=== PATIENT | female | born 1935 | race Caucasian/White ===

== ENCOUNTER 2016-05-08 10:13 | Emergency (ER) | payer OTHER ==
[~2016-05-08] VITALS: Ht 162.6 cm; Wt 61.0 kg
[~2016-05-08 10:13] MED LIST: ASPEC81 PO; ATOR-24 PO; CHOL100010 PO; COEN1CAP28 PO; DIGO0.122 PO; METO25TA3 PO; NITR0.4S UT
[2016-05-08 10:25] VITALS: TEMP 36.3; Ht 162.6 cm; Wt 61.0 kg
[2016-05-08] MEDS ORDERED: HYDROmorphone INJ 0.5 MG/0.5 ML SYR IV STA ×2 (10:39→11:45)
[2016-05-08] MEDS ORDERED: LORAZEPAM 2 MG/ML 1 ML VIAL IV STA (10:39)
[2016-05-08] MEDS ORDERED: SODIUM CHLORIDE 0.9% 1000ML 1,000 ML IV STA (10:39)
[2016-05-08] MEDS ORDERED: ONDANSETRON INJ 2 MG/ML 2 ML VIAL IV STA (10:44)
--- NOTE | 2016-05-08 10:44 | EMERGENCY ROOM VISIT NOTE ---
History Report prepared by Petros: Errol Sierra Under the Supervision of: Dr. Lucina Mello M.D. First contact with patient: 10:38 Chief Complaint: FALL Stated Complaint: SHOULDER PAIN History of Present Illness The patient is a 80 year old female who presents to the Emergency Room with complaints of an acute fall that occurred at approximately 0900. The patient patient started a treadmill that was initially at a high speed, which caused her to fall. The patient now complains of left shoulder pain. She is also nauseous. The patient hit her head when she fell. The patient takes Coumadin. The patient has a pacemaker. The patient has a history of MA and aortic valve replacement. The patient was given 75 mcg Fentanyl and 4 mg Zofran in the ambulance en route to the ED. Source of History: patient Onset: 0900 this morning Position: other (global) Quality: other (fall) Timing: other (acute) Associated Symptoms: + nausea Review of Systems See HPI for pertinent positives & negatives. A total of 10 systems reviewed and were otherwise negative. 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 (5) DIAB RAYNE WO COMPL, TYPE II OR UNSPEC TYPE, NOT UNCNTRLD (6) Diverticulosis of colon without diverticulitis (7) Dyslipidemia (8) Gastroesophageal reflux disease (9) History of adenomatous polyp of colon (10) History of cholecystectomy (11) History pacemaker insertion (12) Hypercalcemia (13) Primary hyperparathyroidism Family History Cancer Heart disease Social History Smoking Status: Never Smoker Alcohol Use: none Drug Use: none Marital Status: Housing Status: lives with family Occupation Status: retired Current/Historical Medications Scheduled Atorvastatin (Lipitor), 40 MG PO QPM Cholecalciferol (Vitamin D3), 1,000 UNITS PO DAILY Coenzyme Q10 (Ubidecarenone) (Co Q10), 100 MG PO DAILY Losartan Potassium (Cozaar), 100 MG PO DAILY Nitroglycerin (Nitrostat), 0.4 MG UT PRN Allergies Coded Allergies: Tetracycline (Verified Allergy, Unknown, RASH, 01/25/16) Morphine (Verified Adverse Reaction, Mild, "VIOLENTLY ILL", NAUSEA/ VOMITING, 01/25/16) Codeine (Verified Adverse Reaction, Unknown, N/V, 10/18/16) Physical Exam Vital Signs Date Time Temp Pulse Resp B/P Pulse Ox O2 Delivery O2 Flow Rate FiO2 05/08/16 15:28 62 18 110/81 90 Room Air 05/08/16 14:33 67 19 100 05/08/16 14:28 148/74 05/08/16 14:18 61 11 100 05/08/16 14:18 65 05/08/16 14:13 161/76 05/08/16 14:03 62 7 100 05/08/16 13:58 163/87 05/08/16 13:48 70 22 100 05/08/16 13:44 147/85 05/08/16 13:33 62 17 100 05/08/16 13:28 166/75 05/08/16 13:19 65 20 167/79 99 Nasal Cannula 2.0 05/08/16 13:18 63 17 94 05/08/16 13:14 167/79 05/08/16 13:03 62 19 100 05/08/16 12:58 189/80 05/08/16 12:48 64 20 100 05/08/16 12:43 172/91 05/08/16 12:33 60 21 100 05/08/16 12:28 186/85 05/08/16 12:18 62 19 98 05/08/16 12:13 168/89 05/08/16 12:03 64 18 93 05/08/16 11:58 67 19 157/80 05/08/16 11:44 180/94 05/08/16 11:43 67 19 05/08/16 11:28 68 20 195/87 05/08/16 11:13 65 27 189/89 95 05/08/16 11:02 72 24 159/104 05/08/16 11:01 159/104 05/08/16 11:01 69 05/08/16 10:58 72 28 95 05/08/16 10:28 176/94 05/08/16 10:25 36.3 76 20 176/94 88 Room Air Physical Exam Vital signs reviewed. General: Elderly, well-appearing female, significant discomfort. HEENT: No scleral icterus, PERRLA, neck supple. Atraumatic. Cardiovascular: Regular rate and rhythm, no extra sounds. Pacemaker in place to the left anterior chest wall. Pulmonary: Clear to auscultation bilaterally, normal work of breathing. Abdomen: Soft, nontender, nondistended, positive bowel sounds. Musculoskeletal: Left shoulder deformity. Neurovascularly intact distally Neurologic: Patient awake alert and oriented x 3, full strength in all 4 extremities. Cranial nerves 2 through 12 grossly intact. Skin: Warm, dry, no rash Medical Decision & Procedures ER Provider Diagnostic Interpretation: X-ray results as stated below per my interpretation and radiologist interpretation. Other radiology results as stated below per my review and radiologist interpretation: HEAD CT NONCONTRAST CT DOSE: 614.27 mGy.cm HISTORY: Closed head injury. TECHNIQUE: Multiaxial CT images of the head were performed without the use of intravenous contrast. Automated exposure control was utilized for this study. Comparison: Head CT 12/20/2012. Findings: The paranasal sinuses and mastoid air cells are clear. The calvarium and skull base are intact. There is no mass, hematoma, midline shift, acute infarct. White matter hypodensity is nonspecific but suggestive of microvascular ischemic change. The ventricles and sulci demonstrate mild age-related involutional changes. Impression: No significant change compared to the prior study. No acute intracranial abnormality. Electronically signed by: Jean-Claude Pro M.D. 05/08/2016 12:12 PM Dictated Date/Time: 05/08/2016 11:57 AM CHEST ONE VIEW PORTABLE HISTORY: Left-sided chest pain after fall. COMPARISON: Chest 01/25/2016. FINDINGS: No pleural effusions. No pneumothorax. The heart remains moderately enlarged. There is metallic stent overlying the heart. There is a left-sided single lead pacemaker. There is a right total shoulder arthroplasty. No focal lung consolidations to suggest pneumonia. No evidence for pulmonary edema. Mild interstitial thickening is likely chronic. Left anterior shoulder dislocation. IMPRESSION: 1. Left anterior shoulder dislocation. 2. Otherwise, no acute process within the chest. 3. Cardiomegaly and mild interstitial thickening persists. Electronically signed by: Jean-Claude Pro M.D. 05/08/2016 11:46 AM Dictated Date/Time: 05/08/2016 11:41 AM LEFT SHOULDER MIN 2 VIEWS ROUTINE CLINICAL HISTORY: L shoulder pain after fall trauma. Pain. COMPARISON: None. DISCUSSION: Findings consistent with an anterior dislocation of the left shoulder are in moderate degenerative change acromioclavicular joint. Pre-existing unipolar cardiac pacemaker. There is no evidence for soft tissue swelling. IMPRESSION: Anterior dislocation left shoulder Electronically signed by: Albert Hernandez M.D. 05/08/2016 11:23 AM Dictated Date/Time: 05/08/2016 11:23 AM LEFT SHOULDER MIN 2 VIEWS ROUTINE CLINICAL HISTORY: Status post left shoulder reduction. COMPARISON STUDY: Left shoulder 05/08/2016. FINDINGS: Patient is status post reduction of the left anterior shoulder dislocation. The alignment appears anatomic. No fractures identified. Chronic changes at the AC joint are again noted. No acute fractures identified clavicle. IMPRESSION: No acute fractures within the left shoulder. Status post reduction of the left shoulder dislocation. The alignment appears anatomic. Electronically signed by: Jean-Claude Pro M.D. 05/08/2016 2:10 PM Dictated Date/Time: 05/08/2016 2:07 PM Laboratory Results 05/08/16 11:30 Red Blood Count 4.67, Mean Corpuscular Volume 86.1, Mean Corpuscular Hemoglobin 29.1, Mean Corpuscular Hemoglobin Concent 33.8, Mean Platelet Volume 10.2, Neutrophils (%) (Auto) 75.5, Lymphocytes (%) (Auto) 16.1, Monocytes (%) (Auto) 6.4, Eosinophils (%) (Auto) 1.4, Basophils (%) (Auto) 0.1, Neutrophils # (Auto) 6.40, Lymphocytes # (Auto) 1.36, Monocytes # (Auto) 0.54, Eosinophils # (Auto) 0.12, Basophils # (Auto) 0.01 05/08/16 11:30 Test 05/08/16 11:30 White Blood Count 8.47 K/uL (4.8-10.8) Red Blood Count 4.67 M/uL (4.2-5.4) Hemoglobin 13.6 g/dL (12.0-16.0) Hematocrit 40.2 % (37-47) Mean Corpuscular Volume 86.1 fL (80-100) Mean Corpuscular Hemoglobin 29.1 pg (25-34) Mean Corpuscular Hemoglobin Concent 33.8 g/dl (32-36) Platelet Count 127 K/uL (130-400) Mean Platelet Volume 10.2 fL (7.4-10.4) Neutrophils (%) (Auto) 75.5 % Lymphocytes (%) (Auto) 16.1 % Monocytes (%) (Auto) 6.4 % Eosinophils (%) (Auto) 1.4 % Basophils (%) (Auto) 0.1 % Neutrophils # (Auto) 6.40 K/uL (1.4-6.5) Lymphocytes # (Auto) 1.36 K/uL (1.2-3.4) Monocytes # (Auto) 0.54 K/uL (0.11-0.59) Eosinophils # (Auto) 0.12 K/uL (0-0.5) Basophils # (Auto) 0.01 K/uL (0-0.2) RDW Standard Deviation 43.8 fL (36.4-46.3) RDW Coefficient of Variation 14.1 % (11.5-14.5) Immature Granulocyte % (Auto) 0.5 % Immature Granulocyte # (Auto) 0.04 K/uL (0.00-0.02) Prothrombin Time 27.8 SECONDS (9.0-12.0) Prothromb Time International Ratio 2.5 (0.9-1.1) Activated Partial Thromboplast Time 31.8 SECONDS (21.0-31.0) Partial Thromboplastin Ratio 1.2 Anion Gap 9.0 mmol/L (3-11) Est Creatinine Clear Calc Drug Dose 47.5 ml/min Estimated GFR () 77.7 Estimated GFR (Non- 67.1 BUN/Creatinine Ratio 24.5 (10-20) Calcium Level 9.8 mg/dl (8.5-10.1) Total Bilirubin 0.8 mg/dl (0.2-1) Direct Bilirubin 0.2 mg/dl (0-0.2) Aspartate Amino Transf (AST/SGOT) 21 U/L (15-37) Alanine Aminotransferase (ALT/SGPT) 28 U/L (12-78) Alkaline Phosphatase 85 U/L (45-117) Total Protein 7.2 gm/dl (6.4-8.2) Albumin 4.0 gm/dl (3.4-5.0) Laboratory results per my review. Medications Administered Medications (Trade) Dose Ordered Sig/Juancho Route Start Time Stop Time Status Last Admin Dose Admin Hydromorphone HCl (Dilaudid Inj) 0.5 mg NOW STAT IV 1/30/17 10:39 05/08/16 15:13 DC 05/08/16 10:51 0.5 MG Lorazepam 0.5 mg 0.5 mg NOW STAT IV 05/08/16 10:39 05/08/16 15:13 DC 05/08/16 10:50 0.5 MG Sodium Chloride (Nss 1000ml) 1,000 ml @ 125 mls/hr Q8H STAT IV 05/08/16 10:39 05/08/16 17:34 DC 05/08/16 10:50 125 MLS/HR Ondansetron HCl (Zofran Inj) 4 mg NOW STAT IV 05/08/16 10:44 05/08/16 15:13 DC 05/08/16 11:00 4 MG Hydromorphone HCl (Dilaudid Inj) 0.5 mg NOW STAT IV 05/08/16 11:45 05/08/16 15:15 DC 05/08/16 11:49 0.5 MG Procedure Anterior Shoulder Dislocation Reduction Indication: Anterior shoulder reduction. Verbal consent obtained. Risks and benefits were explained with the usual customary discussion. A time out was taken. Neurovascular examination before the procedure revealed intact. No additional sedation was required. The left shoulder glenohumeral dislocation was reduced by placing the patient prone and applying gentle downward inline traction on the humerus, with the elbow flexed at 90 degrees, while scapula manipulation was applied. This resulted in an easy reduction without complication. Neurovascular examination after the procedure revealed intact. The patient had significant pain relief and tolerated the procedure well. ED Course 1038: Past medical records reviewed. The patient was evaluated in room C2b. A complete history and physical examination was performed. 1039: NSS 1000 ml @ 125 mls/hr, Ativan 0.5 mg IV, Dilaudid 0.5 mg IV. 1044: Zofran 4 mg IV. 1145: Dilaudid 0.5 mg IV. 1355: Shoulder reduction performed. Please see procedural note above. 1455: Reassessed the patient. Discussed the findings with her. She verbalized understanding and agreement of the treatment plan. The patient is ready for discharge. Medical Decision Differential diagnosis: Etiologies such as fracture, dislocation, neurovascular compromise, compartment syndrome, soft tissue injury, as well as others were entertained. This patient was evaluated and appeared to be in no significant distress. IV access was obtained and laboratory work was drawn. The patient was placed on the environmental monitoring specialist and found to be in a normal sinus rhythm. She had significant pain and was given IV Dilaudid. Patient was significantly anxious and was given IV Ativan for her anxiety. X-rays were obtained and reveal no fracture but a positive shoulder dislocation. Patient was placed in the prone position. The shoulder was reduced without any difficulty. Please see my procedure note above. The patient had significant resolution of her pain and she was placed in a sling. Postreduction films were taken and reveal the shoulder in good position. Ice was applied. Patient was discharged after an ambulatory trial was successful. She'll follow-up with orthopedics for reevaluation and return to the ER for worsening of symptoms or any medical concerns. Impression Primary Impression: Dislocation, shoulder, anterior Scribe Attestation The scribe's documentation has been prepared under my direction and personally reviewed by me in its entirety. I confirm that the note above accurately reflects all work, treatment, procedures, and medical decision making performed by me. Departure Information Dispostion Home / Self-Care Referrals Jaron Harper MD (PCP) Forms HOME CARE DOCUMENTATION FORM, IMPORTANT VISIT INFORMATION Patient Instructions My [facility] Additional Instructions Diagnosis: Left shoulder dislocation Please wear your sling until you are reevaluated by orthopedics. Please call Dr. Fernandez's office, see below, for follow-up within the next week. Ice to the shoulder for pain and swelling. Tylenol 650 mg every 6 hours as needed for pain. Return to the emergency department for worsening of symptoms or any medical concerns. Problem Qualifiers Primary Impression: Dislocation, shoulder, anterior Encounter type: initial encounter Laterality: left Qualified Codes: S43.015A - Anterior dislocation of left humerus, initial encounter
--- NOTE | 2016-05-08 11:25 | DIAGNOSTIC IMAGING REPORT ---
LEFT SHOULDER MIN 2 VIEWS ROUTINE CLINICAL HISTORY: L shoulder pain after fall trauma. Pain. COMPARISON: None. DISCUSSION: Findings consistent with an anterior dislocation of the left shoulder are in moderate degenerative change acromioclavicular joint. Pre-existing unipolar cardiac pacemaker. There is no evidence for soft tissue swelling. IMPRESSION: Anterior dislocation left shoulder Electronically signed by: Albert Hernandez M.D. 05/08/2016 11:23 AM Dictated Date/Time: 05/08/2016 11:23 AM
[2016-05-08] MEDS ORDERED: LOSA1TAB38 PO (11:27)
[2016-05-08] MEDS ORDERED: CHOL1000 PO (11:28)
[2016-05-08 11:47] LABS: RED BLOOD COUNT 4.67 M/uL (4.2-5.4); WHITE BLOOD COUNT 8.47 K/uL (4.8-10.8)
--- NOTE | 2016-05-08 11:47 | DIAGNOSTIC IMAGING REPORT ---
CHEST ONE VIEW PORTABLE HISTORY: Left-sided chest pain after fall. COMPARISON: Chest 01/25/2016. FINDINGS: No pleural effusions. No pneumothorax. The heart remains moderately enlarged. There is metallic stent overlying the heart. There is a left-sided single lead pacemaker. There is a right total shoulder arthroplasty. No focal lung consolidations to suggest pneumonia. No evidence for pulmonary edema. Mild interstitial thickening is likely chronic. Left anterior shoulder dislocation. IMPRESSION: 1. Left anterior shoulder dislocation. 2. Otherwise, no acute process within the chest. 3. Cardiomegaly and mild interstitial thickening persists. Electronically signed by: Jean-Claude Pro M.D. 05/08/2016 11:46 AM Dictated Date/Time: 05/08/2016 11:41 AM
[2016-05-08 11:48] LABS: BASO % 0.1 %; BASO ABS # 0.01 K/uL (0-0.2); COMPLETE YES; EOS % 1.4 %; HEMATOCRIT 40.2 % (37-47); IG% 0.5 %; LYMPH % 16.1 %; LYMPH ABS # 1.36 K/uL (1.2-3.4); MEAN CELL VOLUME 86.1 fL (80-100); MEAN CORPUSCULAR HEMOGLOBIN 29.1 pg (25-34); MEAN CORPUSCULAR HGB CONC 33.8 g/dl (32-36); MEAN PLATELET VOLUME 10.2 fL (7.4-10.4); MONO % 6.4 %; NEUT % 75.5 %; PLATELET COUNT 127 K/uL (130-400)
[2016-05-08 12:00] LABS: INR 2.5 (0.9-1.1); PARTIAL THROMBOPLASTIN RATIO 1.2; PROTHROMBIN TIME (PATIENT) 27.8 SECONDS (9.0-12.0)
--- NOTE | 2016-05-08 12:13 | DIAGNOSTIC IMAGING REPORT ---
HEAD CT NONCONTRAST CT DOSE: 614.27 mGy.cm HISTORY: Closed head injury. TECHNIQUE: Multiaxial CT images of the head were performed without the use of intravenous contrast. Automated exposure control was utilized for this study. Comparison: Head CT 12/20/2012. Findings: The paranasal sinuses and mastoid air cells are clear. The calvarium and skull base are intact. There is no mass, hematoma, midline shift, acute infarct. White matter hypodensity is nonspecific but suggestive of microvascular ischemic change. The ventricles and sulci demonstrate mild age-related involutional changes. Impression: No significant change compared to the prior study. No acute intracranial abnormality. Electronically signed by: Jean-Claude Pro M.D. 05/08/2016 12:12 PM Dictated Date/Time: 05/08/2016 11:57 AM
[2016-05-08 12:21] LABS: BUN/CREATININE RATIO 24.5 (10-20); CALCIUM 9.8 mg/dl (8.5-10.1); CREATININE 0.83 mg/dl (0.60-1.20); POTASSIUM 3.7 mmol/L (3.5-5.1)
--- NOTE | 2016-05-08 14:11 | DIAGNOSTIC IMAGING REPORT ---
LEFT SHOULDER MIN 2 VIEWS ROUTINE CLINICAL HISTORY: Status post left shoulder reduction. COMPARISON STUDY: Left shoulder 05/08/2016. FINDINGS: Patient is status post reduction of the left anterior shoulder dislocation. The alignment appears anatomic. No fractures identified. Chronic changes at the AC joint are again noted. No acute fractures identified clavicle. IMPRESSION: No acute fractures within the left shoulder. Status post reduction of the left shoulder dislocation. The alignment appears anatomic. Electronically signed by: Jean-Claude Pro M.D. 05/08/2016 2:10 PM Dictated Date/Time: 05/08/2016 2:07 PM
[2016-05-08 15:28] VITALS: BP 110/81; PULSE 62; O2SAT 90
== END 2016-05-08 15:47 | disposition home or self-care (01) ==
LOC: EDBD 10:13 → C.EDC 10:15
DX: S43.015A Anterior dislocation of left humerus, initial encounter (principal); W19.XXXA Unspecified fall, initial encounter; Y93.A1 Activity, exercise machines primarily for cardiorespiratory conditioning; Z95.0 Presence of cardiac pacemaker; I25.2 Old myocardial infarction; Z95.2 Presence of prosthetic heart valve; I48.91 Unspecified atrial fibrillation; I10 Essential (primary) hypertension; I25.10 Atherosclerotic heart disease of native coronary artery without angina pectoris; E11.9 Type 2 diabetes mellitus without complications; E78.5 Hyperlipidemia, unspecified; K21.9 Gastro-esophageal reflux disease without esophagitis; Z90.49 Acquired absence of other specified parts of digestive tract; Z80.9 Family history of malignant neoplasm, unspecified; Z82.49 Family history of ischemic heart disease and other diseases of the circulatory system; Z88.1 Allergy status to other antibiotic agents; Z88.5 Allergy status to narcotic agent

== ENCOUNTER 2016-11-24 13:27 | Emergency (ER) | payer OTHER ==
[~2016-11-24] VITALS: Ht 162.6 cm; Wt 62.0 kg
[~2016-11-24 13:27] MED LIST changes: -ASPEC81 PO; +CHOL1000 PO; -CHOL100010 PO; -DIGO0.122 PO; +LOSA1TAB38 PO; -METO25TA3 PO
[2016-11-24 13:42] VITALS: TEMP 36.6; Ht 162.6 cm; Wt 62.0 kg
--- NOTE | 2016-11-24 14:22 | EMERGENCY ROOM VISIT NOTE ---
History Report prepared by Petros: Tea Blandon Under the Supervision of: Dr. Favio Gudino M.D. First contact with patient: 13:59 Chief Complaint: OTHER COMPLAINT Stated Complaint: TOOK 'S MEDICATION THIS MORNING History of Present Illness The patient is a 81 year old female who presents to the Emergency Room with complaints of an episode of accidentally taking her husbands medication about 5 hours ago. The patient states that she had a headache earlier today that has since resolved. She also notes that she forgot to take her normal medication yesterday and that she has since not taken her prescribed medication today. The patient notes that she has a stent, a pacemaker, and an artificial aortic valve in place. She also notes that she had a heart attack a few years ago. The patient states that she took her 's Warfarin, Metoprolol, Cogentin, Isosorbide, Thyroxine, Dutasteride, ASA, and Coumadin. The patient is on Coumadin as well but on a lower dosage than her . She takes the same dose of Metoprolol as her . Source of History: patient Onset: 5 hours ago Position: other (generalized) Timing: other (episode) Associated Symptoms: + headache (resolved) Review of Systems See HPI for pertinent positives & negatives. A total of 10 systems reviewed and were otherwise negative. 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 (5) DIAB RAYNE WO COMPL, TYPE II OR UNSPEC TYPE, NOT UNCNTRLD (6) Diverticulosis of colon without diverticulitis (7) Dyslipidemia (8) Gastroesophageal reflux disease (9) History of adenomatous polyp of colon (10) History of cholecystectomy (11) History pacemaker insertion (12) Hypercalcemia (13) Primary hyperparathyroidism Surgical Problems: (1) Aortic valve replaced Family History Cancer Heart disease Social History Smoking Status: Never Smoker Alcohol Use: none Drug Use: none Marital Status: Housing Status: lives with family Occupation Status: retired Current/Historical Medications Scheduled Aspirin (Aspirin Ec), 81 MG PO DAILY Atorvastatin (Lipitor), 40 MG PO QPM Chlorpromazine Hcl (Thorazine), 10 MG PO DAILY Cholecalciferol (Vitamin D3), 1,000 UNITS PO DAILY Coenzyme Q10 (Ubidecarenone) (Co Q10), 100 MG PO DAILY Digoxin (Digoxin), 1 TAB PEG 5XWK Metoprolol Succ (Toprol Xl) (Toprol-Xl), 25 MG PO DAILY Nitroglycerin (Nitrostat), 0.4 MG UT PRN Warfarin Sod (Jantoven), 4 MG PO DAILY Allergies Coded Allergies: Tetracycline (Verified Allergy, Unknown, RASH, 11/24/16) Morphine (Verified Adverse Reaction, Mild, "VIOLENTLY ILL", NAUSEA/ VOMITING, 11/24/16) Codeine (Verified Adverse Reaction, Unknown, N/V, 11/24/16) Physical Exam Vital Signs Date Time Temp Pulse Resp B/P (MAP) Pulse Ox O2 Delivery O2 Flow Rate FiO2 11/24/16 17:14 68 11/24/16 16:19 63 16 106/61 94 Room Air 11/24/16 15:58 61 16 103/59 93 Room Air 11/24/16 15:13 63 16 108/59 93 Room Air 11/24/16 14:52 62 11/24/16 13:42 36.6 76 20 101/58 96 Room Air Physical Exam GENERAL: Patient is in no acute distress. HEENT: No acute trauma, normocephalic atraumatic, mucous membranes moist, no nasal congestion, no scleral icterus. NECK: No stridor, no adenopathy, no meningismus, trachea is midline. LUNGS: Clear to auscultation bilaterally, no wheeze, no rhonchi, breath sounds equal. HEART: 4/6 systolic murmur with a regular rate and rhythm ABDOMEN: Soft, nontender, bowel sounds positive, no hernias, no peritonitis. EXTREMITIES: No cyanosis or edema, full range of motion of all the joints without pain or difficulty, no signs for acute trauma. NEUROLOGIC: Oriented x 3, no acute motor or sensory deficits, no focal weakness. SKIN: No rash, no jaundice, no diaphoresis. Medical Decision & Procedures Laboratory Results 11/24/16 14:40 11/24/16 14:40 Test 11/24/16 14:40 Red Blood Count 4.40 M/uL (4.2-5.4) Mean Corpuscular Volume 87.5 fL (80-100) Mean Corpuscular Hemoglobin 30.0 pg (25-34) Mean Corpuscular Hemoglobin Concent 34.3 g/dl (32-36) RDW Standard Deviation 45.5 fL (36.4-46.3) RDW Coefficient of Variation 14.2 % (11.5-14.5) Mean Platelet Volume 9.8 fL (7.4-10.4) Prothrombin Time 22.8 SECONDS (9.0-12.0) Prothromb Time International Ratio 2.1 (0.9-1.1) Activated Partial Thromboplast Time 34.7 SECONDS (21.0-31.0) Partial Thromboplastin Ratio 1.3 Anion Gap 3.0 mmol/L (3-11) Est Creatinine Clear Calc Drug Dose 46.2 ml/min Estimated GFR () 76.1 Estimated GFR (Non- 65.6 BUN/Creatinine Ratio 27.5 (10-20) Calcium Level 10.1 mg/dl (8.5-10.1) Digoxin Level 0.3 ng/ml (0.8-2.0) Laboratory results reviewed by me. ECG Indication: other (accidental medication intake) Rate (beats per minute): 78 Rhythm: other (ventricular pacemaker) Findings: no acute ischemic change, no ectopy ED Course 1410: The patient was evaluated in room B9. A complete history and physical exam was performed. 1419: I talked to [facility] about the patient's case. They do not believe any of the medications she took should be an issue. 1506: I reevaluated the patient, she is resting comfortably. 1720: Reevaluated the patient. Discussed results and discharge instructions: She verbalized understanding and agreement. The patient is ready for discharge. Medical Decision Differential diagnosis includes but is not limited to accidental medication intake, hypotension, bradycardia, coagulopathy, and digoxin toxicity. There is no leukocytosis or concerning anemia. INR is therapeutic for someone using Coumadin. No renal failure or significant electrolyte abnormality. EKG shows a functioning ventricular pacemaker. Digoxin level was not toxic. Currently, the patient has no complaints. She is not short of breath, she is not dizzy or lightheaded. She feels at her baseline. I did speak to the poison center, none of the meds she took should be an issue. Close INR checking was recommended. The patient is being discharged. She will resume her normal medications tomorrow. She was reassured. Medication Reconcilliation Current Medication List: was personally reviewed by me Blood Pressure Screening Patient's blood pressure: Low blood pressure Blood pressure disposition: Did not require urgent referral Impression Primary Impression: Accidental drug ingestion Scribe Attestation The scribe's documentation has been prepared under my direction and personally reviewed by me in its entirety. I confirm that the note above accurately reflects all work, treatment, procedures, and medical decision making performed by me. Departure Information Dispostion Home / Self-Care Referrals Jaron Harper MD (PCP) Forms HOME CARE DOCUMENTATION FORM, IMPORTANT VISIT INFORMATION, WORK / SCHOOL INSTRUCTIONS Patient Instructions My [facility] Additional Instructions you may resume your normal meds tomorrow INR should be rechecked in a few days as discussed return if worsening
[2016-11-24 15:02] LABS: INR 2.1 (0.9-1.1); PARTIAL THROMBOPLASTIN RATIO 1.3; PROTHROMBIN TIME (PATIENT) 22.8 SECONDS (9.0-12.0)
[2016-11-24] MEDS ORDERED: WARF4TAB8 PO (15:05)
[2016-11-24] MEDS ORDERED: ASPI81TA28 PO (15:05)
[2016-11-24] MEDS ORDERED: LNX125 PEG (15:05)
[2016-11-24] MEDS ORDERED: CHLO1TAB38 PO (15:05)
[2016-11-24] MEDS ORDERED: METO25TA3 PO (15:05)
[2016-11-24 15:07] LABS: HEMATOCRIT 38.5 % (37-47); MEAN CELL VOLUME 87.5 fL (80-100); MEAN CORPUSCULAR HGB CONC 34.3 g/dl (32-36); MEAN PLATELET VOLUME 9.8 fL (7.4-10.4); PLATELET COUNT 157 K/uL (130-400); WHITE BLOOD COUNT 6.14 K/uL (4.8-10.8)
[2016-11-24 15:23] LABS: BUN/CREATININE RATIO 27.5 (10-20); CALCIUM 10.1 mg/dl (8.5-10.1); CREATININE 0.84 mg/dl (0.60-1.20)
[2016-11-24 17:36] VITALS: BP 113/59; PULSE 62; O2SAT 96
== END 2016-11-24 17:36 | disposition home or self-care (01) ==
LOC: C.EDB 13:29
DX: Z03.6 Encounter for observation for suspected toxic effect from ingested substance ruled out (principal); I48.91 Unspecified atrial fibrillation; I10 Essential (primary) hypertension; I25.10 Atherosclerotic heart disease of native coronary artery without angina pectoris; E11.9 Type 2 diabetes mellitus without complications; E78.5 Hyperlipidemia, unspecified; K57.30 Diverticulosis of large intestine without perforation or abscess without bleeding; K21.9 Gastro-esophageal reflux disease without esophagitis; E83.52 Hypercalcemia; E21.0 Primary hyperparathyroidism; I25.2 Old myocardial infarction; Z79.01 Long term (current) use of anticoagulants; Z79.82 Long term (current) use of aspirin; Z95.0 Presence of cardiac pacemaker; Z95.5 Presence of coronary angioplasty implant and graft; Z95.2 Presence of prosthetic heart valve

== ENCOUNTER → 2017-05-11 | Day surgery (SDC) | payer OTHER ==
[2017-05-07 13:40] VITALS: BMI 24.0
--- NOTE | 2017-05-07 14:33 | PAT Medication Instructions ---
Service Date May 07, 2017. Current Home Medication List Acetaminophen (Tylenol), 325 MG PO Q4 PRN for PRN Aspirin (Aspirin Ec), 81 MG PO QAM Atorvastatin (Lipitor), 40 MG PO QPM Cholecalciferol (Vitamin D3), 1,000 UNITS PO QAM Coenzyme Q10 (Ubidecarenone) (Co Q10), 100 MG PO QAM Enoxaparin (Lovenox), Unknown Dose SQ BID Ipratropium-Albuterol (Duoneb), Unknown Dose INH UD PRN for PRN Metoprolol Succ (Toprol Xl) (Toprol-Xl), 25 MG PO QAM Nitroglycerin (Nitrostat), 0.4 MG UT PRN Sertraline (Zoloft), 50 MG PO HS Torsemide (Demadex), Unknown Dose PO UD Warfarin Sod (Jantoven), 4 MG PO 6XWEEK Warfarin Sod (Warfarin Sodium), 6 MG PO 1XWEEK [Digoxin], 125 MCG PO 5XWK Medication Instructions For Your Scheduled Surgery -Take as directed by the [facility] Anticoagulation clinic: Enoxaparin (Lovenox), Unknown Dose SQ BID Warfarin Sod (Jantoven), 4 MG PO 6XWEEK Warfarin Sod (Warfarin Sodium), 6 MG PO 1XWEEK -Continue as directed: Nitroglycerin (Nitrostat), 0.4 MG UT PRN - Hold the following medications starting today (05/07): Coenzyme Q10 (Ubidecarenone) (Co Q10), 100 MG PO QAM - Hold the following medications the morning of surgery: Torsemide (Demadex), Unknown Dose PO UD Cholecalciferol (Vitamin D3), 1,000 UNITS PO QAM - Take the following medications the morning of surgery with a sip of water: [Digoxin], 125 MCG PO 5XWK Ipratropium-Albuterol (Duoneb), Unknown Dose INH UD PRN for PRN (if needed) Metoprolol Succ (Toprol Xl) (Toprol-Xl), 25 MG PO QAM Acetaminophen (Tylenol), 325 MG PO Q4 PRN for PRN (if needed, can be taken up to four hours before surgery) Aspirin (Aspirin Ec), 81 MG PO QAM (unless otherwise instructed by surgeon) - Take the following medications as scheduled the night before surgery: Sertraline (Zoloft), 50 MG PO HS Acetaminophen (Tylenol), 325 MG PO Q4 PRN for PRN (if needed) Atorvastatin (Lipitor), 40 MG PO QPM Ipratropium-Albuterol (Duoneb), Unknown Dose INH UD PRN for PRN (if needed) If you have any questions please call us at [phone] or [phone] or [phone]
[~2017-05-11] VITALS: Ht 162.6 cm; Wt 63.7 kg
[~2017-05-11] MED LIST changes: +ACET-1311 PO; +ASPI81TA28 PO; +ATROPINE SULFATE 0.1 MG/ML 5ML SYR IV PRN; +CMD/3 PO; +DIGOXIN PO; +ENOX30IN4 SQ; +EpHEDrine SULFATE INJ 50 MG/ML AMP IV PRN; +FENTANYL CITRATE INJ 50 MCG/1 ML 2 ML VIAL IV PRN; +FENTANYL CITRATE INJ 50 MCG/1 ML 2 ML VIAL ONE; +HYDROmorphone INJ 1 MG/ML SYR IV PRN; +IBUP600T44 PO; +IBUPROFEN 600 MG TAB PO PRN; +IPRASOL4 INH; +LABETALOL HCL IV 5 MG/ML 20ML IV PRN; +LACTATED RINGER'S 1000ML 1,000 ML IV SCH; +LIDOCAINE HCL 2% 2 ML VIAL (20MG/ML) ONE; -LOSA1TAB38 PO; +MEPERIDINE HCL 25 MG/ML CARP IV PRN; +METO25TA3 PO; +MIDAZOLAM HCL 1 MG/ML 2ML VIAL ONE; +ONDANSETRON INJ 2 MG/ML 2 ML VIAL IV PRN; +ONDANSETRON INJ 2 MG/ML 2 ML VIAL ONE; +OXYCODONE/ACETAMINOPHEN 5-325 TAB PO PRN; +PROPOFOL IV EMULSION 10 MG/ML 20 ML VIAL IV ONE; +SERT50TA PO; +SODIUM CHLORIDE 0.9% 1000ML 1,000 ML IV SCH; +TORS20TA2 PO; +WARF4TAB8 PO
[2017-05-11 05:46] VITALS: BP 132/76; PULSE 81; TEMP 36.6; O2SAT 95; Ht 162.6 cm; Wt 63.7 kg
[2017-05-11 05:50] LABS: BASO % 0.6 %; BASO ABS # 0.03 K/uL (0-0.2); EOS % 3.6 %; EOS ABS # 0.19 K/uL (0-0.5); HEMATOCRIT 38.1 % (37-47); HEMOGLOBIN 12.9 g/dL (12.0-16.0); IG# 0.06 K/uL (0.00-0.02); LYMPH % 24.9 %; LYMPH ABS # 1.31 K/uL (1.2-3.4); MEAN CELL VOLUME 88.8 fL (80-100); MEAN CORPUSCULAR HEMOGLOBIN 30.1 pg (25-34); MEAN PLATELET VOLUME 9.4 fL (7.4-10.4); MONO % 9.5 %; NEUT % 60.3 %; NEUT ABS # 3.17 K/uL (1.4-6.5); PLATELET COUNT 132 K/uL (130-400); RED CELL DISTRIBUTION WIDTH CV 14.2 % (11.5-14.5); RED CELL DISTRIBUTION WIDTH SD 45.3 fL (36.4-46.3); WHITE BLOOD COUNT 5.26 K/uL (4.8-10.8)
[2017-05-11 05:57] LABS: MEAN CORPUSCULAR HGB CONC 33.9 g/dl (32-36)
[2017-05-11 06:02] LABS: INR 1.1 (0.9-1.1); PTT PATIENT 28.7 SECONDS (21.0-31.0)
--- NOTE | 2017-05-11 06:51 | History & Physical Bridge Note ---
H&P Re-Evaluation Bridge Note: I have examined the patient, reviewed the History & Physical and in the interval since the performance of the History & Physical I have noted the following changes of clinical significance: No changes noted
--- NOTE | 2017-05-11 07:54 | [facility] Post Operative Brief Note ---
Immediate Operative Summary Operative Date May 11, 2017. Pre-Operative Diagnosis Postmenopausal Bleeding, Thickened endometrium Post-Operative Diagnosis Postmenopausal Bleeding, Thickened Endometrium, Endometrial polyp Procedure(s) Performed D&C, Hysteroscopy, Myosure polypectomy Surgeon Dr. Espinoza Right Of Way Man Surgeon(s) None Estimated Blood Loss 20 Findings Consistent with Post-Op Diagnosis Fluids (cc crystalloids) 600 Specimens Endometrial polyp and curettings Drains None Anesthesia Type General Complication(s) none Disposition Disposition: Recovery Room / PACU
--- NOTE | 2017-05-11 07:58 | Discharge Instructions ---
Discharge Instructions Date of Service May 11, 2017. Visit Reason for Visit: Postmenopausal Bleeding, Thickened Endometrium Discharge Discharge Diagnosis / Problem: D&C, Hysteroscopy, Myosure polypectomy Discharge Goals Goal(s): Decrease discomfort, Improve function Activity Recommendations Activity Limitations: per Instructions/Follow-up section Anesthesia . Post Anesthesia Instructions: If you have had General Anesthesia or IV Sedation: * Do not drive today. * Resume driving when surgeon permits. * Do not make important decisions or sign legal documents today. * Call surgeon for: 1. Temperature elevations greater than 101 degrees F. 2. Uncontrollable pain. 3. Excessive bleeding. 4. Persistent nausea and vomiting. 5. Medication intolerance (nausea, vomiting or rash). * For nausea and vomiting use only clear liquids such as: tea, soda, bouillon until nausea subsides, then gradually increase diet as tolerated. * If you have any concerns or questions, call your surgeon's office. If physician is unavailable and it is an emergency, call 911 or go to the nearest emergency room. . Instructions / Follow-Up Instructions / Follow-Up ACTIVITY RECOMMENDATIONS: * Avoid tampons, douching, hot tubs, pools, and intercourse until bleeding has stopped. * May shower as usual. * No strenuous activity for 24-48 hours. After 24-48 hours, you can do anything you feel like doing (driving and sports are okay). RETURN TO SCHOOL/WORK: * You may return to school or work after 24 hours unless specified by your physician. DIET: * Resume previous diet. MEDICATIONS: Resume previous medications unless instructed otherwise by your surgeon. Ibuprofen 200mg 2-3 tablets every 4-6 hours as needed --OR-- Aleve 2 tablets every 8-12 hours as needed for post-operative discomfort Medications are over the counter. Tylenol may be used if above medications are contraindicated or not preferred. Medication should be taken with food or milk. do not take on an empty stomach. SPECIAL CARE INSTRUCTIONS: * Check temperature twice daily for one week. Report any elevation over 101 degrees. * Call office if you experience increased pelvic pain or discomfort not relieved by pain medicine, if you have foul smelling vaginal discharge, if you have bleeding that is heavier than a normal menstrual flow. If you are changing a maxi pad every 1- 2 hours, this is too heavy. vaginal spotting is normal for 1-2 weeks. FOLLOW UP VISIT: Call your doctor's office for a post-operative visit. Diet Recommendations Recommended Home Diet: no limitations, resume previous diet Procedures Procedures Performed: D&C, Hysteroscopy, Myosure polypectomy Pending Studies Studies pending at discharge: no Medical Emergencies . Who to Call and When: Medical Emergencies: If at any time you feel your situation is an emergency, please call 911 immediately. . Non-Emergent Contact Non-Emergency issues call your: Primary Care Provider, [employer] Professor . . "Provider Documentation" section prepared by Fabian Espinoza. .
--- NOTE | 2017-05-11 08:23 | Anesthesiology Progress Note ---
Anesthesia Post Op Note Date & Time May 11, 2017 at 08:23 Vital Signs Pain Intensity: 0 Vital Signs Past 12 Hours Date Time Temp Pulse Resp B/P (MAP) Pulse Ox O2 Delivery O2 Flow Rate FiO2 05/11/17 08:11 141/82 05/11/17 08:09 60 16 05/11/17 08:09 60 16 100 05/11/17 08:06 146/79 05/11/17 08:04 60 23 100 05/11/17 08:04 60 23 05/11/17 08:01 144/80 05/11/17 07:59 61 18 05/11/17 07:59 61 18 100 05/11/17 07:56 153/83 05/11/17 07:54 64 20 151/88 99 05/11/17 07:54 66 20 05/11/17 07:54 36.2 63 19 151/88 (102) 97 Oxymask 10 05/11/17 05:46 36.6 81 18 132/76 (94) 95 Room Air Notes Mental Status: alert / awake / arousable, participated in evaluation Pt Amnestic to Procedure: Yes Nausea / Vomiting: adequately controlled Pain: adequately controlled Airway Patency, RR, SpO2: stable & adequate BP & HR: stable & adequate Hydration State: stable & adequate Anesthetic Complications: no major complications apparent
--- NOTE | 2017-05-11 08:29 | OPERATIVE REPORT ---
DATE OF OPERATION: 05/11/2017 PREOPERATIVE DIAGNOSES: 1. Postmenopausal bleeding. 2. Thickened endometrium. POSTOPERATIVE DIAGNOSES: 1. Postmenopausal bleeding. 2. Thickened endometrium. 3. Endometrial polyp. OPERATIVE PROCEDURE: Dilation and curettage, hysteroscopy, MyoSure polypectomy. SURGEON: Fabian Espinoza DO. LETTERPRESS SETTER: None. ANESTHESIA: General. ESTIMATED BLOOD LOSS: 20 mL. IV FLUIDS: 600 mL crystalloids. URINE OUTPUT: 100 mL clear yellow urine. SPECIMENS: Endometrial polyp and curettings to pathology. DRAINS: None. COMPLICATIONS: None. DISPOSITION: Recovery room. OPERATIVE FINDINGS: Upon bimanual examination, uterus was at midline, anteverted and freely mobile. Bilateral adnexa were clear to palpation. Uterus sounded to 9 cm. Upon hysteroscopic exam, there was a 1-2 cm endometrial polyp located on the right posterior side wall which was successfully removed with the MyoSure. A copious amount of dark clotted blood was removed from the cavity and sent to pathology as well. A thorough curettage of the endometrial cavity was performed. All specimens were sent to pathology. No other pathology seen. The patient tolerated the procedure well and was sent to recovery with stable vital signs. OPERATIVE PROCEDURE IN DETAIL: The patient was taken to the operating room where general anesthesia was administered. Once the anesthesia was found to be adequate, the patient was prepped and draped in a manner appropriate for procedure. Bimanual examination was then performed. The bladder was then drained of clear yellow urine. A weighted speculum was then placed into the vagina and the anterior lip of the cervix was grasped with a single tooth tenaculum. The cervix was then dilated using Maria M dilators. The hysteroscope was introduced into the cavity and a thorough examination was performed. The hysteroscope was then removed. Utilizing a medium Singh curette, a thorough curettage of the endometrial cavity was performed obtaining a copious amount of dark clotted blood and tissue. All specimens were sent to pathology. The hysteroscope was then reintroduced into the cavity with better visualization. It was noted that there was a small 1-2 cm polyp on the right sided posterior wall of the endometrium. MyoSure was introduced into the cavity as well and the polyp was successfully removed and sent to pathology. No other polyps were seen. At this point, the procedure was found to be complete. All instruments were removed from the patient. Excellent hemostasis was noted. All sponge and instrument counts were found to be correct x2. The patient tolerated the procedure well and was sent to recovery with stable vital signs. I attest to the content of the Intraoperative Record and any orders documented therein. Any exception s are noted below.
[2017-05-11 08:51] VITALS: TEMP 36.7
[2017-05-11 09:35] VITALS: BP 144/70; PULSE 63; O2SAT 94
== END | disposition home or self-care (01) ==
LOC: C.ACU 04:56
PROVIDERS: ATTEND Obstetrics & Gynecology
DX: N95.0 Postmenopausal bleeding (principal); R93.8 Abnormal findings on diagnostic imaging of other specified body structures; N84.0 Polyp of corpus uteri; I25.10 Atherosclerotic heart disease of native coronary artery without angina pectoris; J45.909 Unspecified asthma, uncomplicated; I10 Essential (primary) hypertension; I48.91 Unspecified atrial fibrillation; E11.9 Type 2 diabetes mellitus without complications; E78.5 Hyperlipidemia, unspecified; F32.9 Major depressive disorder, single episode, unspecified; F41.9 Anxiety disorder, unspecified; I25.2 Old myocardial infarction; Z98.890 Other specified postprocedural states; Z79.01 Long term (current) use of anticoagulants; Z79.82 Long term (current) use of aspirin; Z88.5 Allergy status to narcotic agent; Z82.49 Family history of ischemic heart disease and other diseases of the circulatory system; Z80.3 Family history of malignant neoplasm of breast; Z80.0 Family history of malignant neoplasm of digestive organs; Z83.3 Family history of diabetes mellitus

== ENCOUNTER 2017-05-19 04:25 | Emergency (ER) | payer OTHER ==
[~2017-05-19] VITALS: Ht 162.6 cm; Wt 66.9 kg
[~2017-05-19 04:25] MED LIST changes: -ATROPINE SULFATE 0.1 MG/ML 5ML SYR IV PRN; -EpHEDrine SULFATE INJ 50 MG/ML AMP IV PRN; -FENTANYL CITRATE INJ 50 MCG/1 ML 2 ML VIAL IV PRN; -FENTANYL CITRATE INJ 50 MCG/1 ML 2 ML VIAL ONE; -HYDROmorphone INJ 1 MG/ML SYR IV PRN; -IBUPROFEN 600 MG TAB PO PRN; -LABETALOL HCL IV 5 MG/ML 20ML IV PRN; -LACTATED RINGER'S 1000ML 1,000 ML IV SCH; -LIDOCAINE HCL 2% 2 ML VIAL (20MG/ML) ONE; -MEPERIDINE HCL 25 MG/ML CARP IV PRN; -MIDAZOLAM HCL 1 MG/ML 2ML VIAL ONE; -ONDANSETRON INJ 2 MG/ML 2 ML VIAL IV PRN; -ONDANSETRON INJ 2 MG/ML 2 ML VIAL ONE; -OXYCODONE/ACETAMINOPHEN 5-325 TAB PO PRN; -PROPOFOL IV EMULSION 10 MG/ML 20 ML VIAL IV ONE; -SODIUM CHLORIDE 0.9% 1000ML 1,000 ML IV SCH
[2017-05-19 04:35] VITALS: TEMP 36.6; Ht 162.6 cm; Wt 66.9 kg
[2017-05-19 04:40] VITALS: O2SAT 95
--- NOTE | 2017-05-19 06:08 | EMERGENCY ROOM VISIT NOTE ---
History Report prepared by Petros: Conner Mora Under the Supervision of: Dr. Chilo Mendez M.D. First contact with patient: 04:45 Chief Complaint: ANKLE PAIN Stated Complaint: ANKLE PAIN History of Present Illness The patient is a 81 year old female who presents to the Emergency Room with complaints of of right calf pain that began 2 days ago. Patient states that the pain radiates to her ankle. She describes the pain as "stinging". Patient has associated symptoms of right calf swelling. Patient adds that she had a D&C procedure done a week ago due to vaginal discharge. Patient was told to hold on Coumadin and bridge to Lovenox following the procedure. Patient states that she takes Coumadin for a history of aortic valve replacement, cardiac surgery, and a previous heart attack. Patient denies pain with movement or range of motion. Patient states that she has had leg swelling since the surgery. Patient denies any recent falls, trauma to the area, rashes, shortness of breath, chest pain, weakness, or syncopal episodes. Source of History: patient Onset: 2 days ago Position: other (Right calf) Quality: other (Stinging) Associated Symptoms: No chest pain, No SOB, No weakness, No rash Note: Patient has right calf swelling. Patient denies recent falls, trauma to the area , or syncopal episodes. Review of Systems See HPI for pertinent positives & negatives. A total of 10 systems reviewed and were otherwise negative. 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, TYPE II OR UNSPEC TYPE, NOT UNCNTRLD (6) Diverticulosis of colon without diverticulitis (7) Dyslipidemia (8) Gastroesophageal reflux disease (9) History of adenomatous polyp of colon (10) History of cholecystectomy (11) History pacemaker insertion (12) Hypercalcemia (13) Primary hyperparathyroidism Surgical Problems: (1) Aortic valve replaced Family History Cancer Heart disease Social History Smoking Status: Never Smoker Alcohol Use: none Drug Use: none Marital Status: Housing Status: lives with family Occupation Status: retired Current/Historical Medications Scheduled Aspirin (Aspirin Ec), 81 MG PO QAM Atorvastatin (Lipitor), 40 MG PO QPM Cholecalciferol (Vitamin D3), 1,000 UNITS PO QAM Coenzyme Q10 (Ubidecarenone) (Co Q10), 100 MG PO QAM Digoxin (Digoxin), 0.125 MG PO 5XWK Enoxaparin (Lovenox), Unknown Dose SQ BID Metoprolol Succ (Toprol Xl) (Toprol-Xl), 25 MG PO QAM Nitroglycerin (Nitrostat), 0.4 MG UT PRN Sertraline (Zoloft), 50 MG PO HS Torsemide (Demadex), Unknown Dose PO UD Warfarin Sod (Jantoven), 4 MG PO 6XWEEK Warfarin Sod (Warfarin Sodium), 6 MG PO 1XWEEK Scheduled PRN Acetaminophen (Tylenol), 325 MG PO Q4 PRN for PRN Ibuprofen (Motrin), 600 MG PO Q6H PRN for Pain Ipratropium-Albuterol (Duoneb), Unknown Dose INH UD PRN for PRN Allergies Coded Allergies: Tetracycline (Verified Allergy, Unknown, RASH, 05/19/17) Morphine (Verified Adverse Reaction, Mild, "VIOLENTLY ILL", NAUSEA/ VOMITING, 05/19/17) Codeine (Verified Adverse Reaction, Unknown, N/V, 05/19/17) Physical Exam Vital Signs Date Time Temp Pulse Resp B/P (MAP) Pulse Ox O2 Delivery O2 Flow Rate FiO2 05/19/17 06:44 66 17 118/64 97 05/19/17 05:59 61 19 104/72 96 Room Air 05/19/17 04:40 95 Room Air 05/19/17 04:37 86 05/19/17 04:35 36.6 83 20 98/74 95 Room Air Physical Exam GENERAL: Patient is well appearing, smiling, and in no acute distress. HEENT: No acute trauma, normocephalic atraumatic, mucous membranes moist, no nasal congestion, no scleral icterus. NECK: No stridor, no adenopathy, no meningismus, trachea is midline. LUNGS: No dyspnea. Clear to auscultation and equal bilaterally. No wheeze, no rhonchi. HEART: Regular rate and rhythm. Systolic murmur, rubs, gallops appreciated. ABDOMEN: Soft, nontender, bowel sounds positive, no masses appreciated, no peritonitis. BACK: No midline tenderness, no CVA tenderness EXTREMITIES: Normal motion all extremities, no cyanosis, mild right calf swelling compared to left, mild tenderness on right calf, pulse intact. NEUROLOGIC: Alert and oriented, no acute motor or sensory deficits, no focal weakness, cranial nerves grossly intact. SKIN: No rash, no jaundice, no diaphoresis. Medical Decision & Procedures ER Provider Diagnostic Interpretation: Radiology results and stated below per my review and radiologist interpretation: R VENOUS DOPP LOWER EXT UNILAT CLINICAL HISTORY: 81 years-old Female presenting with calf pain, swelling. TECHNIQUE: Real-time grayscale and color and spectral Doppler ultrasound imaging of the veins of the right lower extremity was performed. Compression and augmentation were also utilized. COMPARISON: None. FINDINGS: Right: Common femoral vein: Patent. Greater saphenous vein: Patent. Deep femoral vein: Patent. Femoral vein: Patent. Popliteal vein: Patent. Calf veins: Patent. Other: At the site of clinical interest in the anterior foot, patent superficial vein noted. IMPRESSION: No evidence of deep venous thrombosis. Electronically signed by: Hector Clark M.D. 05/19/2017 6:11 AM Laboratory Results Test 05/19/17 05:23 Prothrombin Time 14.3 SECONDS (9.0-12.0) Prothromb Time International Ratio 1.4 (0.9-1.1) Laboratory results as reviewed by me. ED Course 0500: The patient was evaluated in room B9. A complete history and physical exam was performed. 0658: Reevaluated the patient. Discussed results and discharge instructions. She verbalized understanding and agreement. The patient is ready for discharge. Medical Decision Differential: DVT, CHF, Arterial Occlusion, Infectious, Joint Effusion, Trauma, Lymphedema, Idiopathic, Trauma, amongst other pathologies entertained. 81 yr old female with right calf pain s/p D&C. She has TTP over right calf, and some right lower leg swelling which she states is chronic. Suspect issue is reactive to being in OR position the other day or maybe just a bit more fluids. INR is still a bit subtherapeutic, but she has no DVT nor symptoms of PE. Will boost to 6mg Coumadin daily with follow up INR as outpatient (she will call on Sunday morning). Further lovenox offered which she declines. No evidence this is arterial occlusion, acute CHF, infectious. Medication Reconcilliation Current Medication List: was personally reviewed by me Blood Pressure Screening Patient's blood pressure: Normal blood pressure Blood pressure disposition: Did not require urgent referral Impression Primary Impression: Pain of right calf Additional Impression: Subtherapeutic anticoagulation Scribe Attestation The scribe's documentation has been prepared under my direction and personally reviewed by me in its entirety. I confirm that the note above accurately reflects all work, treatment, procedures, and medical decision making performed by me. Departure Information Referrals Jaron Harper MD (PCP) Patient Instructions My [facility] Problem Qualifiers
--- NOTE | 2017-05-19 06:12 | DIAGNOSTIC IMAGING REPORT ---
R VENOUS DOPP LOWER EXT UNILAT CLINICAL HISTORY: 81 years-old Female presenting with calf pain, swelling. TECHNIQUE: Real-time grayscale and color and spectral Doppler ultrasound imaging of the veins of the right lower extremity was performed. Compression and augmentation were also utilized. COMPARISON: None. FINDINGS: Right: Common femoral vein: Patent. Greater saphenous vein: Patent. Deep femoral vein: Patent. Femoral vein: Patent. Popliteal vein: Patent. Calf veins: Patent. Other: At the site of clinical interest in the anterior foot, patent superficial vein noted. IMPRESSION: No evidence of deep venous thrombosis. Electronically signed by: Hector Clark M.D. 05/19/2017 6:11 AM Dictated Date/Time: 05/19/2017 6:10 AM
[2017-05-19 06:16] LABS: INR 1.4 (0.9-1.1)
--- NOTE | 2017-05-19 06:19 | EMERGENCY ROOM VISIT NOTE ---
History First contact with patient: 05:04 Chief Complaint: ANKLE PAIN Stated Complaint: ANKLE PAIN History of Present Illness The patient is a 81 year old female who presents to the Emergency Room with complaints of right lower extremity pain and swelling x 2 days. Reports she had a D&C procedure last Sunday due to vaginal bleeding, for which she had to pause her coumadin and bridging with lovenox, but switched back to her coumadin 3 days ago. Is on coumadin for valve replacement. Last INR was taken last week, was 1.1. Notes swelling in her right leg - reports chronic leg swelling in right leg as well. Denies SOB or chest pain. Review of Systems See HPI for pertinent positives and negatives. 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, TYPE II OR UNSPEC TYPE, NOT UNCNTRLD (6) Diverticulosis of colon without diverticulitis (7) Dyslipidemia (8) Gastroesophageal reflux disease (9) History of adenomatous polyp of colon (10) History of cholecystectomy (11) History pacemaker insertion (12) Hypercalcemia (13) Primary hyperparathyroidism Surgical Problems: (1) Aortic valve replaced Family History Cancer Heart disease Social History Smoking Status: Never Smoker Alcohol Use: none Drug Use: none Marital Status: Housing Status: lives with family Occupation Status: retired Current/Historical Medications Scheduled Aspirin (Aspirin Ec), 81 MG PO QAM Atorvastatin (Lipitor), 40 MG PO QPM Cholecalciferol (Vitamin D3), 1,000 UNITS PO QAM Coenzyme Q10 (Ubidecarenone) (Co Q10), 100 MG PO QAM Enoxaparin (Lovenox), Unknown Dose SQ BID Metoprolol Succ (Toprol Xl) (Toprol-Xl), 25 MG PO QAM Nitroglycerin (Nitrostat), 0.4 MG UT PRN Sertraline (Zoloft), 50 MG PO HS Torsemide (Demadex), Unknown Dose PO UD Warfarin Sod (Jantoven), 4 MG PO 6XWEEK Warfarin Sod (Warfarin Sodium), 6 MG PO 1XWEEK [Digoxin], 125 MCG PO 5XWK Scheduled PRN Acetaminophen (Tylenol), 325 MG PO Q4 PRN for PRN Ibuprofen (Motrin), 600 MG PO Q6H PRN for Pain Ipratropium-Albuterol (Duoneb), Unknown Dose INH UD PRN for PRN Physical Exam Vital Signs Date Time Temp Pulse Resp B/P (MAP) Pulse Ox O2 Delivery O2 Flow Rate FiO2 05/19/17 05:59 61 19 104/72 96 Room Air 05/19/17 04:40 95 Room Air 05/19/17 04:37 86 05/19/17 04:35 36.6 83 20 98/74 95 Room Air Physical Exam GENERAL: Awake, alert, well-appearing, in no distress HENT: Normocephalic, atraumatic. Oropharynx unremarkable. EYES: Normal conjunctiva. Sclera non-icteric. NECK: Supple. No nuchal rigidity. FROM. No JVD. RESPIRATORY: Clear to auscultation. CARDIAC: Regular rate, normal rhythm. Extremities warm and well perfused. Pulses equal. ABDOMEN: Soft, non-distended. No tenderness to palpation. No rebound or guarding. No masses. RECTAL: Deferred. MUSCULOSKELETAL: Chest examination reveals no tenderness. The back is symmetrical on inspection without obvious abnormality. There is no CVA tenderness to palpation. No joint edema. LOWER EXTREMITIES: RT calf larger in diameter than left. No discoloration. ++ Tender to palpation on right posterior calf. Left calf is non-tender. Pulses in tact bilaterally. NEURO: Normal sensorium. No sensory or motor deficits noted. SKIN: No rash or jaundice noted. Medical Decision & Procedures Laboratory Results Test 05/19/17 05:23 Prothrombin Time 14.3 SECONDS (9.0-12.0) Prothromb Time International Ratio 1.4 (0.9-1.1) Procedure R VENOUS DOPP LOWER EXT UNILAT CLINICAL HISTORY: 81 years-old Female presenting with calf pain, swelling. TECHNIQUE: Real-time grayscale and color and spectral Doppler ultrasound imaging of the veins of the right lower extremity was performed. Compression and augmentation were also utilized. COMPARISON: None. FINDINGS: Right: Common femoral vein: Patent. Greater saphenous vein: Patent. Deep femoral vein: Patent. Femoral vein: Patent. Popliteal vein: Patent. Calf veins: Patent. Other: At the site of clinical interest in the anterior foot, patent superficial vein noted. IMPRESSION: No evidence of deep venous thrombosis. Electronically signed by: Hector Clark M.D. 05/19/2017 6:11 AM Dictated Date/Time: 05/19/2017 6:10 AM ED Course 0500 reviewed records, assessed pt 0515 ordered venous doppler RT LE, PT/INR. Venous doppler negative. Medical Decision The patient is a 81 year old female who presents to the Emergency Room with complaints of right lower extremity pain and swelling x 2 days. Reports she had a D&C procedure last Sunday due to vaginal bleeding, for which she had to pause her coumadin and bridging with lovenox, but switched back to her coumadin 3 days ago. Is on coumadin for valve replacement. Last INR was taken last week, was 1.1. Notes swelling in her right leg - reports chronic leg swelling in right leg as well. Denies SOB or chest pain. DDX: DVT, PE, calf pain Venous doppler of RT LE neg for DVT. INR is 1.4, as would be expected given her recent lovenox bridge for D&C procedure. D/w pt normal findings. Discussed for her to take 2 extra mg tonight (05/19) and tomorrow night (05/20), and then resume her normal coumadin dosing schedule, then a re-check INR on Sunday (05/21). Recommend follow up with her PCP in 1-3 days. Recommend stretching of calf, apply ice/heat for pain. Ambulation. Impression Primary Impression: Ankle pain, right Departure Information Dispostion Home / Self-Care Condition GOOD Patient Instructions My [facility] Additional Instructions You were seen in the ED due to pain in your calf and suspicion of a blood clot there. We imaged with ultrasound and that showed no clots, it was normal. Your INR today is 1.4. As discussed, take 2 extra mg of Coumadin tonight (05/19) and tomorrow night (05/20), and then resume your normal coumadin dosing schedule , then request a re-check INR on Sunday (05/21). Sunday 10: Take 6mg SundayMay 20: Take 6mg Sunday 12: resume normal coumadin dosing schedule. Recheck INR. We recommend stretching of calf, apply ice/heat for pain, ibuprofen and or tylenol as prescribed, and walk. We recommend following up with your PCP in 1-3 days regarding your visit here today. Resident Tracking Resident Involvement: Resident Care Provided Care Provided: Adult ED
[2017-05-19 06:44] VITALS: BP 118/64; PULSE 66; O2SAT 97
[2017-05-19] MEDS ORDERED: LNX125 PO (06:44)
== END 2017-05-19 06:44 | disposition home or self-care (01) ==
LOC: EDBD 04:25 → C.EDB 04:27
DX: M79.661 Pain in right lower leg (principal); R79.1 Abnormal coagulation profile; R60.0 Localized edema; I48.91 Unspecified atrial fibrillation; I10 Essential (primary) hypertension; I25.10 Atherosclerotic heart disease of native coronary artery without angina pectoris; E11.9 Type 2 diabetes mellitus without complications; E78.5 Hyperlipidemia, unspecified; K21.9 Gastro-esophageal reflux disease without esophagitis; K57.30 Diverticulosis of large intestine without perforation or abscess without bleeding; E83.52 Hypercalcemia; E21.0 Primary hyperparathyroidism; I25.2 Old myocardial infarction; Z79.01 Long term (current) use of anticoagulants; Z79.82 Long term (current) use of aspirin; Z95.2 Presence of prosthetic heart valve

== ENCOUNTER 2019-05-06 13:29 | Observation (INO) ==
[2019-05-06 14:10] LABS: Basophils # (auto) 0.02 K/uL (0-0.2); Basophils % (auto) 0.4 %; Eosinophils # (auto) 0.12 K/uL (0-0.5); Eosinophils % (auto) 2.1 %; Hematocrit (blood only) 42.3 % (37-47); Hemoglobin 14.2 g/dL (12.0-16.0); Immature Granulocytes # (auto) 0.04 K/uL (0.00-0.02); Immature Granulocytes % (auto) 0.7 %; Lymphocytes # (auto) 1.21 K/uL (1.2-3.4); Lymphocytes % (auto) 21.3 %; Mean Corpuscular Hemoglobin 29.8 pg (25-34); Mean Corpuscular Hgb Conc 33.6 g/dL (32-36); Mean Corpuscular Volume 88.9 fL (80-100); Mean Platelet Volume 10.2 fL (7.4-10.4); Monocytes # (auto) 0.54 K/uL (0.11-0.59); Monocytes % (auto) 9.5 %; Neutrophils # (auto) 3.75 K/uL (1.4-6.5); Platelet Count 148 K/uL (130-400); RDW Coefficient of Variation 14.1 % (11.5-14.5); RDW Standard Deviation 46.1 fL (36.4-46.3); Red Blood Count 4.76 M/uL (4.2-5.4); White Blood Count 5.68 K/uL (4.8-10.8)
[2019-05-06 14:21] LABS: Alanine Aminotransferase 33 U/L (12-78); Albumin Level 4.1 gm/dl (3.4-5.0); Aspartate Aminotransferase 28 U/L (15-37); BUN Creatinine Ratio 29.1 (10-20); Blood Urea Nitrogen 23 mg/dl (7-18); Calcium 10.1 mg/dl (8.5-10.1); Carbon Dioxide 28 mmol/L (21-32); Chloride 106 mmol/L (98-107); Creatinine Clr Calc Pharmacy 50.3 ml/min; Est GFR (African American) 79.6; Est GFR (Non-African American) 68.7; Glucose 115 mg/dl (70-99); Lipase 288 U/L (73-393); Potassium 3.6 mmol/L (3.5-5.1); Sodium 140 mmol/L (136-145)
--- NOTE | 2019-05-06 14:23 | XRay Report ---
XR chest 1V portable CLINICAL HISTORY: Chest Pain dyspnea COMPARISON STUDY: 12/10/2017 FINDINGS: Moderate cardiomegaly. Valvular stent in position. Permanent unipolar cardiac pacemaker. Lungs are clear. Right shoulder arthroplasty. IMPRESSION: Cardiomegaly. Chronic and postoperative change. No acute process. ACT 112: Negative or not required by law. The above report was generated using voice recognition software. It may contain grammatical, syntax or spelling errors. Electronically signed by: Albert Hernandez M.D. 05/06/2019 2:21 PM
[2019-05-06 14:27] LABS: Albumin Globulin Ratio 1.2 (0.9-2); Alkaline Phosphatase 88 U/L (45-117); Bilirubin,Total 1.8 mg/dl (0.2-1); Globulin 3.5 gm/dl (2.5-4.0); Total Protein 7.6 gm/dl (6.4-8.2); Troponin I < 0.015 ng/ml (0-0.045)
[2019-05-06 14:29] LABS: INR 1.7 (0.9-1.1); Prothrombin Time 17.2 Seconds (9.0-12.0)
--- NOTE | 2019-05-06 15:56 | History & Physical Report ---
Date of Service May 06, 2019 Assessment & Plan (1) Chest pain: (2) CAD (coronary artery disease): Pt is 83 y/o F with PMH DM II, CAD, [place] s/p stent to RCA in 2002, chronic A-fib on Coumadin, tachybrady syndrome s/p pacemaker, aortic stenosis s/p TAVR in 2016, chronic systolic CHF, HTN, HLD, chronic BLE edema, depression, presented to ER with c/o anterior CP, and jaw aching today while at PCP office with her . Denies SOB, palpitations, dizziness, N/V or diaphoresis. She was given 1 SL nitro in clinic and reports resolution of symptoms in 30 minutes. In ER afebrile, P: 64, BP: 126/74, R: 18, 98% on RA No leukocytosis, no significant electrolyte abnormality, initial troponin negative, EKG paced rhythm R/O ACS. Risk factors: CAD, HTN, hyperlipidemia, DM. DDX: anxiety -No recurrent CP while in ER -ASA 324 po -Monitor Vitals -Repeat EKG in am -Will trend troponin -Echo -Lipid panel in am, continue statin -Continue metoprolol -Nitro prn CP and repeat EKG for CP -Consider cardiology consult if recurrent CP or troponins increasing (3) HTN (hypertension): Stable -Continue metoprolol (4) Chronic atrial fibrillation: On Coumadin Rate controlled -INR: 1.7 -Digoxin level pending -Continue metoprolol, digoxin -Continue Coumadin -Monitor INR (5) Chronic systolic heart failure: 05/2018 echo: EF: 40-45%, prosthetic valve normal function, moderate mitral regurgitation, moderate tricuspid regurgitation Pt with chronic BLE edema. Not consistent use of diuretics secondary to not wanting increased urination. No reported weight gain or increased LE edema -Dose torsemide today and tomorrow and reassess volume status (6) Tachy-wanda syndrome: S/P Pacemaker -Pacer interrogation (7) Aortic stenosis: S/P TAVR in 2016 (8) Diabetes mellitus, type II: Diet controlled A1c: 6.9 on 11/14/2018 -Diabetic diet -Monitor BSGs and Novolog sliding scale per protocol (9) HLD (hyperlipidemia): -Continue statin (10) Depression: -Continue sertraline DVT Prophylaxis -On Coumadin, SCDs when INR <2 DNR/DNI as per discussion with pt and pt's son Amador Follows with Dr Harper for routine care Pt was seen and care coordinated with Dr Holcomb. See addendum History of Present Illness Chief Complaint: CP Primary Care Provider: LESLEE Pt is 83 y/o F with PMH DM II, CAD, [place] s/p stent to RCA in 2002, chronic A-fib on Coumadin, tachybrady syndrome s/p pacemaker, aortic stenosis s/p TAVR in 2016, chronic systolic CHF, HTN, HLD, chronic BLE edema, depression, hyperparathyroidism, urinary incontinence presented to ER with c/o CP today. Pt was at PCP office today with her and when checking out developed anterior chest pressure and achiness in her jaw. She was given 1 SL nitro in clinic and reports resolution of symptoms in 30 minutes. Denies any SOB with this episode and denies any history of exertional SOB. Denies palpitations, dizziness, N/V or diaphoresis. Reports when had her WV in 2002 she had upper back pain and the pain today felt different. Pt reports under a lot of stress with trying to care for her with Parkinsons. Pt and are moving from the [facility] to the [facility] today for higher level of care and she is stressed with the move. Also reports car didn't start this morning and they were running late for PCP appointment for her . Reports past 1-2 days with couple episodes of loose stools. Has torsemide to use as needed for BLE edema. Pt states has chronic edema and no increase. Reports weighs herself once a week and her weights have been within 2 pounds. States uses torsemide a couple of times a week, admits does not like the frequent urination when she uses. Denies fever/chills, diaphoresis, N/V, melena, hematochezia, HUMPHREY, dizziness, syncope, vision changes, neck pain, orthopnea, palpitations, cough, sore throat, choking, otalgia, rhinorrhea, abdominal pain, paresthesias, weakness, extremity weakness, rashes, urinary symptoms. Allergies Allergy/AdvReac Type Severity Reaction Status Date / Time tetracycline Allergy Unknown RASH Verified 05/06/19 14:49 morphine AdvReac Mild "VIOLENTLY Verified 05/06/19 14:49 ILL", NAUSEA/VOMITING codeine AdvReac Unknown N/V Verified 05/06/19 14:49 Home Medications Home Medications Medication Instructions Recorded Confirmed Type atorvastatin 40 mg PO HS 06/07/18 05/06/19 History cholecalciferol (vitamin D3) 2,000 unit PO HS 06/07/18 05/06/19 History [Vitamin D3] coenzyme Q10 [CoQ-10] 100 mg PO QAM 06/07/18 05/06/19 History digoxin 0.125 mg PO MOTUWETHFR@0800 06/07/18 05/06/19 History metoprolol succinate 25 mg PO QAM 06/07/18 05/06/19 History sertraline 50 mg PO HS 06/07/18 05/06/19 History torsemide 10 mg PO DAILY PRN 06/07/18 05/06/19 History warfarin 4 mg PO SUTUWEFRSA 06/07/18 05/06/19 History nitroglycerin 0.4 mg SUBLINGUAL UD 05/06/19 05/06/19 History warfarin 6 mg PO MOTH 05/06/19 05/06/19 History Past Med/Surg History Medical History (Updated 05/06/19 @ 16:40 by Odalys Wooten PA-C) Aortic stenosis S/P TAVR in 2015 CAD (coronary artery disease) S/P [place] and stent to RCA in 2002 Chest pain Chronic atrial fibrillation Chronic systolic heart failure Depression Diabetes mellitus, type II Fracture of tibial plateau (Resolved Unknown) HLD (hyperlipidemia) HTN (hypertension) Hypercalcemia (Chronic Unknown) Hyperparathyroidism Primary hyperparathyroidism (Chronic Unknown) Rotator cuff arthropathy (Resolved) Tachy-wanda syndrome Surgical History (Updated 05/06/19 @ 16:40 by Odalys Wooten PA-C) Aortic valve replaced (Chronic) S/P cardiac pacemaker procedure S/p TAVR (transcatheter aortic valve replacement), bioprosthetic 2015 Family History (Updated 05/06/19 @ 17:28 by Odalys Wooten PA-C) Other Cancer Diabetes Heart disease Hypertension Social History (Updated 05/06/19 @ 16:40 by Odalys Wooten PA-C) Preferred Language: Kazakh Communication Ability: Effective Beliefs That Will Affect Care: None Current Living Situation: Spouse and Personal Care Facility Current Living Situation Comment: lives at the [facility] with and just transferred to assisted living Other Information That Helps Us Care for You: No Feels Safe at Home: Yes Safety Concerns: Feels Safe At This Time Smoking Status: Never smoker Hx Alcohol Use: Yes Alcohol Intake Frequency: Rarely Hx Substance Use: No Review of Systems Review of Systems: All systems reviewed & are unremarkable except as noted in HPI & below Physical Exam Physical Exam: General: no distress, WDWN Head: normocephalic, atraumatic Eyes: PERRL, EOM's intact, conjunctiva non-injected, anicteric ENT: normal inspection external ears, nose, mucous membranes moist Neck: supple, trachea midline Lungs: clear, no respiratory distress, no wheezing/rhonchi/rales CV: RRR, +systolic murmur, no JVD, 1-2+ pretibial edema Abd: normal BS, soft, non-tender Ext: no cyanosis, no calf tenderness Neuro: A&O x 3, no focal deficits noted, normal affect Skin: warm, dry Results & Data Vital Signs (Past 12 Hours) Vital Signs Temp Pulse Pulse Resp BP BP Pulse Ox 05/06/19 15:19 63 12 144/88 H 95 05/06/19 13:41 36.4 C L 64 18 126/74 98 Laboratory Results Short CBC 05/06/19 Range/Units 13:16 WBC 5.68 (4.8-10.8) K/uL Hgb 14.2 (12.0-16.0) g/dL Hct 42.3 (37-47) % Plt Count 148 (130-400) K/uL BMP 05/06/19 13:16 Sodium 140 Potassium 3.6 Chloride 106 Carbon Dioxide 28 BUN 23 H Creatinine 0.80 Glucose 115 H Calcium 10.1 Cardiac Enzymes 05/06/19 Range/Units 13:16 Troponin I < 0.015 (0-0.045) ng/ml Liver Function 05/06/19 Range/Units 13:16 Total Bilirubin 1.8 H (0.2-1) mg/dl AST 28 (15-37) U/L ALT 33 (12-78) U/L Alkaline Phosphatase 88 (45-117) U/L Albumin 4.1 (3.4-5.0) gm/dl Diagnostic Findings CXR: IMPRESSION: Cardiomegaly. Chronic and postoperative change. No acute process. ECG Findings: + paced rhythm Supervising Physician Co-Signing Physician Notes 83-year-old woman with history of DM type II, CAD, [place] status post stent to RCA in 2002, chronic A. fib on Coumadin, tachybradycardia syndrome status post pacemaker, aortic stenosis status post TAVR in 2016, chronic systolic heart failure, hypertension, hyperlipidemia, chronic bilateral leg edema, depression, hyperparathyroidism who presented to the ER complaining of chest pain today. History and physical exam performed by me. Detailed history documented by Odalys Wooten PA-C History significant for chest pain while accompanying for his checkup at his PCPs, reports of being stressed with taking care of the and moving to assisted living because she cannot take care of him anymore by herself, chronic leg edema, dyspnea on exertion, few loose stools yesterday. Physical exam significant for elderly woman in no distress, systolic ejection murmur, bilateral pedal edema EKG showed ventricular paced rhythm, rate of 64, QTC of 511 TWI in aVL (unchanged from prior] INR is 1.7 Creatinine 0.8 Troponin is less than 0.015 Chest Xray - Cardiomegaly. Chronic and postoperative change. No acute process. Echo from May 2018 showed EF of 45 to 49%, severely enlarged LA and RA, moderate MR and TR. Chest pain and background of CAD May be related to reported stress. Got aspirin 324 in ER We will trend troponin Get echo Telemetry monitoring overnight Chest pain resolved after getting nitro in ER Continue home Coumadin monitor INR Continue home BP medication
[2019-05-06] MEDS ORDERED: ASPIRIN CHEW 324 MG PO STA (16:05)
[2019-05-06] MEDS: ASPIRIN CHEW 324 MG ONE ×2 (16:09→16:16)
[2019-05-06] MEDS ORDERED: ACETAMINOPHEN 325 MG TAB PO PRN (16:51)
[2019-05-06] MEDS ORDERED: GLUCOSE 40% GEL 15 GM TUBE PO PRN (16:51)
[2019-05-06] MEDS ORDERED: GLUCAGON FOR INJ 1 MG VIAL SQ PRN (16:51)
[2019-05-06] MEDS ORDERED: CARBOHYDRATES FOR HYPOGLYCEMIA PO PRN (16:51)
[2019-05-06] MEDS ORDERED: DEXTROSE 50% 50 ML SYRINGE IV PRN (16:51)
[2019-05-06] MEDS ORDERED: NITROGLYCERIN SL 0.4 MG/TAB TAB SL PRN (16:51)
[2019-05-06] MEDS ORDERED: GLUCOSE 10 TABS/TUBE PO PRN (16:51)
[2019-05-06] MEDS: WARFARIN SOD 4 MG TAB PO SCH (17:30)
[2019-05-06] MEDS: TORSEMIDE 10 MG TAB PO SCH (17:30)
--- NOTE | 2019-05-06 20:37 | Emergency Department Note ---
Entered by Daphne Thayer acting as a scribe for Trung Vickers DO History of Present Illness General Chief complaint: Chest Pain Stated complaint: cp Time Seen by Provider: 05/06/19 13:53 Source: patient History of Present Illness Onset (ago): hour(s) (1300 today) Location: chest (mid) Radiation: other (jaw) Quality: + other (chest pain) Associated symptoms: + other (Negative arm pain, hx of blood clots. ) Treatments prior to arrival: aspirin and other (nitro) The patient is a 83 year old female who presents to the ED with complaints of chest pain beginning around 1300 today. She is on warfarin. She states she was leaving a doctor's appointment for her when she developed mid chest pain with radiation to her jaw. She describes her chest pain as a tightness. She denies any arm pain, SOB, hx of blood clots. The patient has a hx of an OR in 2008 but states this episode does not feel similar. She received aspirin and nitro which she states slightly alleviated her pain. Home Medications Home Medications Medication Instructions Recorded Confirmed Type atorvastatin 40 mg PO HS 06/07/18 05/06/19 History cholecalciferol (vitamin D3) 2,000 unit PO HS 06/07/18 05/06/19 History [Vitamin D3] coenzyme Q10 [CoQ-10] 100 mg PO QAM 06/07/18 05/06/19 History digoxin 0.125 mg PO MOTUWETHFR@0800 06/07/18 05/06/19 History metoprolol succinate 25 mg PO QAM 06/07/18 05/06/19 History sertraline 50 mg PO HS 06/07/18 05/06/19 History torsemide 10 mg PO DAILY PRN 06/07/18 05/06/19 History warfarin 4 mg PO SUTUWEFRSA 06/07/18 05/06/19 History nitroglycerin 0.4 mg SUBLINGUAL UD 05/06/19 05/06/19 History warfarin 6 mg PO MOTH 05/06/19 05/06/19 History Allergies Allergy/AdvReac Type Severity Reaction Status Date / Time tetracycline Allergy Unknown RASH Verified 05/06/19 14:49 morphine AdvReac Mild "VIOLENTLY Verified 05/06/19 14:49 ILL", NAUSEA/VOMITING codeine AdvReac Unknown N/V Verified 05/06/19 14:49 Past Med/Surg History Medical History (Updated 05/06/19 @ 16:40 by Odalys Wooten PA-C) Aortic stenosis S/P TAVR in 2016 CAD (coronary artery disease) S/P OR and stent to RCA in 2002 Chest pain Chronic atrial fibrillation Chronic systolic heart failure Depression Diabetes mellitus, type II Fracture of tibial plateau (Resolved Unknown) HLD (hyperlipidemia) HTN (hypertension) Hypercalcemia (Chronic Unknown) Hyperparathyroidism Primary hyperparathyroidism (Chronic Unknown) Rotator cuff arthropathy (Resolved) Tachy-wanda syndrome Surgical History (Updated 05/06/19 @ 16:40 by Odalys Wooten PA-C) Aortic valve replaced (Chronic) S/P cardiac pacemaker procedure S/p TAVR (transcatheter aortic valve replacement), bioprosthetic 2015 Family History (Updated 05/06/19 @ 17:28 by Odalys Wooten PA-C) Other Cancer Diabetes Heart disease Hypertension Social History (Updated 05/06/19 @ 16:40 by Odalys Wooten PA-C) Preferred Language: Qatari Communication Ability: Effective Beliefs That Will Affect Care: None Current Living Situation: Spouse and Personal Care Facility Current Living Situation Comment: lives at [facility] with and just transferred to assisted living Other Information That Helps Us Care for You: No Feels Safe at Home: Yes Safety Concerns: Feels Safe At This Time Smoking Status: Never smoker Hx Alcohol Use: Yes Alcohol Intake Frequency: Rarely Hx Substance Use: No Review of Systems See HPI for pertinent positives & negatives. and A total of 10 systems reviewed and were otherwise negative Physical Exam Vital Signs Vital Signs - 24 hr 05/06/19 13:34 05/06/19 13:41 05/06/19 13:50 Temperature 36.4 C L Temperature Source Oral Pulse Rate 74 64 Pulse Rate [Apical] Pulse Rate [Finger] Pulse Rate from SpO2 Sensor 73 Pulse Rhythm Regular Pulse Rhythm [Apical] Pulse Strength Normal Pulse Strength [Apical] Respiratory Rate 17 16 Respiratory Effort / Characteristics Non-Labored Spontaneous Respiratory Depth Normal Respiratory Pattern Regular Blood Pressure 126/74 126/74 Blood Pressure [Right Arm] Blood Pressure Mean 86 91 Blood Pressure Mean [Right Arm] Blood Pressure Position Lying Blood Pressure Position [Right Arm] Pulse Oximetry 93 98 Oxygen Delivery Method Room Air Room Air Room Air Sepsis Recent Fever Within 48 Hours No Sepsis Action Taken by Nursing No Action Required 05/06/19 14:00 05/06/19 14:10 05/06/19 14:20 Temperature Temperature Source Pulse Rate 63 62 60 Pulse Rate [Apical] Pulse Rate [Finger] Pulse Rate from SpO2 Sensor Pulse Rhythm Pulse Rhythm [Apical] Pulse Strength Pulse Strength [Apical] Respiratory Rate 17 19 18 Respiratory Effort / Characteristics Respiratory Depth Respiratory Pattern Blood Pressure Blood Pressure [Right Arm] Blood Pressure Mean Blood Pressure Mean [Right Arm] Blood Pressure Position Blood Pressure Position [Right Arm] Pulse Oximetry Oxygen Delivery Method Room Air Room Air Room Air Sepsis Recent Fever Within 48 Hours Sepsis Action Taken by Nursing 05/06/19 14:30 05/06/19 14:40 05/06/19 14:50 Temperature Temperature Source Pulse Rate 63 62 61 Pulse Rate [Apical] Pulse Rate [Finger] Pulse Rate from SpO2 Sensor Pulse Rhythm Pulse Rhythm [Apical] Pulse Strength Pulse Strength [Apical] Respiratory Rate 19 13 15 Respiratory Effort / Characteristics Respiratory Depth Respiratory Pattern Blood Pressure Blood Pressure [Right Arm] Blood Pressure Mean Blood Pressure Mean [Right Arm] Blood Pressure Position Blood Pressure Position [Right Arm] Pulse Oximetry Oxygen Delivery Method Room Air Room Air Room Air Sepsis Recent Fever Within 48 Hours Sepsis Action Taken by Nursing 05/06/19 15:00 05/06/19 15:10 05/06/19 15:13 Temperature 36.4 C L Temperature Source Oral Pulse Rate 62 68 Pulse Rate [Apical] 64 Pulse Rate [Finger] Pulse Rate from SpO2 Sensor Pulse Rhythm Pulse Rhythm [Apical] Regular Pulse Strength Pulse Strength [Apical] Normal Respiratory Rate 16 17 18 Respiratory Effort / Characteristics Non-Labored Respiratory Depth Normal Respiratory Pattern Regular Blood Pressure Blood Pressure [Right Arm] 141/74 H Blood Pressure Mean Blood Pressure Mean [Right Arm] 96 Blood Pressure Position Blood Pressure Position [Right Arm] Sitting Pulse Oximetry 18 L Oxygen Delivery Method Room Air Room Air Room Air Sepsis Recent Fever Within 48 Hours Sepsis Action Taken by Nursing 05/06/19 15:19 05/06/19 15:20 05/06/19 15:30 Temperature Temperature Source Pulse Rate 63 66 60 Pulse Rate [Apical] Pulse Rate [Finger] 63 Pulse Rate from SpO2 Sensor 64 65 61 Pulse Rhythm Pulse Rhythm [Apical] Pulse Strength Pulse Strength [Apical] Respiratory Rate 12 13 15 Respiratory Effort / Characteristics Respiratory Depth Respiratory Pattern Blood Pressure 144/88 H 130/75 Blood Pressure [Right Arm] 144/88 H Blood Pressure Mean 107 99 Blood Pressure Mean [Right Arm] 106 Blood Pressure Position Blood Pressure Position [Right Arm] Pulse Oximetry 95 95 94 Oxygen Delivery Method Room Air Room Air Room Air Sepsis Recent Fever Within 48 Hours Sepsis Action Taken by Nursing 05/06/19 15:31 Temperature Temperature Source Pulse Rate 59 L Pulse Rate [Apical] Pulse Rate [Finger] Pulse Rate from SpO2 Sensor 58 L Pulse Rhythm Pulse Rhythm [Apical] Pulse Strength Pulse Strength [Apical] Respiratory Rate 19 Respiratory Effort / Characteristics Respiratory Depth Respiratory Pattern Blood Pressure Blood Pressure [Right Arm] Blood Pressure Mean Blood Pressure Mean [Right Arm] Blood Pressure Position Blood Pressure Position [Right Arm] Pulse Oximetry 94 Oxygen Delivery Method Room Air Sepsis Recent Fever Within 48 Hours Sepsis Action Taken by Nursing GENERAL: alert, well nourished, non-toxic. Sitting up in bed, disheveled. No acute distress. Wearing hospital gown EYE EXAM: normal conjunctiva OROPHARYNX: no exudate, no erythema, lips, buccal mucosa, and tongue normal and mucous membranes are moist NECK: supple, no nuchal rigidity, no adenopathy, non-tender LUNGS: Clear to auscultation. Normal chest wall mechanics HEART: Positive RIZWAN, S1 normal and S2 normal ABDOMEN: abdomen soft, non-tender, normo-active bowel sounds, no masses, no rebound or guarding. BACK: Back is symmetrical on inspection and there is no deformity, no midline tenderness, no CVA tenderness. SKIN: no rashes and no bruising UPPER EXTREMITIES: upper extremities are grossly normal. Pulses equal bilaterally LOWER EXTREMITIES: No pitting edema. NEURO EXAM: Normal sensorium, cranial nerves II-XII grossly intact, normal speech, no gross weakness of arms, no gross weakness of legs. Course Course ED COURSE: Vital signs were reviewed and showed hypertensive situationally. The patients medical record was reviewed The above diagnostic studies were performed and reviewed. ED treatments and interventions as stated above. 1403: The patient was evaluated in room B11. A complete history and physical examination was performed. 1450: Upon reevaluation, the patient is feeling slightly improved. .I discussed my findings with the patient and she understands and agrees with the treatment plan. 1452: Discussed the patient's case with Mee Joseph PA-C. The patient will be evaluated by Dr. Holcomb, [facility] for further management. Based on the patients age, coexisting illnesses, exam and lab findings the decision to treat as an [inpatient][outpatient] was made. The patient remained stable while under my care. [The patient appeared well at the time of discharge.] [The patient will be evaluated for further management.] Administered Medications Torsemide (Demadex) 10 mg PO QAM [facility] Stop: 05/07/19 09:01 Last Admin: 05/06/19 17:30 Dose: 10 mg Documented by: [id number] Warfarin Sodium (Coumadin) 4 mg PO SuTuWeFrSa@1600 [facility] Stop: 06/05/19 16:50 Last Admin: 05/06/19 17:30 Dose: 4 mg Documented by: [id number] Discontinued Medications Aspirin (Aspirin) Confirm Administered Dose 324 mg .ROUTE .STK-MED ONE Stop: 05/06/19 16:09 Last Admin: 05/06/19 16:16 Dose: Not Given Documented by: [id number] Medical Decision Making Differential Diagnosis Differential diagnoses includes but is not limited to acute coronary syndrome, myocardial infarction, pericarditis, pulmonary embolus, aortic dissection, pneumonia, pneumothorax, musculoskeletal, shingles, esophageal. Medical Records Attestation: I reviewed the patient's medical records. Home Medications Current Medication List: was personally reviewed by me Laboratory Data Attestation: I reviewed the patient's lab results. Result diagrams: 05/06/19 13:16 05/06/19 13:16 Lab Results 05/06/19 05/06/19 05/06/19 Range/Units 13:16 13:16 13:16 WBC 5.68 (4.8-10.8) K/uL RBC 4.76 (4.2-5.4) M/uL Hgb 14.2 (12.0-16.0) g/dL Hct 42.3 (37-47) % MCV 88.9 (80-100) fL MCH 29.8 (25-34) pg MCHC 33.6 (32-36) g/dL RDW Std Deviation 46.1 (36.4-46.3) fL RDW Coeff of Rosas 14.1 (11.5-14.5) % Plt Count 148 (130-400) K/uL MPV 10.2 (7.4-10.4) fL Immature Gran % (Auto) 0.7 % Neut % (Auto) 66.0 % Lymph % (Auto) 21.3 % [place] % (Auto) 9.5 % Eos % (Auto) 2.1 % Baso % (Auto) 0.4 % Immature Gran # (Auto) 0.04 H (0.00-0.02) K/uL Neut # (Auto) 3.75 (1.4-6.5) K/uL Lymph # (Auto) 1.21 (1.2-3.4) K/uL [place] # (Auto) 0.54 (0.11-0.59) K/uL Eos # (Auto) 0.12 (0-0.5) K/uL Baso # (Auto) 0.02 (0-0.2) K/uL PT 17.2 H (9.0-12.0) Seconds INR 1.7 H (0.9-1.1) Sodium 140 (136-145) mmol/L Potassium 3.6 (3.5-5.1) mmol/L Chloride 106 (98-107) mmol/L Carbon Dioxide 28 (21-32) mmol/L Anion Gap 6.0 (3-11) BUN 23 H (7-18) mg/dl Creatinine 0.80 (0.6-1.2) mg/dl Est Cr Clr Drug Dosing 50.3 ml/min Est GFR ( Amer) 79.6 Est GFR (Non-Af Amer) 68.7 BUN/Creatinine Ratio 29.1 H (10-20) Glucose 115 H (70-99) mg/dl Calcium 10.1 (8.5-10.1) mg/dl Magnesium (1.8-2.4) mg/dl Total Bilirubin 1.8 H (0.2-1) mg/dl AST 28 (15-37) U/L ALT 33 (12-78) U/L Alkaline Phosphatase 88 (45-117) U/L Troponin I < 0.015 (0-0.045) ng/ml Total Protein 7.6 (6.4-8.2) gm/dl Albumin 4.1 (3.4-5.0) gm/dl Globulin 3.5 (2.5-4.0) gm/dl Albumin/Globulin Ratio 1.2 (0.9-2) Lipase 288 (73-393) U/L Digoxin (0.8-2.0) ng/ml 05/06/19 05/06/19 Range/Units 13:16 13:16 WBC (4.8-10.8) K/uL RBC (4.2-5.4) M/uL Hgb (12.0-16.0) g/dL Hct (37-47) % MCV (80-100) fL MCH (25-34) pg MCHC (32-36) g/dL RDW Std Deviation (36.4-46.3) fL RDW Coeff of Rosas (11.5-14.5) % Plt Count (130-400) K/uL MPV (7.4-10.4) fL Immature Gran % (Auto) % Neut % (Auto) % Lymph % (Auto) % [place] % (Auto) % Eos % (Auto) % Baso % (Auto) % Immature Gran # (Auto) (0.00-0.02) K/uL Neut # (Auto) (1.4-6.5) K/uL Lymph # (Auto) (1.2-3.4) K/uL [place] # (Auto) (0.11-0.59) K/uL Eos # (Auto) (0-0.5) K/uL Baso # (Auto) (0-0.2) K/uL PT (9.0-12.0) Seconds INR (0.9-1.1) Sodium (136-145) mmol/L Potassium (3.5-5.1) mmol/L Chloride (98-107) mmol/L Carbon Dioxide (21-32) mmol/L Anion Gap (3-11) BUN (7-18) mg/dl Creatinine (0.6-1.2) mg/dl Est Cr Clr Drug Dosing ml/min Est GFR ( Amer) Est GFR (Non-Af Amer) BUN/Creatinine Ratio (10-20) Glucose (70-99) mg/dl Calcium (8.5-10.1) mg/dl Magnesium 2.1 (1.8-2.4) mg/dl Total Bilirubin (0.2-1) mg/dl AST (15-37) U/L ALT (12-78) U/L Alkaline Phosphatase (45-117) U/L Troponin I (0-0.045) ng/ml Total Protein (6.4-8.2) gm/dl Albumin (3.4-5.0) gm/dl Globulin (2.5-4.0) gm/dl Albumin/Globulin Ratio (0.9-2) Lipase (73-393) U/L Digoxin 0.6 L (0.8-2.0) ng/ml Imaging Data Radiologist's Impression: Radiology results as stated below per my review and the radiologist's interpretation: XR chest 1V portable CLINICAL HISTORY: Chest Pain dyspnea COMPARISON STUDY: 12/10/2017 FINDINGS: Moderate cardiomegaly. Valvular stent in position. Permanent unipolar cardiac pacemaker. Lungs are clear. Right shoulder arthroplasty. IMPRESSION: Cardiomegaly. Chronic and postoperative change. No acute process. ACT 112: Negative or not required by law. The above report was generated using voice recognition software. It may contain grammatical, syntax or spelling errors. Electronically signed by: Albert Hernandez M.D. 05/06/2019 2:21 PM ECG Data Attestation: I personally reviewed and interpreted this ECG as follows: Indication: + chest pain Rate (beats per minute): 64 Rhythm: + other (ventricularly paced) ECG Intervals/blocks: + Prolonged QT ECG [place]: + Left axis deviation ECG ST segments: + ST elevation (high lateral) ECG Findings: no PVCs Comparison ECG Date: from (04/11/17) Change: the following changes noted (High lateral is unchanged. 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 It was relieved with nitro and aspirin. She does take Coumadin. IV was established blood work was obtained and shows no significant leukocytosis or anemia. INR was subtherapeutic at 1.7. BMP with L FTs was unremarkable. Bilirubin slightly elevated at 1.8. Troponin was negative. Lipase unremarkable. Dig was low at 0.6. Chest x-ray unremarkable. EKG was paced. Patient was updated bedside. Patient was pain-free and admitted to the hospitalist for precordial chest pain with moderate heart score. Impression & Plan Chest pain, precordial, Abnormal EKG Discharge Plan Visit Data *Final* Discharge Date/Time: 05/06/19 16:04 Chief Complaint: Chest Pain Stated Complaint: cp ED Provider: Trung Vickers Discharge Problem: Chest pain, precordial, Abnormal EKG Patient Disposition: Admitted As Inpatient Discharge Instructions Interventions: ED Discharge Assessment Last Done: 05/06/19 16:04 The scribe's documentation has been prepared under my direction and personally reviewed by me in its entirety. I confirm that the note above accurately reflects all work, treatment, procedures, and medical decision making performed by me.
[2019-05-06] MEDS: CHOLECALCIFEROL 1,000 UNITS 25 MCG TAB PO SCH (21:21)
[2019-05-06] MEDS: ATORVASTATIN 40 MG TAB PO SCH (21:21)
[2019-05-06] MEDS: SERTRALINE HCL 50 MG TABLET PO SCH (21:21)
[2019-05-06] MEDS: INSULIN ASPART 100 UNITS/ML 3 ML PEN SC SCH (21:44)
[2019-05-07 06:19] LABS: Hematocrit (blood only) 40.6 % (37-47); Hemoglobin 13.5 g/dL (12.0-16.0); Mean Corpuscular Hemoglobin 29.5 pg (25-34); Mean Corpuscular Hgb Conc 33.3 g/dL (32-36); Mean Corpuscular Volume 88.6 fL (80-100); Mean Platelet Volume 9.9 fL (7.4-10.4); Platelet Count 143 K/uL (130-400); RDW Coefficient of Variation 14.1 % (11.5-14.5); RDW Standard Deviation 45.6 fL (36.4-46.3); Red Blood Count 4.58 M/uL (4.2-5.4); White Blood Count 5.11 K/uL (4.8-10.8)
[2019-05-07 06:29] LABS: INR 1.9 (0.9-1.1); Prothrombin Time 18.3 Seconds (9.0-12.0)
[2019-05-07 06:43] LABS: BUN Creatinine Ratio 29.4 (10-20); Calcium 9.9 mg/dl (8.5-10.1); Creatinine Clr Calc Pharmacy 42.7 ml/min; Est GFR (Non-African American) 64.7; Magnesium 1.9 mg/dl (1.8-2.4); Potassium 3.2 mmol/L (3.5-5.1)
[2019-05-07] MEDS: DIGOXIN 0.125 MG TAB PO SCH (08:29)
[2019-05-07] MEDS: METOPROLOL SUCC 25MG EXT REL TAB PO SCH (08:29)
[2019-05-07] MEDS: TORSEMIDE 10 MG TAB PO SCH (08:29)
[2019-05-07] MEDS: INSULIN ASPART 100 UNITS/ML 3 ML PEN SC SCH ×4 (08:31→20:30)
[2019-05-07 09:31] LABS: Estimated Average Glucose 154 mg/dl
[2019-05-07] MEDS: POTASSIUM CHLORIDE 20 MEQ TABCR PO SCH ×2 (12:08→17:17)
[2019-05-07] MEDS: WARFARIN SOD 4 MG TAB PO SCH (17:18)
--- NOTE | 2019-05-07 17:38 | Electrocardiogram Report ---
Test Reason : Blood Pressure : / mmHG Vent. Rate : 064 BPM Atrial Rate : 068 BPM P-R Int : 000 ms QRS Dur : 212 ms QT Int : 496 ms P-R-T Axes : 000 -63 105 degrees QTc Int : 511 ms Ventricular-paced rhythm Abnormal ECG When compared with ECG of 10-DEC-2017 22:29, Vent. rate has increased BY 2 BPM Confirmed by Shin Villatoro ([id number]) on 05/07/2019 5:38:19 PM Referred By: Jaron Harper Confirmed By:Johnny Villatoro
--- NOTE | 2019-05-07 17:48 | Hospitalist Progress Note ---
Date of Service May 07, 2019 Assessment & Plan (1) Chest pain: Despite her h/o CAD, her chest pain was not similar to her index angina, EKG and serial cardiac enzymes trended overnight did not reflect acute ischemia, and neither did her symptoms with resolution of her chest pain without return. Telemetry review was unremarkable for acute events. Echo revealed no changes in known wall motion abnormalities. She is currently chest-pain free and feeling well enough to go home. However, her facility cannot receive her back today. Therefore, I will ask Cardiology to see her in the morning regarding the need for any further risk stratification testing. Cont current management for known stable CAD. (2) CAD (coronary artery disease): appears stable, cont medical management (3) HTN (hypertension): controlled, cont Torpol XL (4) Chronic atrial fibrillation: chronic, cont warfarin, dig and Toprol (5) Chronic systolic heart failure: Echo revealed no new changes. Cont medical management with Toprol XL. Will review records to see if there is any contraindication to adding ACEI/Entresto (6) Tachy-wanda syndrome: S/P Pacemaker (7) Aortic stenosis: S/P TAVR in 2016 (8) Diabetes mellitus, type II: diet controlled, currently at goal on current insulin regimen. (9) HLD (hyperlipidemia): -Continue statin (10) Depression: -Continue sertraline per home regimen. (11) DVT prophylaxis: Coumadin DNR Dispo-to home in am. Jeninfer Clark DO [facility] Hospitalist Subjective 83 yo F with a significant cardiac history presented with acute onset chest pain after sitting down at her husbands medical appointment. She does not regularly have chest pain. She was given one nitro by the PCP and reported an improvement but not a resolution of her pain until she arrived in the ER. Outside of an ASA given in the ambulance, she didn't receive any further treatment for pain, and this then resolved and did not return. 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 She appears exhausted. She specifically helps him dry off after a shower, and helps him dress, etc. She is very worried that he is at the new assisted living place without her. Son and DIL are at the bedside. She reports being under stress. Review of Systems Review of Systems: All systems reviewed & are unremarkable except as noted in HPI & below Physical Exam Physical Exam: CONSTITUTIONAL: WNWD, vitals as above, generally fatigued/appears exhausted EYES: normal conjunctivae, no scleral icterus ENT: MMM RESPIRATORY: clear to auscultation bilaterally, no crackles, rales or wheezes, normal respiratory effort CARDIOVASCULAR: regular rate and rhythm, S1 and 2 heard without murmurs, gallops or rubs, no JVD, no peripheral edema GASTROINTESTINAL: soft, nontender, nondistended MUSCULOSKELETAL: strength 5/5 throughout, head is normocephalic and atraumatic SKIN: warm and dry NEUROLOGIC: CN 2-12 grossly intact, normal cognition, normal speech, no gross focal deficits. PSYCHIATRIC: alert cooperative and oriented to person, place and time. Results & Data Vital Signs (Past 12 Hours) Vital Signs Temp Pulse Pulse Resp BP Pulse Ox 05/07/19 10:55 36.3 C L 60 18 115/57 L 91 05/07/19 08:29 70 05/07/19 07:17 36.5 C 67 18 113/63 92 Laboratory Results Short CBC 05/07/19 Range/Units 05:43 WBC 5.11 (4.8-10.8) K/uL Hgb 13.5 (12.0-16.0) g/dL Hct 40.6 (37-47) % Plt Count 143 (130-400) K/uL BMP 05/07/19 05:43 Sodium 140 Potassium 3.2 L Chloride 105 Carbon Dioxide 30 BUN 25 H Creatinine 0.84 Glucose 111 H Calcium 9.9 Cardiac Enzymes 05/06/19 05/07/19 Range/Units 19:02 00:47 Troponin I < 0.015 < 0.015 (0-0.045) ng/ml Medications Administered Current Inpatient Medications Acetaminophen (Tylenol) 650 mg PO Q4H PRN PRN Reason: Pain or Fever Stop: 06/05/19 16:50 Last Admin: 05/06/19 21:21 Dose: 650 mg Documented by: Atorvastatin Calcium (Lipitor) 40 mg PO HS ACE Stop: 06/05/19 20:59 Last Admin: 05/06/19 21:21 Dose: 40 mg Documented by: Dextrose (Dextrose 50%) 25 - 50 ml IV UD PRN; Protocol PRN Reason: Hypoglycemia Protocol Stop: 06/05/19 16:50 Digoxin (Lanoxin) 0.125 mg PO MOTUWETHFR@0800 [facility] Stop: 06/06/19 07:59 Last Admin: 05/07/19 08:29 Dose: 0.125 mg Documented by: Glucagon (Glucagen) 1 mg SQ UD PRN; Protocol PRN Reason: Hypoglycemia Protocol Stop: 06/05/19 16:50 Glucose (Dex4 Glucose) 4 - 8 tabs PO UD PRN; Protocol PRN Reason: Hypoglycemia Protocol Stop: 06/05/19 16:50 Glucose (Glucose 40%) 15 - 30 gm PO UD PRN; Protocol PRN Reason: Hypoglycemia Protocol Stop: 06/05/19 16:50 Insulin Aspart (Novolog Flexpen) 0 units SC [facility] Stop: 06/05/19 20:59 Last Admin: 05/07/19 17:18 Dose: Not Given Documented by: Metoprolol Succinate (Toprol Xl) 25 mg PO QAM [facility] Stop: 06/06/19 08:59 Last Admin: 05/07/19 08:29 Dose: 25 mg Documented by: Miscellaneous (Carbohydrates For Hypoglycemia) 15 - 30 gm PO UD PRN PRN Reason: Hypoglycemia Protocol Stop: 06/05/19 16:50 Nitroglycerin (Nitrostat) 0.4 mg SL UD PRN PRN Reason: Chest Pain Stop: 06/05/19 16:50 Sertraline HCl (Zoloft) 50 mg PO [facility] Stop: 06/05/19 20:59 Last Admin: 05/06/19 21:21 Dose: 50 mg Documented by: Vitamin D (Vitamin D3) 2,000 units PO [facility] Stop: 06/05/19 20:59 Last Admin: 05/06/19 21:21 Dose: 2,000 units Documented by: Warfarin Sodium (Coumadin) 4 mg PO SuTuWeFrSa@1600 [facility] Stop: 06/05/19 16:50 Last Admin: 05/07/19 17:18 Dose: 4 mg Documented by: Warfarin Sodium (Coumadin) 6 mg PO MoTh@1600 [facility] Stop: 06/07/19 15:59
--- NOTE | 2019-05-07 17:50 | Electrocardiogram Report ---
Test Reason : Blood Pressure : / mmHG Vent. Rate : 062 BPM Atrial Rate : 062 BPM P-R Int : 416 ms QRS Dur : 216 ms QT Int : 530 ms P-R-T Axes : 082 -73 100 degrees QTc Int : 537 ms Ventricular paced rhythm with prolonged AV conduction Abnormal ECG When compared with ECG of 06-MAY-2019 13:41, (unconfirmed) Vent. rate has decreased BY 2 BPM Confirmed by Shin Villatoro ([id number]) on 05/07/2019 5:49:56 PM Referred By: Jaron Harper Confirmed By:Johnny Villatoro
[2019-05-07] MEDS: ATORVASTATIN 40 MG TAB PO SCH (20:27)
[2019-05-07] MEDS: SERTRALINE HCL 50 MG TABLET PO SCH (20:27)
[2019-05-07] MEDS: CHOLECALCIFEROL 1,000 UNITS 25 MCG TAB PO SCH (20:27)
[2019-05-08] MEDS: METOPROLOL SUCC 25MG EXT REL TAB PO SCH (07:49)
[2019-05-08] MEDS: DIGOXIN 0.125 MG TAB PO SCH (07:49)
[2019-05-08] MEDS: INSULIN ASPART 100 UNITS/ML 3 ML PEN SC SCH ×2 (07:49→11:57)
--- NOTE | 2019-05-08 10:55 | Discharge Summary ---
Date of Service May 08, 2019 Admission HPI Per Admitting Provider Pt is 83 y/o F with PMH DM II, CAD, VA s/p stent to RCA in 2002, chronic A-fib on Coumadin, tachybrady syndrome s/p pacemaker, aortic stenosis s/p TAVR in 2016, chronic systolic CHF, HTN, HLD, chronic BLE edema, depression, hyperparathyroidism, urinary incontinence presented to ER with c/o CP today. Pt was at PCP office today with her and when checking out developed anterior chest pressure and achiness in her jaw. She was given 1 SL nitro in clinic and reports resolution of symptoms in 30 minutes. Denies any SOB with this episode and denies any history of exertional SOB. Denies palpitations, dizziness, N/V or diaphoresis. Reports when had her VA in 2002 she had upper back pain and the pain today felt different. Pt reports under a lot of stress with trying to care for her with Parkinsons. Pt and are moving from the [facility] to the [facility] today for higher level of care and she is stressed with the move. Also reports car didn't start this morning and they were running late for PCP appointment for her . Reports past 1-2 days with couple episodes of loose stools. Has torsemide to use as needed for BLE edema. Pt states has chronic edema and no increase. Reports weighs herself once a week and her weights have been within 2 pounds. States uses torsemide a couple of times a week, admits does not like the frequent urination when she uses. Denies fever/chills, diaphoresis, N/V, melena, hematochezia, HUMPHREY, dizziness, syncope, vision changes, neck pain, orthopnea, palpitations, cough, sore throat, choking, otalgia, rhinorrhea, abdominal pain, paresthesias, weakness, extremity weakness, rashes, urinary symptoms. Admission Exam Per Admitting Provider General: no distress, WDWN Head: normocephalic, atraumatic Eyes: PERRL, EOM's intact, conjunctiva non-injected, anicteric ENT: normal inspection external ears, nose, mucous membranes moist Neck: supple, trachea midline Lungs: clear, no respiratory distress, no wheezing/rhonchi/rales CV: RRR, +systolic murmur, no JVD, 1-2+ pretibial edema Abd: normal BS, soft, non-tender Ext: no cyanosis, no calf tenderness Neuro: A&O x 3, no focal deficits noted, normal affect Skin: warm, dry Principal Diagnosis Atypical chest pain Discharge Data Allergies Allergy/AdvReac Type Severity Reaction Status Date / Time tetracycline Allergy Unknown RASH Verified 05/06/19 14:49 morphine AdvReac Mild "VIOLENTLY Verified 05/06/19 14:49 ILL", NAUSEA/VOMITING codeine AdvReac Unknown N/V Verified 05/06/19 14:49 Consultations 05/06/19 14:52 ED Decision to Admit Stat 05/06/19 16:51 Consult Case Management - Discharge Planning Routine 05/07/19 15:09 Consult Cardiology Routine Hospital Course (1) Chest pain: 83-year-old female presented with chest pain. She has a history of chronic atrial fibrillation on Coumadin, history of CAD with a history of cardiogenic shock at one point status post stent to the RCA in 2002, she is status post TAVR for aortic stenosis in 2015 and has chronic systolic CHF. She was given 1 sublingual nitro in the clinic and reported resolution of symptoms within 30 minutes. She did not have any further symptoms of chest pain while admitted. An EKG did not reveal evidence of new ischemia. Cardiac troponin enzymes were trended and negative. She was monitored on telemetry with no events during her hospitalization. An echocardiogram was performed on 05/07/2019 revealing no significant changes from prior study. Cardiology was consulted and recommended no further cardiac testing at this time. 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 She recently made a change from independent living into assisted living at the [facility]. She appeared exhausted during her hospitalization and was encouraged to seek respite care in whatever way possible. From a chest pain standpoint she was stable. At time of discharge physical exam was unremarkable. She was mentating and ambulating at baseline and tolerating p.o. She was hemodynamically stable and afebrile. She was discharged in stable condition with close primary care follow-up recommended. Total Time Total Time Spent Total Time Spent (In Minutes): 60 Total Time Includes: Examination of the Patient, Discharge Planning, Medication Reconciliation and Communication With Other Providers Discharge Plan Discharge Items Patient Disposition: Trans Resident Long-Term Care Reason For Visit: CHEST PAIN Discharge Diagnosis: Atypical chest pain Condition on Discharge: Good Activity: Resume your previous activity Non-emergency contact: Primary Care Provider Call non-emergency contact if: you have any medication questions, your symptoms worsen, your pain is not controlled, your pain is worsening, your pain is unusual for you, your pain is concerning for you and you have a fever Follow-up/Referrals: Jaron Harper MD [Physician] - 05/13/19 10:45 am LESLEE, [Primary Care Provider] - Diet: Carb Consistent or DM2 and Heart Healthy Addtl Attending Provider Instructions: Please take all medications as instructed on discharge list below. It is recommended that you follow-up with your primary care physician within one week of discharge from the hospital. 05/19/2019 9:40 AM Jaron Harper MD General Internal Medicine [facility] It was a pleasure taking care of you! Please call if you have any questions or problems. You can reach a [facility] hospitalist on duty at [facility] 24 hours a day by calling [phone]. Take care of yourself. Jennifer Clark DO [facility] Hospitalist Pending Studies at Discharge: No Stand-Alone Forms: My [facility], Smoking Cessation Skilled Items Patient informed of condition?: Yes DNR: Yes Discharge Level of Care: Other Communicable Disease: No Discharge Prognosis: Stable Lines: None Urinary Catheter: No Medications and DC Order Prescriptions: Continued atorvastatin 40 mg Tablet 40 mg PO HS RF: 0 torsemide 10 mg Tablet 10 mg PO DAILY PRN (Reason: swelling of feet) RF: 0 warfarin 4 mg Tablet 4 mg PO SUTUWEFRSA RF: 0 digoxin 125 mcg Tablet 0.125 mg PO MOTUWETHFR@0800 RF: 0 metoprolol succinate 25 mg Tablet Extended Release 24 Hr 25 mg PO QAM RF: 0 sertraline 50 mg Tablet 50 mg PO HS RF: 0 coenzyme Q10 [CoQ-10] 100 mg Capsule 100 mg PO QAM RF: 0 cholecalciferol (vitamin D3) [Vitamin D3] 2,000 unit Tablet 2,000 unit PO HS RF: 0 warfarin 4 mg Tablet 6 mg PO MOTH RF: 0 nitroglycerin 0.4 mg tablet, sublingual 0.4 mg sublingual UD RF: 0 Discharge Orders: Discharge Order (Routine); Ordered 05/08/19 Ordered By: Jennifer Clark Admission Data Admit Date/Time: 05/07/19 15:15 Attending Provider: Jennifer Clark Admit Provider: Maura Holcomb I. Primary Care Provider: Vasyl CAMILO Providers: Maura Holcomb I. ; Joseph Ramirez Other Interventions: Discharge Summary Assessment (RN) Last Done: 05/08/19 11:48 DC Date/Time DO NOT enter until pt leaves facility: 05/08/19 13:01
--- NOTE | 2019-05-08 12:42 | Cardiology Consultation ---
Date of Consultation May 08, 2019 Assessment & Plan (1) Chest pain: Cardiac enzymes negative x3 in no new wall motion abnormalities on echocardiogram. Given the clinical context of extreme emotional distress I do not believe her chest pain represents an ischemic event. She is obviously going through a great deal psychologically at this time, which is understandable, I do not feel that any further cardiac testing is necessary or beneficial at this time. No medication changes were made at this time. She is to continue outpatient medical regimen. May use as needed nitro as necessary Continue to follow-up with PCP (2) CAD (coronary artery disease): Stable (3) Aortic stenosis: Status post TAVR, stable indices on echocardiogram (4) Chronic systolic heart failure: Does not examine his volume overloaded Mildly reduced LV systolic function, stable on echocardiogram (5) Chronic atrial fibrillation: Stable, continue warfarin and follow-up with [facility] clinic History of Present Illness Reason for Consultation: Chest pain Requesting Physician: Dr. Clark Attending Physician: Jennifer Clark, DO History of Present Illness It was my pleasure to see Mrs. Castellanos in consultation today May 08, 2019. She is a very pleasant 83-year-old woman who follows very closely with Dr. Tommie guy of our cardiology practice. She presented to [facility] on 05/07/2019 after she had an episode of chest discomfort at her PCPs office. The patient has been undergoing a great deal of stress at home over the last 4 years with her 's declining mental status. He is very dependent on her and refuses to have her leave his site. They have been at the [facility] assisted living just yesterday she decided to transfer them to higher level of care for his significant need for attention. She was being seen by her PCP for routine physical before entering the higher level of care. Upon discharge she felt chest discomfort which she describes as a pressure across her anterior precordium. She states that this was different than her anginal equivalent. She describes as rather severe in nature but states that she has had similar episodes in the past when she is either felt anxious or possibly with acid reflux as well. She was reevaluated by her PCP and given sublingual nit roglycerin without any significant reduction of her symptoms. After several moments of relaxation her discomfort slowly subsided. She presented to [facility] where her work-up was unremarkable in the emergency room and she was admitted to telemetry. She denied any further chest discomfort overnight. I had a very long discussion with the patient regards to her current status with her and the significant amount of stress that she has been under. Patient was very tearful during the interview and she voiced several times that she just feels completely overwhelmed and now actually feels guilty that she is unable to take care of her by herself anymore. She does realize how much help that he needs and that she is not able to provide this for him. Problem list from Dr. Davis's most recent outpatient visit: 1. 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 Cardiac catheterization at the time of intervention showing no lesions greater than 40% stenosis except for the RCA. 3. Chronic atrial fibrillation 4. CHADS2 Score 4/6. Chronic Coumadin anticoagulation 5. 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 Severe aortic stenosis status post 02/01/2016 T-AVR Core Valve 7. Chronic multifactorial lower extremity peripheral edema. 8. Hypertension 9. Hyperlipidemia 10. Diabetes mellitus 11. Hypercalcemia 12. Hyperparathyroidism 13. Depression 14. Recurrent pneumonia 15. Urinary incontinence Allergies Allergy/AdvReac Type Severity Reaction Status Date / Time tetracycline Allergy Unknown RASH Verified 05/06/19 14:49 morphine AdvReac Mild "VIOLENTLY Verified 05/06/19 14:49 ILL", NAUSEA/VOMITING codeine AdvReac Unknown N/V Verified 05/06/19 14:49 Home Medications Home Medications Medication Instructions Recorded Confirmed Type atorvastatin 40 mg PO HS 06/07/18 05/06/19 History cholecalciferol (vitamin D3) 2,000 unit PO HS 06/07/18 05/06/19 History [Vitamin D3] coenzyme Q10 [CoQ-10] 100 mg PO QAM 06/07/18 05/06/19 History digoxin 0.125 mg PO MOTUWETHFR@0800 06/07/18 05/06/19 History metoprolol succinate 25 mg PO QAM 06/07/18 05/06/19 History sertraline 50 mg PO HS 06/07/18 05/06/19 History torsemide 10 mg PO DAILY PRN 06/07/18 05/06/19 History warfarin 4 mg PO SUTUWEFRSA 06/07/18 05/06/19 History nitroglycerin 0.4 mg SUBLINGUAL UD 05/06/19 05/06/19 History warfarin 6 mg PO MOTH 05/06/19 05/06/19 History Patient History Medical History Aortic stenosis S/P TAVR in 2015 CAD (coronary artery disease) S/P MT and stent to RCA in 2002 Chest pain Chronic atrial fibrillation Chronic systolic heart failure Depression Diabetes mellitus, type II Fracture of tibial plateau (Resolved Unknown) HLD (hyperlipidemia) HTN (hypertension) Hypercalcemia (Chronic Unknown) Hyperparathyroidism Primary hyperparathyroidism (Chronic Unknown) Rotator cuff arthropathy (Resolved) Tachy-ed syndrome Surgical History Aortic valve replaced (Chronic) S/P cardiac pacemaker procedure S/p TAVR (transcatheter aortic valve replacement), bioprosthetic 2015 Family History Other Cancer Diabetes Heart disease Hypertension Social History Preferred Language: Kyrgyz Communication Ability: Effective Beliefs That Will Affect Care: None Current Living Situation: Spouse and Personal Care Facility Current Living Situation Comment: lives at [facility] with and just transferred to assisted living Other Information That Helps Us Care for You: No Feels Safe at Home: Yes Safety Concerns: Feels Safe At This Time Smoking Status: Never smoker Hx Alcohol Use: Yes Alcohol Intake Frequency: Rarely Hx Substance Use: No Review of Systems Review of Systems: All systems reviewed & are unremarkable except as noted in HPI & below Physical Exam Physical Exam: General: Awake, alert and oriented x 3. No acute distress. HEENT: Normocephalic, atraumatic. Pupils equal, round and reactive to light and accommodation. Extraocular muscles are intact. Anicteric sclera. Moist mucous membranes. Neck: No JVD. No bruit. Cardiovascular: Regular. Positive S-4. Normal S-1 and S-2. No S-3. 3/6 mid to late systolic ejection murmur, greatest at the right sternal border, second intercostal space with radiation to the bilateral carotids. No rubs. Pulmonary: Clear to auscultation bilaterally. No rales, rhonchi, or wheezing. Abdomen: Bowel sounds x 4, soft. No rebound, guarding or tenderness. No organomegaly. Extremities: No clubbing, cyanosis or edema. +2 pedal pulses bilaterally. Skin: Warm and dry. Results & Data Vital Signs (Past 12 Hours) Vital Signs Temp Pulse Pulse Pulse Resp BP BP 05/08/19 11:48 36.6 C 62 79 18 128/83 124/74 05/08/19 11:37 36.6 C 79 18 128/83 05/08/19 08:06 37.2 C 68 20 116/74 05/08/19 08:00 75 05/08/19 07:49 75 05/08/19 05:08 36.7 C 62 18 124/74 05/08/19 00:34 63 Pulse Ox 05/08/19 11:48 95 05/08/19 11:37 95 05/08/19 08:06 94 05/08/19 08:00 05/08/19 07:49 05/08/19 05:08 92 05/08/19 00:34 Laboratory Results Laboratory Results - last 24 hr 05/07/19 05/07/19 05/08/19 16:27 20:23 07:11 POC Glucose 143 H 140 H 133 H 05/08/19 11:18 POC Glucose 123 H Medications Administered Current Inpatient Medications Acetaminophen (Tylenol) 650 mg PO Q4H PRN PRN Reason: Pain or Fever Stop: 06/05/19 16:50 Last Admin: 05/06/19 21:21 Dose: 650 mg Documented by: Atorvastatin Calcium (Lipitor) 40 mg PO HS [facility] Stop: 06/05/19 20:59 Last Admin: 05/07/19 20:27 Dose: 40 mg Documented by: Dextrose (Dextrose 50%) 25 - 50 ml IV UD PRN; Protocol PRN Reason: Hypoglycemia Protocol Stop: 06/05/19 16:50 Digoxin (Lanoxin) 0.125 mg PO MOTUWETHFR@0800 [facility] Stop: 06/06/19 07:59 Last Admin: 05/08/19 07:49 Dose: 0.125 mg Documented by: Glucagon (Glucagen) 1 mg SQ UD PRN; Protocol PRN Reason: Hypoglycemia Protocol Stop: 06/05/19 16:50 Glucose (Dex4 Glucose) 4 - 8 tabs PO UD PRN; Protocol PRN Reason: Hypoglycemia Protocol Stop: 06/05/19 16:50 Glucose (Glucose 40%) 15 - 30 gm PO UD PRN; Protocol PRN Reason: Hypoglycemia Protocol Stop: 06/05/19 16:50 Insulin Aspart (Novolog Flexpen) 0 units SC ACHS [facility] Stop: 06/05/19 20:59 Last Admin: 05/08/19 11:57 Dose: 4 units Documented by: Metoprolol Succinate (Toprol Xl) 25 mg PO QAM [facility] Stop: 06/06/19 08:59 Last Admin: 05/08/19 07:49 Dose: 25 mg Documented by: Miscellaneous (Carbohydrates For Hypoglycemia) 15 - 30 gm PO UD PRN PRN Reason: Hypoglycemia Protocol Stop: 06/05/19 16:50 Nitroglycerin (Nitrostat) 0.4 mg SL UD PRN PRN Reason: Chest Pain Stop: 06/05/19 16:50 Sertraline HCl (Zoloft) 50 mg PO [facility] Stop: 06/05/19 20:59 Last Admin: 05/07/19 20:27 Dose: 50 mg Documented by: Vitamin D (Vitamin D3) 2,000 units PO [facility] Stop: 06/05/19 20:59 Last Admin: 05/07/19 20:27 Dose: 2,000 units Documented by: Warfarin Sodium (Coumadin) 4 mg PO SuTuWeFrSa@1600 [facility] Stop: 06/05/19 16:50 Last Admin: 05/07/19 17:18 Dose: 4 mg Documented by: Warfarin Sodium (Coumadin) 6 mg PO MoTh@1600 [facility] Stop: 06/07/19 15:59
[2019-05-08] MEDS ORDERED: WARFARIN SOD 6 MG TAB PO SCH (16:00)
== END 2019-05-08 13:01 ==
LOC: ED 13:29 → 2S 13:29 → SUATTDRO 15:35 → 2S 16:04

== ENCOUNTER 2019-11-11 14:30 | Observation (INO) ==
[2019-11-11] MEDS ORDERED: SODIUM CHLORIDE 0.9% 1000ML 500 ML IV ONE (14:56)
[2019-11-11 15:24] LABS: Basophils # (auto) 0.01 K/uL (0-0.2); Basophils % (auto) 0.2 %; Eosinophils # (auto) 0.13 K/uL (0-0.5); Eosinophils % (auto) 2.2 %; Immature Granulocytes # (auto) 0.05 K/uL (0.00-0.02); Immature Granulocytes % (auto) 0.8 %; Lymphocytes % (auto) 18.2 %; Mean Corpuscular Hemoglobin 30.8 pg (25-34); Mean Corpuscular Hgb Conc 34.2 g/dL (32-36); Mean Platelet Volume 9.9 fL (7.4-10.4); Monocytes # (auto) 0.45 K/uL (0.11-0.59); Monocytes % (auto) 7.5 %; Neutrophils # (auto) 4.29 K/uL (1.4-6.5); Neutrophils % (auto) 71.1 %; Platelet Count 179 K/uL (130-400); RDW Coefficient of Variation 13.9 % (11.5-14.5); RDW Standard Deviation 45.8 fL (36.4-46.3); Red Blood Count 4.22 M/uL (4.2-5.4); White Blood Count 6.03 K/uL (4.8-10.8)
[2019-11-11 15:35] LABS: INR 2.2 (0.9-1.1); Prothrombin Time 22.2 Seconds (9.0-12.0)
[2019-11-11 15:41] LABS: Albumin Level 3.7 gm/dl (3.4-5.0); BUN Creatinine Ratio 17.1 (10-20); Calcium 9.9 mg/dl (8.5-10.1); Creatinine Clr Calc Pharmacy 26.6 ml/min; Est GFR (African American) 39.5; Est GFR (Non-African American) 34.1; Potassium 3.9 mmol/L (3.5-5.1)
[2019-11-11 15:44] LABS: Bilirubin,Total 0.8 mg/dl (0.2-1); Globulin 3.6 gm/dl (2.5-4.0); Total Protein 7.3 gm/dl (6.4-8.2)
[2019-11-11 15:52] LABS: iSTAT Creatinine 1.3 mg/dl (0.6-1.3); iSTAT Hemoglobin 11.6 g/dl (12.0-16.0); iSTAT Ionized Calcium 1.32 mmol/l (1.12-1.32); iSTAT Potassium 3.6 mmol/L (3.3-5.0)
[2019-11-11] MEDS ORDERED: IOVERSOL 100ml IV ONE (15:53)
[2019-11-11] MEDS ORDERED: ACETAMINOPHEN 1,000 MG/100 ML VIAL IV STA (16:04)
[2019-11-11] MEDS ORDERED: HYDROmorphone INJ 0.5 MG/0.5 ML SYR IV PRN (16:04)
[2019-11-11] MEDS ORDERED: ONDANSETRON INJ 2 MG/ML 2 ML VIAL IV STA (16:04)
--- NOTE | 2019-11-11 16:14 | CT Scan Report ---
CT SCAN OF THE BRAIN WITHOUT IV CONTRAST CLINICAL HISTORY: Trauma. Fall. COMPARISON STUDY: CT of the brain dated 05/08/2016. TECHNIQUE: Unenhanced axial CT scan of the brain is performed from the vertex to the skull base. A do se lowering technique was utilized adhering to the principles of ALARA. FINDINGS: Brain parenchyma: There are age-related involutional changes noting moderate subcortical and periven tricular microangiopathic change. There is no hemorrhage, mass effect, or evidence of acute territori al ischemia by CT criteria. Lynch-white matter differentiation is preserved. No extra-axial fluid lashon ection is seen. Ventricles, sulci, cisterns: Prominent secondary to involutional change. Intracranial vasculature: There is atherosclerotic calcification of the cavernous carotid and vertebr al arteries. Calvarium: The skeletal structures are osteopenic. No depressed calvarial fracture is identified. Soft tissues: There is a small left parietal scalp contusion. Sinuses and mastoids: The visualized paranasal sinuses are clear. The mastoid air cells are well pneu matized. Orbits: The bony orbits are grossly intact. There are bilateral ocular lens implants. IMPRESSION: There is no hemorrhage, mass effect, or evidence of acute territorial ischemia by CT allyn perez. ACT 112: Negative or not required by law. Electronically signed by: Favio Hendrix M.D. 11/11/2019 4:13 PM
--- NOTE | 2019-11-11 16:19 | CT Scan Report ---
CT SCAN OF THE CERVICAL SPINE CLINICAL HISTORY: Trauma. Fall. COMPARISON STUDY: CT of the neck dated 02/08/2007. TECHNIQUE: CT scan of the cervical spine is performed from the skull base to the upper thoracic spine . Images are reviewed in the axial, sagittal, and coronal planes. IV contrast was not administered fo r this examination. A dose lowering technique was utilized adhering to the principles of ALARA. CT DOSE: 1630.55 mGy.cm FINDINGS: Skeletal structures: The skeletal structures are osteopenic. There is no evidence of fracture or subl uxation involving the cervical spine. Vertebral body height is maintained. There is minimal anterolis thesis at C4-C5 and C7-T1. Anterior osteophytes are noted in the lower cervical region. The odontoid process and lateral masses are intact. The atlantoaxial articulation is preserved noting advanced pro ductive degenerative change. The spinous processes appear intact. There is moderate to advanced multi level cervical spondylosis. Uncovertebral and facet arthropathy contribute to neural foraminal stenos is at most levels. Intervertebral discs: Moderate to advanced disc space narrowing seen at C3-C4, C5-C6, and C6-C7. Mild disc space narrowing seen at C7-T1. Central canal: Large posterior disc osteophyte complexes at C3-C4, C5-C6, and C6-C7 likely contribute to multilevel acquired compromise of the central canal. Soft tissues: The prevertebral and paraspinous soft tissues are within normal limits. The thyroid gla nd is enlarged and there are numerous low-attenuation thyroid nodules which measure up to 2 cm. There is atherosclerotic calcification of the carotid bulbs. Pacemaker leads are noted in the left axillar y region. Calvarium: The visualized calvarium at the skull base appears intact. Brain parenchyma: Partially visualized brain parenchyma the skull base is within normal limits. Sinuses and mastoids: The visualized paranasal sinuses are clear. The mastoid air cells are well pneu matized. Lung apices: Clear as visualized. IMPRESSION: 1. There is no evidence of fracture or subluxation involving the cervical spine. 2. Osteopenia and spondylotic change as above. ACT 112: Negative or not required by law. Electronically signed by: Favio Hendrix M.D. 11/11/2019 4:17 PM
--- NOTE | 2019-11-11 16:23 | CT Scan Report ---
CHEST CT WITH CONTRAST; CT ABDOMEN AND PELVIS WITH IV CONTRAST ONLY HISTORY: Acute left-sided chest pain status post fall Pt c/o fall, left sided chest pain TECHNIQUE: Multiaxial CT images of the chest, abdomen and pelvis were performed following the IV admi nistration of 92 cc of Optiray 320. A dose lowering technique was utilized adhering to the principl es of MARY. COMPARISON: None. FINDINGS: CT CHEST: Limited exam secondary to positioning and streak artifact from right shoulder arthroplasty. Multinodu lar thyroid. No adenopathy. Marked cardiomegaly. Aortic valvular endograft. Advanced coronary artery calcifications. Left subclavian pacer. Mixed plaque of the thoracic aortic arch. Patency of the image d great vessels. Descending thoracic aortic tortuosity. Pulmonary artery appears unremarkable. There is no pneumothorax, pleural effusion, airspace consolidation or overt pulmonary edema. Mild bib asilar atelectasis. The central airways appear patent. Soft tissues are unremarkable. Degenerative ch anges of the spine and left shoulder. Bones appear intact. No acute fracture identified. Multilevel S chmorl's nodes with likely chronic anterior and superior endplate wedging. CT ABDOMEN/PELVIS: There is no pneumatosis or pneumoperitoneum. There is a peripherally calcified hypodense 1.3 cm lesio n involving the inferior aspect of the spleen. There is a splenule noted along the inferior margin of the spleen. There are two indeterminate soft tissue nodules noted adjacent to the splenic hilum corby uring up to 12 mm with mild adjacent stranding. Moderate generalized pancreatic atrophy. Cholecystect royal with likely postsurgical mild biliary ductal dilation. Unremarkable appearance of the liver. Righ t hemidiaphragmatic elevation. There is an indeterminate exophytic 1.2 cm intermediate density lesion involving the inferior pole le ft kidney, [place] of 44. No obstructive uropathy. Unremarkable urinary bladder. Uterus and adnexa are unremarkable. Multiple phleboliths of the pelvis. Mixed plaque of the abdominal aorta without an eurysm. There are a few prominent lymph nodes present measuring up to 8 mm. No pathologically enlarge d lymph nodes. Small hiatal hernia with mild distal esophageal wall thickening. Extensive colonic diverticulosis wit hout acute diverticulitis. Noninflamed appendix. Severe facet arthrosis of the lower lumbar spine. Th ere is grade 1 retrolisthesis L1 on L2 which is likely on a degenerative basis. No definite acute fra cture or subluxation. IMPRESSION: 1. No acute intrathoracic, intra-abdominal or intrapelvic abnormality identified. 2. No acute fracture. 3. Indeterminate 1.2 cm intermediate density lesion involves the inferior pole left kidney. A renal u ltrasound could be considered to further evaluate. 4. Extensive colonic diverticulosis without acute diverticulitis. 5. There are two indeterminate ill-defined soft tissue density lesions noted adjacent to the splenic hilum possibly reflective of lymph nodes measuring up to 12 mm. 6. Additional findings as above. ACT 112: Negative or not required by law. Electronically signed by: Galileo Del Toro M.D. 11/11/2019 4:22 PM
[2019-11-11] MEDS: LIDOCAINE 5% 1 PATCH TD SCH (17:00)
--- NOTE | 2019-11-11 17:19 | XRay Report ---
LEFT FOOT 3 VIEWS CLINICAL HISTORY: Left foot pain. FINDINGS: 3 views of the left foot are compared to study dated 04/22/2011. The skeletal structures are heterogeneously osteopenic. There is a minimally displaced spiral fracture of the distal fifth metat arsal shaft with overlying soft tissue edema. No additional acute fracture is identified. Minimal ost eoarthritic change is seen at the first metatarsophalangeal joint. Mild arthritic change is also seen in the midfoot. IMPRESSION: Fifth metatarsal fracture as above. Electronically signed by: Favio Hendrix M.D. 11/11/2019 5:18 PM
[2019-11-11 18:55] LABS: NT Pro B Type Natriuretic Pept 455 pg/ml (0-1800); Troponin I < 0.015 ng/ml (0-0.045)
--- NOTE | 2019-11-11 19:21 | XRay Report ---
SINGLE VIEW PELVIS; 2 VIEWS LEFT HIP CLINICAL HISTORY: Left hip pain. FINDINGS: An AP view of the pelvis with AP and frog-leg views of the left hip are correlated with pel hayley CT performed the same day 11/11/2019. The skeletal structures are osteopenic. No fracture is seen i nvolving the hips or bony pelvis. Mild degenerative joint space narrowing is seen in both hips. Mild degenerative sclerosis is noted in the sacroiliac joints. Lumbosacral spondylosis and scoliosis is pa rtially visualized. The overlying soft tissues are normal in appearance. The bladder is filled with e xcreted IV contrast. IMPRESSION: No acute bony abnormality is identified. Electronically signed by: Favio Hendrix M.D. 11/11/2019 7:20 PM
--- NOTE | 2019-11-11 19:21 | History & Physical Report ---
Date of Service November 11, 2019 Assessment & Plan (1) Fall: (2) Rib pain on left side: Pt is 83 y/o F with PMH DM II, CAD, [place] s/p stent to RCA in 2002, chronic A-fib on Coumadin, tachybrady syndrome s/p pacemaker, aortic stenosis s/p TAVR in 2016, chronic systolic CHF, HTN, HLD, chronic BLE edema, depression, hyperparathyroidism, urinary incontinence presented to ER with c/o fall today while trying to transfer her and fell onto pt. C/O pain to left side of ribs that is aggravated with movement. In ER pt afebrile, P: 78, R: 18, BP: 102/51, 94% on RA down to 87% on RA after received Dilaudid and improved to 98% on 3L NC. Now 93-97% on RA. INR: 2.2. Negative troponin, Paced rhythm on EKG CT HEAD: There is no hemorrhage, mass effect, or evidence of acute territorial ischemia by CT criteria. CT C-SPINE:1. There is no evidence of fracture or subluxation involving the cervical spine. 2. Osteopenia and spondylotic change as above. CT CHEST & CT ABD/PELVIS: 1. No acute intrathoracic, intra-abdominal or intrapelvic abnormality identified. 2. No acute fracture. LEFT HIP/PELVIS XRAY:No acute bony abnormality is identified. In ER pt given 500ml NSS bolus, IV Tylenol, Dilaudid 0.25mg IV, zofran, lidocaine patch. It is reported pt unable sussessfully ambulate in ER -Left sided rib pain appears to be contusion at this time -Admit observation -Scheduled Tylenol, lidocaine patch, oxycodone prn pain -Incentive spirometry -PT/OT eval -CBC, BMP in am (3) Fracture of 5th metatarsal: LEFT FOOT XRAY: Fifth metatarsal fracture as above. -In ER pt placed in ortho boot to left foot -Ortho consult -PT/OT eval, will make partial weight bearing for now pending further ortho recommendations (4) DEIRDRE (acute kidney injury): BUN: 24, Cr: 1.42, GFR: 34. Baseline Cr: 0.8-0.9 -In ER given 500ml NSS bolus -Will hold tomorrow mornings spironolactone and torsemide -Monitor renal functions, avoid nephrotoxic agents when possible (5) Abnormal CT of the abdomen: CT CHEST & CT ABD/PELVIS: 1. No acute intrathoracic, intra-abdominal or intrapelvic abnormality identified. 2. No acute fracture. 3. Indeterminate 1.2 cm intermediate density lesion involves the inferior pole left kidney. A renal ultrasound could be considered to further evaluate. 4. Extensive colonic diverticulosis without acute diverticulitis. 5. There are two indeterminate ill-defined soft tissue density lesions noted adjacent to the splenic hilum possibly reflective of lymph nodes measuring up to 12 mm. 6. Additional findings as above. -Will obtain renal US -Obtain UA -May need further outpatient follow up with nephrology/urology pending study results (6) CAD (coronary artery disease): S/P stent RCA in 2002 -Continue metoprolol, statin (7) Chronic atrial fibrillation: On Coumadin Rate controlled -INR: 2.2 -Continue metoprolol, digoxin, Coumadin -Monitor INR (8) Tachy-wanda syndrome: S/P Pacemaker -paced rhythm on EKG and monitor (9) Chronic systolic heart failure: H/O echo 05/07/2019 revealed reduced EF 45%, diastolic dysfunction, basal inferior and posterior hunter thinned and akinetic, septal motion abnormal consistent with ventricular pacemaker, biatrial enlargement, status post TAVR with normal gradients, moderate MR and mild TR. -Appears euvolemic at this time -hold tomorrow dose of torsemide and spironolactone and reassess volume status and renal function -Monitor I&O's, low sodium diet (10) Aortic stenosis: S/P TAVR in 2016 (11) Diabetes mellitus, type II: Diet controlled A1c: 7.0 on 05/07/2019 -Diabetic diet -Monitor BSGs and Novolog sliding scale per protocol (12) Depression: -Continue sertraline -Pt under stress with her husbands current medical condition DVT Prophylaxis -On Coumadin, INR therapeutic Wants CPR, no mechanical ventilation as per discussion with pt Follows with Dr Harper for routine care Pt was seen and care coordinated with Dr Bradley. See addendum History of Present Illness Chief Complaint: Fall, left rib pain, left foot pain Primary Care Provider: Dr Harper Pt is 83 y/o F with PMH DM II, CAD, AK s/p stent to RCA in 2003, chronic A-fib on Coumadin, tachybrady syndrome s/p pacemaker, aortic stenosis s/p TAVR in 2016, chronic systolic CHF, HTN, HLD, chronic BLE edema, depression, hyperparathyroidism, urinary incontinence presented to ER with c/o fall today. Pt is helping to care for her who has Parkinson's and reports was recently placed on hospice. She states she was trying to get him into bed today when he started to fall and fell onto her causing her to fall onto her left side and hit her head. Denies any LOC, dizziness, syncope. C/O pain to left side of ribs that is aggravated with movement. Also c/o left foot pain. Prior to fall denies any CP, SOB or other symptoms. While in ER reports noticed left hip pain with ROM that she didn't notice initially. Denies fever/chills, diaphoresis, N/V/D/C, HUMPHREY, vision changes, neck pain, orthopnea, palpitations, cough, sore throat, choking, otalgia, rhinorrhea, abdominal pain, paresthesias, extremity weakness, worsening extremity edema, rashes, urinary symptoms. In ER pt with CT head and C-spine, CT chest and CT abd/pelvis without acute findings. Xray L foot showed left metatarsal fracture. ER reports pt unable to ambulate secondary to pain. Pt to be admitted for observation and eval. Allergies Allergy/AdvReac Type Severity Reaction Status Date / Time tetracycline Allergy Unknown RASH Verified 11/11/19 18:38 morphine AdvReac Mild "VIOLENTLY Verified 11/11/19 18:38 ILL", NAUSEA/VOMITING codeine AdvReac Unknown N/V Verified 11/11/19 18:38 Home Medications Home Medications Medication Instructions Recorded Confirmed Type atorvastatin [Lipitor] 40 mg PO DAILY 11/11/19 11/11/19 History cholecalciferol (vitamin D3) 50 mcg PO DAILY 11/11/19 11/11/19 History [Vitamin D3] coenzyme Q10 [CoQ-10] 100 mg PO DAILY 11/11/19 11/11/19 History digoxin 125 mcg PO 5XWK 11/11/19 11/11/19 History metoprolol succinate [Toprol XL] 25 mg PO DAILY 11/11/19 11/11/19 History nitroglycerin [Nitrostat] 0.4 mg SUBLINGUAL UD PRN 11/11/19 11/11/19 History polyethylene glycol 3350 [Miralax] 17 g PO DAILY PRN 11/11/19 11/11/19 History sertraline [Zoloft] 100 mg PO DAILY 11/11/19 11/11/19 History sodium chloride [Saline Mist] 2 spray INTRANASAL UD PRN 11/11/19 11/11/19 History spironolactone [Aldactone] 25 mg PO DAILY 11/11/19 11/11/19 History torsemide 10 mg PO DAILY 11/11/19 11/11/19 History warfarin 2 mg PO UD 11/11/19 11/11/19 History warfarin 4 mg PO 6XWK 11/11/19 11/11/19 History Past Med/Surg History Medical History Aortic stenosis S/P TAVR in 2015 CAD (coronary artery disease) S/P AK and stent to RCA in 2002 Chest pain (Acute) Chronic atrial fibrillation Chronic systolic heart failure Depression Diabetes mellitus, type II Fracture of tibial plateau (Resolved Unknown) HLD (hyperlipidemia) HTN (hypertension) Hypercalcemia (Chronic Unknown) Hyperparathyroidism Primary hyperparathyroidism (Chronic Unknown) Rotator cuff arthropathy (Resolved) Tachy-wanda syndrome Surgical History Aortic valve replaced (Chronic) S/P cardiac pacemaker procedure S/p TAVR (transcatheter aortic valve replacement), bioprosthetic 2015 Family History Other Cancer Diabetes Heart disease Hypertension Social History Smoking Status: Never smoker Hx Alcohol Use: No Hx Substance Use: No Preferred Language: Icelandic Communication Ability: Effective 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 Beliefs That Will Affect Care: None marital status: Current Living Situation: Spouse and Personal Care Facility Current Living Situation Comment: lives at [facility] with and just transferred to assisted living Feels Safe at Home: Yes Review of Systems Review of Systems: All systems reviewed & are unremarkable except as noted in HPI & below Physical Exam Physical Exam: General: no distress, WDWN Head: normocephalic, left scalp with +abrasion Eyes: PERRL, EOM's intact, conjunctiva non-injected, anicteric ENT: normal inspection external ears, nose, mucous membranes moist Neck: supple, trachea midline, ROM intact Lungs: clear, no respiratory distress, no wheezing/rhonchi/rales CV: RRR, +systolic murmur, no JVD, 1+ pretibial edema Chest wall: +tenderness to palpation left lateral ribs Abd: normal BS, soft, non-tender Ext: no cyanosis, no calf tenderness; left lateral hip with tenderness with flexion, left foot without edema or ecchymosis and at this time no significant tenderness to palpation; active ROM bilateral upper extremities intact without discomfort, no apparent discomfort right hip with ROM, distal pulses intact, brisk capillary refill Neuro: A&O x 3, no focal deficits noted, normal affect Skin: warm, dry Results & Data Results & Data ([facility]) Vital Signs (Past 12 Hours) Vital Signs Temp Pulse Pulse Resp BP BP Pulse Ox 11/11/19 18:30 60 18 106/59 L 11/11/19 18:01 60 18 11/11/19 18:00 60 19 98/55 L 11/11/19 17:31 61 18 11/11/19 17:30 60 15 108/53 L 11/11/19 17:01 60 17 11/11/19 17:00 60 23 105/59 L 97 11/11/19 16:55 98 11/11/19 16:50 59 L 18 87 L 11/11/19 16:45 63 65 20 129/65 129/65 94 11/11/19 16:40 61 22 11/11/19 16:30 61 18 11/11/19 16:20 60 18 11/11/19 16:10 62 23 11/11/19 16:09 74 19 11/11/19 16:08 70 28 H 134/94 11/11/19 16:02 65 22 11/11/19 15:30 60 15 11/11/19 15:11 61 19 11/11/19 14:40 36.5 C 78 18 102/51 L 94 11/11/19 14:39 65 20 102/51 L Laboratory Results Short CBC 11/11/19 Range/Units 15:14 WBC 6.03 (4.8-10.8) K/uL Hgb 13.0 (12.0-16.0) g/dL Hct 38.0 (37-47) % Plt Count 179 (130-400) K/uL BMP 11/11/19 15:14 Sodium 142 Potassium 3.9 Chloride 107 Carbon Dioxide 30 BUN 24 H Creatinine 1.42 H Glucose 203 H Calcium 9.9 Cardiac Enzymes 11/11/19 Range/Units 15:14 Troponin I < 0.015 (0-0.045) ng/ml Liver Function 11/11/19 Range/Units 15:14 Total Bilirubin 0.8 (0.2-1) mg/dl AST 24 (15-37) U/L ALT 34 (12-78) U/L Alkaline Phosphatase 67 (45-117) U/L Albumin 3.7 (3.4-5.0) gm/dl Diagnostic Findings CT HEAD: IMPRESSION: There is no hemorrhage, mass effect, or evidence of acute territorial ischemia by CT criteria. CT C-SPINE: IMPRESSION: 1. There is no evidence of fracture or subluxation involving the cervical spine. 2. Osteopenia and spondylotic change as above. CT CHEST: CT ABD/PELVIS: IMPRESSION: 1. No acute intrathoracic, intra-abdominal or intrapelvic abnormality identified. 2. No acute fracture. 3. Indeterminate 1.2 cm intermediate density lesion involves the inferior pole left kidney. A renal ultrasound could be considered to further evaluate. 4. Extensive colonic diverticulosis without acute diverticulitis. 5. There are two indeterminate ill-defined soft tissue density lesions noted adjacent to the splenic hilum possibly reflective of lymph nodes measuring up to 12 mm. 6. Additional findings as above. LEFT FOOT XRAY: IMPRESSION: Fifth metatarsal fracture as above. LEFT HIP/PELVIS: XRAY: IMPRESSION: No acute bony abnormality is identified. ECG Findings: + paced rhythm Code Status & VTE Plan VTE Prophylaxis Plan VTE Prophylaxis will be ordered: Yes Supervising Physician Co-Signing Physician Notes Patient was seen and examined by me, care coordinated with Odalys Wooten PA-C. Please see her note above for further details. Mrs. Castellanos is an 83 y/o F with DM II, CAD s/p stent to RCA in 2002, chronic A- fib on Coumadin, tachybrady syndrome s/p pacemaker, aortic stenosis s/p TAVR, chronic systolic CHF, HTN, HLD, chronic BLE edema, depression, urinary incontinence presented to ER with after mechanical fall. Patient currently resides at [place], with her , who has Parkinson's disease, and patient is a primary caregiver. Unfortunately today patient's caused patient to fall on her left side, hitting her head. Pt denies any LOC, dizziness, syncope. She does complain of pain to left side of ribs that is aggravated with movement. Also complains of left foot pain and left hip pain. Prior to fall denies any CP, SOB or other symptoms. In ER, CT head and C-spine negative, CT chest and CT abd/pelvis without acute findings. Xray L foot showed left metatarsal fracture. ER reports pt unable to ambulate secondary to pain. Pt to be admitted for observation and eval. Patient is currently lying in bed, in no acute distress, besides feeling overwhelmed, worried about her . She is alert and oriented answering questions appropriately. Lung sounds are clear to auscultation bilaterally, without any wheezing rhonchi or crackles noted. Heart sounds are regular. Abdomen is soft, nontender, nondistended. Patient is alert and oriented answe ring questions appropriately. She is moving all 4 extremities spontaneously however she has pain with movement. There is left boot placed over patient's left foot, there is no erythema, swelling or significant tenderness to palpation of her left foot. Overall there is no significant lower extremity edema, however there are some venous stasis changes noted (per patient this is old from the past, when she used to have significant lower extremity edema). There is tenderness to palpation over her left rib cage, lidocaine patch is already applied. There is also pain with movement of left hip. Skin is otherwise warm, dry, well perfused. EKG checked, ventricular paced rhythm. Troponin negative. X-ray of left hip negative. Will admit and observe on telemetry, pain control for left foot and left rib cage. Orthopedics consulted. Discussed with case management, patient is a primary caregiver for her , clearly will need more help, and she already feels overwhelmed. Creatinine elevated above baseline, patient received small amount of IVF in the ED. We will hold her diuretics for now. No signs of fluid overload at this time. Ector Bradley MD
[2019-11-11] MEDS ORDERED: GLUCOSE 10 TABS/TUBE PO PRN (19:52)
[2019-11-11] MEDS ORDERED: CARBOHYDRATES FOR HYPOGLYCEMIA PO PRN (19:52)
[2019-11-11] MEDS ORDERED: OXYCODONE HCL IR 5 MG TAB (IMMEDIATE RELEASE) PO PRN (19:52)
[2019-11-11] MEDS ORDERED: GLUCOSE 40% GEL 15 GM TUBE PO PRN (19:52)
[2019-11-11] MEDS ORDERED: NITROGLYCERIN SL 0.4 MG/TAB TAB SL PRN (19:52)
[2019-11-11] MEDS ORDERED: DEXTROSE 50% 50 ML SYRINGE IV PRN (19:52)
[2019-11-11] MEDS ORDERED: GLUCAGON FOR INJ 1 MG VIAL SQ PRN (19:52)
[2019-11-11] MEDS ORDERED: POLYETHYLENE (MIRALAX) 17 GM PACK PO PRN (19:52)
[2019-11-11] MEDS: ACETAMINOPHEN 500 MG TAB PO SCH (20:27)
[2019-11-11] MEDS: INSULIN ASPART 100 UNITS/ML 3 ML PEN SC SCH ×2 (20:28→21:26)
[2019-11-11 22:49] LABS: Appearance Urine Clear (Clear); Bilirubin Urine Negative (Negative); Blood Urine Negative (Negative); Color Urine Yellow; Glucose Urine UA Negative (Negative); Ketones Urine Negative (Negative); Leukocyte Esterase Urine Negative (Negative); Nitrite Urine Negative (Negative); Protein Urine Negative (Negative); Specific Gravity Urine > 1.045 (1.000-1.030); Urobilinogen Urine Negative (Negative)
[2019-11-12] MEDS ORDERED: OXYCODONE HCL IR 5 MG TAB (IMMEDIATE RELEASE) PO PRN (02:03)
[2019-11-12] MEDS ORDERED: HYDROmorphone INJ 0.5 MG/0.5 ML SYR IV PRN (02:03)
[2019-11-12] MEDS: ACETAMINOPHEN 500 MG TAB PO SCH (05:50)
[2019-11-12 06:38] LABS: INR 2.2 (0.9-1.1)
[2019-11-12 06:47] LABS: BUN Creatinine Ratio 20.2 (10-20); Calcium 9.3 mg/dl (8.5-10.1); Creatinine Clr Calc Pharmacy 33.4 ml/min; Est GFR (African American) 59.6; Est GFR (Non-African American) 51.4; Potassium 3.8 mmol/L (3.5-5.1)
[2019-11-12 06:54] LABS: Hematocrit (blood only) 36.6 % (37-47); Hemoglobin 12.3 g/dL (12.0-16.0); Mean Corpuscular Hemoglobin 30.2 pg (25-34); Mean Corpuscular Hgb Conc 33.6 g/dL (32-36); Mean Corpuscular Volume 89.9 fL (80-100); Mean Platelet Volume 9.6 fL (7.4-10.4); Platelet Count 152 K/uL (130-400); RDW Coefficient of Variation 13.8 % (11.5-14.5); RDW Standard Deviation 45.6 fL (36.4-46.3); Red Blood Count 4.07 M/uL (4.2-5.4); White Blood Count 5.91 K/uL (4.8-10.8)
[2019-11-12 07:57] LABS: Estimated Average Glucose 203 mg/dl; Hemoglobin A1C 8.7 % (4.5-5.6)
[2019-11-12] MEDS ORDERED: METOPROLOL SUCC 25MG EXT REL TAB PO SCH (09:00)
[2019-11-12] MEDS ORDERED: LIDOCAINE 5% 1 PATCH TD SCH (09:00)
[2019-11-12] MEDS ORDERED: CHOLECALCIFEROL 1,000 UNITS 25 MCG TAB PO SCH (09:00)
[2019-11-12] MEDS ORDERED: ATORVASTATIN 40 MG TAB PO SCH (09:00)
[2019-11-12] MEDS ORDERED: SERTRALINE HCL 100 MG TABLET PO SCH (09:00)
--- NOTE | 2019-11-12 09:24 | Orthopedic Consultation ---
Date of Consultation November 12, 2019 Assessment & Plan (1) Fracture of fifth metatarsal bone of left foot: she has a minimally displaced fracture 5th metatarsal, will treat conservatively in LT boot, she can WBAT on her heel, cont to ice and elevate for swelling, she can remove the boot when sitting for comfort and to do gentle ROM of the ankle. F/U at [facility] in 10-14 days for repeat xrays of the foot, call [phone] to schedule appointment. thank you History of Present Illness Reason for Consultation: left foot 5th metatarsal fracture Attending Physician: Molina Christian MD History of Present Illness Mrs Castellanos is 83 y/o Female that we are consulted on in regards to a left foot fracture, past medical history consistent with DM II, CAD, CT s/p stent to RCA in 2002, chronic A-fib on Coumadin, tachybrady syndrome s/p pacemaker, aortic stenosis s/p TAVR in 2016, chronic systolic CHF, HTN, HLD, chronic BLE edema, depression, hyperparathyroidism, urinary incontinence presented to ER with c/o fall today. 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 She states she was trying to get him into bed today when he started to fall and fell onto her causing her to fall onto her left side and hit her head. Denies any LOC, dizziness, syncope. she presented to the ER and x-rays of her foot showed fracture of the 5th metatarsal. Allergies Allergy/AdvReac Type Severity Reaction Status Date / Time tetracycline Allergy Unknown RASH Verified 11/11/19 18:38 morphine AdvReac Mild "VIOLENTLY Verified 11/11/19 18:38 ILL", NAUSEA/VOMITING codeine AdvReac Unknown N/V Verified 11/11/19 18:38 Home Medications Home Medications Medication Instructions Recorded Confirmed Type atorvastatin [Lipitor] 40 mg PO DAILY 11/11/19 11/11/19 History cholecalciferol (vitamin D3) 50 mcg PO DAILY 11/11/19 11/11/19 History [Vitamin D3] coenzyme Q10 [CoQ-10] 100 mg PO DAILY 11/11/19 11/11/19 History digoxin 125 mcg PO 5XWK 11/11/19 11/11/19 History metoprolol succinate [Toprol XL] 25 mg PO DAILY 11/11/19 11/11/19 History nitroglycerin [Nitrostat] 0.4 mg SUBLINGUAL UD PRN 11/11/19 11/11/19 History polyethylene glycol 3350 [Miralax] 17 g PO DAILY PRN 11/11/19 11/11/19 History sertraline [Zoloft] 100 mg PO DAILY 11/11/19 11/11/19 History sodium chloride [Saline Mist] 2 spray INTRANASAL UD PRN 11/11/19 11/11/19 History spironolactone [Aldactone] 25 mg PO DAILY 11/11/19 11/11/19 History torsemide 10 mg PO DAILY 11/11/19 11/11/19 History warfarin 2 mg PO UD 11/11/19 11/11/19 History warfarin 4 mg PO 6XWK 11/11/19 11/11/19 History Patient History Medical History Aortic stenosis S/P TAVR in 2015 CAD (coronary artery disease) S/P CT and stent to RCA in 2002 Chest pain (Acute) Chronic atrial fibrillation Chronic systolic heart failure Depression Diabetes mellitus, type II Fracture of tibial plateau (Resolved Unknown) HLD (hyperlipidemia) HTN (hypertension) Hypercalcemia (Chronic Unknown) Hyperparathyroidism Primary hyperparathyroidism (Chronic Unknown) Rotator cuff arthropathy (Resolved) Tachy-wanda syndrome Surgical History Aortic valve replaced (Chronic) S/P cardiac pacemaker procedure S/p TAVR (transcatheter aortic valve replacement), bioprosthetic 2015 Family History Other Cancer Diabetes Heart disease Hypertension Social History Smoking Status: Never smoker Hx Alcohol Use: No Hx Substance Use: No Preferred Language: Bulgarian Communication Ability: Effective 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 she has no tenderness to the medial or lateral malleolus, sensation intact to light touch, DP palpable. she is able to wiggle her toes and ankle without pain. Results & Data ([facility]) Vital Signs (Past 12 Hours) Vital Signs Temp Pulse Pulse Resp BP BP Pulse Ox 11/12/19 07:00 36.4 C L 66 20 105/65 91 11/12/19 04:20 36.5 C 62 20 123/73 93 11/11/19 23:40 61 11/11/19 23:00 36.4 C L 66 20 111/67 94 11/11/19 22:30 64 Laboratory Results Laboratory Results WBC 5.91 K/uL (4.8-10.8) 11/12/19 06:02 RBC 4.07 M/uL (4.2-5.4) L 11/12/19 06:02 Hgb 12.3 g/dL (12.0-16.0) 11/12/19 06:02 POC Hgb 11.6 g/dl (12.0-16.0) L 11/11/19 15:39 Hct 36.6 % (37-47) L 11/12/19 06:02 POC Hct 34 % (37-47) L 11/11/19 15:39 MCV 89.9 fL (80-100) 11/12/19 06:02 MCH 30.2 pg (25-34) 11/12/19 06:02 MCHC 33.6 g/dL (32-36) 11/12/19 06:02 RDW Std Deviation 45.6 fL (36.4-46.3) 11/12/19 06:02 RDW Coeff of Rosas 13.8 % (11.5-14.5) 11/12/19 06:02 Plt Count 152 K/uL (130-400) 11/12/19 06:02 MPV 9.6 fL (7.4-10.4) 11/12/19 06:02 Immature Gran % (Auto) 0.8 % 11/11/19 15:14 Neut % (Auto) 71.1 % 11/11/19 15:14 Lymph % (Auto) 18.2 % 11/11/19 15:14 Leon % (Auto) 7.5 % 11/11/19 15:14 Eos % (Auto) 2.2 % 11/11/19 15:14 Baso % (Auto) 0.2 % 11/11/19 15:14 Neut # (Auto) 4.29 K/uL (1.4-6.5) 11/11/19 15:14 Lymph # (Auto) 1.10 K/uL (1.2-3.4) L 11/11/19 15:14 Leon # (Auto) 0.45 K/uL (0.11-0.59) 11/11/19 15:14 Eos # (Auto) 0.13 K/uL (0-0.5) 11/11/19 15:14 Baso # (Auto) 0.01 K/uL (0-0.2) 11/11/19 15:14 Immature Gran # (Auto) 0.05 K/uL (0.00-0.02) H 11/11/19 15:14 PT 22.0 Seconds (9.0-12.0) H 11/12/19 06:02 INR 2.2 (0.9-1.1) H 11/12/19 06:02 POC Sodium 141 mmol/L (135-144) 11/11/19 15:39 Sodium 143 mmol/L (136-145) 11/12/19 06:02 POC Potassium 3.6 mmol/L (3.3-5.0) 11/11/19 15:39 Potassium 3.8 mmol/L (3.5-5.1) 11/12/19 06:02 POC Chloride 99 mmol/L (101-112) L 11/11/19 15:39 Chloride 109 mmol/L (98-107) H 11/12/19 06:02 Carbon Dioxide 29 mmol/L (21-32) 11/12/19 06:02 POC Total CO2 28 mmol/L (24-31) 11/11/19 15:39 Anion Gap 5.0 (3-11) 11/12/19 06:02 POC Anion Gap 18.0 mmol/L (16-25) 11/11/19 15:39 POC BUN 24 mg/dl (7-18) H 11/11/19 15:39 BUN 20 mg/dl (7-18) H 11/12/19 06:02 Creatinine 1.01 mg/dl (0.6-1.2) 11/12/19 06:02 POC Creatinine 1.3 mg/dl (0.6-1.3) 11/11/19 15:39 Est Cr Clr Drug Dosing 33.4 ml/min 11/12/19 06:02 Est GFR ( Amer) 59.6 11/12/19 06:02 Est GFR (Non-Af Amer) 51.4 11/12/19 06:02 BUN/Creatinine Ratio 20.2 (10-20) H 11/12/19 06:02 Glucose 146 mg/dl (70-99) H 11/12/19 06:02 POC Glucose 147 mg/dl (70-99) H 11/12/19 07:34 POC Glucose (other) 189 mg/dl (70-99) H 11/11/19 15:39 Estimat Average Glucose 203 mg/dl 11/12/19 06:02 Hemoglobin A1c 8.7 % (4.5-5.6) H 11/12/19 06:02 Calcium 9.3 mg/dl (8.5-10.1) 11/12/19 06:02 POC Ioniz Calcium Garcia 1.32 mmol/l (1.12-1.32) 11/11/19 15:39 Total Bilirubin 0.8 mg/dl (0.2-1) 11/11/19 15:14 AST 24 U/L (15-37) 11/11/19 15:14 ALT 34 U/L (12-78) 11/11/19 15:14 Alkaline Phosphatase 67 U/L (45-117) 11/11/19 15:14 Troponin I < 0.015 ng/ml (0-0.045) 11/11/19 15:14 NT-Pro-B Natriuret Pep 455 pg/ml (0-1800) 11/11/19 15:14 Total Protein 7.3 gm/dl (6.4-8.2) 11/11/19 15:14 Albumin 3.7 gm/dl (3.4-5.0) 11/11/19 15:14 Globulin 3.6 gm/dl (2.5-4.0) 11/11/19 15:14 Albumin/Globulin Ratio 1.0 (0.9-2) 11/11/19 15:14 Urine Color Yellow 11/11/19 22:40 Urine Appearance Clear (Clear) 11/11/19 22:40 Urine pH 5.0 (4.5-7.5) 11/11/19 22:40 Ur Specific [place] > 1.045 (1.000-1.030) H 11/11/19 22:40 Urine Protein Negative (Negative) 11/11/19 22:40 Urine Glucose (UA) Negative (Negative) 11/11/19 22:40 Urine Ketones Negative (Negative) 11/11/19 22:40 Urine Blood Negative (Negative) 11/11/19 22:40 Urine Nitrite Negative (Negative) 11/11/19 22:40 Urine Bilirubin Negative (Negative) 11/11/19 22:40 Urine Urobilinogen Negative (Negative) 11/11/19 22:40 Ur Leukocyte Esterase Negative (Negative) 11/11/19 22:40 Diagnostic Findings LEFT FOOT 3 VIEWS CLINICAL HISTORY: Left foot pain. FINDINGS: 3 views of the left foot are compared to study dated 04/22/2011. The skeletal structures are heterogeneously osteopenic. There is a minimally displaced spiral fracture of the distal fifth metatarsal shaft with overlying soft tissue edema. No additional acute fracture is identified. Minimal osteoarthritic change is seen at the first metatarsophalangeal joint. Mild arthritic change is also seen in the midfoot. IMPRESSION: Fifth metatarsal fracture as above.
[2019-11-12] MEDS: INSULIN ASPART 100 UNITS/ML 3 ML PEN SC SCH ×2 (09:26→12:51)
--- NOTE | 2019-11-12 09:50 | Ultrasound Report ---
ULTRASOUND KIDNEYS AND BLADDER CLINICAL HISTORY: Left renal hypodensity. COMPARISON STUDY: Abdominal CT dated 11/11/2019 and 01/17/2008. TECHNIQUE: Real-time, grayscale, and color flow sonography of the kidneys and bladder is performed. I mages are reviewed in the transverse and longitudinal planes. FINDINGS: Kidneys: The kidneys are normal in size and echotexture. The right kidney measures 10.4 cm in length and the left kidney measures 10.1 cm in length. There is no hydronephrosis. No shadowing renal calcul i are identified. A 1.2 cm exophytic cyst arises from the lower pole of the left kidney. This is been present dating back to 2007. A subcentimeter cyst is noted in the right kidney. There is no sonograp hic evidence of solid renal mass lesion. No perinephric fluid is identified. Bladder: The bladder is normal in appearance. Bilateral ureteral jets were seen. IMPRESSION: 1. The kidneys are normal in size and without hydronephrosis. 2. The bladder is normal as imaged. 3. There is a 1.2 cm exophytic cyst arising from the lower pole of the left kidney. This has been pre sent dating back to 2007. ACT 112: Negative or not required by law. Electronically signed by: Favio Hendrix M.D. 11/12/2019 9:49 AM
[2019-11-12] MEDS: LIDOCAINE 5% 1 PATCH TD SCH (11:30)
--- NOTE | 2019-11-12 11:45 | Electrocardiogram Report ---
Test Reason : Blood Pressure : / mmHG Vent. Rate : 060 BPM Atrial Rate : 051 BPM P-R Int : 000 ms QRS Dur : 188 ms QT Int : 490 ms P-R-T Axes : 000 -70 100 degrees QTc Int : 490 ms Ventricular-paced rhythm Abnormal ECG When compared with ECG of 31-MAY-2019 07:27, Premature ventricular complexes are no longer Present Vent. rate has decreased BY 8 BPM Confirmed by Shin Villatoro ([id number]) on 11/12/2019 11:44:48 AM Referred By: LESLEE Confirmed By:Johnny Villatoro
--- NOTE | 2019-11-12 12:36 | Hospitalist Progress Note ---
Date of Service November 12, 2019 Assessment & Plan (1) Fall: (2) Rib pain on left side: -Pt is 83 y/o F with PMH DM II, CAD, [place] s/p stent to RCA in 2002, chronic A-fib on Coumadin, tachybrady syndrome s/p pacemaker, aortic stenosis s/p TAVR in 2016, chronic systolic CHF, HTN, HLD, chronic BLE edema, depression, hyperparathyroidism, urinary incontinence presented to ER with c/o fall today while trying to transfer her and fell onto pt. C/O pain to left side of ribs that is aggravated with movement. -In ER pt afebrile, P: 78, R: 18, BP: 102/51, 94% on RA down to 87% on RA after received Dilaudid and improved to 98% on 3L NC. Now 93-97% on RA. INR: 2.2. Negative troponin, Paced rhythm on EKG CT HEAD: There is no hemorrhage, mass effect, or evidence of acute territorial ischemia by CT criteria. CT C-SPINE:1. There is no evidence of fracture or subluxation involving the cervical spine. 2. Osteopenia and spondylotic change as above. CT CHEST & CT ABD/PELVIS: 1. No acute intrathoracic, intra-abdominal or intrapelvic abnormality identified. 2. No acute fracture. LEFT HIP/PELVIS XRAY:No acute bony abnormality is identified. -In ER pt given 500ml NSS bolus, IV Tylenol, Dilaudid 0.25mg IV, zofran, lidocaine patch. was then continued on pain medication of Scheduled Tylenol, lidocaine patch, oxycodone prn pain -no rib fractures on imaging, no skin lesions or bruising noted of the ribs, patient encouraged to use incentive spirometer -will plan on pain medication prescriptions as outpatient with outpatient family doctor follow up (3) Fracture of 5th metatarsal: LEFT FOOT XRAY: Fifth metatarsal fracture as above. -In ER pt placed in ortho boot to left foot -evaluated by orthopedic service while in the [facility] directions. "Fracture of fifth metatarsal bone of left foot: she has a minimally displaced fracture 5th metatarsal, will treat conservatively in LT boot, she can WBAT (weight bear as tolerated) on her heel, cont to ice and elevate for swelling, she can remove the boot when sitting for comfort and to do gentle ROM of the ankle. F/U at [facility] in 10-14 days for repeat xrays of the foot, call [phone] to schedule appointment" (4) DEIRDRE (acute kidney injury): BUN: 24, Cr: 1.42, GFR: 34. Baseline Cr: 0.8-0.9 -was given IV fluids in the ED and home diuretics were held -creatinine 1.01 on 11/12/2019 -can resume diuretics (5) Abnormal CT of the abdomen: Left renal cyst, (chronic) -CT CHEST & CT ABD/PELVIS: 1. No acute intrathoracic, intra-abdominal or intrapelvic abnormality identified. 2. No acute fracture. 3. Indeterminate 1.2 cm intermediate density lesion involves the inferior pole left kidney. A renal ultrasound could be considered to further evaluate. 4. Extensive colonic diverticulosis without acute diverticulitis. 5. There are two indeterminate ill-defined soft tissue density lesions noted adjacent to the splenic hilum possibly reflective of lymph nodes measuring up to 12 mm. 6. Additional findings as above. -Renal ultrasound 11/12/2019 1. The kidneys are normal in size and without hydronephrosis. 2. The bladder is normal as imaged. 3. There is a 1.2 cm exophytic cyst arising from the lower pole of the left kidney. This has been present dating back to 2007. (6) CAD (coronary artery disease): S/P stent RCA in 2002 -Continue metoprolol, statin (7) Chronic atrial fibrillation: -Continue metoprolol, digoxin, Coumadin -On Coumadin -INR: 2.2 (8) Tachy-wanda syndrome: S/P Pacemaker in the past -paced rhythm on EKG (9) Chronic systolic heart failure: H/O echo 05/07/2019 revealed reduced EF 45%, diastolic dysfunction, basal inferior and posterior hunter thinned and akinetic, septal motion abnormal consistent with ventricular pacemaker, biatrial enlargement, status post TAVR with normal gradients, moderate MR and mild TR. -Appears euvolemic at this time (10) Aortic stenosis: S/P TAVR in 2016 (11) Diabetes mellitus, type II: Diet controlled A1c: 7.0 on 05/07/2019 -Diabetic diet -had blood sugars monitored and Novolog sliding scale per protocol, no diabetes medications on discharge given relatively good hemoglobin A1c at her age. (12) Depression: -Continue sertraline DVT Prophylaxis -On Coumadin, INR therapeutic Code Status: Wants CPR, no mechanical ventilation Patient is a resident of [facility] upcoming appointments 11/20/2019 2:00 PM Provider Pacer Clinic [facility] Department Cardiology, [facility] 11/25/2019 5:00 PM Provider [facility] Department Pharmacy, [facility] 12/08/2019 10:00 AM Provider Jaron Harper MD Department General Internal Medicine [facility] 03/18/2020 10:30 AM Provider Chino Davis DO Department Cardiology, [facility] Admission and Anticipated Discharge Date Admission Date: November 11, 2019 Subjective Patient seen and examined while sitting on the wheelchair. She has boot on left foot. she denies acute pain of the left foot. she understands that there are no surgical plans at this time. Patient more complaints of left rib area pain. she is aware that there are no fractures. no respiratory distress. on room air. skin exam of the left trunk with no skin lesions of visible bruises no palpitations. no dizziness. no headache Review of Systems Review of Systems: All systems reviewed & are unremarkable except as noted in Subjective Physical Exam Constitutional: cooperative Eyes: PERRL, conjunctivae normal, anicteric sclerae EOM intact bilaterally ENMT: external ear and nose normal, oropharynx normal Neck: trachea midline, no thyromegaly normal visual inspection Respiratory: normal respiratory effort, lungs clear to auscultation Cardiovascular: Rate/Rhythm: + bradycardic Gastrointestinal (Abdomen): normal bowel sounds, soft, nontender, no hepato splenomegaly Musculoskeletal: Head/Neck/Chest: normocephalic and head atraumatic Extremities: + foot abnormality (left foot in boot) Neurologic: PERRL, EOMI, accommodation nl, no face palsy, no dysarthria Psychiatric: Orientation: alert and cooperative Results & Data Results & Data ([facility]) Vital Signs (Past 12 Hours) Vital Signs Temp Pulse Resp BP BP Pulse Ox 11/12/19 11:12 36.8 C 60 20 104/70 93 11/12/19 07:00 36.4 C L 66 20 105/65 91 11/12/19 04:20 36.5 C 62 20 123/73 93
[2019-11-12] MEDS ORDERED: TORSEMIDE 10 MG TAB PO SCH (12:45)
[2019-11-12] MEDS ORDERED: SPIRONOLACTONE 25 MG TAB PO SCH (12:45)
--- NOTE | 2019-11-12 13:10 | Discharge Summary ---
Date of Service November 12, 2019 Admission HPI Per Admitting Provider Pt is 83 y/o F with PMH DM II, CAD, [place] s/p stent to RCA in 2002, chronic A-fib on Coumadin, tachybrady syndrome s/p pacemaker, aortic stenosis s/p TAVR in 2016, chronic systolic CHF, HTN, HLD, chronic BLE edema, depression, hyperparathyroidism, urinary incontinence presented to ER with c/o fall today. Pt is helping to care for her who has Parkinson's and reports was recently placed on hospice. She states she was trying to get him into bed today when he started to fall and fell onto her causing her to fall onto her left side and hit her head. Denies any LOC, dizziness, syncope. C/O pain to left side of ribs that is aggravated with movement. Also c/o left foot pain. Prior to fall denies any CP, SOB or other symptoms. While in ER reports noticed left hip pain with ROM that she didn't notice initially. Denies fever/chills, diaphoresis, N/V/D/C, HUMPHREY, vision changes, neck pain, orthopnea, palpitations, cough, sore throat, choking, otalgia, rhinorrhea, abdominal pain, paresthesias, extremity weakness, worsening extremity edema, rashes, urinary symptoms. In ER pt with CT head and C-spine, CT chest and CT abd/pelvis without acute findings. Xray L foot showed left metatarsal fracture. ER reports pt unable to ambulate secondary to pain. Pt to be admitted for observation and eval. Principal Diagnosis Fall Fracture of fifth metatarsal bone of left foot Rib pain on left side Acute Kidney Injury (resolved) Left renal cyst, (chronic) Discharge Exam Constitutional cooperative Eyes PERRL, conjunctivae normal, anicteric sclerae EOM intact bilaterally ENMT external ear and nose normal, oropharynx normal Neck trachea midline, no thyromegaly normal visual inspection Respiratory normal respiratory effort, lungs clear to auscultation Cardiovascular Rate/Rhythm: + bradycardic Gastrointestinal (Abdomen) normal bowel sounds, soft, nontender, no hepatosplenomegaly Musculoskeletal Head/Neck/Chest: normocephalic and head atraumatic Extremities: + foot abnormality (left foot in boot) Neurologic PERRL, EOMI, accommodation nl, no face palsy, no dysarthria Psychiatric Orientation: alert and cooperative Discharge Data Allergies Allergy/AdvReac Type Severity Reaction Status Date / Time tetracycline Allergy Unknown RASH Verified 11/11/19 18:38 morphine AdvReac Mild "VIOLENTLY Verified 11/11/19 18:38 ILL", NAUSEA/VOMITING codeine AdvReac Unknown N/V Verified 11/11/19 18:38 Consultations 11/11/19 17:59 ED Decision to Admit Stat 11/11/19 18:04 ED Decision to Admit Stat 11/11/19 19:52 Consult Case Management - Discharge Planning Routine 11/12/19 08:00 Consult Orthopedic Surgery Routine Ordered Studies 11/11/19 14:51 CT abd pelvis IV con only Stat CT cervical spine wo con Stat CT chest w con Stat CT head/brain wo con Stat 11/12/19 08:30 US renal/blad retro comp Routine Hospital Course (1) Fall: (2) Rib pain on left side: -Pt is 83 y/o F with PMH DM II, CAD, [place] s/p stent to RCA in 2002, chronic A-fib on Coumadin, tachybrady syndrome s/p pacemaker, aortic stenosis s/p TAVR in 2016, chronic systolic CHF, HTN, HLD, chronic BLE edema, depression, hyperparathyroidism, urinary incontinence presented to ER with c/o fall today while trying to transfer her and fell onto pt. C/O pain to left side of ribs that is aggravated with movement. -In ER pt afebrile, P: 78, R: 18, BP: 102/51, 94% on RA down to 87% on RA after received Dilaudid and improved to 98% on 3L NC. Now 93-97% on RA. INR: 2.2. Negative troponin, Paced rhythm on EKG CT HEAD: There is no hemorrhage, mass effect, or evidence of acute territorial ischemia by CT criteria. CT C-SPINE:1. There is no evidence of fracture or subluxation involving the cervical spine. 2. Osteopenia and spondylotic change as above. CT CHEST & CT ABD/PELVIS: 1. No acute intrathoracic, intra-abdominal or intrapelvic abnormality identified. 2. No acute fracture. LEFT HIP/PELVIS XRAY:No acute bony abnormality is identified. -In ER pt given 500ml NSS bolus, IV Tylenol, Dilaudid 0.25mg IV, zofran, lidocaine patch. was then continued on pain medication of Scheduled Tylenol, lidocaine patch, oxycodone prn pain -no rib fractures on imaging, no skin lesions or bruising noted of the ribs, patient encouraged to use incentive spirometer -discharge to the [facility] with prescription for outpatient physical therapy discharge medication for pain sent electronically to [facility], [place] [address] of acetaminophen 500 mg every 6 hours as needed for mild to moderate pain, and oxycodone 5 mg every 6 hours as needed for severe pain (16 tablets prescribed) (3) Fracture of 5th metatarsal: LEFT FOOT XRAY: Fifth metatarsal fracture as above. -In ER pt placed in ortho boot to left foot -evaluated by orthopedic service while in the medical [facility] directions. "Fracture of fifth metatarsal bone of left foot: she has a minimally displaced fracture 5th metatarsal, will treat conservatively in LT boot, she can WBAT (weight bear as tolerated) on her heel, cont to ice and elevate for swelling, she can remove the boot when sitting for comfort and to do gentle ROM of the ankle. F/U at [facility] in 10-14 days for repeat xrays of the foot, call [phone] to schedule appointment" (4) DEIRDRE (acute kidney injury): BUN: 24, Cr: 1.42, GFR: 34. Baseline Cr: 0.8-0.9 -was given IV fluids in the ED and home diuretics were held -creatinine 1.01 on 11/12/2019 -can resume diuretics (5) Abnormal CT of the abdomen: Left renal cyst, (chronic) -CT CHEST & CT ABD/PELVIS: 1. No acute intrathoracic, intra-abdominal or intrapelvic abnormality identified. 2. No acute fracture. 3. Indeterminate 1.2 cm intermediate density lesion involves the inferior pole left kidney. A renal ultrasound could be considered to further evaluate. 4. Extensive colonic diverticulosis without acute diverticulitis. 5. There are two indeterminate ill-defined soft tissue density lesions noted adjacent to the splenic hilum possibly reflective of lymph nodes measuring up to 12 mm. 6. Additional findings as above. -Renal ultrasound 11/12/2019 1. The kidneys are normal in size and without hydronephrosis. 2. The bladder is normal as imaged. 3. There is a 1.2 cm exophytic cyst arising from the lower pole of the left kidney. This has been present dating back to 2007. (6) CAD (coronary artery disease): S/P stent RCA in 2002 -Continue metoprolol, statin (7) Chronic atrial fibrillation: -Continue metoprolol, digoxin, Coumadin -On Coumadin -INR: 2.2 (8) Tachy-wanda syndrome: S/P Pacemaker in the past -paced rhythm on EKG (9) Chronic systolic heart failure: H/O echo 05/07/2019 revealed reduced EF 45%, diastolic dysfunction, basal inferior and posterior hunter thinned and akinetic, septal motion abnormal consistent with ventricular pacemaker, biatrial enlargement, status post TAVR with normal gradients, moderate MR and mild TR. -Appears euvolemic at this time (10) Aortic stenosis: S/P TAVR in 2016 (11) Diabetes mellitus, type II: Diet controlled A1c: 7.0 on 05/07/2019 -Diabetic diet -had blood sugars monitored and Novolog sliding scale per protocol, no diabetes medications on discharge given relatively good hemoglobin A1c at her age. (12) Depression: -Continue sertraline DVT Prophylaxis -On Coumadin, INR therapeutic Code Status: Wants CPR, no mechanical ventilation Patient is a resident of [facility] upcoming appointments 11/20/2019 2:00 PM Provider Pacer Clinic [facility] Department Cardiology, [facility] 11/25/2019 5:00 PM Provider [facility] Department Pharmacy, [facility] 12/08/2019 10:00 AM Provider Jaron Harper MD Department General Internal Medicine [facility] 03/18/2020 10:30 AM Provider Chino Davis DO Department Cardiology, [facility] Total Time Total Time Spent Total Time Spent (In Minutes): 40 minutes Total Time Includes: Examination of the Patient, Discharge Planning, Medication Reconciliation and Communication With Other Providers Discharge Plan Discharge Items Patient Disposition: Trans Resident Long-Term Care Reason For Visit: FALL LEFT FOOT FRACTURE Discharge Diagnosis: Fall Fracture of fifth metatarsal bone of left foot Rib pain on left side Acute Kidney Injury (resolved) Left renal cyst, (chronic) Condition on Discharge: Good Activity: Per Instructions section Non-emergency contact: Primary Care Provider and Surgeon Call non-emergency contact if: you have any medication questions Follow-up/Referrals: LESLEE, [Primary Care Provider] - Diet: Carb Consistent or DM2 and Low Sodium (2gm) Addtl Attending Provider Instructions: no rib fractures on imaging, no skin lesions or bruising noted of the ribs, patient encouraged to use incentive spirometer discharge to the [facility] with prescription for outpatient physical therapy discharge [facility] for [facility] [place] [address] of acetaminophen 500 mg every 6 hours as needed for mild to moderate pain, and oxycodone 5 mg every 6 hours as needed for severe pain (16 tablets prescribed) admission creatinine 1.42 on 11/11/2019. creatinine 1.01 on 11/12/2019 upcoming appointments 11/20/2019 2:00 PM Provider Pacer Clinic [facility] Department Cardiology, [facility] 11/25/2019 5:00 PM Provider [facility] Department Pharmacy, [facility] 12/08/2019 10:00 AM Provider Jaron Harper MD Department General Internal Medicine [facility] 03/18/2020 10:30 AM Provider Chino Davis DO Department Cardiology, [facility] Addtl Senior Applications Engineer Provider Instructions: [facility] directions "Fracture of fifth metatarsal bone of left foot: she has a minimally displaced fracture 5th metatarsal, will treat conservatively in LT boot, she can WBAT (weight bear as tolerated) on her heel, cont to ice and elevate for swelling, she can remove the boot when sitting for comfort and to do gentle ROM of the ankle. F/U at [facility] in 10-14 days for repeat xrays of the foot, call [phone] to schedule appointment" Pending Studies at Discharge: No Studies:: Renal ultrasound 11/12/2019 1. The kidneys are normal in size and without hydronephrosis. 2. The bladder is normal as imaged. 3. There is a 1.2 cm exophytic cyst arising from the lower pole of the left kidney. This has been present dating back to 2007. Stand-Alone Forms: My psic[facility] Skilled Items Patient informed of condition?: No DNR: No Discharge Level of Care: Other Communicable Disease: No Discharge Prognosis: Stable Lines: None Urinary Catheter: No Medications and DC Order Prescriptions: New acetaminophen 500 mg Tablet 500 mg PO Q6H 4 Days Qty: 16 RF: 0 oxycodone 5 mg Tablet 5 mg PO Q6H PRN (Reason: severe pain) 4 Days Qty: 16 RF: 0 Continued atorvastatin [Lipitor] 40 mg Tablet 40 mg PO DAILY RF: 0 polyethylene glycol 3350 [Miralax] 17 gram Powder In Packet 17 g PO DAILY PRN (Reason: Constipation) RF: 0 sertraline [Zoloft] 100 mg Tablet 100 mg PO DAILY RF: 0 spironolactone [Aldactone] 25 mg tablet 25 mg PO DAILY RF: 0 warfarin 4 mg Tablet 4 mg PO 6XWK RF: 0 torsemide 5 mg Tablet 10 mg PO DAILY RF: 0 warfarin 2 mg Tablet 2 mg PO UD RF: 0 nitroglycerin [Nitrostat] 0.4 mg Tablet, Sublingual 0.4 mg sublingual UD PRN (Reason: Chest Pain) RF: 0 digoxin 125 mcg (0.125 mg) Tablet 125 mcg PO 5XWK RF: 0 metoprolol succinate [Toprol XL] 25 mg Tablet Extended Release 24 Hr 25 mg PO DAILY RF: 0 coenzyme Q10 [CoQ-10] 100 mg Capsule 100 mg PO DAILY RF: 0 sodium chloride [Saline Mist] 0.65 % Aerosol,Lerna 2 spray INTRANASAL UD PRN (Reason: Congestion) RF: 0 cholecalciferol (vitamin D3) [Vitamin D3] 50 mcg (2,000 unit) Tablet 50 mcg PO DAILY RF: 0 Discharge Orders: Discharge Order (Routine); Ordered 11/12/19 Ordered By: Molina Christian Admission Data Admit Date/Time: 11/11/19 18:44 Attending Provider: Molina Christian Admit Provider: Darrin Bradley Primary Care Provider: Vasyl CAMILO Providers: Darrin Bradley ; Amador Avila
[2019-11-12] MEDS ORDERED: DIGOXIN 0.125 MG TAB PO SCH (16:00)
[2019-11-12] MEDS ORDERED: WARFARIN SOD 4 MG TAB PO SCH (16:00)
--- NOTE | 2019-11-13 13:03 | Emergency Department Note ---
History of Present Illness General Chief complaint: Fall Time Seen by Provider: 11/11/19 14:35 Source: patient, RN notes reviewed and old records reviewed Mode of arrival: ambulatory Limitations: no limitations History of Present Illness Provider complaint: Fall Onset (ago): hour(s) 2 Location: chest, lower extremity and left Radiation: non-radiation Severity: severe Pain Consistency: + intermittent Maximum Pain Intensity: 10 Current Pain Intensity: 10 Quality: + aching Relieved By: + immobilization Exacerbated By: + movement Associated symptoms: + denies other symptoms; no fever/chills, no nausea/vomiting and no shortness of breath Treatments prior to arrival: none This is an 84-year-old female who presents emergency department complaining of pain to her left rib cage. The patient reports her has a history of Parkinson's and that he is much larger than she is. She reports that the patient's knees locked up and that he fell forward landing on top of her. Patient was knocked to the ground and is complaining of pain to her left foot as well as her left rib cage. She reports taking a deep breath makes the pain in her rib cage much worse. She denies any injuries. She denies being knocked unconscious. She reports immobilization makes the pain better. Home Medications Home Medications Medication Instructions Recorded Confirmed Type atorvastatin [Lipitor] 40 mg PO DAILY 11/11/19 11/11/19 History cholecalciferol (vitamin D3) 50 mcg PO DAILY 11/11/19 11/11/19 History [Vitamin D3] coenzyme Q10 [CoQ-10] 100 mg PO DAILY 11/11/19 11/11/19 History digoxin 125 mcg PO 5XWK 11/11/19 11/11/19 History metoprolol succinate [Toprol XL] 25 mg PO DAILY 11/11/19 11/11/19 History nitroglycerin [Nitrostat] 0.4 mg SUBLINGUAL UD PRN 11/11/19 11/11/19 History polyethylene glycol 3350 [Miralax] 17 g PO DAILY PRN 11/11/19 11/11/19 History sertraline [Zoloft] 100 mg PO DAILY 11/11/19 11/11/19 History sodium chloride [Saline Mist] 2 spray INTRANASAL UD PRN 11/11/19 11/11/19 History spironolactone [Aldactone] 25 mg PO DAILY 11/11/19 11/11/19 History torsemide 10 mg PO DAILY 11/11/19 11/11/19 History warfarin 2 mg PO UD 11/11/19 11/11/19 History warfarin 4 mg PO 6XWK 11/11/19 11/11/19 History acetaminophen 500 mg PO Q6H 4 Days #16 tab 11/12/19 Rx oxycodone 5 mg PO Q6H PRN 4 Days #16 tab 11/12/19 Rx Allergies Allergy/AdvReac Type Severity Reaction Status Date / Time tetracycline Allergy Unknown RASH Verified 11/11/19 18:38 morphine AdvReac Mild "VIOLENTLY Verified 11/11/19 18:38 ILL", NAUSEA/VOMITING codeine AdvReac Unknown N/V Verified 11/11/19 18:38 Past Med/Surg History Medical History Aortic stenosis S/P TAVR in 2015 CAD (coronary artery disease) S/P OH and stent to RCA in 2002 Chest pain (Acute) Chronic atrial fibrillation Chronic systolic heart failure Depression Diabetes mellitus, type II Fracture of tibial plateau (Resolved Unknown) HLD (hyperlipidemia) HTN (hypertension) Hypercalcemia (Chronic Unknown) Hyperparathyroidism Primary hyperparathyroidism (Chronic Unknown) Rotator cuff arthropathy (Resolved) Tachy-wanda syndrome Surgical History Aortic valve replaced (Chronic) S/P cardiac pacemaker procedure S/p TAVR (transcatheter aortic valve replacement), bioprosthetic 2015 Family History Other Cancer Diabetes Heart disease Hypertension Social History Smoking Status: Never smoker Hx Alcohol Use: No Hx Substance Use: No Preferred Language: Malawian Communication Ability: Effective Jukebox Route Driver Required: No Beliefs That Will Affect Care: None marital status: Current Living Situation: Spouse and Personal Care Facility Current Living Situation Comment: Patrice Feels Safe at Home: Yes Safety Concerns: Feels Safe At This Time Review of Systems A total of 10 systems reviewed and were otherwise negative Physical Exam VITAL SIGNS - Vital signs and nursing notes were reviewed. GENERAL - 84-year-old female appearing stated age who is in moderate distress. Communicates well with provider and answers questions appropriately. SKIN - Without rashes. HEAD - NC/AT. EYES - PERRL with EOMI bilaterally. Sclera anicteric. Palpebral conjunctiva pink and moist with no injection noted. EARS - No deformities of external structures noted on gross examination bilaterally. No pain elicited with palpation of the tragus bilaterally. External auditory canals without discharge or otorrhea. Tympanic membranes pearly lynch without retraction or bulging. No fluid or purulent material visualized behind t he TM. Handle of malleus, umbo, cone of light, pars tensa/flaccid all easily visualized. NOSE - Midline and without cyanosis. No epistaxis or purulent drainage noted. Septum midline without deviation or septal hematoma noted. MOUTH/OROPHARYNX - Without perioral cyanosis. Buccal mucosa pink and moist and without leukoplakia. Tongue midline with equal elevation of palate bilaterally. No tonsillar hypertrophy, erythema, or exudates noted. dentition noted. NECK - Neck with FROM. Supple to palpation. lymphadenopathy noted. No nuchal rigidity. LUNGS - Chest wall symmetric without accessory muscle use, intercostals retractions, or central cyanosis. Normal vesicular breath sounds CTA B/L. No w heezes, rales, or rhonchi appreciated. CHEST: left chest wall pain, reproduciple on plapation 5th left rib area CARDIAC - RRR with S1/S2. No murmur, rubs, or gallops appreciated. ABDOMEN - Abdominal contour without pulsations or visible masses. BS normoactive all four quadrants. No tenderness, palpable masses, hepatosplenomegaly, or ascites noted. EXTREMITIES - No clubbing or peripheral cyanosis. No pretibial edema present. +3/5 radial, posterior tibial, and dorsalis pedis pulses palpated throughout. +5/5 strength noted in UE/LE bilaterally. pain to foot 5th metatarsal area NEUROLOGIC - Cranial nerves II through XII grossly intact. Sensory intact to light touch throughout. Patellar reflexes +2/4. PSYCH - A&Ox3 and cooperates fully with examiner. Pt is very pleasant and interacts well with examiner. Course Administered Medications Discontinued Medications Acetaminophen (Tylenol) 1,000 mg PO Q8H ACE Stop: 12/11/19 21:59 Last Admin: 11/12/19 05:50 Dose: Not Given Documented by: [id number] Admin: 11/11/19 20:27 Dose: 1,000 mg Documented by: [id number] Atorvastatin Calcium (Lipitor) 40 mg PO DAILY ACE Stop: 12/12/19 08:59 Last Admin: 11/12/19 09:22 Dose: 40 mg Documented by: [id number] Hydromorphone HCl (Dilaudid) 0.25 mg IV Q15M PRN PRN Reason: Pain Stop: 11/25/19 16:03 Last Admin: 11/11/19 16:43 Dose: 0.25 mg Documented by: [id number] Sodium Chloride (Nss 1000ml) 500 mls @ 999 mls/hr IV .Q31M ONE Stop: 11/11/19 15:26 Last Infusion: 11/11/19 16:04 Dose: 0 mls/hr Documented by: [id number] Admin: 11/11/19 15:25 Dose: 999 mls/hr Documented by: [id number] Acetaminophen (Ofirmev) 1,000 mg in 100 mls @ 400 mls/hr IV NOW STA Stop: 11/11/19 16:18 Last Infusion: 11/11/19 16:26 Dose: 0 mls/hr Documented by: [id number] Admin: 11/11/19 16:10 Dose: 400 mls/hr Documented by: [id number] Insulin Aspart (Novolog Flexpen) 0 units SC ACHS ACE Stop: 12/11/19 20:59 Last Admin: 11/12/19 12:51 Dose: 2 units Documented by: [id number] Cosigned by: [id number] Admin: 11/12/19 09:26 Dose: 4 units Documented by: [id number] Cosigned by: [id number] Admin: 11/11/19 21:26 Dose: Not Given Documented by: [id number] Cosigned by: [id number] Ioversol (Optiray 320 100ml) 92 ml IV ONCE ONE Stop: 11/11/19 15:54 Last Admin: 11/11/19 15:54 Dose: 92 ml Documented by: [id number] Lidocaine (Lidoderm 5%) 1 patch TD QAM [facility] Stop: 12/11/19 16:44 Last Admin: 11/12/19 11:30 Dose: 1 patch Documented by: [id number] Admin: 11/11/19 17:00 Dose: 1 patch Documented by: [id number] Metoprolol Succinate (Toprol Xl) 25 mg PO DAILY [facility] Stop: 12/12/19 08:59 Last Admin: 11/12/19 09:22 Dose: 25 mg Documented by: [id number] Miscellaneous (Remove Lidoderm Patch) 1 ea N/A DAILY@2100 [facility] Stop: 12/11/19 20:59 Last Admin: 11/11/19 21:27 Dose: 1 ea Documented by: [id number] Ondansetron HCl (Zofran) 4 mg IV NOW STA Stop: 11/11/19 16:05 Last Admin: 11/11/19 16:10 Dose: 4 mg Documented by: [id number] Oxycodone HCl (Roxicodone Immediate Rel) 2.5 mg PO Q6H PRN PRN Reason: Severe Pain Stop: 11/25/19 19:51 Last Admin: 11/11/19 21:50 Dose: 2.5 mg Documented by: [id number] Oxycodone HCl (Roxicodone Immediate Rel) 5 mg PO Q4H PRN PRN Reason: Pain Stop: 11/26/19 02:02 Last Admin: 11/12/19 02:18 Dose: 5 mg Documented by: [id number] Sertraline HCl (Zoloft) 100 mg PO DAILY [facility] Stop: 12/12/19 08:59 Last Admin: 11/12/19 09:22 Dose: 100 mg Documented by: [id number] Sp[facility]act[facility] (Aldactone) [facility] [place] Stop: 12/12/19 12:44 Last Admin: 11/12/19 13:00 Dose: 25 mg Documented by: [id number] Torsemide (Demadex) 10 mg PO QAM [facility] Stop: 12/12/19 12:44 Last Admin: 11/12/19 13:00 Dose: 10 mg Documented by: [id number] Vitamin D (Vitamin D3) 2,000 units PO DAILY [facility] Stop: 12/12/19 08:59 Last Admin: 11/12/19 09:22 Dose: 2,000 units Documented by: [id number] Medical Decision Making Differential Diagnosis Fracture, dislocation, contusion, intra-abdominal, pneumothorax, intrathoracic, intracranial, neurologic, compartment syndrome, rhabdomyolysis, as well as other pathologies. Medical Records Attestation: I reviewed the patient's medical records. Home Medications Current Medication List: was personally reviewed by me Laboratory Data Attestation: I reviewed the patient's lab results. Result diagrams: 11/12/19 06:02 11/12/19 06:02 Lab Results 11/11/19 11/11/19 11/11/19 Range/Units 15:14 15:14 15:14 WBC 6.03 (4.8-10.8) K/uL RBC 4.22 (4.2-5.4) M/uL Hgb 13.0 (12.0-16.0) g/dL POC Hgb (12.0-16.0) g/dl Hct 38.0 (37-47) % POC Hct (37-47) % MCV 90.0 (80-100) fL MCH 30.8 (25-34) pg MCHC 34.2 (32-36) g/dL RDW Std Deviation 45.8 (36.4-46.3) fL RDW Coeff of Rosas 13.9 (11.5-14.5) % Plt Count 179 (130-400) K/uL MPV 9.9 (7.4-10.4) fL Immature Gran % (Auto) 0.8 % Neut % (Auto) 71.1 % Lymph % (Auto) 18.2 % Haakon % (Auto) 7.5 % Eos % (Auto) 2.2 % Baso % (Auto) 0.2 % Neut # (Auto) 4.29 (1.4-6.5) K/uL Lymph # (Auto) 1.10 L (1.2-3.4) K/uL Haakon # (Auto) 0.45 (0.11-0.59) K/uL Eos # (Auto) 0.13 (0-0.5) K/uL Baso # (Auto) 0.01 (0-0.2) K/uL Immature Gran # (Auto) 0.05 H (0.00-0.02) K/uL PT 22.2 H (9.0-12.0) Seconds INR 2.2 H (0.9-1.1) POC Sodium (135-144) mmol/L Sodium 142 (136-145) mmol/L POC Potassium (3.3-5.0) mmol/L Potassium 3.9 (3.5-5.1) mmol/L POC Chloride (101-112) mmol/L Chloride 107 (98-107) mmol/L Carbon Dioxide 30 (21-32) mmol/L POC Total CO2 (24-31) mmol/L Anion Gap 5.0 (3-11) POC Anion Gap (16-25) mmol/L POC BUN (7-18) mg/dl BUN 24 H (7-18) mg/dl Creatinine 1.42 H (0.6-1.2) mg/dl POC Creatinine (0.6-1.3) mg/dl Est Cr Clr Drug Dosing 26.6 ml/min Est GFR ( Amer) 39.5 Est GFR (Non-Af Amer) 34.1 BUN/Creatinine Ratio 17.1 (10-20) Glucose 203 H (70-99) mg/dl POC Glucose (other) (70-99) mg/dl Calcium 9.9 (8.5-10.1) mg/dl POC Ioniz Calcium Garcia (1.12-1.32) mmol/l Total Bilirubin 0.8 (0.2-1) mg/dl AST 24 (15-37) U/L ALT 34 (12-78) U/L Alkaline Phosphatase 67 (45-117) U/L Troponin I (0-0.045) ng/ml NT-Pro-B Natriuret Pep (0-1800) pg/ml Total Protein 7.3 (6.4-8.2) gm/dl Albumin 3.7 (3.4-5.0) gm/dl Globulin 3.6 (2.5-4.0) gm/dl Albumin/Globulin Ratio 1.0 (0.9-2) 11/11/19 11/11/19 Range/Units 15:14 15:39 WBC (4.8-10.8) K/uL RBC (4.2-5.4) M/uL Hgb (12.0-16.0) g/dL POC Hgb 11.6 L (12.0-16.0) g/dl Hct (37-47) % POC Hct 34 L (37-47) % MCV (80-100) fL MCH (25-34) pg MCHC (32-36) g/dL RDW Std Deviation (36.4-46.3) fL RDW Coeff of Rosas (11.5-14.5) % Plt Count (130-400) K/uL MPV (7.4-10.4) fL Immature Gran % (Auto) % Neut % (Auto) % Lymph % (Auto) % Haakon % (Auto) % Eos % (Auto) % Baso % (Auto) % Neut # (Auto) (1.4-6.5) K/uL Lymph # (Auto) (1.2-3.4) K/uL Haakon # (Auto) (0.11-0.59) K/uL Eos # (Auto) (0-0.5) K/uL Baso # (Auto) (0-0.2) K/uL Immature Gran # (Auto) (0.00-0.02) K/uL PT (9.0-12.0) Seconds INR (0.9-1.1) POC Sodium 141 (135-144) mmol/L Sodium (136-145) mmol/L POC Potassium 3.6 (3.3-5.0) mmol/L Potassium (3.5-5.1) mmol/L POC Chloride 99 L (101-112) mmol/L Chloride (98-107) mmol/L Carbon Dioxide (21-32) mmol/L POC Total CO2 28 (24-31) mmol/L Anion Gap (3-11) POC Anion Gap 18.0 (16-25) mmol/L POC BUN 24 H (7-18) mg/dl BUN (7-18) mg/dl Creatinine (0.6-1.2) mg/dl POC Creatinine 1.3 (0.6-1.3) mg/dl Est Cr Clr Drug Dosing ml/min Est GFR ( Amer) Est GFR (Non-Af Amer) BUN/Creatinine Ratio (10-20) Glucose (70-99) mg/dl POC Glucose (other) 189 H (70-99) mg/dl Calcium (8.5-10.1) mg/dl POC Ioniz Calcium Garcia 1.32 (1.12-1.32) mmol/l Total Bilirubin (0.2-1) mg/dl AST (15-37) U/L ALT (12-78) U/L Alkaline Phosphatase (45-117) U/L Troponin I < 0.015 (0-0.045) ng/ml NT-Pro-B Natriuret Pep 455 (0-1800) pg/ml Total Protein (6.4-8.2) gm/dl Albumin (3.4-5.0) gm/dl Globulin (2.5-4.0) gm/dl Albumin/Globulin Ratio (0.9-2) Imaging Data Radiologist's Impression: [facility] [place] [phone] CT Scan Report Patient: VASILIY MATHEW Date: 11/11/19 MR#: [id number]: [address] Acct ID:[id number]: IZZY CAMILO [facility]: 1935[facility] [place] [address] Age: 84Location: ED Sex: F Room/Bed: Att Phy:Diagnosis: FALL Hafsa Phy: [facility] Date: 11/11/19 Fam Phy:Interpreting Phy: Fabio Del Toro Admit Phy: Ordering Phy: Margarito Delgado MD cc: ~ CHEST CT WITH CONTRAST; CT ABDOMEN AND PELVIS WITH IV CONTRAST ONLY HISTORY: Acute left-sided chest pain status post fall Pt c/o fall, left sided chest pain TECHNIQUE: Multiaxial CT images of the chest, abdomen and pelvis were performed following the IV administration of 92 cc of Optiray 320. A dose lowering technique was utilized adhering to the principles of ALARA. COMPARISON: None. FINDINGS: CT CHEST: Limited exam secondary to positioning and streak artifact from right shoulder arthroplasty. Multinodular thyroid. No adenopathy. Marked cardiomegaly. Aortic valvular endograft. Advanced coronary artery calcifications. Left subclavian pacer. Mixed plaque of the thoracic aortic arch. Patency of the imaged great vessels. Descending thoracic aortic tortuosity. Pulmonary artery appears unremarkable. There is no pneumothorax, pleural effusion, airspace consolidation or overt pu lmonary edema. Mild bibasilar atelectasis. The central airways appear patent. Soft tissues are unremarkable. Degenerative changes of the spine and left shoulder. Bones appear intact. No acute fracture identified. Multilevel Schmorl's nodes with likely chronic anterior and superior endplate wedging. CT ABDOMEN/PELVIS: There is no pneumatosis or pneumoperitoneum. There is a peripherally calcified hypodense 1.3 cm lesion involving the inferior aspect of the spleen. There is a splenule noted along the inferior margin of the spleen. There are two indeterminate soft tissue nodules noted adjacent to the splenic hilum measuring up to 12 mm with mild adjacent stranding. Moderate generalized pancreatic atrophy. Cholecystectomy with likely postsurgical mild biliary ductal dilation. Unremarkable appearance of the liver. Right hemidiaphragmatic elevation. There is an indeterminate exophytic 1.2 cm intermediate density lesion involving the inferior pole left kidney, Hounsfield of 44. No obstructive uropathy. Unremarkable urinary bladder. Uterus and adnexa are unremarkable. Multiple phleboliths of the pelvis. Mixed plaque of the abdominal aorta without aneurysm. There are a few prominent lymph nodes present measuring up to 8 mm. No pathologically enlarged lymph nodes. Small hiatal hernia with mild distal esophageal wall thickening. Extensive colonic diverticulosis without acute diverticulitis. Noninflamed appendix. Severe facet arthrosis of the lower lumbar spine. There is grade 1 retro listhesis L1 on L2 which is likely on a degenerative basis. No definite acute fracture or subluxation. IMPRESSION: 1. No acute intrathoracic, intra-abdominal or intrapelvic abnormality identified. 2. No acute fracture. 3. Indeterminate 1.2 cm intermediate density lesion involves the inferior pole left kidney. A renal ultrasound could be considered to further evaluate. 4. Extensive colonic diverticulosis without acute diverticulitis. 5. There are two indeterminate ill-defined soft tissue density lesions noted adjacent to the splenic hilum possibly reflective of lymph nodes measuring up to 12 mm. 6. Additional findings as above. ACT 112: Negative or not required by law. Electronically signed by: Galileo Del Toro M.D. 11/11/2019 4:22 PM Dictated: 11/11/19 1604 Transcribed: 11/11/19 1604 [place], [place] [phone] CT Scan Report Patient: VASILIY MATHEW AZdmit Date: 11/11/19 MR#: [id number]: [address] Acct ID:[id number]: IZZY MERCADOS Date: 1935[facility] Zip: [place] [address] Age: 84Location: ED Sex: F Room/Bed: Att Phy:Diagnosis: FALL Hafsa Phy: [facility] Date: 11/11/19 Fam Phy:Interpreting Phy: Favio Hendrix MD Admit Phy: Ordering Phy: Margarito Delgado MD cc: ~ CT SCAN OF THE CERVICAL SPINE CLINICAL HISTORY: Trauma. Fall. COMPARISON STUDY: CT of the neck dated 02/08/2007. TECHNIQUE: CT scan of the cervical spine is performed from the skull base to the upper thoracic spine. Images are reviewed in the axial, sagittal, and coronal planes. IV contrast was not administered for this examination. A dose lowering technique was utilized adhering to the principles of ALARA. CT DOSE: 1630.55 mGy.cm FINDINGS: Skeletal structures: The skeletal structures are osteopenic. There is no evidence of fracture or subluxation involving the cervical spine. Vertebral body height is maintained. There is minimal anterolisthesis at C4-C5 and C7-T1. Anterior osteophytes are noted in the lower cervical region. The odontoid process and lateral masses are intact. The atlantoaxial articulation is preserved noting advanced productive degenerative change. The spinous processes appear intact. There is moderate to advanced multilevel cervical spondylosis. Uncovertebral and facet arthropathy contribute to neural foraminal stenosis at most levels. Intervertebral discs: Moderate to advanced disc space narrowing seen at C3-C4, C5-C6, and C6-C7. Mild disc space narrowing seen at C7-T1. Central canal: Large posterior disc osteophyte complexes at C3-C4, C5-C6, and C6-C7 likely contribute to multilevel acquired compromise of the central canal. Soft tissues: The prevertebral and paraspinous soft tissues are within normal limits. The thyroid gland is enlarged and there are numerous low-attenuation thyroid nodules which measure up to 2 cm. There is atherosclerotic calcification of the carotid bulbs. Pacemaker leads are noted in the left axillary region. Calvarium: The visualized calvarium at the skull base appears intact. Brain parenchyma: Partially visualized brain parenchyma the skull base is within normal limits. Sinuses and mastoids: The visualized paranasal sinuses are clear. The mastoid air cells are well pneumatized. Lung apices: Clear as visualized. IMPRESSION: 1. There is no evidence of fracture or subluxation involving the cervical spine. 2. Osteopenia and spondylotic change as above. ACT 112: Negative or not required by law. Electronically signed by: Favio Hendrix M.D. 11/11/2019 4:17 PM Dictated: 11/11/19 1613 Transcribed: 11/11/19 1613 [facility], [place] [phone] CT Scan Report Patient: VASILIY MATHEW Date: 11/11/19 MR#: [id number]: 200 [address] Acct ID:[id number]: IZZY CAMILO Date: 1935City Zip: [place] [address] Age: 84Location: ED Sex: F Room/Bed: Att Phy:Diagnosis: FALL Hafsa Phy: [facility] Date: 11/11/19 Fam Phy:Interpreting Phy: Fabio Del Toro Admit Phy: Ordering Phy: Margarito Delgado MD cc: ~ CHEST CT WITH CONTRAST; CT ABDOMEN AND PELVIS WITH IV CONTRAST ONLY HISTORY: Acute left-sided chest pain status post fall Pt c/o fall, left sided chest pain TECHNIQUE: Multiaxial CT images of the chest, abdomen and pelvis were performed following the IV administration of 92 cc of Optiray 320. A dose lowering technique was utilized adhering to the principles of ALARA. COMPARISON: None. FINDINGS: CT CHEST: Limited exam secondary to positioning and streak artifact from right shoulder arthroplasty. Multinodular thyroid. No adenopathy. Marked cardiomegaly. Aortic valvular endograft. Advanced coronary artery calcifications. Left subclavian pacer. Mixed plaque of the thoracic aortic arch. Patency of the imaged great vessels. Descending thoracic aortic tortuosity. Pulmonary artery appears unremarkable. There is no pneumothorax, pleural effusion, airspace consolidation or overt pulmonary edema. Mild bibasilar atelectasis. The central airways appear patent. Soft tissues are unremarkable. Degenerative changes of the spine and left shoulder. Bones appear intact. No acute fracture identified. Multilevel Schmorl's nodes with likely chronic anterior and superior endplate wedging. CT ABDOMEN/PELVIS: There is no pneumatosis or pneumoperitoneum. There is a peripherally calcified hypodense 1.3 cm lesion involving the inferior aspect of the spleen. There is a splenule noted along the inferior margin of the spleen. There are two indeterminate soft tissue nodules noted adjacent to the splenic hilum measuring up to 12 mm with mild adjacent stranding. Moderate generalized pancreatic atrophy. Cholecystectomy with likely postsurgical mild biliary ductal dilation. Unremarkable appearance of the liver. Right hemidiaphragmatic elevation. There is an indeterminate exophytic 1.2 cm intermediate density lesion involving the inferior pole left kidney, Hounsfield of 44. No obstructive uropathy. Unremarkable urinary bladder. Uterus and adnexa are unremarkable. Multiple phleboliths of the pelvis. Mixed plaque of the abdominal aorta without aneurysm. There are a few prominent lymph nodes present measuring up to 8 mm. No pa thologically enlarged lymph nodes. Small hiatal hernia with mild distal esophageal wall thickening. Extensive colonic diverticulosis without acute diverticulitis. Noninflamed appendix. Severe facet arthrosis of the lower lumbar spine. There is grade 1 retrolisthesis L1 on L2 which is likely on a degenerative basis. No definite acute fracture or subluxation. IMPRESSION: 1. No acute intrathoracic, intra-abdominal or intrapelvic abnormality identified. 2. No acute fracture. 3. Indeterminate 1.2 cm intermediate density lesion involves the inferior pole left kidney. A renal ultrasound could be considered to further evaluate. 4. Extensive colonic diverticulosis without acute diverticulitis. 5. There are two indeterminate ill-defined soft tissue density lesions noted adjacent to the splenic hilum possibly reflective of lymph nodes measuring up to 12 mm. 6. Additional findings as above. ACT 112: Negative or not required by law. Electronically signed by: Galileo Del Toro M.D. 11/11/2019 4:22 PM Dictated: 11/11/19 1604 Transcribed: 11/11/19 1604 [place], [place] [phone] CT Scan Report Patient: VASILIY MATHEW [facility] Date: 11/11/19 MR#: [id number]: [address] Acct ID:[id number]: IZZY CAMILO Date: 1935[facility] Zip: [place] [address] Age: 84Location: ED Sex: F Room/Bed: Att Phy:Diagnosis: FALL Hafsa [facility]: 11/11/19 Fam Phy:Interpreting Phy: Favio Hendrix MD Admit Phy: Ordering Phy: Margarito Delgado MD cc: ~ CT SCAN OF THE BRAIN WITHOUT IV CONTRAST CLINICAL HISTORY: Trauma. Fall. COMPARISON STUDY: CT of the brain dated 05/08/2016. TECHNIQUE: Unenhanced axial CT scan of the brain is performed from the vertex to the skull base. A dose lowering technique was utilized adhering to the principles of ALARA. FINDINGS: Brain parenchyma: There are age-related involutional changes noting moderate subcortical and periventricular microangiopathic change. There is no hemorrhage, mass effect, or evidence of acute territorial ischemia by CT criteria. Lynch- white matter differentiation is preserved. No extra-axial fluid collection is seen. Ventricles, sulci, cisterns: Prominent secondary to involutional change. Intracranial vasculature: There is atherosclerotic calcification of the cavernous carotid and vertebral arteries. Calvarium: The skeletal structures are osteopenic. No depressed calvarial fracture is identified. Soft tissues: There is a small left parietal scalp contusion. Sinuses and mastoids: The visualized paranasal sinuses are clear. The mastoid air cells are well pneumatized. Orbits: The bony orbits are grossly intact. There are bilateral ocular lens implants. IMPRESSION: There is no hemorrhage, mass effect, or evidence of acute territorial ischemia by CT criteria. ACT 112: Negative or not required by law. Electronically signed by: Favio Hendrix M.D. 11/11/2019 4:13 PM Dictated: 11/11/19 1610 Transcribed: 11/11/19 1610 [place], [place] [phone] XRay Report Patient: VASILIY MATHEW Date: 11/11/19 MR#: [id number]: [address] Acct ID:[id number]: IZZY CAMILO Date: 1935[facility] Zip: [place] [address] Age: 84Location: ED Sex: F Room/Bed: Att Phy:Diagnosis: FALL [place] Phy: [facility] Date: 11/11/19 Fam Phy:Interpreting Phy: Favio Hendrix MD Admit Phy: Ordering Phy: Margarito Delgado MD cc: ~ LEFT FOOT 3 VIEWS CLINICAL HISTORY: Left foot pain. FINDINGS: 3 views of the left foot are compared to study dated 04/22/2011. The skeletal structures are heterogeneously osteopenic. There is a minimally displaced spiral fracture of the distal fifth metatarsal shaft with overlying soft tissue edema. No additional acute fracture is identified. Minimal osteoarthritic change is seen at the first metatarsophalangeal joint. Mild arthritic change is also seen in the midfoot. IMPRESSION: Fifth metatarsal fracture as above. Electronically signed by: Favio Hendrix M.D. 11/11/2019 5:18 PM Dictated: 11/11/191715 Transcribed: 11/11/191715 ECG Data Attestation: I personally reviewed and interpreted this ECG as follows: Indication: + other (fall) Rate (beats per minute): 60 Rhythm: + other (Paced) ECG Intervals/blocks: + Normal QT-c (490) ECG ST segments: no ST depression and no ST elevation Comparison ECG Date: from (11/12/2019) Change: no significant change MDM Narrative This is an 84-year-old female who presents emergency department after being knocked down by her accidentally. Patient is complaining of left chest wall pain as well as left foot pain. CAT scan of the chest does not show any evidence of acute rib fracture. She was placed in a boot for her foot. Her INR is therapeutic at 2.2 and she does not have an elevation in her white blood cell count. Gave the patient several options including be being discharged home with pain medication however she feels she will not do well. For this reason I did discuss patient's management with case management who felt we could try to have the patient admitted for PT OT. I did discuss the case with the hospitalist service who did agreed admit the patient. Patient is in agreement with the treatment plan. Patient was seen and evaluated as above in room B10. Review was performed of nursing notes and vital signs. I did review pertinent previous visits and patient history. After obtaining a thorough history and physical examination the above work up was performed. An order was placed for continuous cardiac monitoring. The monitor shows a rate of 60 with Normal SInus rhythm. The patient was evaluated during the global COVID-19 pandemic, and that diagnosis was suspected/considered upon their initial presentation. Their evaluation, treatment and testing was consistent with current guidelines for patients who present with complaints or symptoms that may be related to COVID- 19. Impression & Plan Fracture of 5th metatarsal, Fall, Rib pain on left side, DEIRDRE (acute kidney injury) Discharge Plan Visit Data *Final* Discharge Date/Time: 11/11/19 19:03 Chief Complaint: Fall ED Provider: Margarito Delgado Discharge Problem: Fracture of 5th metatarsal, Fall, Rib pain on left side, DEIRDRE (acute kidney injury) Patient Disposition: Admitted As Inpatient Condition: Good Discharge Instructions Interventions: ED Discharge Assessment Last Done: 11/11/19 19:03 Discharge Problem: Fracture of 5th metatarsal Qualifiers: Encounter type: initial encounter Fracture type: closed Fracture alignment: nondisplaced Laterality: left Qualified Code(s): S92.355A - Nondisplaced fracture of fifth metatarsal bone, left foot, initial encounter for closed fracture Fall Qualifiers: Encounter type: initial encounter Qualified Code(s): W19.XXXA - Unspecified fall, initial encounter
[2019-11-16] MEDS ORDERED: WARFARIN SOD 2 MG TAB PO SCH (16:00)
== END 2019-11-12 15:05 | disposition home or self-care (01) ==
LOC: 2N 14:30 → ED 14:30 → SUATTDRO 18:44 → 2N 19:03

== ENCOUNTER 2019-11-17 01:41 | Observation (INO) ==
[2019-11-17 02:06] LABS: Basophils # (auto) 0.01 K/uL (0-0.2); Basophils % (auto) 0.1 %; Eosinophils # (auto) 0.18 K/uL (0-0.5); Eosinophils % (auto) 2.6 %; Hematocrit (blood only) 37.1 % (37-47); Hemoglobin 12.8 g/dL (12.0-16.0); Immature Granulocytes # (auto) 0.07 K/uL (0.00-0.02); Lymphocytes # (auto) 1.17 K/uL (1.2-3.4); Lymphocytes % (auto) 16.6 %; Mean Corpuscular Hemoglobin 31.2 pg (25-34); Mean Corpuscular Hgb Conc 34.5 g/dL (32-36); Mean Corpuscular Volume 90.5 fL (80-100); Mean Platelet Volume 9.4 fL (7.4-10.4); Monocytes # (auto) 0.61 K/uL (0.11-0.59); Monocytes % (auto) 8.7 %; Neutrophils # (auto) 4.99 K/uL (1.4-6.5); Platelet Count 182 K/uL (130-400); RDW Standard Deviation 46.2 fL (36.4-46.3); White Blood Count 7.03 K/uL (4.8-10.8)
[2019-11-17 02:19] LABS: Partial Thromboplastin Ratio 1.2; Partial Thromboplastin Time 33.3 Seconds (21.0-31.0); Prothrombin Time 20.4 Seconds (9.0-12.0)
[2019-11-17 03:06] LABS: Albumin Level 4.1 gm/dl (3.4-5.0); BUN Creatinine Ratio 24.2 (10-20); Calcium 10.4 mg/dl (8.5-10.1); Creatinine Clr Calc Pharmacy 38.2 ml/min; Est GFR (African American) 55.6; Potassium 3.8 mmol/L (3.5-5.1)
[2019-11-17 03:26] LABS: Albumin Globulin Ratio 1.2 (0.9-2); Bilirubin,Total 0.9 mg/dl (0.2-1); Globulin 3.3 gm/dl (2.5-4.0); Total Protein 7.4 gm/dl (6.4-8.2); Troponin I 0.046 ng/ml (0-0.045)
[2019-11-17] MEDS ORDERED: fentaNYL citrate 100 MCG/2 ML VIAL IV STA (03:33)
--- NOTE | 2019-11-17 04:14 | Emergency Department Note ---
History of Present Illness General Chief complaint: Chest Pain Stated complaint: CHEST PAIN Time Seen by Provider: 11/17/19 01:42 Source: patient, EMS and RN notes reviewed Mode of arrival: EMS Limitations: clinical acuity History of Present Illness Provider complaint: Chest pain Maximum Pain Intensity: 7 This patient is an 84-year-old female who presents to the emergency department by ambulance with complaints of severe left-sided chest pain, particularly with inspiration. About a week ago, the patient's who has Parkinson's disease fell on top of her. She did present to the emergency department at that time for evaluation. She was told that she has a left foot fracture and had some pain in the left chest at that time although no rib fractures were identified on CAT scan. Patient did receive 50 mcg of fentanyl IV by my medical command prior to arrival. Patient does have a significant heart history including atrial fibrillation, congestive heart failure, pacemaker for tachybradycardia syndrome and aortic valve replacement. She is anticoagulated on Coumadin. Patient denies any reoccurring trauma or falls. She is not able to give a great deal of history regarding the sudden severity of the chest discomfort. Home Medications Home Medications Medication Instructions Recorded Confirmed Type atorvastatin [Lipitor] 40 mg PO DAILY 11/11/19 11/17/19 History cholecalciferol (vitamin D3) 50 mcg PO DAILY 11/11/19 11/17/19 History [Vitamin D3] coenzyme Q10 [CoQ-10] 100 mg PO DAILY 11/11/19 11/17/19 History digoxin 125 mcg PO 5XWK 11/11/19 11/17/19 History metoprolol succinate [Toprol XL] 25 mg PO DAILY 11/11/19 11/17/19 History nitroglycerin [Nitrostat] 0.4 mg SUBLINGUAL UD PRN 11/11/19 11/17/19 History polyethylene glycol 3350 [Miralax] 17 g PO DAILY PRN 11/11/19 11/17/19 History sertraline [Zoloft] 100 mg PO DAILY 11/11/19 11/17/19 History sodium chloride [Saline Mist] 2 spray INTRANASAL UD PRN 11/11/19 11/17/19 History spironolactone [Aldactone] 25 mg PO DAILY 11/11/19 11/17/19 History torsemide 10 mg PO DAILY 08/04/20 08/10/20 History warfarin 2 mg PO 2XWK 11/11/19 11/17/19 History warfarin 4 mg PO 5XWK 11/11/19 11/17/19 History acetaminophen 500 mg PO Q6 PRN 11/17/19 11/17/19 History acetaminophen 500 mg PO Q6H MDD 3gm 11/17/19 11/17/19 History Allergies Allergy/AdvReac Type Severity Reaction Status Date / Time tetracycline Allergy Unknown RASH Verified 11/17/19 02:25 morphine AdvReac Mild "VIOLENTLY Verified 11/17/19 02:25 ILL", NAUSEA/VOMITING codeine AdvReac Unknown N/V Verified 11/17/19 02:25 Past Med/Surg History Medical History Aortic stenosis S/P TAVR in 2015 CAD (coronary artery disease) S/P PA and stent to RCA in 2002 Chest pain (Acute) Chronic atrial fibrillation Chronic systolic heart failure Depression Diabetes mellitus, type II Fracture of tibial plateau (Resolved Unknown) HLD (hyperlipidemia) HTN (hypertension) Hypercalcemia (Chronic Unknown) Hyperparathyroidism Primary hyperparathyroidism (Chronic Unknown) Rotator cuff arthropathy (Resolved) Tachy-wanda syndrome Surgical History Aortic valve replaced (Chronic) S/P cardiac pacemaker procedure S/p TAVR (transcatheter aortic valve replacement), bioprosthetic 2015 Family History Other Cancer Diabetes Heart disease Hypertension Social History Smoking Status: Never smoker Hx Alcohol Use: No Hx Substance Use: No Preferred Language: Mosotho Communication Ability: Effective Shoe Clerk Required: No Beliefs That Will Affect Care: None marital status: Current Living Situation: Spouse and Personal Care Facility Current Living Situation Comment: Patrice Feels Safe at Home: Yes Review of Systems See HPI for pertinent positives & negatives. and A total of 10 systems reviewed and were otherwise negative (Somewhat limited secondary to patient's limited responses. Question hearing difficulties versus narcotic pain medication prior to arrival) Physical Exam Vital Signs Vital Signs - 24 hr 11/17/19 01:51 11/17/19 01:53 11/17/19 03:25 Temperature 36.8 C Temperature Source Oral Pulse Rate 76 Pulse Rate [Finger] 64 Respiratory Rate 20 Respiratory Effort / Characteristics Non-Labored Spontaneous Respiratory Depth Normal Respiratory Pattern Regular Blood Pressure 120/73 Blood Pressure [Left Arm] 106/62 Blood Pressure Mean 88 Blood Pressure Mean [Left Arm] 76 Blood Pressure Position Lying Pulse Oximetry 93 90 96 Oxygen Delivery Method Room Air Room Air Sepsis Recent Fever Within 48 Hours No Sepsis New/Unexplained Change in Mental Status No Sepsis Action Taken by Nursing No Action Required Vital signs reviewed. General: Elderly 84-year-old female in some discomfort HEENT: No scleral icterus, PERRLA, neck supple. Atraumatic. Cardiovascular: Rate controlled, largely regular with occasional ectopy. Pulmonary: Clear to auscultation bilaterally, normal work of breathing. Abdomen: Soft, nontender, nondistended, positive bowel sounds. Musculoskeletal: Exquisitely painful to palpation over the left anterior chest. Pacemaker noted. Ecchymosis and swelling noted to the left foot. Neurologic: Patient awake alert and oriented x 3, able to answer most questions but simple answers. Unable to provide significant detail. Skin: Warm, dry, no rash. Ecchymosis to the left foot as noted above. Course Administered Medications Discontinued Medications Fentanyl Citrate (Fentanyl Citrate) 25 mcg IV NOW STA Stop: 11/17/19 03:34 Last Admin: 11/17/19 03:46 Dose: 25 mcg Documented by: [id number] Medical Decision Making Differential Diagnosis DDx: Intracranial injury, cervical spine injury, intrathoracic injury, intra- abdominal injury, musculoskeletal injury. Medical Records Attestation: I reviewed the patient's medical records. Home Medications Current Medication List: was personally reviewed by me Laboratory Data Attestation: I reviewed the patient's lab results. Result diagrams: 11/17/19 01:55 11/17/19 01:55 Lab Results 11/17/19 11/17/19 11/17/19 Range/Units 01:55 01:55 01:55 WBC 7.03 (4.8-10.8) K/uL RBC 4.10 L (4.2-5.4) M/uL Hgb 12.8 (12.0-16.0) g/dL Hct 37.1 (37-47) % MCV 90.5 (80-100) fL MCH 31.2 (25-34) pg MCHC 34.5 (32-36) g/dL RDW Std Deviation 46.2 (36.4-46.3) fL RDW Coeff of Rosas 14.0 (11.5-14.5) % Plt Count 182 (130-400) K/uL MPV 9.4 (7.4-10.4) fL Immature Gran % (Auto) 1.0 % Neut % (Auto) 71.0 % Lymph % (Auto) 16.6 % Murray % (Auto) 8.7 % Eos % (Auto) 2.6 % Baso % (Auto) 0.1 % Neut # (Auto) 4.99 (1.4-6.5) K/uL Lymph # (Auto) 1.17 L (1.2-3.4) K/uL Murray # (Auto) 0.61 H (0.11-0.59) K/uL Eos # (Auto) 0.18 (0-0.5) K/uL Baso # (Auto) 0.01 (0-0.2) K/uL Immature Gran # (Auto) 0.07 H (0.00-0.02) K/uL PT 20.4 H (9.0-12.0) Seconds INR 2.0 H (0.9-1.1) APTT 33.3 H (21.0-31.0) Seconds PTT Ratio 1.2 Sodium 140 (136-145) mmol/L Potassium 3.8 (3.5-5.1) mmol/L Chloride 105 (98-107) mmol/L Carbon Dioxide 30 (21-32) mmol/L Anion Gap 6.0 (3-11) BUN 26 H (7-18) mg/dl Creatinine 1.07 (0.6-1.2) mg/dl Est Cr Clr Drug Dosing 38.2 ml/min Est GFR ( Amer) 55.6 Est GFR (Non-Af Amer) 48.0 BUN/Creatinine Ratio 24.2 H (10-20) Glucose 171 H (70-99) mg/dl Calcium 10.4 H (8.5-10.1) mg/dl Total Bilirubin 0.9 (0.2-1) mg/dl AST 34 (15-37) U/L ALT 33 (12-78) U/L Alkaline Phosphatase 67 (45-117) U/L Troponin I 0.046 H* (0-0.045) ng/ml Total Protein 7.4 (6.4-8.2) gm/dl Albumin 4.1 (3.4-5.0) gm/dl Globulin 3.3 (2.5-4.0) gm/dl Albumin/Globulin Ratio 1.2 (0.9-2) Lipase 400 H (73-393) U/L Specimen Hemolysis Imaging Data Attestation: I personally reviewed and interpreted this imaging study as follows: My Impression: Chest x-ray with rib series to my interpretation reveals cardiomegaly, possible anterior left rib fracture, mild congestion. Pacer and cardiac valve stent noted ECG Data Attestation: I personally reviewed and interpreted this ECG as follows: Indication: + chest pain Rate (beats per minute): 76 Rhythm: + other (Ventricularly paced) ECG Intervals/blocks: + Prolonged QT (528) ECG ST segments: + Normal ST segments ECG Findings: no PACs and no PVCs Blood Pressure Blood Pressure Findings: Normal blood pressure Blood Pressure Disposition: did not require urgent referral MDM Narrative This patient was evaluated and appeared to be in some discomfort. IV access had been obtained prior to arrival. An order for cardiac monitoring was placed and the patient is noted to be in a demand ventricularly paced rhythm at 64 bpm. Patient did receive IV fentanyl prior to arrival. Chest x-ray with rib series was performed and to my interpretation reveals chronic changes but questionable left anterior rib fractures noted. This would be consistent with the patient's presentation. Laboratory work reveals a troponin of 0.046. I suspect this is demand mediated secondary to her pain over the last several hours. She does take her of her elderly with Parkinson's disease which may have exacerbated pain in the ribs. Patient's INR is 2.0 secondary to her Coumadin therapy. She did require additional 25 mcg of IV fentanyl for pain control. She was advised of the findings and plan for which she agrees. The hospitalist service was contacted for further management. Impression & Plan Chest pain on respiration, Rib pain on left side, Elevated troponin I measurement Discharge Plan Visit Data Chief Complaint: Chest Pain Stated Complaint: CHEST PAIN ED Provider: Lucina Mello Discharge Problem: Chest pain on respiration, Rib pain on left side, Elevated troponin I measurement Forms Stand Alone Forms: My [facility] Prescriptions Prescriptions: No Action atorvastatin [Lipitor] 40 mg Tablet 40 mg PO DAILY RF: 0 polyethylene glycol 3350 [Miralax] 17 gram Powder In Packet 17 g PO DAILY PRN (Reason: Constipation) RF: 0 sertraline [Zoloft] 100 mg Tablet 100 mg PO DAILY RF: 0 spironolactone [Aldactone] 25 mg tablet 25 mg PO DAILY RF: 0 warfarin 4 mg Tablet 4 mg PO 5XWK RF: 0 torsemide 5 mg Tablet 10 mg PO DAILY RF: 0 warfarin 2 mg Tablet 2 mg PO 2XWK RF: 0 nitroglycerin [Nitrostat] 0.4 mg Tablet, Sublingual 0.4 mg sublingual UD PRN (Reason: Chest Pain) RF: 0 digoxin 125 mcg (0.125 mg) Tablet 125 mcg PO 5XWK RF: 0 metoprolol succinate [Toprol XL] 25 mg Tablet Extended Release 24 Hr 25 mg PO DAILY RF: 0 coenzyme Q10 [CoQ-10] 100 mg Capsule 100 mg PO DAILY RF: 0 sodium chloride [Saline Mist] 0.65 % Aerosol,[place] 2 spray INTRANASAL UD PRN (Reason: Congestion) RF: 0 cholecalciferol (vitamin D3) [Vitamin D3] 50 mcg (2,000 unit) Tablet 50 mcg PO DAILY RF: 0 acetaminophen 500 mg Tablet 500 mg PO Q6H MDD 3gm RF: 0 acetaminophen 500 mg tablet 500 mg PO Q6 PRN (Reason: Pain) RF: 0
[2019-11-17] MEDS ORDERED: ACETAMINOPHEN 325 MG TAB PO PRN (06:37)
[2019-11-17] MEDS ORDERED: POLYETHYLENE (MIRALAX) 17 GM PACK PO PRN (06:37)
[2019-11-17] MEDS ORDERED: NITROGLYCERIN SL 0.4 MG/TAB TAB SL PRN (06:37)
[2019-11-17] MEDS ORDERED: ONDANSETRON INJ 2 MG/ML 2 ML VIAL IV PRN (06:37)
[2019-11-17] MEDS ORDERED: SODIUM CHLORIDE 0.65% NA SOLN 45 ML (OCEAN) PRN (06:37)
[2019-11-17] MEDS ORDERED: HYDROmorphone INJ 0.5 MG/0.5 ML SYR IV PRN (06:37)
--- NOTE | 2019-11-17 06:58 | History and Physical Report ---
DATE OF ADMISSION: 11/17/2019 CHIEF COMPLAINT: Chest pain. HISTORY OF PRESENT ILLNESS: This is an 84-year-old female with past medical history significant for type 2 diabetes, hyperparathyroidism, hyperlipidemia, history of goiter, history of chronic atrial fibrillation, tachybrady syndrome, status post pacemaker, chronic systolic congestive heart failure with EF of around 45%, hypertension, moderate mitral regurgitation, GERD, osteoporosis, depression, CAD status post stent, status post TAVR, generalized anxiety disorder. The patient lives at [facility] with her . Her has Parkinson's disease. The patient got admitted to the hospital on 11/11/2019, the patient came with a fall. The patient helps taking care of her who has Parkinson's and he has reportedly recently been in hospice and she was trying to help him to get into the bed when he started to fall and fell on her causing her to fall on the left side. At that time, imaging studies were done with a CT head, CT cervical spine, CT chest, and CT abdomen and pelvis and x-ray of left foot, all the imaging studies were unremarkable except for the x-ray of left foot showing left metatarsal fracture and she was placed on ortho boot and got discharged home. The patient says she is having this chest pain in the left side below the breast, which was there since her fall. But there was no fracture on the CAT scan of the chest at that time. She said the other night the pain got severe and morning it was fine. Again today night when she was trying to go to sleep the pain became severe. She could not tolerate and she came to the ER and received couple of doses of fentanyl. She says still the pain has been coming on and off. Denies any shortness of breath. She says her is coughing a lot and bringing phlegm for the last 3-4 days and she is also coughing and bringing phlegm, but not as much as her . In the [facility], they are taking temperature frequently and she thinks she might have a temperature. Denies any nausea, no abdominal pain. Appetite is okay. No dysphagia. Denies any runny nose. No blurred visions, no headaches. Normal bowel and bladder movements. Hemodynamically stable. Her labs showed troponin of 0.04. ALLERGIES: TETRACYCLINE, MORPHINE, CODEINE. PAST MEDICAL HISTORY: As mentioned above. PAST SURGICAL HISTORY: Colonoscopy with biopsy, cystoscopy, eyelid surgery for both eyes, cholecystectomy, status post cardiac catheterization, status post stents, excision of mass 2 cm in the right chest, status post pacemaker, removal of the bilateral cataracts, TAVR, shoulder arthroscopy. MEDICATIONS: The patient is on Tylenol 500 mg p.o. q. 6 hours, Coumadin 4 mg as directed, [place] nasal spray 2 sprays into each nostril as needed, digoxin 125 mcg 5 times a week, MiraLax 17 grams p.o. daily as needed, vitamin D 50 mcg p.o. daily, Demadex 10 mg p.o. daily, Lipitor 40 mg p.o. daily, metoprolol succinate 25 mg p.o. daily, Zoloft 100 mg p.o. daily, spironolactone 25 mg p.o. daily, nitroglycerin 0.4 mg sublingual p.r.n., Coenzyme Q 100 mg p.o. daily, Tylenol 325 mg p.o. q. 4 hours p.r.n. FAMILY HISTORY: Significant for father had stomach cancer; mother had heart disorder and hypertension; sister has hypertension and lung disorder; brother has diabetes; sister has diabetes; maternal grandmother had diabetes; paternal grandmother has diabetes; maternal grandfather had heart disorder; maternal grandmother has heart disorder. SOCIAL HISTORY: . No smoking, alcohol rarely. No drug use. REVIEW OF SYSTEMS: As per HPI. Rest of the review of systems negative. PHYSICAL EXAMINATION: GENERAL: The patient is of moderate build, seems to be in pain. VITAL SIGNS: Temperature 36.8, pulse 65, respiratory rate 20, blood pressure 106/52, oxygen 94% on 2 liters. HEENT: No pallor, no icterus. Pupils equal, round, reactive to light. Oral mucosa dry. NECK: No JVD, no neck masses. CARDIOVASCULAR: S1, S2 heard, regular rate and rhythm, no murmur, no gallop. There is chest tenderness in the left side below the breast region. RESPIRATORY SYSTEM: Normal AP diameter. No accessory muscle use. No wheezing, no crackles. ABDOMEN: Soft, bowel sounds present, nontender. No distention. CENTRAL NERVOUS SYSTEM: Alert and oriented. Speech clear. Obeys simple commands. Moves extremities. EXTREMITIES: No edema, no erythema seen. Bruise seen in the left foot region. LABORATORY DATA: WBC 7.03, hemoglobin 12.8, hematocrit 37.1, platelets 182. PT 20.4, INR 2, APTT 33.3. Sodium 140, potassium 3.8, chloride 105, bicarbonate 30, BUN 26, creatinine 1.07, serum glucose 171, calcium 10.4, total bilirubin 0.9, AST 34, ALT 33, alkaline phosphatase 67. Troponin I of 0.04, lipase 400. EKG: Ventricular paced rhythm at a rate of 76. ASSESSMENT AND PLAN: This is an 84-year-old female who recently had a fall at home, was taking care of her who is having Parkinson's and he fell on her and she fell on the left side. At that time, imaging studies showed left metatarsal fracture. She was prescribed ortho boot and she was discharged home, comes back again with ongoing chest pain which is getting severe. 1. Chest pain on the left side below the breast, mostly from recent injury from the fall. At that time, CT scan did not show any fracture. She is having pain since the fall, getting worse. Rib x-ray done today, we will await the results. Troponin is mildly elevated, mostly demand ischemia. We will follow the serial enzymes and echocardiogram. Monitor in the tele floor and consult cardiology for further recommendations. IV Dilaudid p.r.n. for pain and oxycodone p.r.n. 2. Fracture of the fifth metatarsal. Ortho boot was prescribed. Supposed to follow with orthopedics in 1-2 weeks. 3. Coronary artery disease status post stent to right coronary artery in 2002, on Toprol-XL and statin. 4. Chronic atrial fibrillation, tachybrady syndrome, status post pacemaker, on Toprol-XL, digoxin and Coumadin. INR therapeutic at 2. Paced rhythm on the EKG. 5. Chronic systolic congestive heart failure. April 2019 echo EF showed 45%, diastolic dysfunction. Continue her home current Demadex and spironolactone. We will monitor for any volume overload. 6. History of aortic stenosis, status post TAVR in 2015. 7. Diabetes, diet controlled. We will place her on insulin sliding scale, currently n.p.o. 8. Depression, on Zoloft. 9. Hypercalcemia. Ca 10.4. Will follow vit D and pth levels.Hx of hyperparathyroidism. 10. Deep venous thrombosis prophylaxis, on Coumadin. INR therapeutic. 11. Disposition: Observation in tele floor. PT and OT prior to discharge. Social service to help with discharge planning. Code status, full code. MTDD
--- NOTE | 2019-11-17 08:09 | XRay Report ---
XR ribs LT min 3V w CXR1V CLINICAL HISTORY: L chest wall pain,recent fall trauma. Pain. COMPARISON STUDY: 05/31/2019 FINDINGS: Moderate cardiomegaly. Components of congestive heart failure. Nondisplaced cortical fractu re anterior left ninth and 10th ribs. No evidence of pneumothorax. IMPRESSION: 1. Nondisplaced cortical fractures anterior left ninth and 10th ribs. 2. Congestive heart failure. 3. No evidence for pneumothorax. ACT 112: Negative or not required by law. The above report was generated using voice recognition software. It may contain grammatical, syntax or spelling errors. Electronically signed by: Albert Hernandez M.D. 11/17/2019 8:07 AM
[2019-11-17] MEDS: SPIRONOLACTONE 25 MG TAB PO SCH (08:11)
[2019-11-17] MEDS: CHOLECALCIFEROL 1,000 UNITS 25 MCG TAB PO SCH (08:12)
[2019-11-17] MEDS: SERTRALINE HCL 100 MG TABLET PO SCH (08:12)
[2019-11-17] MEDS: TORSEMIDE 10 MG TAB PO SCH (08:12)
[2019-11-17] MEDS: METOPROLOL SUCC 25MG EXT REL TAB PO SCH (08:12)
[2019-11-17] MEDS: ATORVASTATIN 40 MG TAB PO SCH (08:12)
[2019-11-17] MEDS: DIGOXIN 0.125 MG TAB PO SCH (08:12)
[2019-11-17] MEDS: INSULIN ASPART 100 UNITS/ML 3 ML PEN SC SCH ×4 (08:14→22:09)
[2019-11-17] MEDS ORDERED: NON-FORMULARY MEDICATION (Coenzyme Q10 [Coq-10] 100 MG) PO SCH (09:00)
--- NOTE | 2019-11-17 10:22 | Cardiology Consultation ---
Date of Consultation November 17, 2019 Assessment & Plan (1) Rib pain on left side: Due to mechanical fall and injury (2) Chest pain on respiration: Marked splinting secondary to pain, no cardiac component suggested We will repeat echocardiogram (3) Elevated troponin I measurement: Pattern presentation does not suggest acute coronary syndrome, question stressor mediated (4) S/p TAVR (transcatheter aortic valve replacement), bioprosthetic: Normally functioning device in April 2019 Echo to be repeat although likely limited due to marked tenderness chest (5) Chronic atrial fibrillation: (6) S/P cardiac pacemaker procedure: Device interrogated today and functioning appropriately History of Present Illness Reason for Consultation: Chest wall pain, status post mechanical fall Requesting Physician: Dr. Christian Attending Physician: Molina Christian MD History of Present Illness Patient is an 84-year-old relatively frail female with multiple underlying cardiac and medical issues which include 1. 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 Cardiac catheterization at the time of intervention showing no lesions greater than 40% stenosis except for the RCA. 3. Chronic atrial fibrillation 4. CHADS2 Score 4/6. Chronic Coumadin anticoagulation 5. 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 Severe aortic stenosis status post 02/01/2016 T-AVR Core Valve 7. Hypertension 8. Hyperlipidemia 9. Mild left ventricular dysfunction with inferior posterior wall motion or normality 10. Coronary angiography November 2015 without obstructive disease Patient is referred after rehospitalization. Patient describes a recent mechanical fall with multiple contusions head chest leg and foot and hip. Rehospitalized with persistent chest wall pain tender to touch, uncontrolled pain. No worsening shortness of breath no tachypalpitations no syncope no near syncope. No fevers chills unexplained infections currently. She is chronically anticoagulated This morning somewhat lethargic due to pain medication but answering questions appropriately Allergies Allergy/AdvReac Type Severity Reaction Status Date / Time tetracycline Allergy Unknown RASH Verified 11/17/19 02:25 morphine AdvReac Mild "VIOLENTLY Verified 11/17/19 02:25 ILL", NAUSEA/VOMITING codeine AdvReac Unknown N/V Verified 11/17/19 02:25 Home Medications Home Medications Medication Instructions Recorded Confirmed Type atorvastatin [Lipitor] 40 mg PO DAILY 11/11/19 11/17/19 History cholecalciferol (vitamin D3) 50 mcg PO DAILY 11/11/19 11/17/19 History [Vitamin D3] coenzyme Q10 [CoQ-10] 100 mg PO DAILY 11/11/19 11/17/19 History digoxin 125 mcg PO 5XWK 11/11/19 11/17/19 History metoprolol succinate [Toprol XL] 25 mg PO DAILY 11/11/19 11/17/19 History nitroglycerin [Nitrostat] 0.4 mg SUBLINGUAL UD PRN 11/11/19 11/17/19 History polyethylene glycol 3350 [Miralax] 17 g PO DAILY PRN 11/11/19 11/17/19 History sertraline [Zoloft] 100 mg PO DAILY 11/11/19 11/17/19 History sodium chloride [Saline Mist] 2 spray INTRANASAL UD PRN 11/11/19 11/17/19 History spironolactone [Aldactone] 25 mg PO DAILY 11/11/19 11/17/19 History torsemide 10 mg PO DAILY 11/11/19 11/17/19 History warfarin 2 mg PO 2XWK 11/11/19 11/17/19 History warfarin 4 mg PO 5XWK 11/11/19 11/17/19 History acetaminophen 500 mg PO Q6 PRN 11/17/19 11/17/19 History acetaminophen 500 mg PO Q6H MDD 3gm 11/17/19 11/17/19 History Patient History Medical History Aortic stenosis S/P TAVR in 2016 CAD (coronary artery disease) S/P [place] and stent to RCA in 2002 Chest pain (Acute) Chronic atrial fibrillation Chronic systolic heart failure Depression Diabetes mellitus, type II Fracture of tibial plateau (Resolved Unknown) HLD (hyperlipidemia) HTN (hypertension) Hypercalcemia (Chronic Unknown) Hyperparathyroidism Primary hyperparathyroidism (Chronic Unknown) Rotator cuff arthropathy (Resolved) Tachy-ed syndrome Surgical History Aortic valve replaced (Chronic) S/P cardiac pacemaker procedure S/p TAVR (transcatheter aortic valve replacement), bioprosthetic 2015 Family History Other Cancer Diabetes Heart disease Hypertension Social History Smoking Status: Never smoker Hx Alcohol Use: No Hx Substance Use: No Preferred Language: German Communication Ability: Effective Residential Concierge Required: No Beliefs That Will Affect Care: None marital status: Current Living Situation: Spouse and Personal Care Facility Current Living Situation Comment: [place] Other Information That Helps Us Care for You: No Feels Safe at Home: Yes Safety Concerns: Feels Safe At This Time Review of Systems Review of Systems: All systems reviewed & are unremarkable except as noted in HPI & below Physical Exam Constitutional: + thin and + lethargic (Mildly) Eyes: PERRL, conjunctivae normal, anicteric sclerae ENMT: external ear and nose normal, oropharynx normal Neck: trachea midline, no thyromegaly Respiratory: Diminished breath sounds with mild splinting on respiration Cardiovascular: Rate/Rhythm: regular rate Heart Sounds: normal S1, normal S2 and + murmur (Grade 2/6 to 3/6 systolic murmur heard best at the right upper sternal border); no gallop and no cardiac rub Palpation: normal PMI Vessels: + JVD (Minimal jugular venous distention at 30 degrees), normal carotid upstroke and radial pulses present; no carotid bruit Extremities: no edema Chest (Breasts): Additional Comments: Marked tenderness left chest wall with small ecchymosis and tenderness left breast Gastrointestinal (Abdomen): normal bowel sounds, soft, nontender, no hepatosplenomegaly Musculoskeletal: no cyanosis or clubbing, extremities motor strength 5/5 Head/Neck/Chest: + localized rib tenderness Knee: + ecchymosis Skin: no rashes, warm and dry Neurologic: PERRL, EOMI, accommodation nl, no face palsy, no dysarthria Mild lethargy secondary to pain medications Psychiatric: A+Ox3, euthymic affect Results & Data ([facility]) Vital Signs (Past 12 Hours) Vital Signs Temp Pulse Pulse Resp BP BP Pulse Ox 11/17/19 08:12 65 11/17/19 07:05 36.5 C 67 20 149/81 H 96 11/17/19 06:37 36.7 C 78 18 147/80 H 98 11/17/19 06:16 64 124/57 L 97 11/17/19 06:00 64 124/57 L 97 11/17/19 04:50 65 20 106/52 L 94 11/17/19 03:25 64 106/62 96 11/17/19 01:53 90 11/17/19 01:51 36.8 C 76 20 120/73 93 Laboratory Results Laboratory Results - last 24 hr 11/17/19 11/17/19 11/17/19 01:55 01:55 01:55 WBC 7.03 RBC 4.10 L Hgb 12.8 Hct 37.1 MCV 90.5 MCH 31.2 MCHC 34.5 RDW Std Deviation 46.2 RDW Coeff of Rosas 14.0 Plt Count 182 MPV 9.4 Immature Gran % (Auto) 1.0 Neut % (Auto) 71.0 Lymph % (Auto) 16.6 Harvey % (Auto) 8.7 Eos % (Auto) 2.6 Baso % (Auto) 0.1 Neut # (Auto) 4.99 Lymph # (Auto) 1.17 L Harvey # (Auto) 0.61 H Eos # (Auto) 0.18 Baso # (Auto) 0.01 Immature Gran # (Auto) 0.07 H PT 20.4 H INR 2.0 H APTT 33.3 H PTT Ratio 1.2 Sodium 140 Potassium 3.8 Chloride 105 Carbon Dioxide 30 Anion Gap 6.0 BUN 26 H Creatinine 1.07 Est Cr Clr Drug Dosing 38.2 Est GFR ( Amer) 55.6 Est GFR (Non-Af Amer) 48.0 BUN/Creatinine Ratio 24.2 H Glucose 171 H POC Glucose Calcium 10.4 H Ionized Calcium Total Bilirubin 0.9 AST 34 ALT 33 Alkaline Phosphatase 67 Troponin I 0.046 H* Total Protein 7.4 Albumin 4.1 Globulin 3.3 Albumin/Globulin Ratio 1.2 Lipase 400 H 25-OH Vitamin D Total PTH Intact Specimen Hemolysis 11/17/19 11/17/19 11/17/19 07:20 07:20 07:20 WBC RBC Hgb Hct MCV MCH MCHC RDW Std Deviation RDW Coeff of Rosas Plt Count MPV Immature Gran % (Auto) Neut % (Auto) Lymph % (Auto) Harvey % (Auto) Eos % (Auto) Baso % (Auto) Neut # (Auto) Lymph # (Auto) Harvey # (Auto) Eos # (Auto) Baso # (Auto) Immature Gran # (Auto) PT INR APTT PTT Ratio Sodium Potassium Chloride Carbon Dioxide Anion Gap BUN Creatinine Est Cr Clr Drug Dosing Est GFR ( Amer) Est GFR (Non-Af Amer) BUN/Creatinine Ratio Glucose POC Glucose Calcium Ionized Calcium Total Bilirubin AST ALT Alkaline Phosphatase Troponin I 0.034 Total Protein Albumin Globulin Albumin/Globulin Ratio Lipase 25-OH Vitamin D Total 47.0 PTH Intact 79.2 Specimen Hemolysis 11/17/19 11/17/19 07:20 07:27 WBC RBC Hgb Hct MCV MCH MCHC RDW Std Deviation RDW Coeff of Rosas Plt Count MPV Immature Gran % (Auto) Neut % (Auto) Lymph % (Auto) Harvey % (Auto) Eos % (Auto) Baso % (Auto) Neut # (Auto) Lymph # (Auto) Harvey # (Auto) Eos # (Auto) Baso # (Auto) Immature Gran # (Auto) PT INR APTT PTT Ratio Sodium Potassium Chloride Carbon Dioxide Anion Gap BUN Creatinine Est Cr Clr Drug Dosing Est GFR ( Amer) Est GFR (Non-Af Amer) BUN/Creatinine Ratio Glucose POC Glucose 178 H Calcium Ionized Calcium 1.30 Total Bilirubin AST ALT Alkaline Phosphatase Troponin I Total Protein Albumin Globulin Albumin/Globulin Ratio Lipase 25-OH Vitamin D Total PTH Intact Specimen Hemolysis
--- NOTE | 2019-11-17 12:57 | Hospitalist Progress Note ---
Date of Service November 17, 2019 Assessment & Plan (1) Rib pain on left side: with left sided rib fractures (Nondisplaced cortical fractures anterior left ninth and 10th ribs) -Patient was hospitalized from 11/11/2019 to 11/12/2019 after she had a fall and experienced left sided rib pain (no radiographic imaging at the time of rib fractures by CT chest imaging) and also on that visit found to have fracture of fifth metatarsal bone of left foot secondary to trauma. -Patient returns to the ED on 11/17/2019 by ambulance with complaints of severe left-sided chest pain, particularly with inspiration. -11/17/2019 CXR: Nondisplaced cortical fractures anterior left ninth and 10th ri bs; No evidence for pneumothorax; cardiomegaly -give incentive spirometer, pain medications prn -orthopedic consult (2) Elevated troponin I measurement: -admission troponin mildly elevated as 0.046. This led to admitting physician requesting cardiology evaluation to rule out cardiac cause of patient's left sided rib pain -echocardiogram result pending -second troponin is normal as 0.034 Chronic atrial fibrillation: Ischemic heart disease with a history of inferior and right ventricular infarction complicated by cardiogenic shock S/P angioplasty stent of RCA lesion (2002) Coronary angiography November 2015 without obstructive disease -on coumadin, continue S/P cardiac pacemaker procedure in the past for history of Tach-Ed Syndrome - Device interrogated today and functioning appropriately as per cardiology S/P TAVR (transcatheter aortic valve replacement), bioprosthetic -Normally functioning device in April 2019 (3) Fracture of fifth metatarsal bone of left foot: -orthopedic recommendations on 11/12/2019: she has a minimally displaced fracture 5th metatarsal, will treat conservatively in LT boot, she can WBAT on her heel, cont to ice and elevate for swelling, she can remove the boot when sitting for comfort and to do gentle ROM of the ankle. F/U at [facility] in 10-14 days for repeat xrays of the foot, call [phone] to schedule appointment." -PTH is 79 on 11/17/2019 and is upper range of normal, normal Vitamin D levels. there is no strong evidence for hyperparathyroidism, follow the serum calcium levels Diabetes mellitus, type II: -Diet controlled -HbA1c: 7.0 on 05/07/2019 -sliding scale insulin as needed while inpatient Depression: -Continue sertraline Admission and Anticipated Discharge Date Admission Date: November 17, 2019 Subjective Patient seen at bedside. She was not having complaints of acute pain. The chest pain area that she had coming to hospital of left upper rib under the rib and present on palpation. Patient reports that she was using the boot for the left foot after previous hospital discharge. patient has not eaten today yet as she was kept NPO while awaiting cardiology evaluation. her second troponin on this hospital presentation is normal Review of Systems Review of Systems: All systems reviewed & are unremarkable except as noted in Subjective Physical Exam Constitutional: comfortable Eyes: PERRL, conjunctivae normal, anicteric sclerae EOM intact bilaterally ENMT: external ear and nose normal, oropharynx normal Neck: trachea midline, no thyromegaly normal visual inspection Respiratory: normal respiratory effort Cardiovascular: Rate/Rhythm: + bradycardic Gastrointestinal (Abdomen): normal bowel sounds, soft, nontender, no hepatosplenomegaly Musculoskeletal: Head/Neck/Chest: normocephalic and head atraumatic Neurologic: PERRL, EOMI, accommodation nl, no face palsy, no dysarthria moves all extremities Results & Data Results & Data ([facility]) Vital Signs (Past 12 Hours) Vital Signs Temp Pulse Pulse Resp BP BP BP 11/17/19 11:28 36.4 C L 60 18 114/66 11/17/19 08:12 65 11/17/19 07:05 36.5 C 67 20 149/81 H 11/17/19 06:37 36.7 C 78 18 147/80 H 11/17/19 06:16 64 124/57 L 11/17/19 06:00 64 124/57 L 11/17/19 04:50 65 20 106/52 L 11/17/19 03:25 64 106/62 11/17/19 01:53 11/17/19 01:51 36.8 C 76 20 120/73 Pulse Ox 11/17/19 11:28 97 11/17/19 08:12 11/17/19 07:05 96 11/17/19 06:37 98 11/17/19 06:16 97 11/17/19 06:00 97 11/17/19 04:50 94 11/17/19 03:25 96 11/17/19 01:53 90 11/17/19 01:51 93
[2019-11-17] MEDS ORDERED: WARFARIN SOD 4 MG TAB PO SCH (16:00)
--- NOTE | 2019-11-17 19:16 | Electrocardiogram Report ---
Test Reason : Blood Pressure : / mmHG Vent. Rate : 076 BPM Atrial Rate : 070 BPM P-R Int : 000 ms QRS Dur : 208 ms QT Int : 470 ms P-R-T Axes : 000 -64 105 degrees QTc Int : 528 ms Ventricular-paced rhythm Abnormal ECG When compared with ECG of 11-NOV-2019 18:28, Vent. rate has increased BY 16 BPM Confirmed by Maik Sosa ([id number]) on 11/17/2019 7:15:35 PM Referred By: LESLEE Confirmed By:Maik Sosa
--- NOTE | 2019-11-17 19:22 | XRay Report ---
XR foot LT min 3V routine CLINICAL HISTORY: 5th met fx COMPARISON: 11/11/2019 DISCUSSION: The bones are osteopenic. There is a fifth metatarsal shaft fracture, unchanged in alignm ent from the preceding study. Fracture line is still visualized. Significant callus formation is not evident. IMPRESSION: No change in alignment of the fifth metatarsal fracture. ACT 112: Negative or not required by law. Electronically signed by: Jeremie Esparza M.D. 11/17/2019 7:21 PM
[2019-11-17] MEDS: OXYCODONE HCL IR 5 MG TAB (IMMEDIATE RELEASE) PO PRN (19:59)
[2019-11-17] MEDS: ACETAMINOPHEN 325 MG TAB PO PRN (20:04)
--- NOTE | 2019-11-17 21:04 | Orthopedic Consultation ---
Date of Consultation November 17, 2019 Assessment & Plan (1) Fracture of fifth metatarsal bone of left foot: Acute fracture of left foot 5th metatarsal. XRs reviewed which demonstrates stable appearing fracture compared to XRs taken at previous admission. Continue to WBAT with cam boot or post op shoe. Follow up in office 2-3 weeks with [facility] upon discharge for repeat XRs, . Thank you for the consultation. History of Present Illness Reason for Consultation: Left foot fracture Attending Physician: Molina Christian MD History of Present Illness The patient is a 84 year old female who presents with recent history for multiple falls, left foot 5th MT fracture, seen for this 11/12/19 and left chest pain. Patient reports wearing boot but left her boot at home upon this admission, denies any numbness or tingling to her LLE. The patient reports she has not followed up with [facility] for her left foot fracture since her last admission. Allergies Allergy/AdvReac Type Severity Reaction Status Date / Time tetracycline Allergy Unknown RASH Verified 11/17/19 02:25 morphine AdvReac Mild "VIOLENTLY Verified 11/17/19 02:25 ILL", NAUSEA/VOMITING codeine AdvReac Unknown N/V Verified 11/17/19 02:25 Home Medications Home Medications Medication Instructions Recorded Confirmed Type atorvastatin [Lipitor] 40 mg PO DAILY 11/11/19 11/17/19 History cholecalciferol (vitamin D3) 50 mcg PO DAILY 11/11/19 11/17/19 History [Vitamin D3] coenzyme Q10 [CoQ-10] 100 mg PO DAILY 11/11/19 11/17/19 History digoxin 125 mcg PO 5XWK 11/11/19 11/17/19 History metoprolol succinate [Toprol XL] 25 mg PO DAILY 11/11/19 11/17/19 History nitroglycerin [Nitrostat] 0.4 mg SUBLINGUAL UD PRN 11/11/19 11/17/19 History polyethylene glycol 3350 [Miralax] 17 g PO DAILY PRN 11/11/19 11/17/19 History sertraline [Zoloft] 100 mg PO DAILY 11/11/19 11/17/19 History sodium chloride [Saline Mist] 2 spray INTRANASAL UD PRN 11/11/19 11/17/19 History spironolactone [Aldactone] 25 mg PO DAILY 11/11/19 11/17/19 History torsemide 10 mg PO DAILY 11/11/19 11/17/19 History warfarin 2 mg PO 2XWK 11/11/19 11/17/19 History warfarin 4 mg PO 5XWK 11/11/19 11/17/19 History acetaminophen 500 mg PO Q6 PRN 11/17/19 11/17/19 History acetaminophen 500 mg PO Q6H MDD 3gm 11/17/19 11/17/19 History Patient History Medical History Aortic stenosis S/P TAVR in 2016 CAD (coronary artery disease) S/P [place] and stent to RCA in 2002 Chest pain (Acute) Chronic atrial fibrillation Chronic systolic heart failure Depression Diabetes mellitus, type II Fracture of tibial plateau (Resolved Unknown) HLD (hyperlipidemia) HTN (hypertension) Hypercalcemia (Chronic Unknown) Hyperparathyroidism Primary hyperparathyroidism (Chronic Unknown) Rotator cuff arthropathy (Resolved) Tachy-wanda syndrome Surgical History Aortic valve replaced (Chronic) S/P cardiac pacemaker procedure S/p TAVR (transcatheter aortic valve replacement), bioprosthetic 2015 Family History Other Cancer Diabetes Heart disease Hypertension Social History Smoking Status: Never smoker Hx Alcohol Use: No Hx Substance Use: No Preferred Language: Indonesian Communication Ability: Effective Nurses Assistant Required: No Beliefs That Will Affect Care: None marital status: Current Living Situation: Spouse and Personal Care Facility Current Living Situation Comment: [place] Other Information That Helps Us Care for You: No Feels Safe at Home: Yes Safety Concerns: Feels Safe At This Time Review of Systems Review of Systems: All systems reviewed & are unremarkable except as noted in HPI & below Constitutional: as per Subjective / HPI Physical Exam Physical Exam: LLE NVSI +EHL/FHL/TA/GS SILT grossly, +2 DP pulse, compartments soft NT, +TTP 5th MT, skin intact Constitutional: WD/WN, vitals as above Results & Data ([facility]) Vital Signs (Past 12 Hours) Vital Signs Temp Pulse Resp BP Pulse Ox 08/10/20 19:58 36.5 C 63 18 114/71 98 11/17/19 15:43 36.4 C L 60 18 109/65 97 11/17/19 11:28 36.4 C L 60 18 114/66 97 Diagnostic Findings XR foot LT min 3V routine CLINICAL HISTORY: 5th met fx COMPARISON: 11/11/2019 DISCUSSION: The bones are osteopenic. There is a fifth metatarsal shaft fracture, unchanged in alignment from the preceding study. Fracture line is still visualized. Significant callus formation is not evident. IMPRESSION: No change in alignment of the fifth metatarsal fracture.
[2019-11-18] MEDS ORDERED: KETOROLAC TROMETHAMINE 15 MG/ML VIAL IV ONE (01:15)
[2019-11-18] MEDS ORDERED: KETOROLAC 30 MG/ML VIAL ONE (01:40)
[2019-11-18] MEDS: OXYCODONE HCL IR 5 MG TAB (IMMEDIATE RELEASE) PO PRN (02:28)
[2019-11-18 05:51] LABS: Basophils # (auto) 0.01 K/uL (0-0.2); Basophils % (auto) 0.2 %; Eosinophils # (auto) 0.08 K/uL (0-0.5); Eosinophils % (auto) 1.2 %; Hematocrit (blood only) 36.2 % (37-47); Hemoglobin 11.9 g/dL (12.0-16.0); Immature Granulocytes # (auto) 0.03 K/uL (0.00-0.02); Immature Granulocytes % (auto) 0.5 %; Lymphocytes # (auto) 0.99 K/uL (1.2-3.4); Lymphocytes % (auto) 15.1 %; Mean Corpuscular Hgb Conc 32.9 g/dL (32-36); Mean Corpuscular Volume 91.2 fL (80-100); Mean Platelet Volume 9.1 fL (7.4-10.4); Monocytes # (auto) 0.58 K/uL (0.11-0.59); Monocytes % (auto) 8.8 %; Neutrophils # (auto) 4.88 K/uL (1.4-6.5); Neutrophils % (auto) 74.2 %; Platelet Count 146 K/uL (130-400); RDW Coefficient of Variation 14.1 % (11.5-14.5); RDW Standard Deviation 46.8 fL (36.4-46.3); Red Blood Count 3.97 M/uL (4.2-5.4); White Blood Count 6.57 K/uL (4.8-10.8)
[2019-11-18 06:01] LABS: INR 2.3 (0.9-1.1); Prothrombin Time 23.1 Seconds (9.0-12.0)
[2019-11-18 06:27] LABS: BUN Creatinine Ratio 22.2 (10-20); Creatinine Clr Calc Pharmacy 37.6 ml/min; Est GFR (African American) 60.3; Est GFR (Non-African American) 52.1; Magnesium 2.2 mg/dl (1.8-2.4); Potassium 4.2 mmol/L (3.5-5.1)
[2019-11-18] MEDS: SPIRONOLACTONE 25 MG TAB PO SCH (07:40)
[2019-11-18] MEDS: SERTRALINE HCL 100 MG TABLET PO SCH (07:40)
[2019-11-18] MEDS: ACETAMINOPHEN 325 MG TAB PO PRN (07:40)
[2019-11-18] MEDS: DIGOXIN 0.125 MG TAB PO SCH (07:41)
[2019-11-18] MEDS: TORSEMIDE 10 MG TAB PO SCH (07:41)
[2019-11-18] MEDS: ATORVASTATIN 40 MG TAB PO SCH (07:41)
[2019-11-18] MEDS: METOPROLOL SUCC 25MG EXT REL TAB PO SCH (07:42)
[2019-11-18] MEDS: CHOLECALCIFEROL 1,000 UNITS 25 MCG TAB PO SCH (07:42)
[2019-11-18] MEDS: INSULIN ASPART 100 UNITS/ML 3 ML PEN SC SCH ×2 (07:42→11:52)
--- NOTE | 2019-11-18 08:46 | Hospitalist Progress Note ---
Date of Service November 18, 2019 Assessment & Plan (1) Rib pain on left side: with left sided rib fractures (Nondisplaced cortical fractures anterior left ninth and 10th ribs) -Patient was hospitalized from 11/11/2019 to 11/12/2019 after she had a fall and experienced left sided rib pain (no radiographic imaging at the time of rib fractures by CT chest imaging) and also on that visit found to have fracture of fifth metatarsal bone of left foot secondary to trauma. -Patient returns to the ED on 11/17/2019 by ambulance with complaints of severe left-sided chest pain, particularly with inspiration. -11/17/2019 CXR: Nondisplaced cortical fractures anterior left ninth and 10th ri bs; No evidence for pneumothorax; cardiomegaly -give incentive spirometer, pain medications prn -orthopedic consult 11/18/2019: Patient seen this AM. She appears more energetic today. She does not appear to have distress from the left side rib fractures. She reports she is using the incentive spirometer. She is awaiting to be seen by PT/OT but she does not have the left foot boot which she may have left at the [facility] prior to coming back to hospital on this presentation. She wonders why she is having more anterior right leg pain recently and maybe could be that she has been bearing more weight on right leg since her left foot fracture. (2) Elevated troponin I measurement: -admission troponin mildly elevated as 0.046. This led to admitting physician requesting cardiology evaluation to rule out cardiac cause of patient's left sided rib pain -echocardiogram result pending -second troponin is normal as 0.034 and third troponin also normal Chronic atrial fibrillation: Ischemic heart disease with a history of inferior and right ventricular infarction complicated by cardiogenic shock S/P angioplasty stent of RCA lesion (2002) Coronary angiography November 2015 without obstructive disease -INR is 2.3 on 11/18/2019 on coumadin, continue S/P cardiac pacemaker procedure in the past for history of Tach-Ed Syndrome - Device interrogated on and functioning appropriately as per cardiology S/P TAVR (transcatheter aortic valve replacement), bioprosthetic -Normally functioning device in April 2019 (3) Fracture of fifth metatarsal bone of left foot: -orthopedic recommendations on 11/12/2019 was non operative., treat conservatively in LT boot, she can WBAT on her heel, cont to ice and elevate for swelling, she can remove the boot when sitting for comfort and to do gentle ROM of the ankle. -PTH is 79 on 11/17/2019 and is upper range of normal, normal Vitamin D levels. there is no strong evidence for hyperparathyroidism, follow the serum calcium levels -orthopedics re-evaluated on 11/17/2019, Left foot X ray No change in alignment of the fifth metatarsal fracture. "XRs reviewed which demonstrates stable appearing fracture compared to XRs taken at previous admission. Continue to WBAT with cam boot or post op shoe. Follow up in office 2-3 weeks with [facility] upon discharge for repeat XRs, ." Diabetes mellitus, type II: -Diet controlled -HbA1c: 7.0 on 05/07/2019 -sliding scale insulin as needed while inpatient Depression: -Continue sertraline Admission and Anticipated Discharge Date Admission Date: November 17, 2019 Subjective Patient seen this AM. She appears more energetic today. She does not appear to have distress from the left side rib fractures. She reports she is using the incentive spirometer. She is awaiting to be seen by PT/OT but she does not have the left foot boot which she may have left at the [facility] prior to coming back to hospital on this presentation. She wonders why she is having more anterior right leg pain recently and maybe could be that she has been bearing more weight on right leg since her left foot fracture. on room air. no dizziness. no nausea. Review of Systems Review of Systems: All systems reviewed & are unremarkable except as noted in Subjective Physical Exam Constitutional: comfortable Eyes: PERRL, conjunctivae normal, anicteric sclerae EOM intact bilaterally ENMT: external ear and nose normal, oropharynx normal Neck: trachea midline, no thyromegaly normal visual inspection Respiratory: normal respiratory effort Cardiovascular: Rate/Rhythm: + bradycardic (paced) Gastrointestinal (Abdomen): normal bowel sounds, soft, nontender, no hepatosplenomegaly Musculoskeletal: Head/Neck/Chest: normocephalic and head atraumatic Neurologic: PERRL, EOMI, accommodation nl, no face palsy, no dysarthria moves all extremities Results & Data Results & Data ([facility]) Vital Signs (Past 12 Hours) Vital Signs Temp Pulse Pulse Resp BP BP Pulse Ox 11/18/19 07:46 36.6 C 74 18 122/77 98 11/18/19 07:42 36.7 C 66 18 105/62 91 11/18/19 07:41 95 H 11/18/19 04:51 37 C 63 18 106/62 94 11/17/19 23:22 36.7 C 65 18 103/57 L 96
--- NOTE | 2019-11-18 11:32 | Cardiology Progress Note ---
Date of Service November 18, 2019 Assessment & Plan (1) Rib pain on left side: s/p mechanical fall with 9nth and 10nth left rib fractures. Pain is improved to the point that she may rest comfortably. INR at goal. Future considerations include asking pain management to consider intercostal ne rve block in and effort to avoid NSAIDs or narcotic anagesics, however, she would likely need to be off coumadin for this. Subjective Patient seen in cardiology follow up. Left sided chest wall pain subjectively improved. Rested well last evening . Telemetry reveals Ventricular pacing in the 60s. Review of Systems Review of Systems: All systems reviewed & are unremarkable except as noted in HPI & below Physical Exam Physical Exam: Temp Pulse Resp BP Pulse Ox 36.6 C 62 18 122/77 98 11/18/19 07:46 11/18/19 08:00 11/18/19 07:46 11/18/19 07:46 11/18/19 07:46 Constitutional: + thin; no acute distress Respiratory: normal respiratory effort, lungs clear to auscultation Cardiovascular: Rate/Rhythm: regular rhythm Heart Sounds: no murmur Extremities: no edema left boot in place s/p toe fracture Gastrointestinal (Abdomen): normal bowel sounds, soft, nontender, no hepatosplenomegaly Neurologic: PERRL, EOMI, accommodation nl, no face palsy, no dysarthria Results & Data Vital Signs (Past 12 Hours) Vital Signs Temp Pulse Pulse Resp BP BP Pulse Ox 11/18/19 08:00 62 11/18/19 07:46 36.6 C 74 18 122/77 98 11/18/19 07:42 36.7 C 66 18 105/62 91 11/18/19 07:41 95 H 11/18/19 04:51 37 C 63 18 106/62 94 Laboratory Results INR 2.3. Diagnostic Findings Echo 11/17/19: LVEF 45-50% Severe biatrial enlargement Normal TAVR function Moderate to severe MR Mild to moderate TR
[2019-11-18] MEDS ORDERED: LIDOCAINE 5% 1 PATCH TD SCH (13:15)
--- NOTE | 2019-11-18 13:33 | Hospitalist Progress Note ---
Date of Service November 18, 2019 Assessment & Plan (1) Rib pain on left side: with left sided rib fractures (Nondisplaced cortical fractures anterior left ninth and 10th ribs) -Patient was hospitalized from 11/11/2019 to 11/12/2019 after she had a fall and experienced left sided rib pain (no radiographic imaging at the time of rib fractures by CT chest imaging) and also on that visit found to have fracture of fifth metatarsal bone of left foot secondary to trauma. -Patient returns to the ED on 11/17/2019 by ambulance with complaints of severe left-sided chest pain, particularly with inspiration. -11/17/2019 CXR: Nondisplaced cortical fractures anterior left ninth and 10th ri bs; No evidence for pneumothorax; cardiomegaly -give incentive spirometer, pain medications prn -orthopedic consult with PT/OT evaluated the patient on this hospital stay 11/18/2019: Patient seen this AM. She appears more energetic today. She does not appear to have distress from the left side rib fractures. She reports she is using the incentive spirometer. She is awaiting to be seen by PT/OT but she does not have the left foot boot which she may have left at the [facility] prior to coming back to hospital on this presentation. She wonders why she is having more anterior right leg pain recently and maybe could be that she has been bearing more weight on right leg since her left foot fracture. discharge to the [facility] under the care of her family member patient encouraged to continue using incentive spirometer upon discharge discharge medication sent electronically to [facility] [address] [place] [address] of acetaminophen 650 mg every 6 hours as needed for pain or fever, lidocaine patches for rib pain (5 patches prescribed - use only 1 at a time per day if having left rib pain). a paper prescription for oxycodone 5 mg every 6 hours as needed for severe pain (16 tablets prescribed) upcoming scheduled appointments on [facility] 11/19/2019 11:20 AM Provider Jaron Harper MD Department General Internal Medicine [facility] 11/20/2019 2:00 PM Provider [facility] Department Cardiology, [facility] 11/25/2019 5:00 PM Provider [facility] Pharmacist2 Department Pharmacy, [facility] 12/08/2019 10:00 AM Provider Jaron Harper MD Department General Internal Medicine [facility] 03/18/2020 10:30 AM Provider Chino Davis DO Department Cardiology, [facility] (2) Elevated troponin I measurement: -admission troponin mildly elevated as 0.046. This led to admitting physician requesting cardiology evaluation to rule out cardiac cause of patient's left sided rib pain -echocardiogram result pending -second troponin is normal as 0.034 and third troponin also normal Chronic atrial fibrillation: Ischemic heart disease with a history of inferior and right ventricular infarction complicated by cardiogenic shock S/P angioplasty stent of RCA lesion (2002) Coronary angiography November 2015 without obstructive disease -INR is 2.3 on 11/18/2019 on coumadin, continue S/P cardiac pacemaker procedure in the past for history of Tach-Ed Syndrome - Device interrogated on and functioning appropriately as per cardiology S/P TAVR (transcatheter aortic valve replacement), bioprosthetic -Normally functioning device in April 2019 (3) Fracture of fifth metatarsal bone of left foot: -orthopedic recommendations on 11/12/2019 was non operative., treat conservatively in LT boot, she can WBAT on her heel, cont to ice and elevate for swelling, she can remove the boot when sitting for comfort and to do gentle ROM of the ankle. -PTH is 79 on 11/17/2019 and is upper range of normal, normal Vitamin D levels. there is no strong evidence for hyperparathyroidism, follow the serum calcium levels -Orthopedics re-evaluated on 11/17/2019, Left foot X ray No change in alignment of the fifth metatarsal fracture. "XRs reviewed which demonstrates stable appearing fracture compared to XRs taken at previous admission. Continue to WBAT (weight bear as tolerated) with cam boot or post op shoe. Follow up in office 2-3 weeks with [facility] upon discharge for repeat XRs, ." Diabetes mellitus, type II: -Diet controlled -HbA1c: 7.0 on 05/07/2019 -sliding scale insulin as needed while inpatient Depression: -Continue sertraline Admission and Anticipated Discharge Date Admission Date: November 17, 2019 Subjective Patient finished PT evaluations and doing well and breathing well while walking with left foot boot. She is to be discharged to the [facility] under care of her family when they arrive Review of Systems Review of Systems: All systems reviewed & are unremarkable except as noted in Subjective Physical Exam Constitutional: comfortable Eyes: PERRL, conjunctivae normal, anicteric sclerae EOM intact bilaterally ENMT: external ear and nose normal, oropharynx normal Neck: trachea midline, no thyromegaly normal visual inspection Respiratory: normal respiratory effort Cardiovascular: Rate/Rhythm: + bradycardic (paced) Gastrointestinal (Abdomen): normal bowel sounds, soft, nontender, no hepatosplenomegaly Musculoskeletal: Head/Neck/Chest: normocephalic and head atraumatic Neurologic: PERRL, EOMI, accommodation nl, no face palsy, no dysarthria moves all extremities Results & Data Results & Data ([facility]) Vital Signs (Past 12 Hours) Vital Signs Temp Pulse Pulse Resp BP BP Pulse Ox 11/18/19 11:40 36.6 C 73 16 114/74 95 11/18/19 08:00 62 11/18/19 07:46 36.6 C 74 18 122/77 98 11/18/19 07:42 36.7 C 66 18 105/62 91 11/18/19 07:41 95 H 11/18/19 04:51 37 C 63 18 106/62 94
--- NOTE | 2019-11-18 13:37 | Discharge Summary ---
Date of Service November 18, 2019 Admission HPI Per Admitting Provider CHIEF COMPLAINT: Chest pain. HISTORY OF PRESENT ILLNESS: This is an 84-year-old female with past medical history significant for type 2 diabetes, hyperparathyroidism, hyperlipidemia, history of goiter, history of chronic atrial fibrillation, tachybrady syndrome, status post pacemaker, chronic systolic congestive heart failure with EF of around 45%, hypertension, moderate mitral regurgitation, GERD, osteoporosis, depression, CAD status post stent, status post TAVR, generalized anxiety disorder. The patient lives at [facility] with her . Her has Parkinson's disease. The patient got admitted to the hospital on 11/11/2019, the patient came with a fall. The patient helps taking care of her who has Parkinson's and he has reportedly recently been in hospice and she was trying to help him to get into the bed when he started to fall and fell on her causing her to fall on the left side. At that time, imaging studies were done with a CT head, CT cervical spine, CT chest, and CT abdomen and pelvis and x-ray of left foot, all the imaging studies were unremarkable except for the x-ray of left foot showing left metatarsal fracture and she was placed on ortho boot and got discharged home. The patient says she is having this chest pain in the left side below the breast, which was there since her fall. But there was no fracture on the CAT scan of the chest at that time. She said the other night the pain got severe and morning it was fine. Again today night when she was trying to go to sleep the pain became severe. She could not tolerate and she came to the ER and received couple of doses of fentanyl. She says still the pain has been coming on and off. Denies any shortness of breath. She says her is coughing a lot and bringing phlegm for the last 3-4 days and she is also coughing and bringing phlegm, but not as much as her . In the [facility], they are taking temperature frequently and she thinks she might have a temperature. Denies any nausea, no abdominal pain. Appetite is okay. No dysphagia. Denies any runny nose. No blurred visions, no headaches. Normal bowel and bladder movements. Hemodynamically stable. Her labs showed troponin of 0.04. Principal Diagnosis Rib pain on left side with left sided rib fractures (Nondisplaced cortical fractures anterior left ninth and 10th ribs) Elevated troponin I measurement (single elevation) Fracture of fifth metatarsal bone of left foot Chronic atrial fibrillation with pacemaker and anticoagulated with coumadin Discharge Exam Constitutional comfortable Eyes PERRL, conjunctivae normal, anicteric sclerae EOM intact bilaterally ENMT external ear and nose normal, oropharynx normal Neck trachea midline, no thyromegaly normal visual inspection Respiratory normal respiratory effort Cardiovascular Rate/Rhythm: + bradycardic (paced) Gastrointestinal (Abdomen) normal bowel sounds, soft, nontender, no hepatosplenomegaly Musculoskeletal Head/Neck/Chest: normocephalic and head atraumatic Neurologic PERRL, EOMI, accommodation nl, no face palsy, no dysarthria moves all extremities Discharge Data Allergies Allergy/AdvReac Type Severity Reaction Status Date / Time tetracycline Allergy Unknown RASH Verified 11/17/19 02:25 morphine AdvReac Mild "VIOLENTLY Verified 11/17/19 02:25 ILL", NAUSEA/VOMITING codeine AdvReac Unknown N/V Verified 11/17/19 02:25 Consultations 11/17/19 04:01 ED Decision to Admit Stat 11/17/19 06:37 Consult Case Management - Discharge Planning Routine 11/17/19 08:00 Consult Cardiology Routine 11/17/19 13:12 Consult Orthopedic Surgery Routine Hospital Course (1) Rib pain on left side: with left sided rib fractures (Nondisplaced cortical fractures anterior left ninth and 10th ribs) -Patient was hospitalized from 11/11/2019 to 11/12/2019 after she had a fall and experienced left sided rib pain (no radiographic imaging at the time of rib fractures by CT chest imaging) and also on that visit found to have fracture of fifth metatarsal bone of left foot secondary to trauma. -Patient returns to the ED on 11/17/2019 by ambulance with complaints of severe left-sided chest pain, particularly with inspiration. -11/17/2019 CXR: Nondisplaced cortical fractures anterior left ninth and 10th ribs; No evidence for pneumothorax; cardiomegaly -give incentive spirometer, pain medications prn -orthopedic consult with PT/OT evaluated the patient on this hospital stay 11/18/2019: Patient seen this AM. She appears more energetic today. She does not appear to have distress from the left side rib fractures. She reports she is using the incentive spirometer. She is awaiting to be seen by PT/OT but she does not have the left foot boot which she may have left at the [facility] prior to coming back to hospital on this presentation. She wonders why she is having more anterior right leg pain recently and maybe could be that she has been bearing more weight on right leg since her left foot fracture. discharge to the [facility] under the care of her family member patient encouraged to continue using incentive spirometer upon discharge discharge medication sent electronically to [facility] [address] [place] [address] of acetaminophen 650 mg every 6 hours as needed for pain or fever, lidocaine patches for rib pain (5 patches prescribed - use only 1 at a time per day if having left rib pain). a paper prescription for oxycodone 5 mg every 6 hours as needed for severe pain (16 tablets prescribed) upcoming scheduled appointments on [facility] 11/19/2019 11:20 AM Provider Jaron Harper MD Department General Internal Medicine [facility] 11/20/2019 2:00 PM Provider [facility] Department Cardiology, [facility] 11/25/2019 5:00 PM Provider [facility] Pharmacist2 Department Pharmacy, [facility] 12/08/2019 10:00 AM Provider Jaron Harper MD Department General Internal Medicine [facility] 03/18/2020 10:30 AM Provider Chino Davis DO Department Cardiology, [facility] (2) Elevated troponin I measurement: -admission troponin mildly elevated as 0.046. This led to admitting physician requesting cardiology evaluation to rule out cardiac cause of patient's left sided rib pain -echocardiogram result pending -second troponin is normal as 0.034 and third troponin also normal Chronic atrial fibrillation: Ischemic heart disease with a history of inferior and right ventricular infarction complicated by cardiogenic shock S/P angioplasty stent of RCA lesion (2002) Coronary angiography November 2015 without obstructive disease -INR is 2.3 on 11/18/2019 on coumadin, continue S/P cardiac pacemaker procedure in the past for history of Tach-Ed Syndrome - Device interrogated on and functioning appropriately as per cardiology S/P TAVR (transcatheter aortic valve replacement), bioprosthetic -Normally functioning device in April 2019 (3) Fracture of fifth metatarsal bone of left foot: -orthopedic recommendations on 11/12/2019 was non operative., treat conservatively in LT boot, she can WBAT on her heel, cont to ice and elevate for swelling, she can remove the boot when sitting for comfort and to do gentle ROM of the ankle. -PTH is 79 on 11/17/2019 and is upper range of normal, normal Vitamin D levels. there is no strong evidence for hyperparathyroidism, follow the serum calcium levels -Orthopedics re-evaluated on 11/17/2019, Left foot X ray No change in alignment of the fifth metatarsal fracture. "XRs reviewed which demonstrates stable appearing fracture compared to XRs taken at previous admission. Continue to WBAT (weight bear as tolerated) with cam boot or post op shoe. Follow up in office 2-3 weeks with [facility] upon discharge for repeat XRs, ." Diabetes mellitus, type II: -Diet controlled -HbA1c: 7.0 on 05/07/2019 -sliding scale insulin as needed while inpatient Depression: -Continue sertraline Total Time Total Time Spent Total Time Spent (In Minutes): 40 minutes Total Time Includes: Examination of the Patient, Discharge Planning, Medication Reconciliation and Communication With Other Providers Discharge Plan Discharge Items Patient Disposition: Personal [facility] Reason For Visit: CHEST PAIN Discharge Diagnosis: Rib pain on left side with left sided rib fractures (Nondisplaced cortical fractures anterior left ninth and 10th ribs) Elevated troponin I measurement (single elevation) Fracture of fifth metatarsal bone of left foot Condition on Discharge: Good Activity: Per Instructions section Non-emergency contact: Primary Care Provider Call non-emergency contact if: you have any medication questions Follow-up/Referrals: LESLEE, [Primary Care Provider] - Diet: Heart Healthy Addtl Attending Provider Instructions: discharge to the [facility] under the care of her family member patient encouraged to continue using incentive spirometer upon discharge discharge medication sent electronically to [facility] [address], [place] [address] of acetaminophen 650 mg every 6 hours as needed for pain or fever, lidocaine patches for rib pain (5 patches prescribed - use only 1 at a time per day if having left rib pain). a paper prescription for oxycodone 5 mg every 6 hours as needed for severe pain (16 tablets prescribed) upcoming scheduled appointments on [facility] 11/19/2019 11:20 AM Provider Jaron Harper MD Department General Internal Medicine [facility] 11/20/2019 2:00 PM Provider [facility] Department Cardiology, [facility] 11/25/2019 5:00 PM Provider [facility] Pharmacist2 Department Pharmacy, [facility] 12/08/2019 10:00 AM Provider Jaron Harper MD Department General Internal Medicine [facility] 03/18/2020 10:30 AM Provider Chino Davis DO Department Cardiology, [facility] Add Video And Sound Recorder Provider Instructions: Orthopedics re-evaluated on 11/17/2019, Left foot X ray No change in alignment of the fifth metatarsal fracture. "XRs reviewed which demonstrates stable appearing fracture compared to XRs taken at previous admission. Continue to WBAT (weight bear as tolerated) with cam boot or post op shoe. Follow up in office 2-3 weeks with [facility] upon discharge for repeat XRs, ." Pending Studies at Discharge: No Stand-Alone Forms: My [facility] Veebox, Smoking Cessation Skilled Items Patient informed of condition?: Yes DNR: No Discharge Level of Care: Other Communicable Disease: No Discharge Prognosis: Stable Lines: None Urinary Catheter: No Medications and DC Order Prescriptions: New acetaminophen 325 mg tablet 650 mg PO Q6H PRN (Reason: fever or pain) 4 Days Qty: 32 RF: 0 lidocaine 5 % Adhesive Patch,Medicated 1 patch transdermal QAM 5 Days Qty: 5 RF: 0 oxycodone 5 mg Tablet 5 mg PO Q6H PRN (Reason: severe pain) 4 Days Qty: 16 RF: 0 Continued atorvastatin [Lipitor] 40 mg Tablet 40 mg PO DAILY RF: 0 polyethylene glycol 3350 [Miralax] 17 gram Powder In Packet 17 g PO DAILY PRN (Reason: Constipation) RF: 0 sertraline [Zoloft] 100 mg Tablet 100 mg PO DAILY RF: 0 spironolactone [Aldactone] 25 mg tablet 25 mg PO DAILY RF: 0 warfarin 4 mg Tablet 4 mg PO 5XWK RF: 0 torsemide 5 mg Tablet 10 mg PO DAILY RF: 0 warfarin 2 mg Tablet 2 mg PO 2XWK RF: 0 nitroglycerin [Nitrostat] 0.4 mg Tablet, Sublingual 0.4 mg sublingual UD PRN (Reason: Chest Pain) RF: 0 digoxin 125 mcg (0.125 mg) Tablet 125 mcg PO 5XWK RF: 0 metoprolol succinate [Toprol XL] 25 mg Tablet Extended Release 24 Hr 25 mg PO DAILY RF: 0 coenzyme Q10 [CoQ-10] 100 mg Capsule 100 mg PO DAILY RF: 0 sodium chloride [Saline Mist] 0.65 % Aerosol,[place] 2 spray INTRANASAL UD PRN (Reason: Congestion) RF: 0 cholecalciferol (vitamin D3) [Vitamin D3] 50 mcg (2,000 unit) Tablet 50 mcg PO DAILY RF: 0 acetaminophen 500 mg tablet 500 mg PO Q6 PRN (Reason: Pain) RF: 0 Discontinued acetaminophen 500 mg Tablet 500 mg PO Q6H MDD 3gm RF: 0 Discharge Orders: Discharge Order (Routine); Ordered 11/18/19 Ordered By: Molina Christian Admission Data Admit Date/Time: 11/17/19 04:54 Attending Provider: Molina Christian Admit Provider: Jonny Willoughby Primary Care Provider: Vasyl CAMILO Providers: Jonny Willoughby ; Joseph Ramirez ; Chino Davis ; Herb Harkins ; Conner Davis ; Romaine Alonso ; Albert Camacho ; Ariane Torres ; Ivy Sheikh ; Jose Montero ; Ryder Rascon
[2019-11-19] MEDS ORDERED: WARFARIN SOD 2 MG TAB PO SCH (16:00)
== END 2019-11-18 15:41 | disposition home or self-care (01) ==
LOC: 2S 01:41 → ED 01:41 → 2S 06:16

== ENCOUNTER 2019-12-22 15:26 | Observation (INO) ==
[2019-12-22 16:44] LABS: Basophils # (auto) 0.01 K/uL (0-0.2); Basophils % (auto) 0.1 %; Eosinophils # (auto) 0.17 K/uL (0-0.5); Eosinophils % (auto) 2.5 %; Hematocrit (blood only) 39.4 % (37-47); Hemoglobin 13.1 g/dL (12.0-16.0); Immature Granulocytes # (auto) 0.07 K/uL (0.00-0.02); Lymphocytes # (auto) 1.32 K/uL (1.2-3.4); Lymphocytes % (auto) 19.8 %; Mean Corpuscular Hemoglobin 30.2 pg (25-34); Mean Corpuscular Hgb Conc 33.2 g/dL (32-36); Mean Corpuscular Volume 90.8 fL (80-100); Mean Platelet Volume 9.6 fL (7.4-10.4); Monocytes # (auto) 0.67 K/uL (0.11-0.59); Neutrophils # (auto) 4.44 K/uL (1.4-6.5); Neutrophils % (auto) 66.6 %; Platelet Count 143 K/uL (130-400); RDW Coefficient of Variation 13.9 % (11.5-14.5); RDW Standard Deviation 46.1 fL (36.4-46.3); Red Blood Count 4.34 M/uL (4.2-5.4); White Blood Count 6.68 K/uL (4.8-10.8)
[2019-12-22 16:53] LABS: INR 2.2 (0.9-1.1); Partial Thromboplastin Ratio 1.3; Partial Thromboplastin Time 36.8 Seconds (21.0-31.0); Prothrombin Time 21.9 Seconds (9.0-12.0)
[2019-12-22 17:01] LABS: Alanine Aminotransferase 37 U/L (12-78); Albumin Level 3.9 gm/dl (3.4-5.0); Aspartate Aminotransferase 24 U/L (15-37); BUN Creatinine Ratio 20.5 (10-20); Blood Urea Nitrogen 23 mg/dl (7-18); Calcium 10.2 mg/dl (8.5-10.1); Carbon Dioxide 30 mmol/L (21-32); Chloride 103 mmol/L (98-107); Est GFR (African American) 53.2; Est GFR (Non-African American) 45.9; Glucose 196 mg/dl (70-99); Lipase 366 U/L (73-393); Potassium 4.1 mmol/L (3.5-5.1); Sodium 140 mmol/L (136-145)
--- NOTE | 2019-12-22 17:04 | XRay Report ---
SINGLE VIEW CHEST CLINICAL HISTORY: Atypical chest pain. FINDINGS: An AP, portable, upright chest radiograph is compared to study dated 11/17/2019 and correlat ed with chest CT dated 11/11/2019. The examination is degraded by portable technique and patient rotati on. A single lead cardiac pacemaker is unchanged in position. There is evidence of previous cardiac v alve surgery. The heart is enlarged noting atherosclerotic calcification of the thoracic aorta. The p ulmonary vasculature is noncongested. Chronic interstitial thickening is similar to previous. There i s mild elevation of right hemidiaphragm with bibasilar scarring/atelectasis. No airspace consolidatio n or large pleural effusion is identified. No pneumothorax is seen. The skeletal structures are osteo penic. The bony thorax is grossly intact. A right shoulder arthroplasty is in place. IMPRESSION: 1. Cardiomegaly and cardiac pacemaker. There is no radiographic evidence of congestive failure. 2. No airspace consolidation or large pleural effusion is identified. ACT 112: Negative or not required by law. Electronically signed by: Favio Hendrix M.D. 12/22/2019 5:03 PM
[2019-12-22 17:06] LABS: Albumin Globulin Ratio 1.1 (0.9-2); Alkaline Phosphatase 81 U/L (45-117); Bilirubin,Total 0.8 mg/dl (0.2-1); Globulin 3.6 gm/dl (2.5-4.0); Total Protein 7.5 gm/dl (6.4-8.2); Troponin I < 0.015 ng/ml (0-0.045)
[2019-12-22] MEDS ORDERED: FAMOTIDINE 20MG/5ML IV PUSH IV STA (18:52)
--- NOTE | 2019-12-22 19:52 | Emergency Department Note ---
History of Present Illness General Chief complaint: Chest/Rib Injury Stated complaint: FALL,BROKEN RIBS,NOW HAS PAIN IN MID CHEST AEAR Source: patient, family and RN notes reviewed Mode of arrival: ambulatory Limitations: no limitations History of Present Illness Provider complaint: Epigastric pain, recent fall with broken ribs and foot Maximum Pain Intensity: 4 This patient is an 84-year-old female who presents emergency department with complaints of epigastric abdominal pain for the last 1.5 to 2 days. Patient states she fell about 6 weeks ago and cracked several ribs on the left. She also broke her left foot. The patient was at the orthopedic office today and referred to the emergency department with complaints of this epigastric pain. Patient does take warfarin chronically and therefore has only been taking Tylenol for discomfort. She states it is a "jagging type pain" and more significant when she bends over. Patient's daughter states the patient has had a great deal of stress recently after moving her to a shelter. Home Medications Home Medications Medication Instructions Recorded Confirmed Type atorvastatin [Lipitor] 40 mg PO DAILY 11/11/19 12/22/19 History cholecalciferol (vitamin D3) 2,000 unit PO DAILY 11/11/19 12/22/19 History [Vitamin D3] coenzyme Q10 [CoQ-10] 100 mg PO DAILY 11/11/19 12/22/19 History digoxin 125 mcg PO 5XWK 11/11/19 12/22/19 History metoprolol succinate [Toprol XL] 25 mg PO DAILY 11/11/19 12/22/19 History nitroglycerin [Nitrostat] 0.4 mg SUBLINGUAL DIRECTED PRN 11/11/19 12/22/19 History sertraline [Zoloft] 100 mg PO DAILY 11/11/19 12/22/19 History sodium chloride [Saline Mist] 2 spray INTRANASAL DIRECTED PRN 11/11/19 12/22/19 History warfarin 4 mg PO DAILY 11/11/19 12/22/19 History acetaminophen 500 mg PO Q6H PRN 11/17/19 12/22/19 History aspirin [Aspirin Low Dose] 81 mg PO DAILY 12/22/19 12/22/19 History Allergies Allergy/AdvReac Type Severity Reaction Status Date / Time tetracycline Allergy Unknown RASH Verified 12/22/19 16:27 morphine AdvReac Mild "VIOLENTLY Verified 12/22/19 16:27 ILL", NAUSEA/VOMITING codeine AdvReac Unknown nausea/Vomi Verified 12/22/19 16:27 ting Past Med/Surg History Medical History Aortic stenosis S/P TAVR in 2015 CAD (coronary artery disease) S/P [place] and stent to RCA in 2002 Chest pain Chronic atrial fibrillation Chronic systolic heart failure Depression Diabetes mellitus, type II Fracture of tibial plateau (Unknown) HLD (hyperlipidemia) HTN (hypertension) Hypercalcemia (Unknown) Hyperparathyroidism Primary hyperparathyroidism (Unknown) Rotator cuff arthropathy Tachy-wanda syndrome Surgical History Aortic valve replaced S/P cardiac pacemaker procedure S/p TAVR (transcatheter aortic valve replacement), bioprosthetic 2015 Family History Other Cancer Diabetes Heart disease Hypertension Social History Smoking Status: Never smoker Second Hand Exposure: No; Do You Dip or Chew Tobacco: No; Tobacco Cessation Education Requested by Patient: No Hx Alcohol Use: No Hx Substance Use: No Preferred Language: Burmese Communication Ability: Effective Distance Education Teacher Required: No Beliefs That Will Affect Care: None marital status: Current Living Situation: Alone Current Living Situation Comment: [facility] [place] Other Information That Helps Us Care for You: No Feels Safe at Home: Yes Safety Concerns: Feels Safe At This Time Review of Systems See HPI for pertinent positives & negatives. and A total of 10 systems reviewed and were otherwise negative Physical Exam Vital Signs Vital Signs - 24 hr 12/22/19 15:37 12/22/19 16:14 12/22/19 16:22 Temperature 37.2 C Temperature Source Oral Pulse Rate 83 67 68 Pulse Rate from SpO2 Sensor Respiratory Rate 83 H 20 Respiratory Effort / Characteristics Non-Labored Respiratory Depth Normal Respiratory Pattern Regular Blood Pressure 115/74 112/60 Blood Pressure Mean 87 71 Blood Pressure Position Sitting Pulse Oximetry 95 95 Oxygen Delivery Method Room Air Sepsis Recent Fever Within 48 Hours No Sepsis New/Unexplained Change in Mental Status No Sepsis Action Taken by Nursing No Action Required 12/22/19 16:30 12/22/19 17:00 12/22/19 17:30 Temperature Temperature Source Pulse Rate 64 65 59 L Pulse Rate from SpO2 Sensor 65 60 Respiratory Rate 20 21 17 Respiratory Effort / Characteristics Respiratory Depth Respiratory Pattern Blood Pressure Blood Pressure Mean Blood Pressure Position Pulse Oximetry 96 95 Oxygen Delivery Method Sepsis Recent Fever Within 48 Hours Sepsis New/Unexplained Change in Mental Status Sepsis Action Taken by Nursing 12/22/19 17:35 12/22/19 18:00 12/22/19 18:30 Temperature Temperature Source Pulse Rate 62 61 62 Pulse Rate from SpO2 Sensor 63 62 62 Respiratory Rate 19 18 20 Respiratory Effort / Characteristics Respiratory Depth Respiratory Pattern Blood Pressure 125/67 111/62 118/71 Blood Pressure Mean 78 79 88 Blood Pressure Position Pulse Oximetry 96 96 96 Oxygen Delivery Method Sepsis Recent Fever Within 48 Hours Sepsis New/Unexplained Change in Mental Status Sepsis Action Taken by Nursing 12/22/19 19:00 12/22/19 19:30 12/22/19 20:00 Temperature Temperature Source Pulse Rate 61 62 67 Pulse Rate from SpO2 Sensor 60 62 64 Respiratory Rate 20 19 19 Respiratory Effort / Characteristics Respiratory Depth Respiratory Pattern Blood Pressure 115/63 110/67 131/74 Blood Pressure Mean 76 75 93 Blood Pressure Position Pulse Oximetry 95 96 95 Oxygen Delivery Method Sepsis Recent Fever Within 48 Hours Sepsis New/Unexplained Change in Mental Status Sepsis Action Taken by Nursing 12/22/19 20:30 Temperature Temperature Source Pulse Rate 62 Pulse Rate from SpO2 Sensor 64 Respiratory Rate 18 Respiratory Effort / Characteristics Respiratory Depth Respiratory Pattern Blood Pressure 127/67 Blood Pressure Mean 94 Blood Pressure Position Pulse Oximetry 95 Oxygen Delivery Method Sepsis Recent Fever Within 48 Hours Sepsis New/Unexplained Change in Mental Status Sepsis Action Taken by Nursing Vital signs reviewed. General: Elderly 84-year-old female, in no significant distress. HEENT: No scleral icterus, PERRLA, neck supple. Atraumatic. Cardiovascular: Regular rate and rhythm, no extra sounds. Pulmonary: Clear to auscultation bilaterally, normal work of breathing. Abdomen: Soft, mildly tender to the epigastric region to palpation, nondistended, positive bowel sounds. Musculoskeletal: Atraumatic, markedly kyphotic. Walking boot to the left foot without significant edema distally. Neurologic: Patient awake alert and oriented x 3 Skin: Warm, dry, no rash Course Administered Medications Sodium Chloride (Nss 1000ml) 1,000 mls @ 60 mls/hr IV .[id number] ONE Stop: 12/23/19 12:41 Last Admin: 12/22/19 21:18 Dose: 60 mls/hr Documented by: [id number] Discontinued Medications Famotidine (Famotidine 20mg/5ml Iv Push) 20 mg IV ONE STA Stop: 12/22/19 18:53 Last Admin: 12/22/19 19:12 Dose: 20 mg Documented by: [id number] Ioversol (Ioversol 100ml) 93 ml IV ONCE ONE Stop: 12/22/19 21:34 Last Admin: 12/22/19 21:33 Dose: 1 ml Documented by: [id number] Lidocaine (Lidocaine 5% 1 Patch) 1 patch TD NOW STA Stop: 12/22/19 20:56 Last Admin: 12/22/19 21:15 Dose: 1 patch Documented by: [id number] Medical Decision Making Differential Diagnosis Differential diagnosis: Acute coronary syndrome, pulmonary embolus, aortic dissection, musculoskeletal pain, pneumonia, pleural effusion, pneumothorax, GERD, PUD, pancreatitis Medical Records Attestation: I reviewed the patient's medical records. Home Medications Current Medication List: was personally reviewed by me Laboratory Data Attestation: I reviewed the patient's lab results. Result diagrams: 12/22/19 16:35 12/22/19 16:35 Lab Results 12/22/19 12/22/19 12/22/19 Range/Units 16:35 16:35 16:35 WBC 6.68 (4.8-10.8) K/uL RBC 4.34 (4.2-5.4) M/uL Hgb 13.1 (12.0-16.0) g/dL Hct 39.4 (37-47) % MCV 90.8 (80-100) fL MCH 30.2 (25-34) pg MCHC 33.2 (32-36) g/dL RDW Std Deviation 46.1 (36.4-46.3) fL RDW Coeff of Rosas 13.9 (11.5-14.5) % Plt Count 143 (130-400) K/uL MPV 9.6 (7.4-10.4) fL Immature Gran % (Auto) 1.0 % Neut % (Auto) 66.6 % Lymph % (Auto) 19.8 % [place] % (Auto) 10.0 % Eos % (Auto) 2.5 % Baso % (Auto) 0.1 % Neut # (Auto) 4.44 (1.4-6.5) K/uL Lymph # (Auto) 1.32 (1.2-3.4) K/uL [place] # (Auto) 0.67 H (0.11-0.59) K/uL Eos # (Auto) 0.17 (0-0.5) K/uL Baso # (Auto) 0.01 (0-0.2) K/uL Immature Gran # (Auto) 0.07 H (0.00-0.02) K/uL PT 21.9 H (9.0-12.0) Seconds INR 2.2 H (0.9-1.1) APTT 36.8 H (21.0-31.0) Seconds PTT Ratio 1.3 Sodium 140 (136-145) mmol/L Potassium 4.1 (3.5-5.1) mmol/L Chloride 103 (98-107) mmol/L Carbon Dioxide 30 (21-32) mmol/L Anion Gap 7.0 (3-11) BUN 23 H (7-18) mg/dl Creatinine 1.11 (0.6-1.2) mg/dl Est Cr Clr Drug Dosing Not Reportable Est GFR ( Amer) 53.2 Est GFR (Non-Af Amer) 45.9 BUN/Creatinine Ratio 20.5 H (10-20) Glucose 196 H (70-99) mg/dl Calcium 10.2 H (8.5-10.1) mg/dl Magnesium 2.3 (1.8-2.4) mg/dl Total Bilirubin 0.8 (0.2-1) mg/dl AST 24 (15-37) U/L ALT 37 (12-78) U/L Alkaline Phosphatase 81 (45-117) U/L Troponin I < 0.015 (0-0.045) ng/ml Total Protein 7.5 (6.4-8.2) gm/dl Albumin 3.9 (3.4-5.0) gm/dl Globulin 3.6 (2.5-4.0) gm/dl Albumin/Globulin Ratio 1.1 (0.9-2) Lipase 366 (73-393) U/L COVID-19 Eval Order SARS-CoV-2, RNA, NAAT (NEGATIVE) 12/22/19 12/22/19 Range/Units 19:50 19:50 WBC (4.8-10.8) K/uL RBC (4.2-5.4) M/uL Hgb (12.0-16.0) g/dL Hct (37-47) % MCV (80-100) fL MCH (25-34) pg MCHC (32-36) g/dL RDW Std Deviation (36.4-46.3) fL RDW Coeff of Rosas (11.5-14.5) % Plt Count (130-400) K/uL MPV (7.4-10.4) fL Immature Gran % (Auto) % Neut % (Auto) % Lymph % (Auto) % [place] % (Auto) % Eos % (Auto) % Baso % (Auto) % Neut # (Auto) (1.4-6.5) K/uL Lymph # (Auto) (1.2-3.4) K/uL [place] # (Auto) (0.11-0.59) K/uL Eos # (Auto) (0-0.5) K/uL Baso # (Auto) (0-0.2) K/uL Immature Gran # (Auto) (0.00-0.02) K/uL PT (9.0-12.0) Seconds INR (0.9-1.1) APTT (21.0-31.0) Seconds PTT Ratio Sodium (136-145) mmol/L Potassium (3.5-5.1) mmol/L Chloride (98-107) mmol/L Carbon Dioxide (21-32) mmol/L Anion Gap (3-11) BUN (7-18) mg/dl Creatinine (0.6-1.2) mg/dl Est Cr Clr Drug Dosing Est GFR ( Amer) Est GFR (Non-Af Amer) BUN/Creatinine Ratio (10-20) Glucose (70-99) mg/dl Calcium (8.5-10.1) mg/dl Magnesium (1.8-2.4) mg/dl Total Bilirubin (0.2-1) mg/dl AST (15-37) U/L ALT (12-78) U/L Alkaline Phosphatase (45-117) U/L Troponin I (0-0.045) ng/ml Total Protein (6.4-8.2) gm/dl Albumin (3.4-5.0) gm/dl Globulin (2.5-4.0) gm/dl Albumin/Globulin Ratio (0.9-2) Lipase (73-393) U/L COVID-19 Eval Order Covid19 [facility] SARS-CoV-2, RNA, NAAT NEGATIVE (NEGATIVE) Imaging Data Radiologist's Impression: SINGLE VIEW CHEST CLINICAL HISTORY: Atypical chest pain. FINDINGS: An AP, portable, upright chest radiograph is compared to study dated 11/17/2019 and correlated with chest CT dated 11/11/2019. The examination is degraded by portable technique and patient rotation. A single lead cardiac pacemaker is unchanged in position. There is evidence of previous cardiac valve surgery. The heart is enlarged noting atherosclerotic calcification of the tho racic aorta. The pulmonary vasculature is noncongested. Chronic interstitial thickening is similar to previous. There is mild elevation of right hemidiaphragm with bibasilar scarring/atelectasis. No airspace consolidation or large pleural effusion is identified. No pneumothorax is seen. The skeletal structures are osteopenic. The bony thorax is grossly intact. A right shoulder arthroplasty is in place. IMPRESSION: 1. Cardiomegaly and cardiac pacemaker. There is no radiographic evidence of evan estive failure. 2. No airspace consolidation or large pleural effusion is identified. ACT 112: Negative or not required by law. Electronically signed by: Favio Hendrix M.D. 12/22/2019 5:03 PM Dictated: 12/22/191700 Transcribed: 12/22/191700 ECG Data Attestation: I personally reviewed and interpreted this ECG as follows: Indication: + chest pain Rate (beats per minute): 66 Rhythm: + other (V paced) ECG Intervals/blocks: + Prolonged QT (517) Blood Pressure Blood Pressure Findings: Normal blood pressure Blood Pressure Disposition: further management by hospitalist DEEPTI Narrative This patient was evaluated and appeared to be in no significant distress. IV access was obtained and laboratory work was drawn. An order for cardiac monitoring was placed and the patient is noted to be in a paced rhythm. Laboratory work reveals a normal troponin. Patient was given 20 mg of IV Pepcid. She states she is postcholecystectomy and liver function studies are within normal limits. INR is therapeutic at 2.2. Patient was discussed with the hospitalist service who will evaluate the patient for further evaluation due to extensive cardiac history. Patient and her daughter are aware of the plan and agree. Impression & Plan Epigastric heaviness, History of fracture of rib Discharge Plan Visit Data Chief Complaint: Chest/Rib Injury Stated Complaint: FALL,BROKEN RIBS,NOW HAS PAIN IN MID CHEST AEAR ED Provider: Lucina Mello Discharge Problem: Epigastric heaviness, History of fracture of rib Patient Disposition: Admitted As Inpatient Discharge Instructions Interventions: ED Discharge Assessment Last Done: 12/22/19 21:20
[2019-12-22] MEDS ORDERED: SODIUM CHLORIDE 0.9% 1000ML 1,000 ML IV ONE (20:02)
--- NOTE | 2019-12-22 20:38 | History & Physical Report ---
Date of Service December 22, 2019 Assessment & Plan (1) Abdominal pain: Secondary to GERD Good response to antacid Rx given at the ER. chronic systolic heart failure 2 to ischemic cardiomyopathy (EF 45-50%, TTE 10/2015), patient on the dry side with mild hypercalcemia VHD (severe /AR status post TAVR, MR, TR as per records) HTN, stable SSS sp PPM on Coumadin, paced rhythm, INR therapeutic DM2 diet-controlled, suboptimal control as of recent outpatient hemoglobin A1c of 8.09 December 2019 OBS GMF Oral Famotidine twice a day starting tomorrow a.m. Gentle IV hydration, hold home diuretic until patient euvolemic Basal insulin, ISS BG goal [id number], carb count coverage PT OT eval DVT prophylaxis. Coumadin INR goal between 2 and 3 Full code Patient's daughter requesting updates for providers. Niharika Saba, contact #[phone]. Text document was generated using [employer] voice recognition software. It may contain grammatical or spelling errors. Kindly contact undersigned for clarification of any documentation item in question. History of Present Illness Chief Complaint: Epigastric pain Primary Care Provider: Dr. Harper History obtained from patient, family, and records. Medical history significant for chronic systolic heart failure 2 to ischemic cardiomyopathy (EF 45-50%, TTE 10/2015), CAD sp stent, VHD (severe /AR status post TAVR, MR, TR as per records), HTN, hyperlipidemia, SSS sp PPM on Coumadin, DM2 diet-controlled. Last confinement last month for left-sided rib fractures and 5th metatarsal bone fracture left foot secondary to mechanical fall. Nonoperative management for metatarsal bone fracture as per orthopedics. Patient discharged on L boot. 2 days ago patient noted epigastric discomfort without cough, radiation, and shortness of breath. Somewhat more constant over the next few days. Achy swelling on the left posterior chest as per daughter. No change in bowel habits, no unusual weight loss. No recent NSAID intake. No unusual stress except for having to move to [facility] because of worsening Parkinson's disease. At the ER, epigastric discomfort relieved by IV Pepcid. MEDICAL HISTORY: As above SURGICAL HISTORY: shoulder surgery, cholecystectomy, eye surgery, TAVR, pacemaker placement, vascular procedures FAMILY HISTORY: Heart disease. DM PERSONAL SOCIAL HISTORY: Nonsmoker, no chronic intake of alcoholic beverages. 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 [facility] resident. Allergies Allergy/AdvReac Type Severity Reaction Status Date / Time tetracycline Allergy Unknown RASH Verified 12/22/19 16:27 morphine AdvReac Mild "VIOLENTLY Verified 12/22/19 16:27 ILL", NAUSEA/VOMITING codeine AdvReac Unknown nausea/Vomi Verified 12/22/19 16:27 ting Home Medications Home Medications Medication Instructions Recorded Confirmed Type atorvastatin [Lipitor] 40 mg PO DAILY 11/11/19 12/22/19 History cholecalciferol (vitamin D3) 2,000 unit PO DAILY 11/11/19 12/22/19 History [Vitamin D3] coenzyme Q10 [CoQ-10] 100 mg PO DAILY 11/11/19 12/22/19 History digoxin 125 mcg PO 5XWK 11/11/19 12/22/19 History metoprolol succinate [Toprol XL] 25 mg PO DAILY 11/11/19 12/22/19 History nitroglycerin [Nitrostat] 0.4 mg SUBLINGUAL DIRECTED PRN 11/11/19 12/22/19 History sertraline [Zoloft] 100 mg PO DAILY 11/11/19 12/22/19 History sodium chloride [Saline Mist] 2 spray INTRANASAL DIRECTED PRN 11/11/19 12/22/19 History warfarin 4 mg PO DAILY 11/11/19 12/22/19 History acetaminophen 500 mg PO Q6H PRN 11/17/19 12/22/19 History aspirin [Aspirin Low Dose] 81 mg PO DAILY 12/22/19 12/22/19 History Past Med/Surg History Medical History Aortic stenosis S/P TAVR in 2016 CAD (coronary artery disease) S/P [place] and stent to RCA in 2002 Chest pain Chronic atrial fibrillation Chronic systolic heart failure Depression Diabetes mellitus, type II Fracture of tibial plateau (Unknown) HLD (hyperlipidemia) HTN (hypertension) Hypercalcemia (Unknown) Hyperparathyroidism Primary hyperparathyroidism (Unknown) Rotator cuff arthropathy Tachy-wanda syndrome Surgical History Aortic valve replaced S/P cardiac pacemaker procedure S/p TAVR (transcatheter aortic valve replacement), bioprosthetic 2016 Family History Other Cancer Diabetes Heart disease Hypertension Social History Smoking Status: Never smoker Second Hand Exposure: No; Do You Dip or Chew Tobacco: No; Tobacco Cessation Education Requested by Patient: No Hx Alcohol Use: No Hx Substance Use: No Preferred Language: Latvian Communication Ability: Effective Electrical Mechanic Required: No Beliefs That Will Affect Care: None marital status: Current Living Situation: Alone Current Living Situation Comment: [facility] Other Information That Helps Us Care for You: No Feels Safe at Home: Yes Safety Concerns: Feels Safe At This Time Review of Systems Review of Systems: As per HPI, all 10 systems reviewed, all other ROS negative Physical Exam Physical Exam: GENERAL: Slightly uncomfortable, no respiratory distress SKIN: Normal color, warm HEENT: [place] palpebral conjunctivae, no ptosis, dry buccal mucosa NECK : Supple, no tenderness CHEST : CTA, tender movable swelling left posterior chest wall HEART : RRR, systolic murmur ABDOMEN: Some distention, nontender EXTREMITIES : Minimal LE swelling, no LE tenderness, left boot noted NEUROLOGIC : Coherent, no facial asymmetry, no other gross focality Results & Data Results & Data ([facility]) Vital Signs (Past 12 Hours) Vital Signs Temp Pulse Resp BP Pulse Ox 12/22/19 18:30 62 20 118/71 96 12/22/19 18:00 61 18 111/62 96 12/22/19 17:35 62 19 125/67 96 12/22/19 17:30 59 L 17 95 12/22/19 17:00 65 21 96 12/22/19 16:30 64 20 12/22/19 16:22 68 12/22/19 16:14 67 20 112/60 95 12/22/19 15:37 37.2 C 83 83 H 115/74 95 Laboratory Results Laboratory Results WBC 6.68 K/uL (4.8-10.8) 12/22/19 16:35 RBC 4.34 M/uL (4.2-5.4) 12/22/19 16:35 Hgb 13.1 g/dL (12.0-16.0) 12/22/19 16:35 Hct 39.4 % (37-47) 12/22/19 16:35 MCV 90.8 fL (80-100) 12/22/19 16:35 MCH 30.2 pg (25-34) 12/22/19 16:35 MCHC 33.2 g/dL (32-36) 12/22/19 16:35 RDW Std Deviation 46.1 fL (36.4-46.3) 12/22/19 16:35 RDW Coeff of Rosas 13.9 % (11.5-14.5) 12/22/19 16:35 Plt Count 143 K/uL (130-400) 12/22/19 16:35 MPV 9.6 fL (7.4-10.4) 12/22/19 16:35 Immature Gran % (Auto) 1.0 % 12/22/19 16:35 Neut % (Auto) 66.6 % 12/22/19 16:35 Lymph % (Auto) 19.8 % 12/22/19 16:35 [place] % (Auto) 10.0 % 12/22/19 16:35 Eos % (Auto) 2.5 % 12/22/19 16:35 Baso % (Auto) 0.1 % 12/22/19 16:35 Neut # (Auto) 4.44 K/uL (1.4-6.5) 12/22/19 16:35 Lymph # (Auto) 1.32 K/uL (1.2-3.4) 12/22/19 16:35 [place] # (Auto) 0.67 K/uL (0.11-0.59) H 12/22/19 16:35 Eos # (Auto) 0.17 K/uL (0-0.5) 12/22/19 16:35 Baso # (Auto) 0.01 K/uL (0-0.2) 12/22/19 16:35 Immature Gran # (Auto) 0.07 K/uL (0.00-0.02) H 12/22/19 16:35 PT 21.9 Seconds (9.0-12.0) H 12/22/19 16:35 INR 2.2 (0.9-1.1) H 12/22/19 16:35 APTT 36.8 Seconds (21.0-31.0) H 12/22/19 16:35 PTT Ratio 1.3 12/22/19 16:35 Sodium 140 mmol/L (136-145) 12/22/19 16:35 Potassium 4.1 mmol/L (3.5-5.1) 12/22/19 16:35 Chloride 103 mmol/L (98-107) 12/22/19 16:35 Carbon Dioxide 30 mmol/L (21-32) 12/22/19 16:35 Anion Gap 7.0 (3-11) 12/22/19 16:35 BUN 23 mg/dl (7-18) H 12/22/19 16:35 Creatinine 1.11 mg/dl (0.6-1.2) 12/22/19 16:35 Est Cr Clr Drug Dosing Not Reportable 12/22/19 16:35 Est GFR ( Amer) 53.2 12/22/19 16:35 Est GFR (Non-Af Amer) 45.9 12/22/19 16:35 BUN/Creatinine Ratio 20.5 (10-20) H 12/22/19 16:35 Glucose 196 mg/dl (70-99) H 12/22/19 16:35 Calcium 10.2 mg/dl (8.5-10.1) H 12/22/19 16:35 Total Bilirubin 0.8 mg/dl (0.2-1) 12/22/19 16:35 AST 24 U/L (15-37) 12/22/19 16:35 ALT 37 U/L (12-78) 12/22/19 16:35 Alkaline Phosphatase 81 U/L (45-117) 12/22/19 16:35 Troponin I < 0.015 ng/ml (0-0.045) 12/22/19 16:35 Total Protein 7.5 gm/dl (6.4-8.2) 12/22/19 16:35 Albumin 3.9 gm/dl (3.4-5.0) 12/22/19 16:35 Globulin 3.6 gm/dl (2.5-4.0) 12/22/19 16:35 Albumin/Globulin Ratio 1.1 (0.9-2) 12/22/19 16:35 Lipase 366 U/L (73-393) 12/22/19 16:35 COVID-19 Eval Order Covid19 [facility] 12/22/19 19:[address] chest initial read: No pulmonary embolus. Atherosclerotic changes of aorta. No aortic aneurysm or dissection. Aortic valve stent graft noted. Atelectasis. Heterogeneous thyroid. Cardiomegaly, left-sided pacemaker. Possible lipoma left posterior chest as per discussion with teleradiologist. CT abdomen pelvis initial read: Atelectasis, aortic valve stent graft partially visualized. Mitral annular calcification. Small hiatal hernia. Prior cholecystectomy. Evaluation of the stomach is limited by under distention. Vascular calcifications. No aortic aneurysm or dissection. Phleboliths in the pelvis. Normal appendix. No bowel obstruction. No hydronephrosis. Calcifications along the spleen. Mild retrolisthesis of T12 on L1 and L1 on L2. Grade 1 anterolisthesis L4 on L5. EKG as per my interpretation rate 65, paced rhythm
[2019-12-22 20:45] LABS: Magnesium 2.3 mg/dl (1.8-2.4)
[2019-12-22] MEDS ORDERED: LIDOCAINE 5% 1 PATCH TD STA (20:55)
[2019-12-22] MEDS ORDERED: IOVERSOL 100ml IV ONE (21:33)
[2019-12-22] MEDS ORDERED: TRAMADOL HCL 50 MG TABLET PO PRN (21:39)
[2019-12-22] MEDS ORDERED: ACETAMINOPHEN 325 MG TAB PO PRN (21:39)
[2019-12-22] MEDS ORDERED: PROMETHAZINE HCL 12.5 MG in SODIUM CHLORIDE 0.9% 50 ML IV PRN (21:39)
[2019-12-22] MEDS ORDERED: GLUCAGON FOR INJ 1 MG VIAL SQ PRN (21:39)
[2019-12-22] MEDS ORDERED: GLUCOSE 10 TABS/TUBE PO PRN (21:39)
[2019-12-22] MEDS ORDERED: DEXTROSE 50% 50 ML SYRINGE IV PRN (21:39)
[2019-12-22] MEDS ORDERED: GLUCOSE 40% GEL 15 GM TUBE PO PRN (21:39)
[2019-12-22] MEDS ORDERED: INSULIN GLARGINE SOLOSTAR 100 UNITS/ML 3 ML PEN SC STA (21:39)
[2019-12-22] MEDS ORDERED: CARBOHYDRATES FOR HYPOGLYCEMIA PO PRN (21:39)
[2019-12-22] MEDS ORDERED: ACETAMINOPHEN 500 MG TAB PO PRN (21:39)
[2019-12-22] MEDS: INSULIN ASPART 100 UNITS/ML 3 ML PEN SC SCH (22:21)
[2019-12-23 06:35] LABS: Basophils # (auto) 0.01 K/uL (0-0.2); Basophils % (auto) 0.2 %; Eosinophils # (auto) 0.16 K/uL (0-0.5); Eosinophils % (auto) 2.9 %; Hematocrit (blood only) 36.3 % (37-47); Immature Granulocytes # (auto) 0.06 K/uL (0.00-0.02); Immature Granulocytes % (auto) 1.1 %; Lymphocytes # (auto) 1.18 K/uL (1.2-3.4); Lymphocytes % (auto) 21.4 %; Mean Corpuscular Hemoglobin 30.1 pg (25-34); Mean Corpuscular Hgb Conc 33.1 g/dL (32-36); Mean Platelet Volume 9.4 fL (7.4-10.4); Monocytes # (auto) 0.52 K/uL (0.11-0.59); Monocytes % (auto) 9.4 %; Neutrophils # (auto) 3.59 K/uL (1.4-6.5); Platelet Count 146 K/uL (130-400); RDW Coefficient of Variation 14.1 % (11.5-14.5); RDW Standard Deviation 47.1 fL (36.4-46.3); Red Blood Count 3.99 M/uL (4.2-5.4); White Blood Count 5.52 K/uL (4.8-10.8)
[2019-12-23 06:46] LABS: Prothrombin Time 20.2 Seconds (9.0-12.0)
[2019-12-23 07:02] LABS: BUN Creatinine Ratio 21.2 (10-20); Calcium 9.5 mg/dl (8.5-10.1); Creatinine Clr Calc Pharmacy 44.1 ml/min; Est GFR (African American) 71.4; Est GFR (Non-African American) 61.6
--- NOTE | 2019-12-23 07:13 | CT Scan Report ---
CT abd pelvis IV con only CLINICAL HISTORY: abd pain COMPARISON STUDY: November 11, 2019 TECHNIQUE: The patient was scanned in a dynamic helical fashion during intravenous administration of 93 cc of Optiray 320 A dose lowering technique was utilized adhering to the principles of ALARA. CT DOSE: 447.32 mGy.cm FINDINGS: Lower chest: The heart is enlarged. There is an aortic valve stent graft.. There are dependent atelec tatic changes. There is small hiatal hernia. Liver: There is a tiny hypodensity adjacent to falciform ligament inferiorly. This is of doubtful acu te clinical significance. Gallbladder: Surgically absent Spleen: There is stable 7 mm posterior splenic hypodensity. There is a stable 12 mm inferior splenic hypodensity associated with coarse calcifications. Pancreas: Unremarkable. Adrenal glands: Unremarkable. Kidneys: There are bilateral subcentimeter renal hypodensities statistically representing cysts. Bowel: There are no transition zones to indicate bowel obstruction. There is no evidence of acute div erticulitis. The appendix appears normal. Peritoneum: There is no intraperitoneal free air or abdominal ascites. There are persistent nodular f oci located between the spleen and left adrenal gland. Vasculature: The abdominal aorta is normal in course and caliber. Adenopathy: None. Pelvic viscera: The bladder, and pelvic viscera are unremarkable. Skeletal structures: No destructive osseous lesions are seen. IMPRESSION: 1. No acute intra-abdominal or pelvic findings 2. No evidence of bowel obstruction. No evidence of free air 3. No evidence of acute diverticulitis. No evidence of acute appendicitis. 4. Stable indeterminate soft tissue nodules located between the spleen and left adrenal gland. These measure up to 12 mm in diameter. ACT 112: Negative or not required by law. Electronically signed by: Jeremie Esparza M.D. 12/23/2019 7:11 AM
--- NOTE | 2019-12-23 08:25 | CT Scan Report ---
CT OF THE CHEST WITH IV CONTRAST CLINICAL HISTORY: Left posterior chest wall pain. COMPARISON STUDY: Chest CT November 11, 2019. Chest radiograph performed earlier today. TECHNIQUE: Following IV administration of 93 mL of Optiray-320, helical axial images of the chest we re obtained. Sagittal and coronal reconstructions were viewed as well as maximal intensity projectio ns on an independent 3-D workstation. Automated exposure control was utilized for the study. A dose lowering technique was utilized adhering to the principles of ALARA. FINDINGS: Note is made of a right shoulder arthroplasty, left including pacer and prosthetic aortic valve. There is moderate cardiomegaly. There is no pericardial effusion. There is no thoracic aortic dissection. No pulmonary embolus is noted. There is moderate coronary artery calcification. There is no pneumothorax or pleural effusion. There is no consolidation to suggest pneumonia. Subpleural opac ities reflect atelectasis. Several old left-sided rib fractures are noted. No acute rib or thoracic s pine fracture is noted. Note is made of a 3.4 cm left posterior inferior chest wall lipoma. The abdom en and pelvis will be reported separately. There is no thoracic lymphadenopathy. No thyroid nodules a re again noted. IMPRESSION: 1. No acute findings within the chest. 2. No acute rib fractures. Multiple old left-sided rib fractures. 3. Cardiomegaly. No thoracic aortic dissection. ACT 112: Negative or not required by law. Electronically signed by: Kael Pleitez M.D. 12/23/2019 8:23 AM
[2019-12-23] MEDS: INSULIN ASPART 100 UNITS/ML 3 ML PEN SC SCH ×2 (08:48→12:04)
[2019-12-23] MEDS ORDERED: METOPROLOL SUCC 25MG EXT REL TAB PO SCH (09:00)
[2019-12-23] MEDS ORDERED: FAMOTIDINE 10 MG TABLET PO SCH (09:00)
[2019-12-23] MEDS ORDERED: ATORVASTATIN 40 MG TAB PO SCH (09:00)
[2019-12-23] MEDS ORDERED: INSULIN GLARGINE SOLOSTAR 100 UNITS/ML 3 ML PEN SC SCH (09:00)
[2019-12-23] MEDS ORDERED: SERTRALINE HCL 100 MG TABLET PO SCH (09:00)
[2019-12-23] MEDS ORDERED: LIDOCAINE 5% 1 PATCH TD SCH (09:00)
--- NOTE | 2019-12-23 13:17 | Hospitalist Progress Note ---
Date of Service December 23, 2019 Assessment & Plan (1) Abdominal pain: Epigastric/Left subcostal pain Admits to have Acid reflux symptoms intermittently Symptoms improved with IV Famotidine Likely GERD DD: Musculoskeletal pain due to rib fractures --CT ABD:No acute intra-abdominal or pelvic findings. No evidence of bowel obstruction. No evidence of free air. No evidence of acute diverticulitis. No evidence of acute appendicitis. Stable indeterminate soft tissue nodules located between the spleen and left adrenal gland. These measure up to 12 mm in diameter. --Chest CT:No acute findings within the chest. No acute rib fractures. Multiple old left-sided rib fractures. Cardiomegaly. No thoracic aortic dissection. --Started on PPI --Tolerated diet --Advised to FU with GI eval as outpatient if persistence of symptoms --Incentive Spirometry Chronic systolic heart failure ischemic cardiomyopathy EF 45-50%, TTE 10/2015 Euvolemic currently Continue home medications Valvular heart disease Severe aortic stenosis/regurgitation S/P TAVR Stable HTN BP stable Continue metoprolol Monitor SSS S/P PPM Continue digoxin, metoprolol On Coumadin for anticoagulation Monitor PT/INR:2.0 Continue Coumadin DM II Diet-controlled Last HbA1C: 8.09 December 2019 ISS while hospitalized DVT Px: Coumadin Code Status Full code Disposition Plan to discharge [facility] today Admission and Anticipated Discharge Date Admission Date: December 22, 2019 Subjective Patient is seen and examined at bedside States feeling a lot better today Tolerating diet States having minimal left rib pain Denies chest pain, sob, dizziness, nausea, dysphagia, odynophagia Tolerating diet Eager to get discharged Offers no other complaints Review of Systems Review of Systems: All systems reviewed & are unremarkable except as noted in HPI & below Physical Exam Physical Exam: Physical Exam: Vitals signs as noted above General Appearance:Moderately built and nourished, no apparent distress Head: normocephalic, Atraumatic Eyes: normal inspection, EOMI Neck: supple, Trachea midline Respiratory/Chest: Normal breath sounds, CTA, No accessory muscle use Chest+ + Pacer, Left costal mild tender Cardiovascular:Irregularly Irregular, + murmur Abdomen/GI:Soft, Non tender, Bowel sounds present Extremities/Musculoskelatal:normal inspection, Trace LE edema Neurologic/Psych:AAOX3, grossly no focal neurological deficits Skin: normal color, warm Results & Data Results & Data ([facility]) Vital Signs (Past 12 Hours) Vital Signs Temp Pulse Resp BP Pulse Ox 12/23/19 07:33 36.6 C 65 18 107/63 97 Laboratory Results Short CBC 12/22/19 12/23/19 Range/Units 16:35 06:04 WBC 6.68 5.52 (4.8-10.8) K/uL Hgb 13.1 12.0 (12.0-16.0) g/dL Hct 39.4 36.3 L (37-47) % Plt Count 143 146 (130-400) K/uL BMP 12/22/19 12/23/19 16:35 06:04 Sodium 140 142 Potassium 4.1 4.0 Chloride 103 109 H Carbon Dioxide 30 30 BUN 23 H 18 Creatinine 1.11 0.87 Glucose 196 H 138 H Calcium 10.2 H 9.5 Cardiac Enzymes 12/22/19 Range/Units 16:35 Troponin I < 0.015 (0-0.045) ng/ml Liver Function 12/22/19 Range/Units 16:35 Total Bilirubin 0.8 (0.2-1) mg/dl AST 24 (15-37) U/L ALT 37 (12-78) U/L Alkaline Phosphatase 81 (45-117) U/L Albumin 3.9 (3.4-5.0) gm/dl
--- NOTE | 2019-12-23 14:09 | Discharge Summary ---
Date of Service December 23, 2019 Admission HPI Per Admitting Provider History obtained from patient, family, and records. Medical history significant for chronic systolic heart failure 2 to ischemic cardiomyopathy (EF 45-50%, TTE 10/2015), CAD sp stent, VHD (severe /AR status post TAVR, MR, TR as per records), HTN, hyperlipidemia, SSS sp PPM on Coumadin, DM2 diet-controlled. Last confinement last month for left-sided rib fractures and 5th metatarsal bone fracture left foot secondary to mechanical fall. Nonoperative management for metatarsal bone fracture as per orthopedics. Patient discharged on L boot. 2 days ago patient noted epigastric discomfort without cough, radiation, and shortness of breath. Somewhat more constant over the next few days. Achy swelling on the left posterior chest as per daughter. No change in bowel habits, no unusual weight loss. No recent NSAID intake. No unusual stress except for having to move to [facility] because of worsening Parkinson's disease. At the ER, epigastric discomfort relieved by IV Pepcid. MEDICAL HISTORY: As above SURGICAL HISTORY: shoulder surgery, cholecystectomy, eye surgery, TAVR, pacemaker placement, vascular procedures FAMILY HISTORY: Heart disease. DM PERSONAL SOCIAL HISTORY: Nonsmoker, no chronic intake of alcoholic beverages. 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 [facility] resident. Admission Exam Per Admitting Provider Physical Exam Physical Exam: GENERAL: Slightly uncomfortable, no respiratory distress SKIN: Normal color, warm HEENT: [place] palpebral conjunctivae, no ptosis, dry buccal mucosa NECK : Supple, no tenderness CHEST : CTA, tender movable swelling left posterior chest wall HEART : RRR, systolic murmur ABDOMEN: Some distention, nontender EXTREMITIES : Minimal LE swelling, no LE tenderness, left boot noted NEUROLOGIC : Coherent, no facial asymmetry, no other gross focality Principal Diagnosis Epigastric/Left subcostal pain Possible GERD Discharge Data Allergies Allergy/AdvReac Type Severity Reaction Status Date / Time tetracycline Allergy Unknown RASH Verified 12/22/19 16:27 morphine AdvReac Mild "VIOLENTLY Verified 12/22/19 16:27 ILL", NAUSEA/VOMITING codeine AdvReac Unknown nausea/Vomi Verified 12/22/19 16:27 ting Consultations 12/22/19 19:34 ED Decision to Admit Stat Procedures Performed --CT ABD:No acute intra-abdominal or pelvic findings. No evidence of bowel obstruction. No evidence of free air. No evidence of acute diverticulitis. No evidence of acute appendicitis. Stable indeterminate soft tissue nodules located between the spleen and left adrenal gland. These measure up to 12 mm in diameter. --Chest CT:No acute findings within the chest. No acute rib fractures. Multiple old left-sided rib fractures. Cardiomegaly. No thoracic aortic dissection. Ordered Studies 12/22/19 20:45 CT chest w con Urgent 12/22/19 20:47 CT abd pelvis IV con only Urgent Hospital Course (1) Abdominal pain: Epigastric/Left subcostal pain Admits to have Acid reflux symptoms intermittently Symptoms improved with IV Famotidine Likely GERD DD: Musculoskeletal pain due to rib fractures --CT ABD:No acute intra-abdominal or pelvic findings. No evidence of bowel obstruction. No evidence of free air. No evidence of acute diverticulitis. No evidence of acute appendicitis. Stable indeterminate soft tissue nodules located between the spleen and left adrenal gland. These measure up to 12 mm in diameter. --Chest CT:No acute findings within the chest. No acute rib fractures. Multiple old left-sided rib fractures. Cardiomegaly. No thoracic aortic dissection. --Started on PPI --Tolerated diet --Advised to FU with GI eval as outpatient if persistence of symptoms --Incentive Spirometry Chronic systolic heart failure ischemic cardiomyopathy EF 45-50%, TTE 10/2015 Euvolemic currently Continue home medications Valvular heart disease Severe aortic stenosis/regurgitation S/P TAVR Stable HTN BP stable Continue metoprolol Monitor SSS S/P PPM Continue digoxin, metoprolol On Coumadin for anticoagulation Monitor PT/INR:2.0 Continue Coumadin DM II Diet-controlled Last HbA1C: 8.09 December 2019 ISS while hospitalized DVT Px: Coumadin Code Status Full code Disposition Plan to discharge [facility] today Total Time Total Time Spent Total Time Spent (In Minutes): 34 minutes Total Time Includes: Examination of the Patient, Discharge Planning, Medication Reconciliation, Communication With Other Providers and Other Discharge Plan Discharge Items Patient Disposition: Personal Alf Reason For Visit: ABD PAIN, COVID NEG, DC ISOL Discharge Diagnosis: Epigastric/Left subcostal pain Possible GERD Activity: Resume your previous activity Exercise/Sports: Gradually increase as tolerated Non-emergency contact: Primary Care Provider Call non-emergency contact if: you have any medication questions, your symptoms worsen, your pain is not controlled, your pain is worsening, your pain is unusual for you, your pain is concerning for you and you have a fever Follow-up/Referrals: LESLEE, [Primary Care Provider] - Diet: Carb Consistent or DM2 and Low Fat Addtl Attending Provider Instructions: Follow-up with your primary care physician Dr. Harper on December 29, 2019 at 11 AM Consider following with your weather stripper as outpatient Discussed with the physician for further management of diabetes as advised Continue using Incentive spirometry as instructed to help with rib pain. Seek immediate medical attention if your symptoms reoccur or worsen Pending Studies at Discharge: No Stand-Alone Forms: My Verenium, Smoking Cessation Skilled Items Patient informed of condition?: Yes DNR: No Discharge Level of Care: Other Communicable Disease: No Discharge Prognosis: Improving Lines: None Urinary Catheter: No Medications and DC Order Prescriptions: New lidocaine 5 % Adhesive Patch,Medicated 1 patch transdermal QAM Qty: 5 RF: 0 pantoprazole 20 mg tablet,delayed release (DR/EC) 20 mg PO DAILY 28 Days Qty: 28 RF: 0 Continued atorvastatin [Lipitor] 40 mg Tablet 40 mg PO DAILY RF: 0 sertraline [Zoloft] 100 mg Tablet 100 mg PO DAILY RF: 0 warfarin 4 mg Tablet 4 mg PO DAILY RF: 0 nitroglycerin [Nitrostat] 0.4 mg Tablet, Sublingual 0.4 mg sublingual DIRECTED PRN (Reason: Chest Pain) RF: 0 digoxin 125 mcg (0.125 mg) Tablet 125 mcg PO 5XWK RF: 0 metoprolol succinate [Toprol XL] 25 mg Tablet Extended Release 24 Hr 25 mg PO DAILY RF: 0 coenzyme Q10 [CoQ-10] 100 mg Capsule 100 mg PO DAILY RF: 0 sodium chloride [Saline Mist] 0.65 % Aerosol,[place] 2 spray INTRANASAL DIRECTED PRN (Reason: Nasal Congestion) RF: 0 cholecalciferol (vitamin D3) [Vitamin D3] 50 mcg (2,000 unit) Tablet 2,000 unit PO DAILY RF: 0 acetaminophen 500 mg tablet 500 mg PO Q6H PRN (Reason: Pain) RF: 0 aspirin [Aspirin Low Dose] 81 mg Tablet,Delayed Release (Dr/Ec) 81 mg PO DAILY RF: 0 Discharge Orders: Discharge Order (Routine); Ordered 12/23/19 Ordered By: Praful Bernstein Admission Data Admit Date/Time: 12/22/19 20:44 Attending Provider: Praful Bernstein Admit Provider: Praful Bernstein Primary Care Provider: Vasyl CAMILO Providers: Arturo Ji Other Interventions: Discharge Summary Assessment (RN) Last Done: 12/23/19 14:30
--- NOTE | 2019-12-23 15:07 | Electrocardiogram Report ---
Test Reason : Blood Pressure : / mmHG Vent. Rate : 066 BPM Atrial Rate : 065 BPM P-R Int : 000 ms QRS Dur : 212 ms QT Int : 494 ms P-R-T Axes : 000 -60 104 degrees QTc Int : 517 ms Ventricular-paced rhythm Abnormal ECG When compared with ECG of 17-NOV-2019 01:48, Vent. rate has decreased BY 10 BPM Confirmed by Kapil Valverde ([id number]) on 12/23/2019 3:07:08 PM Referred By: LESLEE Confirmed By:Kapil Valverde
[2019-12-23] MEDS ORDERED: DIGOXIN 0.125 MG TAB PO SCH (16:00)
[2019-12-23] MEDS ORDERED: WARFARIN SOD 4 MG TAB PO SCH (16:00)
[2019-12-24] MEDS ORDERED: PANTOprazole 40 MG TAB PO SCH (09:00)
== END 2019-12-23 16:00 | disposition home or self-care (01) ==
LOC: ED 15:26 → 2W 15:26

== ENCOUNTER 2022-03-11 18:55 | Inpatient (IN) ==
[2022-03-11] MEDS ORDERED: SODIUM CHLORIDE 0.9% 500 ML IV ONE (19:04)
[2022-03-11 19:18] LABS: Basophils # (auto) 0.03 K/uL (0-0.2); Basophils % (auto) 0.5 %; Eosinophils # (auto) 0.13 K/uL (0-0.50); Hematocrit (blood only) 37.8 % (34.1-44.9); Hemoglobin 12.7 g/dl (12.0-16.0); Immature Granulocytes # (auto) 0.13 K/uL (0.00-0.02); Lymphocytes # (auto) 0.62 K/uL (1.2-3.4); Lymphocytes % (auto) 9.5 %; Mean Corpuscular Hgb Conc 33.6 g/dL (32.0-36.0); Mean Corpuscular Volume 89.4 fL (80.0-100.0); Monocytes # (auto) 0.63 K/uL (0.24-0.82); Monocytes % (auto) 9.6 %; Neutrophils # (auto) 4.99 K/uL (1.4-6.5); Neutrophils % (auto) 76.4 %; Platelet Count 226 K/uL (130-400); RDW Coefficient of Variation 14.3 % (11.5-14.5); RDW Standard Deviation 46.4 fL (36.4-46.3); Red Blood Count 4.23 M/uL (3.93-5.22); White Blood Count 6.53 K/ul (4.8-10.8)
[2022-03-11 19:30] LABS: INR 2.1 (0.9-1.1); Prothrombin Time 21.2 Seconds (9.0-12.0)
[2022-03-11] MEDS ORDERED: ALBUT/IPRATROP 3MG/0.5MG NEB 3 ML VIAL NEB STA (19:36)
[2022-03-11] MEDS ORDERED: guaiFENesin 600 MG TABCR PO STA (19:36)
[2022-03-11] MEDS ORDERED: dexAMETHasone**PF** 10 MG/ML VIAL IV ONE (19:36)
[2022-03-11 19:45] LABS: Albumin Globulin Ratio 1.6 (0.9-2); Albumin Level 4.2 gm/dl (3.4-5.0); BUN Creatinine Ratio 22.8 (10-20); Bilirubin,Total 1.2 mg/dl (0.2-1.0); Calcium 10.3 mg/dl (8.5-10.1); Est GFR (African American) 79.1 ml/min; Est GFR (Non-African American) 68.3 ml/min; Globulin 2.7 gm/dl (2.5-4.0); Magnesium 1.9 mg/dl (1.7-2.4); Phosphorus 2.6 mg/dl (2.5-4.9); Potassium 3.8 mmol/L (3.5-5.1); Total Protein 6.9 gm/dl (6.0-8.3)
[2022-03-11 19:47] LABS: Troponin I High Sensitivity 13.8 pg/ml (0-14)
--- NOTE | 2022-03-11 19:48 | XRay Report ---
SINGLE VIEW CHEST CLINICAL HISTORY: Atypical chest pain. FINDINGS: An AP, portable, upright chest radiograph is compared to study dated 11/01/2021. The examina tion is mildly degraded by portable technique and patient rotation. A single lead cardiac pacemaker i s unchanged in position. The heart is markedly enlarged noting atherosclerotic calcification of the t horacic aorta. The pulmonary vasculature is noncongested. There is evidence of previous cardiac valve surgery. Chronic interstitial thickening is similar to previous. Scarring/atelectasis is noted at th e lung bases. The lungs and pleural spaces are otherwise clear. No pneumothorax is seen. The skeletal structures are osteopenic. The bony thorax is grossly intact. A right shoulder arthroplasty is in pl amy. IMPRESSION: 1. Cardiomegaly and cardiac pacemaker without radiographic evidence of congestive failure. 2. No airspace consolidation or large pleural effusion is identified. ACT 112: Negative or not required by law. Electronically signed by: Favio Hendrix M.D. 03/11/2022 7:47 PM
--- NOTE | 2022-03-11 20:09 | Emergency Department Note ---
Impression & Plan COVID-19, Chronic atrial fibrillation, Hypoxia ED Provider Note NAME: VASILIY MATHEW AGE: 86 SEX: F ARRIVES VIA: Ambulance INFORMANT: Patient ED PROVIDER(S): Skyler Harris MD CHIEF COMPLAINT: Fever, SOB, weakness, Covid-19, referred. PLAN: Disposition: Admit MEDICAL DECISION MAKING: The patient is a pleasant 86-year-old woman with a past medical history of chronic systolic heart failure with EF of 45%, CAD, severe /AR status post TAVR, MR and TR, hypertension, hyperlipidemia, sick sinus syndrome status post PPM on warfarin, type 2 diabetes who presents to the emergency department from her assisted living facility at [facility] for evaluation of generalized weakness, shortness of breath in setting being diagnosed with COVID 19 this morning with symptoms that began several days ago. She admits to having decreased oral intake. She denies chest pain. On arrival the patient is fatigued appearing but no distress, afebrile with heart rate in the 100s and O2 saturation 88% on room air in the mid 90s on 2 L nasal cannula. She has mild wheezes and rhonchi of bilateral lower lung adams. She appears clinically dry. EKG without overt acute ischemia. CXR negative for acute cardiopulmonary process. WBC, H/H and platelets within normal limits. Chemistry without metabolic acidosis. Electrolytes and LFTs without significant abnormality. High- sensitivity troponin 13.8, within normal limits. Lipase is not significantly elevated. INR 2.1. COVID-19 PCR was positive. Influenza and RSV PCR were negative. Patient was treated with dexamethasone given COVID and hypoxia. Patient given Mucinex and DuoNeb. Gentle IVF in setting of h/o CHF. Given her hypoxia in the setting of COVID we will proceed with admission. Patient agrees with this plan. Case was discussed with Dr. Ji, [facility] hospitalist who will evaluate the patient for admission. Triage Nursing notes reviewed and agree them. Prior medical records reviewed Vital Signs: reviewed Differential diagnosis: Reactive airway disease, pneumonia, pneumothorax, COPD, CHF, infections, cardiac ischemia, pulmonary embolism, musculoskeletal, gastrointestinal, as well as other pathologies. ER treatment provided: See below. Diagnostics interpreted by me: ECG: Atrial fibrillation with RVR, 107 bpm, no ectopy, no overt ST elevation or depression, QTC 437, QRS 106. Cardiac Monitoring: An order for continuous cardiac monitoring was placed and demonstrated Atrial fibrillation with RVR, 107 bpm, no ectopy. Laboratory studies: See below Imaging studies: See below Consultation(s): Case was discussed with Dr. Ji, [facility] hospitalist who will evaluate the patient for admission. HPI: The patient is a pleasant 86-year-old woman with a past medical history of chronic systolic heart failure with EF of 45%, CAD, severe /AR status post TAVR, MR and TR, hypertension, hyperlipidemia, sick sinus syndrome status post PPM on warfarin, type 2 diabetes who presents to the emergency department from her assisted living facility at [facility] for evaluation of generalized weakness, shortness of breath in setting being diagnosed with COVID 19 this morning with symptoms that began several days ago. She admits to having decreased oral intake. She denies chest pain. ROS: See above HPI for pertinent positives & negatives. A total of 10 systems reviewed and were otherwise negative. VITALS:See Below PHYSICAL EXAMINATION: GENERAL: Awake, alert, fatigued/uncomfortable-appearing, in no distress HENT: Normocephalic, atraumatic. Oropharynx with dry mucous membranes and otherwise unremarkable. EYES: Normal conjunctiva. Sclera non-icteric. NECK: Supple. No nuchal rigidity. FROM. No JVD. RESPIRATORY: Mild wheezes and rhonchi of bilateral lower lung adams. CARDIAC: Regular rate, irreguluar rhythm. Extremities warm and well perfused. Pulses equal. ABDOMEN: Soft, non-distended. No tenderness to palpation. No rebound or guarding. No masses. RECTAL: Deferred. MUSCULOSKELETAL: Chest examination reveals no tenderness. The back is symmetrical on inspection without obvious abnormality. There is no CVA tenderness to palpation. No joint edema. LOWER EXTREMITIES: Calves are equal size bilaterally and non-tender. No edema. No discoloration. NEURO: Normal sensorium. No sensory or motor deficits noted. SKIN: No rash or jaundice noted. Skyler Harris MD Past Med/Surg History Medical History (Updated 03/12/22 @ 03:48 by Skyler Harris MD) Aortic stenosis S/P TAVR in 2015 CAD (coronary artery disease) S/P NE and stent to RCA in 2002 Chest pain Chronic atrial fibrillation Chronic systolic heart failure Depression Diabetes mellitus, type II Fracture of tibial plateau (Unknown) HLD (hyperlipidemia) HTN (hypertension) Hypercalcemia (Unknown) Hyperparathyroidism Primary hyperparathyroidism (Unknown) Rotator cuff arthropathy Tachy-wanda syndrome Surgical History Aortic valve replaced S/P cardiac pacemaker procedure S/p TAVR (transcatheter aortic valve replacement), bioprosthetic 2016 Family History Other Cancer Diabetes Heart disease Hypertension Social History Smoking Status: Never smoker Second Hand Exposure: No; Hx Alcohol Use: No Hx Substance Use: No Preferred Language: Italian Communication Ability: Effective Chronometer Assembler Required: No Beliefs That Will Affect Care: None marital status: / Current Living Situation: Personal Care Facility Current Living Situation Comment: [facility] How many Children do You have: 3 Other Information That Helps Us Care for You: No Feels Safe at Home: Yes Safety Concerns: Feels Safe At This Time Assistive Devices: Denture - Upper, Denture - Lower, Glasses and Walker Assistive Devices Comment: Permanent dentures Allergies Allergies Allergy/AdvReac Type Severity Reaction Status Date / Time tetracycline Allergy Intermediate RASH Verified 03/11/22 22:07 morphine AdvReac Severe "VIOLENTLY Verified 03/11/22 22:07 ILL", NAUSEA/VOMITING codeine AdvReac Intermediate nausea/Vomi Verified 03/11/22 22:07 ting Home Meds Home Medications Medication Instructions Recorded Confirmed atorvastatin 40 mg tablet (Lipitor) 40 mg PO HS 11/11/19 03/11/22 metoprolol succinate 25 mg 12.5 mg PO QAM 11/11/19 03/11/22 tablet,extended release 24 hr (Toprol XL) nitroglycerin 0.4 mg sublingual 0.4 mg sublingual DIRECTED PRN 11/11/19 03/11/22 tablet (Nitrostat) Chest Pain warfarin 4 mg tablet 0 mg PO .DAILY/UD 11/11/19 03/11/22 alendronate 70 mg tablet 70 mg PO WK 08/11/21 03/11/22 duloxetine 30 mg capsule,delayed 30 mg PO QAM 08/11/21 03/11/22 release spironolactone 25 mg tablet 25 mg PO QAM 08/11/21 03/11/22 torsemide 5 mg tablet 5 mg PO QAM PRN Edema 08/11/21 03/11/22 acetaminophen 500 mg tablet 500 mg PO BID PRN Pain 03/11/22 03/11/22 digoxin 125 mcg (0.125 mg) tablet 125 mcg PO 4XWK 03/11/22 03/11/22 polyethylene glycol 3350 17 17 g PO DAILY PRN Constipation 03/11/22 03/11/22 gram/dose oral powder sodium chloride 0.65 % nasal spray 2 spray intranasal Q8 PRN 03/11/22 03/11/22 aerosol (Saline Nasal Mist) Congestion tramadol 50 mg tablet 50 mg PO BID PRN Pain 03/11/22 03/11/22 Results & Data (ED) Vital Signs Vital Signs - 24 hr 03/11/22 19:08 03/11/22 19:08 03/11/22 19:00 Temperature 37.1 C Temperature Source Oral Pulse Rate 107 H Respiratory Rate 20 Respiratory Effort / Characteristics Non-Labored Respiratory Depth Normal Respiratory Pattern Regular Blood Pressure 122/79 Blood Pressure Mean 93 Pulse Oximetry 96 96 88 L Oxygen Delivery Method Nasal Cannula Nasal Cannula Room Air Oxygen Flow Rate 2 2 0 Sepsis Recent Fever Within 48 Hours No Sepsis New/Unexplained Change in Mental Status No Sepsis Action Taken by Nursing No Action Required Oxygen Flow Rate - Titration 2 Pulse Oximetry Post Tiitration 96 Laboratory Data Attestation: I reviewed the patient's lab results. Result diagrams: 03/11/22 19:04 03/11/22 19:04 Lab Results 03/11/22 03/11/22 03/11/22 Range/Units 19:04 19:04 19:04 WBC 6.53 (4.8-10.8) K/ul RBC 4.23 (3.93-5.22) M/uL Hgb 12.7 (12.0-16.0) g/dl Hct 37.8 (34.1-44.9) % MCV 89.4 (80.0-100.0) fL MCH 30.0 (25.0-34.0) pg MCHC 33.6 (32.0-36.0) g/dL RDW Std Deviation 46.4 H (36.4-46.3) fL RDW Coeff of Rosas 14.3 (11.5-14.5) % Plt Count 226 (130-400) K/uL MPV 9.0 L (9.4-12.3) fL Immature Gran % (Auto) 2.0 % Neut % (Auto) 76.4 % Lymph % (Auto) 9.5 % [place] % (Auto) 9.6 % Eos % (Auto) 2.0 % Baso % (Auto) 0.5 % Neut # (Auto) 4.99 (1.4-6.5) K/uL Lymph # (Auto) 0.62 L (1.2-3.4) K/uL [place] # (Auto) 0.63 (0.24-0.82) K/uL Eos # (Auto) 0.13 (0-0.50) K/uL Baso # (Auto) 0.03 (0-0.2) K/uL Immature Gran # (Auto) 0.13 H (0.00-0.02) K/uL PT 21.2 H (9.0-12.0) Seconds INR 2.1 H (0.9-1.1) Sodium 135 L (136-145) mmol/L Potassium 3.8 (3.5-5.1) mmol/L Chloride 100 (98-107) mmol/L Carbon Dioxide 28 (21-32) mmol/L Anion Gap 7 (3-11) BUN 18 (6-23) mg/dl Creatinine 0.79 (0.6-1.2) mg/dl Est Cr Clr Drug Dosing 45.0 ml/min Est GFR ( Amer) 79.1 ml/min Est GFR (Non-Af Amer) 68.3 ml/min BUN/Creatinine Ratio 22.8 H (10-20) Glucose 157 H (70-99(Fasting)) mg/dl Calcium 10.3 H (8.5-10.1) mg/dl Phosphorus 2.6 (2.5-4.9) mg/dl Magnesium 1.9 (1.7-2.4) mg/dl Total Bilirubin 1.2 H (0.2-1.0) mg/dl AST 22 (13-39) U/L ALT 27 (7-52) U/L Alkaline Phosphatase 72 (34-104) U/L Troponin I High Sens 13.8 (0-14) pg/ml Total Protein 6.9 (6.0-8.3) gm/dl Albumin 4.2 (3.4-5.0) gm/dl Globulin 2.7 (2.5-4.0) gm/dl Albumin/Globulin Ratio 1.6 (0.9-2) Lipase 91 H (11-82) U/L SARS-CoV-2 (PCR) (Negative) Influenza Type A (PCR) (Neg) Influenza Type B (PCR) (Neg) RSV (RT-PCR) (Neg) 03/11/22 Range/Units 19:06 WBC (4.8-10.8) K/ul RBC (3.93-5.22) M/uL Hgb (12.0-16.0) g/dl Hct (34.1-44.9) % MCV (80.0-100.0) fL MCH (25.0-34.0) pg MCHC (32.0-36.0) g/dL RDW Std Deviation (36.4-46.3) fL RDW Coeff of Rosas (11.5-14.5) % Plt Count (130-400) K/uL MPV (9.4-12.3) fL Immature Gran % (Auto) % Neut % (Auto) % Lymph % (Auto) % [place] % (Auto) % Eos % (Auto) % Baso % (Auto) % Neut # (Auto) (1.4-6.5) K/uL Lymph # (Auto) (1.2-3.4) K/uL [place]ford # (Auto) (0.24-0.82) K/uL Eos # (Auto) (0-0.50) K/uL Baso # (Auto) (0-0.2) K/uL Immature Gran # (Auto) (0.00-0.02) K/uL PT (9.0-12.0) Seconds INR (0.9-1.1) Sodium (136-145) mmol/L Potassium (3.5-5.1) mmol/L Chloride (98-107) mmol/L Carbon Dioxide (21-32) mmol/L Anion Gap (3-11) BUN (6-23) mg/dl Creatinine (0.6-1.2) mg/dl Est Cr Clr Drug Dosing ml/min Est GFR ( Amer) ml/min Est GFR (Non-Af Amer) ml/min BUN/Creatinine Ratio (10-20) Glucose (70-99(Fasting)) mg/dl Calcium (8.5-10.1) mg/dl Phosphorus (2.5-4.9) mg/dl Magnesium (1.7-2.4) mg/dl Total Bilirubin (0.2-1.0) mg/dl AST (13-39) U/L ALT (7-52) U/L Alkaline Phosphatase (34-104) U/L Troponin I High Sens (0-14) pg/ml Total Protein (6.0-8.3) gm/dl Albumin (3.4-5.0) gm/dl Globulin (2.5-4.0) gm/dl Albumin/Globulin Ratio (0.9-2) Lipase (11-82) U/L SARS-CoV-2 (PCR) POSITIVE A* (Negative) Influenza Type A (PCR) Negative (Neg) Influenza Type B (PCR) Negative (Neg) RSV (RT-PCR) Negative (Neg) Administered Medications Sodium Chloride (Nss 1000ml) 1,000 mls @ 60 mls/hr IV .[id number] ONE Stop: 03/12/22 14:09 Last Admin: 03/12/22 00:32 Dose: 60 mls/hr Documented By: BLESSING Insulin Aspart (Insulin Aspart Per Unit) 0 units SC ACHS [facility] Stop: 04/11/22 00:19 Last Admin: 03/12/22 01:05 Dose: 4 units Documented By: BLESSING Co-signed By: HO Insulin Glargine (Lantus Per Unit Charge) 5 units SQ BID [facility] Stop: 04/11/22 00:19 Last Admin: 03/12/22 01:06 Dose: 5 units Documented By: BLESSING Co-signed By: HO Discontinued Medications Acetaminophen (Acetaminophen 325 Mg Tab) 650 mg PO NOW STA Stop: 03/11/22 21:29 Last Admin: 03/11/22 21:43 Dose: 650 mg Documented By: ANTONIETA Albuterol (Albut/Ipratrop 3mg/0.5mg Neb 3 Ml Vial) 3 ml NEB NOW STA; Protocol Stop: 03/11/22 19:37 Last Admin: 03/11/22 19:48 Dose: 3 ml Documented By: ANTONIETA Dexamethasone Sodium Phosphate (DexamethasonePf 10 Mg/Ml Vial) 6 mg IV NOW ONE Stop: 03/11/22 19:37 Last Admin: 03/11/22 19:48 Dose: 6 mg Documented By: ANTONIETA Guaifenesin (Guaifenesin 600 Mg Tabcr) 600 mg PO NOW STA Stop: 03/11/22 19:37 Last Admin: 03/11/22 19:48 Dose: 600 mg Documented By: ANTONIETA Sodium Chloride (Nss) 500 mls @ 999 mls/hr IV .Q31M ONE Stop: 03/11/22 19:34 Last Infusion: 03/11/22 19:53 Dose: 0 mls/hr Documented By: Admin: 03/11/22 19:18 Dose: 999 mls/hr Documented By: ANTONIETA Magnesium Sulfate/Dextrose (Magnesium Sulfate / D5w) 1 gm in 100 mls @ 50 mls/hr IV ONE ONE Stop: 03/11/22 22:26 Last Infusion: 03/12/22 01:34 Dose: 0 mls/hr Documented By: Admin: 03/11/22 20:46 Dose: 50 mls/hr Documented By: ERNESTO Azithromycin 500 mg/ Dextrose 255 mls @ 127.5 mls/hr IV NOW STA Stop: 03/11/22 23:06 Last Infusion: 03/12/22 03:26 Dose: 0 mls/hr Documented By: Admin: 03/12/22 00:32 Dose: 127.5 mls/hr Documented By: BLESSING Potassium Chloride (Potassium Chloride Crtab 20 Meq Tabcr) 20 meq PO NOW STA Stop: 03/11/22 20:28 Last Admin: 03/11/22 20:47 Dose: 20 meq Documented By: ERNESTO Imaging Data Radiologist's Impression: Chest X-Ray 03/11/22 19:04 SINGLE VIEW CHEST CLINICAL HISTORY: Atypical chest pain. FINDINGS: An AP, portable, upright chest radiograph is compared to study dated 11/01/2021. The examination is mildly degraded by portable technique and patient rotation. A single lead cardiac pacemaker is unchanged in position. The heart is markedly enlarged noting atherosclerotic calcification of the thoracic aorta. The pulmonary vasculature is noncongested. There is evidence of previous cardiac valve surgery. Chronic interstitial thickening is similar to previous. Scarring/atelectasis is noted at the lung bases. The lungs and pleural spaces are otherwise clear. No pneumothorax is seen. The skeletal structures are osteopenic. The bony thorax is grossly intact. A right shoulder arthroplasty is in place. IMPRESSION: 1. Cardiomegaly and cardiac pacemaker without radiographic evidence of congestive failure. 2. No airspace consolidation or large pleural effusion is identified. ACT 112: Negative or not required by law. Electronically signed by: Favio Hendrix M.D. 03/11/2022 7:47 PM Discharge Plan Visit Data Chief Complaint: Weakness Stated Complaint: COVID + MORE WEAK THAN NORMAL ED Provider: Skyler Harris Discharge Problem: COVID-19, Chronic atrial fibrillation, Hypoxia Patient Disposition: Admitted As Inpatient Discharge Instructions Interventions: ED Discharge Assessment Last Done: 03/11/22 23:56
[2022-03-11] MEDS ORDERED: MAGNESIUM SULFATE / D5W 1 GM/100 ML BAG IV ONE (20:27)
[2022-03-11] MEDS ORDERED: POTASSIUM CHLORIDE CRTAB 20 MEQ TABCR PO STA (20:27)
[2022-03-11 21:01] LABS: Influenza A virus by PCR Negative (Neg); Influenza B virus by PCR Negative (Neg); RSV by PCR Negative (Neg)
[2022-03-11 21:03] LABS: SARS CoV2 RNA(COVID-19) Ceph POSITIVE (Negative)
[2022-03-11] MEDS ORDERED: AZITHROMYCIN 500 MG in DEXTROSE 5% 250 ML IV STA (21:07)
--- NOTE | 2022-03-11 21:09 | History & Physical Report ---
Date of Service March 11, 2022 Assessment & Plan (1) Acute hypoxemic respiratory failure: Plan: Secondary to severe COVID-19 pneumonia with superimposed bacterial infection No overt sepsis for now. chronic systolic heart failure 2 to ischemic cardiomyopathy, patient euvolemic to dry hx CAD sp stent/CVA SSS sp PPM on Coumadin, paced rhythm, INR therapeutic VHD (severe /AR status post TAVR, moderate MR/TR as per records) HTN, stable hyperlipidemia on statin Rx DM2 diet-controlled, well-controlled as of recent hemoglobin A1c of 6.8 last July 2021 hyperparathyroidism, not a surgical candidate as per outpatient ENT note ; Patient has not been able to follow-up recently with [facility] [place] Endocrinology Medical telemetry Supplemental O2 Azithromycin for superimposed bacterial infection (Monitor digoxin levels periodically while on azithromycin as per pharmacy damian mmendation.) Decadron for severe COVID-19 pneumonia Patient declines Remdesivir recommendation for now. Gentle IV hydration, hold home diuretic until patient euvolemic Outpatient Endocrinology follow-up for primary hyperparathyroidism Basal insulin, ISS BG goal [id number], carb count coverage, update hemoglobin A1c DVT prophylaxis. Coumadin INR goal between 2 and 3 DNR Patient requests for daughter to be given periodic updates. Ms. Niharika Saba, contact #[phone]. Text document was generated using [employer] voice recognition software. It may contain grammatical or spelling errors. Kindly contact undersigned for clarification of any documentation item in question. History of Present Illness Chief Complaint: Cough, shortness of breath Primary Care Provider: RAJIV Chisholm) History obtained from patient, family, and records. Medical history significant for chronic systolic heart failure 2 to ischemic cardiomyopathy (EF 45-49%, TTE 2019), CAD sp stent, VHD (severe /AR status post TAVR, moderate MR/TR as per records), CVA, HTN, hyperlipidemia, SSS sp PPM on Coumadin,DM2 diet-controlled, hyperparathyroidism, anxiety/mood disorder. Last confinement December 2019 for epigastric pain, possible GERD. 4 days history of cough symptoms productive of junky yellow sputum with worsening shortness of breath. No chest pain. Poor appetite and weakness. Not sure about COVID-19 contacts. Patient has not received COVID-19 vaccination. O2 sats 80s upon arrival at the ER. Decadron and neb treatment administered at the ER. MEDICAL HISTORY: As above SURGICAL HISTORY: shoulder surgery, cholecystectomy, eye surgery, TAVR, pacemaker placement, vascular procedures FAMILY HISTORY: Heart disease. DM PERSONAL SOCIAL HISTORY: Nonsmoker, no chronic intake of alcoholic beverages. 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 [facility] resident. Allergies Allergy/AdvReac Type Severity Reaction Status Date / Time tetracycline Allergy Intermediate RASH Verified 03/11/22 22:07 morphine AdvReac Severe "VIOLENTLY Verified 03/11/22 22:07 ILL", NAUSEA/VOMITING codeine AdvReac Intermediate nausea/Vomi Verified 03/11/22 22:07 ting Home Medications Medication Instructions Recorded Confirmed Type atorvastatin 40 mg tablet (Lipitor) 40 mg PO HS 11/11/19 03/11/22 History metoprolol succinate 25 mg 12.5 mg PO QAM 11/11/19 03/11/22 History tablet,extended release 24 hr (Toprol XL) nitroglycerin 0.4 mg sublingual 0.4 mg sublingual DIRECTED PRN 11/11/19 03/11/22 History tablet (Nitrostat) Chest Pain warfarin 4 mg tablet 0 mg PO .DAILY/UD 11/11/19 03/11/22 History alendronate 70 mg tablet 70 mg PO WK 08/11/21 03/11/22 History duloxetine 30 mg capsule,delayed 30 mg PO QAM 08/11/21 03/11/22 History release spironolactone 25 mg tablet 25 mg PO QAM 08/11/21 03/11/22 History torsemide 5 mg tablet 5 mg PO QAM PRN Edema 08/11/21 03/11/22 History acetaminophen 500 mg tablet 500 mg PO BID PRN Pain 03/11/22 03/11/22 History digoxin 125 mcg (0.125 mg) tablet 125 mcg PO 4XWK 03/11/22 03/11/22 History polyethylene glycol 3350 17 17 g PO DAILY PRN Constipation 03/11/22 03/11/22 History gram/dose oral powder sodium chloride 0.65 % nasal spray 2 spray intranasal Q8 PRN 03/11/22 03/11/22 History aerosol (Saline Nasal Mist) Congestion tramadol 50 mg tablet 50 mg PO BID PRN Pain 03/11/22 03/11/22 History Past Med/Surg History Medical History (Updated 03/12/22 @ 05:24 by Arturo Ji MD) Aortic stenosis S/P TAVR in 2016 CAD (coronary artery disease) S/P VT and stent to RCA in 2002 Chest pain Chronic atrial fibrillation Chronic systolic heart failure Depression Diabetes mellitus, type II Fracture of tibial plateau (Unknown) HLD (hyperlipidemia) HTN (hypertension) Hypercalcemia (Unknown) Hyperparathyroidism Primary hyperparathyroidism (Unknown) Rotator cuff arthropathy Tachy-wanda syndrome Surgical History Aortic valve replaced S/P cardiac pacemaker procedure S/p TAVR (transcatheter aortic valve replacement), bioprosthetic 2015 Family History Other Cancer Diabetes Heart disease Hypertension Social History Smoking Status: Never smoker Second Hand Exposure: No; Hx Alcohol Use: No Hx Substance Use: No Preferred Language: Swiss Communication Ability: Effective Registered Dental Hygienist Required: No Beliefs That Will Affect Care: None marital status: / Current Living Situation: Personal Care Facility Current Living Situation Comment: [facility] How many Children do You have: 3 Other Information That Helps Us Care for You: No Feels Safe at Home: Yes Safety Concerns: Feels Safe At This Time Assistive Devices: Denture - Upper, Denture - Lower, Glasses and Walker Assistive Devices Comment: Permanent dentures Review of Systems Review of Systems: As per HPI, all other systems reviewed and negative Physical Exam Physical Exam: GENERAL: Slightly uncomfortable, wane, ill-appearing, no respiratory distress SKIN: Normal color, warm HEENT: Car[place]-Moon palpebral conjunctivae, no ptosis, dry buccal mucosa, nasal cannula in place NECK : Supple, no tenderness CHEST : Decreased breath sounds, no chest wall tenderness HEART : Tachycardic, irregular, systolic murmur ABDOMEN: Some distention, nontender EXTREMITIES : Minimal LE swelling, no LE tenderness NEUROLOGIC : Coherent, no facial asymmetry, mild hearing impairment, no other gross focality Results & Data Results & Data ([facility]) Vital Signs (Past 12 Hours) Vital Signs Temp Pulse Resp BP Pulse Ox O2 Del Method O2 Flow Rate 03/11/22 19:00 88 L Room Air 0 03/11/22 19:08 96 Nasal Cannula 2 03/11/22 19:08 37.1 C 107 H 20 122/79 96 Nasal Cannula 2 Laboratory Results Laboratory Results WBC 6.53 K/ul (4.8-10.8) 03/11/22 19:04 RBC 4.23 M/uL (3.93-5.22) 03/11/22 19:04 Hgb 12.7 g/dl (12.0-16.0) 03/11/22 19:04 Hct 37.8 % (34.1-44.9) 03/11/22 19:04 MCV 89.4 fL (80.0-100.0) 03/11/22 19:04 MCH 30.0 pg (25.0-34.0) 03/11/22 19:04 MCHC 33.6 g/dL (32.0-36.0) 03/11/22 19:04 RDW Std Deviation 46.4 fL (36.4-46.3) H 03/11/22 19:04 RDW Coeff of Rosas 14.3 % (11.5-14.5) 03/11/22 19:04 Plt Count 226 K/uL (130-400) 03/11/22 19:04 MPV 9.0 fL (9.4-12.3) L 03/11/22 19:04 Immature Gran % (Auto) 2.0 % 03/11/22 19:04 Neut % (Auto) 76.4 % 03/11/22 19:04 Lymph % (Auto) 9.5 % 03/11/22 19:04 Mcdonald % (Auto) 9.6 % 03/11/22 19:04 Eos % (Auto) 2.0 % 03/11/22 19:04 Baso % (Auto) 0.5 % 03/11/22 19:04 Neut # (Auto) 4.99 K/uL (1.4-6.5) 03/11/22 19:04 Lymph # (Auto) 0.62 K/uL (1.2-3.4) L 03/11/22 19:04 Mcdonald # (Auto) 0.63 K/uL (0.24-0.82) 03/11/22 19:04 Eos # (Auto) 0.13 K/uL (0-0.50) 03/11/22 19:04 Baso # (Auto) 0.03 K/uL (0-0.2) 03/11/22 19:04 Immature Gran # (Auto) 0.13 K/uL (0.00-0.02) H 03/11/22 19:04 PT 21.2 Seconds (9.0-12.0) H 03/11/22 19:04 INR 2.1 (0.9-1.1) H 03/11/22 19:04 Sodium 135 mmol/L (136-145) L 03/11/22 19:04 Potassium 3.8 mmol/L (3.5-5.1) 03/11/22 19:04 Chloride 100 mmol/L (98-107) 03/11/22 19:04 Carbon Dioxide 28 mmol/L (21-32) 03/11/22 19:04 Anion Gap 7 (3-11) 03/11/22 19:04 BUN 18 mg/dl (6-23) 03/11/22 19:04 Creatinine 0.79 mg/dl (0.6-1.2) 03/11/22 19:04 Est Cr Clr Drug Dosing 45.0 ml/min 03/11/22 19:04 Est GFR ( Amer) 79.1 ml/min 03/11/22 19:04 Est GFR (Non-Af Amer) 68.3 ml/min 03/11/22 19:04 BUN/Creatinine Ratio 22.8 (10-20) H 03/11/22 19:04 Glucose 157 mg/dl (70-99(Fasting)) H 03/11/22 19:04 Calcium 10.3 mg/dl (8.5-10.1) H 03/11/22 19:04 Phosphorus 2.6 mg/dl (2.5-4.9) 03/11/22 19:04 Magnesium 1.9 mg/dl (1.7-2.4) 03/11/22 19:04 Total Bilirubin 1.2 mg/dl (0.2-1.0) H 03/11/22 19:04 AST 22 U/L (13-39) 03/11/22 19:04 ALT 27 U/L (7-52) 03/11/22 19:04 Alkaline Phosphatase 72 U/L (34-104) 03/11/22 19:04 Troponin I High Sens 13.8 pg/ml (0-14) 03/11/22 19:04 Total Protein 6.9 gm/dl (6.0-8.3) 03/11/22 19:04 Albumin 4.2 gm/dl (3.4-5.0) 03/11/22 19:04 Globulin 2.7 gm/dl (2.5-4.0) 03/11/22 19:04 Albumin/Globulin Ratio 1.6 (0.9-2) 03/11/22 19:04 Lipase 91 U/L (11-82) H 03/11/22 19:04 SARS-CoV-2 (PCR) POSITIVE (Negative) A* 03/11/22 19:06 Influenza Type A (PCR) Negative (Neg) 03/11/22 19:06 Influenza Type B (PCR) Negative (Neg) 03/11/22 19:06 RSV (RT-PCR) Negative (Neg) 03/11/22 19:06 Impressions Chest X-Ray 03/11/22 19:04 SINGLE VIEW CHEST CLINICAL HISTORY: Atypical chest pain. FINDINGS: An AP, portable, upright chest radiograph is compared to study dated 11/01/2021. The examination is mildly degraded by portable technique and patient rotation. A single lead cardiac pacemaker is unchanged in position. The heart is markedly enlarged noting atherosclerotic calcification of the thoracic aorta. The pulmonary vasculature is noncongested. There is evidence of previous cardiac valve surgery. Chronic interstitial thickening is similar to previous. Scarring/atelectasis is noted at the lung bases. The lungs and pleural spaces are otherwise clear. No pneumothorax is seen. The skeletal structures are osteopenic. The bony thorax is grossly intact. A right shoulder arthroplasty is in place. IMPRESSION: 1. Cardiomegaly and cardiac pacemaker without radiographic evidence of congestive failure. 2. No airspace consolidation or large pleural effusion is identified. ACT 112: Negative or not required by law. Electronically signed by: Favio Hendrix M.D. 03/11/2022 7:47 PM Diagnostic Findings EKG as per my interpretation :Rate 105, A. fib, LAD, LAFB, T wave abnormalities inferior leads
[2022-03-11] MEDS ORDERED: ACETAMINOPHEN 325 MG TAB PO STA (21:28)
[2022-03-11] MEDS ORDERED: SODIUM CHLORIDE 0.9% 1000ML 1,000 ML IV ONE (21:30)
[2022-03-12] MEDS ORDERED: GLUCAGON FOR INJ 1 MG VIAL SQ PRN (00:20)
[2022-03-12] MEDS ORDERED: DEXTROSE 50% 50 ML SYRINGE IV PRN (00:20)
[2022-03-12] MEDS ORDERED: GLUCOSE 10 TAB/TUBE PO PRN (00:20)
[2022-03-12] MEDS ORDERED: GLUCOSE 40% GEL 15 GM TUBE PO PRN (00:20)
[2022-03-12] MEDS ORDERED: traMADol HCL 50 MG TABLET PO PRN (00:20)
[2022-03-12] MEDS ORDERED: SODIUM CHLORIDE 0.65% NA SOLN 45 ML (OCEAN) PRN (00:20)
[2022-03-12] MEDS ORDERED: CARBOHYDRATES FOR HYPOGLYCEMIA PO PRN (00:20)
[2022-03-12] MEDS ORDERED: PROMETHAZINE HCL 6.25 MG in SODIUM CHLORIDE 0.9% 50 ML IV PRN (00:20)
[2022-03-12] MEDS ORDERED: ACETAMINOPHEN 325 MG TAB PO PRN (00:20)
[2022-03-12] MEDS: INSULIN ASPART PER UNIT SC SCH ×5 (01:05→21:03)
[2022-03-12] MEDS: LANTUS PER UNIT CHARGE SQ SCH ×3 (01:06→21:09)
[2022-03-12 06:06] LABS: Basophils # (auto) 0.02 K/uL (0-0.2); Basophils % (auto) 0.3 %; Hematocrit (blood only) 35.6 % (34.1-44.9); Immature Granulocytes # (auto) 0.12 K/uL (0.00-0.02); Immature Granulocytes % (auto) 2.1 %; Lymphocytes # (auto) 0.44 K/uL (1.2-3.4); Lymphocytes % (auto) 7.7 %; Mean Corpuscular Hemoglobin 29.9 pg (25.0-34.0); Mean Corpuscular Hgb Conc 33.7 g/dL (32.0-36.0); Mean Corpuscular Volume 88.8 fL (80.0-100.0); Mean Platelet Volume 9.1 fL (9.4-12.3); Monocytes # (auto) 0.23 K/uL (0.24-0.82); Neutrophils # (auto) 4.94 K/uL (1.4-6.5); Neutrophils % (auto) 85.9 %; Platelet Count 218 K/uL (130-400); RDW Coefficient of Variation 14.1 % (11.5-14.5); RDW Standard Deviation 45.9 fL (36.4-46.3); Red Blood Count 4.01 M/uL (3.93-5.22); White Blood Count 5.75 K/ul (4.8-10.8)
[2022-03-12 06:15] LABS: INR 2.1 (0.9-1.1); Prothrombin Time 21.6 Seconds (9.0-12.0)
[2022-03-12 06:32] LABS: BUN Creatinine Ratio 23.9 (10-20); Calcium 9.4 mg/dl (8.5-10.1); Creatinine Clr Calc Pharmacy 52.5 ml/min; Est GFR (Non-African American) 77.7 ml/min; Potassium 4.1 mmol/L (3.5-5.1)
[2022-03-12] MEDS: dexAMETHasone 6 MG in SYRINGE 0 ML IV SCH (10:12)
[2022-03-12] MEDS: AZITHROMYCIN 250 MG TAB PO SCH (10:13)
[2022-03-12] MEDS: METOPROLOL SUCC 25MG EXT REL TAB PO SCH (10:13)
[2022-03-12] MEDS: DULoxetine HCL 30 MG CAP PO SCH (10:13)
--- NOTE | 2022-03-12 11:18 | Electrocardiogram Report ---
Test Reason : Blood Pressure : / mmHG Vent. Rate : 107 BPM Atrial Rate : 102 BPM P-R Int : 000 ms QRS Dur : 106 ms QT Int : 328 ms P-R-T Axes : 000 -09 -65 degrees QTc Int : 437 ms Atrial fibrillation with rapid ventricular response Poor R wave progression, consider anterior RI vs. lead placement vs. LVH Abnormal ECG When compared with ECG of 01-NOV-2021 18:30, Vent. rate has increased BY 37 BPM Confirmed by Kapil Valverde ([id number]) on 03/12/2022 11:17:52 AM Referred By: REFERRED SELF Confirmed By:Kapil Valverde
--- NOTE | 2022-03-12 11:59 | Hospitalist Progress Note ---
Date of Service March 12, 2022 Assessment & Plan (1) Acute hypoxemic respiratory failure: Plan 86-year-old lady with PMH of systolic heart failure secondary to ischemic cardiomyopathy [EF 45 to 49%, TTE 2019], CAD status post stent, VHD [/AR status post TAVR, moderate MR/TR], CVA, HTN, HLD, SSS status post PPM on Coumadin, DM2 diet controlled, hyperparathyroidism, anxiety/mood disorder presented to our ED 03/11 from the [place] with 4-day history of cough symptoms associated with productive yellow sputum and worsening shortness of breath. Also reported poor appetite and weakness at presentation. Patient has been vaccinated against COVID and received booster dose on 02/15/2021. She is being managed for the following: Acute hypoxemic respiratory failure Pneumonia due to COVID-19 infection Likely superimposed bacterial infection Patient presented with cough, productive yellow sputum, poor appetite and weakness, no diarrhea. Per records, booster vaccine 02/15/21 against COVID. Was saturating in 80s upon arrival at the ED. Required 2 L NC O2. Continue with nebulization, incentive spirometer, Decadron. Patient declined remdesivir recommendation at admission. Patient currently on room air, would like to advance her diet, reports feeling better but with cough, reports improving color of the sputum. Patient afebrile and hemodynamically stable. Continue with azithromycin. Other chronic medical conditions: Chronic systolic heart failure secondary to ischemic CM, CAD status post stent, CVA, SSS status post PPM on Coumadin, VHD [severe /AR status post TAVR, moderate MR/TR], HTN, HLD, DM2 diet controlled --> resume home meds as able. Primary hyperparathyroidism: Was deemed not a surgical candidate as per outpatient ENT note. Patient has not been able to follow-up recently with [facility] endocrinology, follow-up with endocrinology as an outpatient. DVT prophylaxis: Coumadin DNR/DNI Patient's daughter Ms. Niharika Saba, contact #[phone]. Text document was generated using voice recognition software. It may contain grammatical or spelling errors. Kindly contact undersigned for clarification of any documentation item in question. Admission and Anticipated Discharge Date Admission Date: March 11, 2022 Subjective Patient seen and examined at bedside as a follow-up of acute hypoxemic respiratory failure secondary to COVID-19 pneumonia with likely superimposed bacterial infection. Patient was sitting up in chair, on room air, NAD, reports coughing, reports improving color of the sputum, denies headache or dizziness or chest pain or palpitation, would like to advance her diet, reports no diarrhea, reports bowel movement usual, denies other review of symptoms. Will order incentive spirometry. Physical Exam Physical Exam: GENERAL: Alert and oriented x3. NAD, on RA. Appears old/frail. HEENT: No pallor, no icterus. Pupils equal, round and reactive to light. Oral mucosa moist. NECK: No JVD, no neck masses. HEART: S1 and S2 heard. irregular rate and rhythm. No murmur, no gallop. RESPIRATORY SYSTEM: Normal AP diameter. No accessory muscle use. No wheezing, no crackles. ABDOMEN: Soft, bowel sounds present, nontender, no distention. CENTRAL NERVOUS SYSTEM: No facial droop. Speech is clear. Obeys simple commands. Moves extremities. EXTREMITIES: No edema, no erythema seen. Chronic skin changes ble. Results & Data Results & Data ([facility]) Vital Signs (Past 12 Hours) Vital Signs Temp Pulse Pulse Resp BP BP Pulse Ox 03/12/22 11:32 36.7 C 81 18 114/68 93 03/12/22 08:00 03/12/22 06:15 92 H 03/12/22 08:04 36.4 C L 108 H 18 115/77 96 03/12/22 03:25 36.7 C 93 H 16 122/73 96 03/12/22 01:13 03/12/22 00:20 03/12/22 01:06 37.1 C 92 H 18 123/78 95 03/11/22 23:56 102 H 18 107/68 94 Pulse Ox O2 Del Method O2 Del Method O2 Flow Rate O2 Flow Rate 03/12/22 11:32 Room Air 03/12/22 08:00 Nasal Cannula 2 03/12/22 06:15 03/12/22 08:04 Nasal Cannula 2 03/12/22 03:25 03/12/22 01:13 Nasal Cannula 2 03/12/22 00:20 95 Nasal Cannula 2 03/12/22 01:06 Nasal Cannula 2 03/11/22 23:56 Nasal Cannula 2
[2022-03-12] MEDS: ATORVASTATIN 40 MG TAB PO SCH (21:24)
[2022-03-13 06:47] LABS: Estimated Average Glucose 189 mg/dl; Hemoglobin A1C 8.2 % (4.5-5.6)
[2022-03-13 07:43] LABS: Hematocrit (blood only) 36.2 % (34.1-44.9); Hemoglobin 12.1 g/dl (12.0-16.0); Mean Corpuscular Hemoglobin 30.1 pg (25.0-34.0); Mean Corpuscular Hgb Conc 33.4 g/dL (32.0-36.0); Mean Platelet Volume 9.2 fL (9.4-12.3); Platelet Count 249 K/uL (130-400); RDW Coefficient of Variation 14.1 % (11.5-14.5); Red Blood Count 4.02 M/uL (3.93-5.22)
[2022-03-13 08:10] LABS: BUN Creatinine Ratio 32.1 (10-20); Calcium 9.6 mg/dl (8.5-10.1); Creatinine Clr Calc Pharmacy 47.8 ml/min; Est GFR (African American) 80.3 ml/min; Est GFR (Non-African American) 69.3 ml/min; Magnesium 2.1 mg/dl (1.7-2.4); Phosphorus 2.1 mg/dl (2.5-4.9); Potassium 3.7 mmol/L (3.5-5.1)
[2022-03-13] MEDS: dexAMETHasone 6 MG in SYRINGE 0 ML IV SCH (08:20)
[2022-03-13] MEDS: AZITHROMYCIN 250 MG TAB PO SCH (08:20)
[2022-03-13] MEDS: DULoxetine HCL 30 MG CAP PO SCH (08:20)
[2022-03-13] MEDS: METOPROLOL SUCC 25MG EXT REL TAB PO SCH (08:20)
[2022-03-13] MEDS: LANTUS PER UNIT CHARGE SQ SCH ×2 (09:25→20:45)
[2022-03-13] MEDS: INSULIN ASPART PER UNIT SC SCH ×4 (09:25→20:45)
[2022-03-13] MEDS ORDERED: POTASSIUM PHOS 3 MMOL/1 ML INFUSION IV STA (10:04)
[2022-03-13] MEDS ORDERED: POTASSIUM PHOSPHATE 24 MMOL in SODIUM CHLORIDE 0.9% 500 ML IV ONE (10:30)
--- NOTE | 2022-03-13 15:48 | Hospitalist Progress Note ---
Date of Service March 13, 2022 Assessment & Plan (1) Acute hypoxemic respiratory failure: Plan 86-year-old lady with PMH of systolic heart failure secondary to ischemic cardiomyopathy [EF 45 to 49%, TTE 2019], CAD status post stent, VHD [/AR status post TAVR, moderate MR/TR], CVA, HTN, HLD, SSS status post PPM on Coumadin, DM2 diet controlled, hyperparathyroidism, anxiety/mood disorder presented to our ED 03/11 from the [place] with 4-day history of cough symptoms associated with productive yellow sputum and worsening shortness of breath. Also reported poor appetite and weakness at presentation. Patient has been vaccinated against COVID and received booster dose on 02/15/2021. She is being managed for the following: Acute hypoxemic respiratory failure Pneumonia due to COVID-19 infection Likely superimposed bacterial infection Patient presented with cough, productive yellow sputum, poor appetite and weakness, no diarrhea. Per records, booster vaccine 02/15/21 against COVID. Was saturating in 80s upon arrival at the ED. Required 2 L NC O2. Continue with nebulization, incentive spirometer, Decadron. Patient currently on room air, reports feeling better but with cough, reports improving color of the sputum. Mucinex and tessalon perle. Patient afebrile and hemodynamically stable. Continue with azithromycin. Other chronic medical conditions: Chronic systolic heart failure secondary to ischemic CM, CAD status post stent, CVA, SSS status post PPM on Coumadin, VHD [severe /AR status post TAVR, moderate MR/TR], HTN, HLD, DM2 diet controlled --> resume home meds as able. Primary hyperparathyroidism: Was deemed not a surgical candidate as per outpatient ENT note. Patient has not been able to follow-up recently with [facility] endocrinology, follow-up with endocrinology as an outpatient. DVT prophylaxis: Coumadin DNR/DNI Patient's daughter Ms. Niharika Saba, contact #[phone]. Updated 03/13. Dispo: PT / OT to [facility] to assist w/ DC plan. Pt stated she feels weak and is suspicious if she will be able to take care of herself at home. Text document was generated using voice recognition software. It may contain grammatical or spelling errors. Kindly contact undersigned for clarification of any documentation item in question. Admission and Anticipated Discharge Date Admission Date: March 11, 2022 Subjective Patient seen and examined at bedside as a follow-up of acute hypoxemic respiratory failure secondary to COVID-19 pneumonia with likely superimposed bacterial infection. Patient was sitting up in chair, on room air, NAD, reports coughing, reports improving color of the sputum, denies headache or dizziness or chest pain or palpitation, reports improvement in appetite, reports no BM in 2 days, reports feeling weak and doesn't feel she can take care of herself at home. Physical Exam Physical Exam: GENERAL: Alert and oriented x3. NAD, on RA. Appears old/frail. HEENT: No pallor, no icterus. Pupils equal, round and reactive to light. Oral mucosa moist. NECK: No JVD, no neck masses. HEART: S1 and S2 heard. irregular rate and rhythm. No murmur, no gallop. RESPIRATORY SYSTEM: Normal AP diameter. No accessory muscle use. No wheezing, no crackles. ABDOMEN: Soft, bowel sounds present, nontender, no distention. CENTRAL NERVOUS SYSTEM: No facial droop. Speech is clear. Obeys simple commands. Moves extremities. EXTREMITIES: No edema, no erythema seen. Chronic skin changes ble. Results & Data Results & Data ([facility]) Vital Signs (Past 12 Hours) Vital Signs Temp Pulse Pulse Resp BP Pulse Ox O2 Del Method 03/13/22 11:40 36.9 C 80 18 109/75 96 Room Air 03/13/22 06:08 77 03/13/22 08:00 Room Air 03/13/22 08:18 37.3 C 90 20 132/85 96 Room Air 03/13/22 06:26 36.8 C 84 18 120/77 94 Room Air
[2022-03-13] MEDS ORDERED: DIGOXIN 0.125 MG TAB PO SCH ×2 (16:00)
[2022-03-13] MEDS: POLYETHYLENE (MIRALAX) 17 GM PACK PO SCH (17:04)
[2022-03-13] MEDS: ATORVASTATIN 40 MG TAB PO SCH (20:40)
[2022-03-13] MEDS: FAMOTIDINE 20 MG TAB PO SCH (20:40)
[2022-03-13] MEDS: guaiFENesin 600 MG TABCR PO SCH (20:40)
[2022-03-13] MEDS: BENZONATATE 100 MG CAPSULE PO SCH (20:41)
[2022-03-13 21:55] LABS: Prothrombin Time 20.8 Seconds (9.0-12.0)
[2022-03-13] MEDS ORDERED: WARFARIN SOD 5 MG TAB PO ONE (22:15)
[2022-03-14] MEDS: BENZONATATE 100 MG CAPSULE PO SCH (05:37)
[2022-03-14 07:03] LABS: BUN Creatinine Ratio 29.4 (10-20); Calcium 9.7 mg/dl (8.5-10.1); Creatinine Clr Calc Pharmacy 43.3 ml/min; Est GFR (African American) 72.4 ml/min; Est GFR (Non-African American) 62.5 ml/min; Phosphorus 2.7 mg/dl (2.5-4.9)
[2022-03-14] MEDS: INSULIN ASPART PER UNIT SC SCH ×2 (08:16→12:00)
[2022-03-14] MEDS: LANTUS PER UNIT CHARGE SQ SCH (08:16)
[2022-03-14] MEDS: AZITHROMYCIN 250 MG TAB PO SCH (08:43)
[2022-03-14] MEDS: FAMOTIDINE 20 MG TAB PO SCH (08:43)
[2022-03-14] MEDS: guaiFENesin 600 MG TABCR PO SCH (08:43)
[2022-03-14] MEDS: dexAMETHasone 6 MG in SYRINGE 0 ML IV SCH (08:43)
[2022-03-14] MEDS: METOPROLOL SUCC 25MG EXT REL TAB PO SCH (08:43)
[2022-03-14] MEDS: POLYETHYLENE (MIRALAX) 17 GM PACK PO SCH (08:43)
[2022-03-14] MEDS: DULoxetine HCL 30 MG CAP PO SCH (08:44)
--- NOTE | 2022-03-14 12:19 | Discharge Summary ---
Date of Service March 14, 2022 Admission HPI Per Admitting Provider History obtained from patient, family, and records. Medical history significant for chronic systolic heart failure 2 to ischemic cardiomyopathy (EF 45-49%, TTE 2019), CAD sp stent, VHD (severe /AR status post TAVR, moderate MR/TR as per records), CVA, HTN, hyperlipidemia, SSS sp PPM on Coumadin,DM2 diet-controlled, hyperparathyroidism, anxiety/mood disorder. Last confinement December 2019 for epigastric pain, possible GERD. 4 days history of cough symptoms productive of junky yellow sputum with worsening shortness of breath. No chest pain. Poor appetite and weakness. Not sure about COVID-19 contacts. Patient has not received COVID-19 vaccination. O2 sats 80s upon arrival at the ER. Decadron and neb treatment administered at the ER. MEDICAL HISTORY: As above SURGICAL HISTORY: shoulder surgery, cholecystectomy, eye surgery, TAVR, pacemaker placement, vascular procedures FAMILY HISTORY: Heart disease. DM PERSONAL SOCIAL HISTORY: Nonsmoker, no chronic intake of alcoholic beverages. 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 [facility] resident. Admission Exam Per Admitting Provider GENERAL: Slightly uncomfortable, wane, ill-appearing, no respiratory distress SKIN: Normal color, warm HEENT: [place] palpebral conjunctivae, no ptosis, dry buccal mucosa, nasal cannula in place NECK : Supple, no tenderness CHEST : Decreased breath sounds, no chest wall tenderness HEART : Tachycardic, irregular, systolic murmur ABDOMEN: Some distention, nontender EXTREMITIES : Minimal LE swelling, no LE tenderness NEUROLOGIC : Coherent, no facial asymmetry, mild hearing impairment, no other gross focality Principal Diagnosis Acute Hypoxic resp failure, resolved. Pneumonia due to COVID 19 infection Likely superimposed bacterial infection Discharge Exam GENERAL: Alert and oriented x3. NAD, on RA. Appears old/frail. HEENT: No pallor, no icterus. Pupils equal, round and reactive to light. Oral mucosa moist. NECK: No JVD, no neck masses. HEART: S1 and S2 heard. irregular rate and rhythm. No murmur, no gallop. RESPIRATORY SYSTEM: Normal AP diameter. No accessory muscle use. No wheezing, no crackles. ABDOMEN: Soft, bowel sounds present, nontender, no distention. CENTRAL NERVOUS SYSTEM: No facial droop. Speech is clear. Obeys simple commands. Moves extremities. EXTREMITIES: trace ble edema, no erythema seen. Chronic skin changes ble. Discharge Data Allergies Allergy/AdvReac Type Severity Reaction Status Date / Time tetracycline Allergy Intermediate RASH Verified 03/11/22 22:07 morphine AdvReac Severe "VIOLENTLY Verified 03/11/22 22:07 ILL", NAUSEA/VOMITING codeine AdvReac Intermediate nausea/Vomi Verified 03/11/22 22:07 ting Consultations 03/11/22 20:09 ED Decision to Admit Stat Hospital Course (1) Acute hypoxemic respiratory failure: Plan 86-year-old lady with PMH of systolic heart failure secondary to ischemic cardiomyopathy [EF 45 to 49%, TTE 2019], CAD status post stent, VHD [/AR status post TAVR, moderate MR/TR], CVA, HTN, HLD, SSS status post PPM on Coumadin, DM2 diet controlled, hyperparathyroidism, anxiety/mood disorder presented to our ED 03/11 from the [facility] with 4-day history of cough symptoms associated with productive yellow sputum and worsening shortness of breath. Also reported poor appetite and weakness at presentation. Patient has been vaccinated against COVID and received booster dose on 02/15/2021. She was managed for the following: Acute hypoxemic respiratory failure Pneumonia due to COVID-19 infection Likely superimposed bacterial infection Patient presented with cough, productive yellow sputum, poor appetite and weakness, no diarrhea. Per records, booster vaccine 02/15/21 against COVID. Was saturating in 80s upon arrival at the ED. Required 2 L NC O2. Continue with nebulization, incentive spirometer -- take w/ self upon DC. DC decadron on DC. Patient currently on room air, reports feeling better but with cough, now w/ clear sputum. Mucinex and tessalon perle. Patient afebrile and hemodynamically stable. Continue with azithromycin for 1 more day on DC to complete the course. Other chronic medical conditions: Chronic systolic heart failure secondary to ischemic CM, CAD status post stent, CVA, SSS status post PPM on Coumadin, VHD [severe /AR status post TAVR, moderate MR/TR], HTN, HLD, DM2 diet controlled --> resume home meds as able. Primary hyperparathyroidism: Was deemed not a surgical candidate as per outpatient ENT note. Patient has not been able to follow-up recently with [facility] endocrinology, follow-up with endocrinology as an outpatient. DVT prophylaxis: Coumadin DNR/DNI Patient's daughter Ms. Niharika Saba, contact #[phone]. Updated 03/13. Pt being discharged to [facility] w/ following instructions at the point of discharge: Follow up with your PCP within a week time, and likely you will be getting blood tests cbc/cmp. F/u with your Endocrinology as OP. Continue with incentive spirometry every hour while awake as you were doing in the hospital. Maintain self isolation for 2 more days then use masks for next 5 days when around people. Take your medications as prescribed. Home Health Attestation I certify that this patient is under my care and that I, or a physicians orthodontic technician assistant working with me, had a face to-face encounter that meets the home health [id number] encounter requirements with this patient. The encounter with the patient was in whole, or in part, for the following medical condition, which is the primary reason for home health care (list medical condition): I certify that, based on my findings, the following services are medically necessary home health services: My clinical findings support the need for the above services because: Further, I certify that my clinical findings support that this patient is homebound (i.e. absences from home require considerable and taxing effort and are for medical reasons or [facility] services or infrequently or of short duration when for other reasons) because: Certification for Home Health Services: Based on the above findings, I certify that this patient is confined to the home and needs intermittent mcc care, physical therapy and/or speech therapy or continues to need occupational therapy. The patient is under my care, and I have initiated the establishment of the plan of care. This patient will be followed by a physician who will periodically review the plan of care. Total Time Total Time Spent Total Time Spent (In Minutes): 40 Discharge Plan Discharge Items Patient Disposition: [facility] Reason For Visit: RESP FAILURE, COVID Discharge Diagnosis: Acute Hypoxic resp failure, resolved. Pneumonia due to COVID 19 infection Likely superimposed bacterial infection Activity: Resume your previous activity Non-emergency contact: Primary Care Provider Call non-emergency contact if: you have any medication questions Follow-up/Referrals: LESLEE, [Primary Care Provider] - Diet: Carb Consistent or DM2 Diet Texture: Easy to Chew Addtl Attending Provider Instructions: Follow up with your PCP within a week time, and likely you will be getting blood tests cbc/cmp. F/u with your Endocrinology as OP. Continue with incentive spirometry every hour while awake as you were doing in the hospital. Maintain self isolation for 2 more days then use masks for next 5 days when around people. Take your medications as prescribed. Pending Studies at Discharge: No Stand-Alone Forms: My Wiren Board, Smoking Cessation Skilled Items Patient informed of condition?: Yes DNR: Yes Discharge Level of Care: Skilled Communicable Disease: Yes Discharge Prognosis: Stable Lines: None Urinary Catheter: No Medications and DC Order Prescriptions: New azithromycin 250 mg Tablet 250 mg PO QAM 1 Days Qty: 1 0RF benzonatate 100 mg Capsule 100 mg PO TID 5 Days Qty: 15 0RF guaifenesin [Mucinex] 600 mg Tablet Extended Release 12hr 600 mg PO Q12 5 Days Qty: 10 0RF Continued atorvastatin [Lipitor] 40 mg Tablet 40 mg PO HS warfarin 4 mg Tablet 0 mg PO .DAILY/UD Rx Instructions: take 1-1.5 tablets every day , as directed nitroglycerin [Nitrostat] 0.4 mg Tablet, Sublingual 0.4 mg sublingual DIRECTED PRN (Reason: Chest Pain) Rx Instructions: PLACE ONE TABLET UNDER THE TONGUE EVERY 5 MINUTES FOR UP TO 3 DOSES OVER 15 MINUTES IF NEEDED FOR CHEST PAIN metoprolol succinate [Toprol XL] 25 mg Tablet Extended Release 24 Hr 12.5 mg PO QAM alendronate 70 mg tablet 70 mg PO WK Rx Instructions: take this med every Sunday spironolactone 25 mg tablet 25 mg PO QAM torsemide 5 mg tablet 5 mg PO QAM PRN (Reason: Edema) duloxetine 30 mg capsule,delayed release(DR/EC) 30 mg PO QAM tramadol 50 mg tablet 50 mg PO BID PRN (Reason: Pain) polyethylene glycol 3350 17 gram/dose Powder 17 g PO DAILY PRN (Reason: Constipation) acetaminophen 500 mg Tablet 500 mg PO BID PRN (Reason: Pain) digoxin 125 mcg (0.125 mg) tablet 125 mcg PO 4XWK Saline Nasal Mist 0.65 % Aerosol,[place] 2 spray INTRANASAL Q8 PRN (Reason: Congestion) Discharge Orders: Discharge Order (Routine); Ordered 03/14/22 Ordered By: Magnolia Neil Admission Data Admit Date/Time: 03/11/22 21:24 Attending Provider: Magnolia Neil Admit Provider: Arturo Ji Primary Care Provider: Vasyl CAMILO Providers: Arturo Ji Other Interventions: Discharge Summary Assessment (RN) Last Done: 03/14/22 11:57
== END 2022-03-14 12:56 | disposition home or self-care (01) | DRG 177 ==
LOC: ED 18:55 → EDINP 21:24 → 4W 23:55

== ENCOUNTER 2022-09-05 21:17 | Inpatient (IN) ==
[2022-09-05 23:18] LABS: Basophils # (auto) 0.04 K/uL (0-0.2); Basophils % (auto) 0.7 %; Eosinophils # (auto) 0.11 K/uL (0-0.50); Eosinophils % (auto) 1.9 %; Hematocrit (blood only) 40.5 % (37.0-47.0); Hemoglobin 13.9 g/dl (12.0-16.0); Immature Granulocytes # (auto) 0.08 K/uL (0.01-0.20); Immature Granulocytes % (auto) 1.4 %; Lymphocytes # (auto) 1.27 K/uL (1.2-3.4); Lymphocytes % (auto) 22.2 %; Mean Corpuscular Hemoglobin 30.2 pg (25.0-34.0); Mean Corpuscular Hgb Conc 34.3 g/dL (32.0-36.0); Mean Platelet Volume 9.9 fL (9.4-12.4); Monocytes # (auto) 0.55 K/uL (0.11-0.59); Monocytes % (auto) 9.6 %; Neutrophils # (auto) 3.66 K/uL (1.40-6.50); Neutrophils % (auto) 64.2 %; Platelet Count 172 K/uL (130-400); RDW Coefficient of Variation 13.4 % (11.5-14.5); RDW Standard Deviation 43.2 fL (36.4-46.3); White Blood Count 5.71 K/ul (4.8-10.8)
[2022-09-05] MEDS ORDERED: SODIUM CHLORIDE 0.9% 500 ML IV ONE (23:18)
--- NOTE | 2022-09-05 23:35 | CT Scan Report ---
Exam(s): CT HEAD Without Contrast EXAM: CT Head Without Intravenous Contrast CLINICAL HISTORY: Reason for exam: Head trauma moderate-severe. TECHNIQUE: Axial computed tomography images of the head/brain without intravenous contrast. Automated exposure control was utilized for the study. A dose lowering technique was utilized adhering to the principles of ALARA. COMPARISON: No relevant prior studies available. FINDINGS: No acute intracranial hemorrhage. No midline shift or mass effect. The [place]-white matter differentiation is maintained throughout. Age-related cerebral volume loss. Periventricular and subcortical white matter hypoattenuation, consistent with chronic microangiopathy. The visualized orbits appear grossly unremarkable. The calvarium is intact. RIGHT parietal scalp soft tissue swelling. The visualized paranasal sinuses and mastoid air cells are grossly clear. IMPRESSION: No acute intracranial hemorrhage, midline shift, or mass effect. RIGHT parietal scalp soft tissue swelling. Electronically signed by: Gary Olivares MD 09/05/22 23:34 PM
--- NOTE | 2022-09-05 23:36 | CT Scan Report ---
Exam(s): CT C SPINE EXAM: CT Cervical Spine Without Intravenous Contrast CLINICAL HISTORY: Reason for exam: Neck trauma. TECHNIQUE: Axial computed tomography images of the cervical spine without intravenous contrast. Automated exposure control was utilized for the study. A dose lowering technique was utilized adhering to the principles of ALARA. COMPARISON: No relevant prior studies available. FINDINGS: The vertebral body heights are maintained. The craniocervical junction is intact. The atlanto-dens interval is maintained. The dens is intact. There is no spondylolisthesis. Multilevel cervical spondylosis and degenerative disc disease. Straightening of the cervical lordosis. The unenhanced neck soft tissues are grossly unremarkable. The visualized lung apices are grossly clear. IMPRESSION: No acute fracture or subluxation of the cervical spine. Electronically signed by: Gary Olivares MD 09/05/22 23:34 PM
[2022-09-05 23:59] LABS: Partial Thromboplastin Ratio 1.4; Prothrombin Time 30.8 Seconds (9.0-12.0)
[2022-09-06 00:06] LABS: Albumin Level 4.5 gm/dl (3.4-5.0); Calcium 10.7 mg/dl (8.6-10.3); Potassium 4.1 mmol/L (3.5-5.1)
[2022-09-06 00:42] LABS: Albumin Globulin Ratio 1.7 (0.9-2); BUN Creatinine Ratio 24.2 (10-20); Creatinine Clr Calc Pharmacy 34.4 ml/min; Est GFR (African American) 60.2 ml/min; Globulin 2.6 gm/dl (2.5-4.0); Total Protein 7.1 gm/dl (6.0-8.3)
[2022-09-06 01:05] LABS: Troponin I High Sensitivity 10.9 pg/ml (0-14)
[2022-09-06 01:06] LABS: Appearance Urine Clear (Clear); Bilirubin Urine Negative (Negative); Blood Urine Negative (Negative); Color Urine Yellow; Glucose Urine UA 3+ (Negative); Ketones Urine Negative (Negative); Leukocyte Esterase Urine Negative (Negative); Nitrite Urine Negative (Negative); Protein Urine Negative (Negative); Specific Gravity Urine 1.037 (1.000-1.030); Urobilinogen Urine Negative (Negative)
[2022-09-06] MEDS ORDERED: POLYETHYLENE (MIRALAX) 17 GM PACK PO PRN (03:30)
[2022-09-06] MEDS ORDERED: NITROGLYCERIN SL 0.4 MG/TAB TAB SL PRN (03:30)
[2022-09-06] MEDS ORDERED: traMADol HCL 50 MG TABLET PO PRN (03:30)
--- NOTE | 2022-09-06 05:57 | History & Physical Report ---
Date of Service September 06, 2022 Assessment & Plan Admission and Anticipated Discharge Date Admission Date: September 06, 2022 History of Present Illness Primary Care Provider: LESLEE Allergies Allergy/AdvReac Type Severity Reaction Status Date / Time tetracycline Allergy Intermediate RASH Verified 03/11/22 22:07 morphine AdvReac Severe "VIOLENTLY Verified 03/11/22 22:07 ILL", NAUSEA/VOMITING codeine AdvReac Intermediate nausea/Vomi Verified 03/11/22 22:07 ting Home Medications Medication Instructions Recorded Confirmed Type atorvastatin 40 mg tablet (Lipitor) 40 mg PO HS 11/11/19 03/11/22 History metoprolol succinate 25 mg 12.5 mg PO QAM 11/11/19 03/11/22 History tablet,extended release 24 hr (Toprol XL) nitroglycerin 0.4 mg sublingual 0.4 mg sublingual DIRECTED PRN 11/11/19 03/11/22 History tablet (Nitrostat) Chest Pain warfarin 4 mg tablet 0 mg PO .DAILY/UD 11/11/19 03/11/22 History alendronate 70 mg tablet 70 mg PO WK 08/11/21 03/11/22 History duloxetine 30 mg capsule,delayed 30 mg PO QAM 08/11/21 03/11/22 History release spironolactone 25 mg tablet 25 mg PO QAM 08/11/21 03/11/22 History torsemide 5 mg tablet 5 mg PO QAM PRN Edema 08/11/21 03/11/22 History acetaminophen 500 mg tablet 500 mg PO BID PRN Pain 03/11/22 03/11/22 History digoxin 125 mcg (0.125 mg) tablet 125 mcg PO 4XWK 03/11/22 03/11/22 History polyethylene glycol 3350 17 17 g PO DAILY PRN Constipation 03/11/22 03/11/22 History gram/dose oral powder sodium chloride 0.65 % nasal spray 2 spray intranasal Q8 PRN 03/11/22 03/11/22 History aerosol (Saline Nasal Mist) Congestion tramadol 50 mg tablet 50 mg PO BID PRN Pain 03/11/22 03/11/22 History Past Med/Surg History Medical History (Updated 03/12/22 @ 05:24 by Arturo Ji MD) Aortic stenosis S/P TAVR in 2015 CAD (coronary artery disease) S/P [place] and stent to RCA in 2002 Chest pain Chronic atrial fibrillation Chronic systolic heart failure Depression Diabetes mellitus, type II Fracture of tibial plateau (Unknown) HLD (hyperlipidemia) HTN (hypertension) Hypercalcemia (Unknown) Hyperparathyroidism Primary hyperparathyroidism (Unknown) Rotator cuff arthropathy Tachy-wanda syndrome Surgical History Aortic valve replaced S/P cardiac pacemaker procedure S/p TAVR (transcatheter aortic valve replacement), bioprosthetic 2016 Family History Other Cancer Diabetes Heart disease Hypertension Social History Smoking Status: Never smoker Second Hand Exposure: No; Do You Dip or Chew Tobacco: No; Hx Alcohol Use: No Hx Substance Use: No Preferred Language: Frisian Communication Ability: Effective Manager Quality Compliance Required: No Beliefs That Will Affect Care: None marital status: / Current Living Situation: Personal Care Facility Current Living Situation Comment: [facility] How many Children do You have: 3 Feels Safe at Home: Yes Assistive Devices: Walker Results & Data Results & Data Vital Signs (Past 12 Hours) Vital Signs Temp Pulse Pulse Resp BP BP Pulse Ox 09/06/22 05:30 80 16 96 09/06/22 04:00 76 19 139/70 09/06/22 03:30 09/06/22 03:00 82 20 118/95 98 09/06/22 02:30 86 22 09/06/22 01:41 77 09/06/22 00:00 76 17 130/75 95 09/06/22 00:00 130/75 09/05/22 23:00 73 24 126/75 94 09/05/22 22:12 67 19 130/85 95 09/05/22 21:38 68 09/05/22 21:30 71 19 142/82 H 95 09/05/22 21:19 37.0 C 94 H 17 133/84 96 O2 Del Method 09/06/22 05:30 Room Air 09/06/22 04:00 09/06/22 03:30 Room Air 09/06/22 03:00 Room Air 09/06/22 02:30 09/06/22 01:41 09/06/22 00:00 09/06/22 00:00 09/05/22 23:00 Room Air 09/05/22 22:12 Room Air 09/05/22 21:38 09/05/22 21:30 Room Air 09/05/22 21:19 Room Air Code Status & VTE Plan VTE Prophylaxis Plan VTE Prophylaxis will be ordered: Yes PG Care Time/CCT Total # of Minutes Spent Total Time Spent with Patient: Total time spent is greater than 50% in coordination of care (as documented) at patient's floor/unit and/or counseling patient: Coding Diagnoses
--- NOTE | 2022-09-06 05:59 | Emergency Department Note ---
History of Present Illness General Chief complaint: Fall Stated complaint: DIZZY- FALL Time Seen by Provider: 09/05/22 23:13 History of Present Illness Maximum Pain Intensity: 4 This is an 86-year-old female presenting to the emergency department via EMS for evaluation of syncope, fall, and head injury. The patient lives in an assisted living facility and was in her kitchen. She was standing at the countertop when she felt like she was going to blackout, turned slightly, fell, and struck her head on the counter. The patient does have pain in the head but does not report injury elsewhere. She is able to move arms and legs as normal. The patient does have a pacemaker, and had a visit with cardiology earlier this month, where she was told that the pacemaker battery would need to be changed "soon". The patient does not recall chest pain, chest tightness, shortness of breath, or palpitations before or after the event. She is on Coumadin. She rates her current discomfort a 4/10. Home Medications Medication Instructions Recorded Confirmed Type atorvastatin 40 mg tablet (Lipitor) 40 mg PO HS 11/11/19 09/06/22 History metoprolol succinate 25 mg 25 mg PO QAM 11/11/19 09/06/22 History tablet,extended release 24 hr (Toprol XL) nitroglycerin 0.4 mg sublingual 0.4 mg sublingual DIRECTED PRN 11/11/19 09/06/22 History tablet (Nitrostat) Chest Pain warfarin 4 mg tablet 4 mg PO SUMOWETHFRSA@1600 11/11/19 09/06/22 History alendronate 70 mg tablet 70 mg PO WK 08/11/21 09/06/22 History duloxetine 30 mg capsule,delayed 30 mg PO QAM 08/11/21 09/06/22 History release spironolactone 25 mg tablet 25 mg PO QAM 08/11/21 09/06/22 History torsemide 5 mg tablet 5 mg PO QAM PRN Edema 08/11/21 09/06/22 History acetaminophen 500 mg tablet 500 mg PO BID PRN Pain 03/11/22 09/06/22 History digoxin 125 mcg (0.125 mg) tablet 125 mcg PO [id number] 03/11/22 09/06/22 History polyethylene glycol 3350 17 17 g PO DAILY PRN Constipation 03/11/22 09/06/22 History gram/dose oral powder sodium chloride 0.65 % nasal spray 2 spray intranasal Q8 PRN 03/11/22 09/06/22 History aerosol (Saline Nasal Mist) Congestion tramadol 50 mg tablet 50 mg PO BID PRN Pain 03/11/22 09/06/22 History warfarin 4 mg tablet 4 mg PO TU@1600 09/06/22 09/06/22 History Allergies Allergy/AdvReac Type Severity Reaction Status Date / Time tetracycline Allergy Intermediate RASH Verified 03/11/22 22:07 morphine AdvReac Severe "VIOLENTLY Verified 03/11/22 22:07 ILL", NAUSEA/VOMITING codeine AdvReac Intermediate nausea/Vomi Verified 03/11/22 22:07 ting Past Med/Surg History Medical History (Updated 09/06/22 @ 21:08 by Chino Pearson PA-C) Aortic stenosis S/P TAVR in 2015 CAD (coronary artery disease) S/P AL and stent to RCA in 2002 Chest pain Chronic atrial fibrillation Chronic systolic heart failure Depression Diabetes mellitus, type II Fracture of tibial plateau (Unknown) HLD (hyperlipidemia) HTN (hypertension) Hypercalcemia (Unknown) Hyperparathyroidism Primary hyperparathyroidism (Unknown) Rotator cuff arthropathy Tachy-wanda syndrome Surgical History Aortic valve replaced S/P cardiac pacemaker procedure S/p TAVR (transcatheter aortic valve replacement), bioprosthetic 2015 Family History Other Cancer Diabetes Heart disease Hypertension Social History Smoking Status: Never smoker Second Hand Exposure: No; Do You Dip or Chew Tobacco: No; Hx Alcohol Use: No Hx Substance Use: No Preferred Language: Upper Sorbian Communication Ability: Effective A R Specialist Required: No Beliefs That Will Affect Care: None marital status: / Current Living Situation: Personal Care Facility Current Living Situation Comment: [facility] How many Children do You have: 3 Other Information That Helps Us Care for You: No Feels Safe at Home: Yes Assistive Devices: Cane, Glasses and Walker Review of Systems A total of 10 systems reviewed and were otherwise negative Physical Exam Vital Signs Vital Signs - 24 hr 09/05/22 21:19 09/05/22 21:30 09/05/22 21:38 Temperature 37.0 C Temperature Source Oral Pulse Rate 94 H 68 Pulse Rate [Apical] 71 Pulse Rate from SpO2 Sensor Respiratory Rate 17 19 Respiratory Depth Normal Normal Blood Pressure 133/84 Blood Pressure [Right Arm] 142/82 H Blood Pressure Mean 100 Blood Pressure Mean [Right Arm] 102 Pulse Oximetry 96 95 Oxygen Delivery Method Room Air Room Air Sepsis Recent Fever Within 48 Hours No Sepsis New/Unexplained Change in Mental Status No Sepsis Action Taken by Nursing No Action Required 09/05/22 22:12 09/05/22 23:00 09/06/22 00:00 Temperature Temperature Source Pulse Rate 73 Pulse Rate [Apical] 67 Pulse Rate from SpO2 Sensor 70 Respiratory Rate 19 24 Respiratory Depth Normal Blood Pressure 126/75 130/75 Blood Pressure [Right Arm] 130/85 Blood Pressure Mean 92 93 Blood Pressure Mean [Right Arm] 100 Pulse Oximetry 95 94 Oxygen Delivery Method Room Air Room Air Sepsis Recent Fever Within 48 Hours Sepsis New/Unexplained Change in Mental Status Sepsis Action Taken by Nursing 09/06/22 00:00 Temperature Temperature Source Pulse Rate 76 Pulse Rate [Apical] Pulse Rate from SpO2 Sensor 72 Respiratory Rate 17 Respiratory Depth Blood Pressure 130/75 Blood Pressure [Right Arm] Blood Pressure Mean 93 Blood Pressure Mean [Right Arm] Pulse Oximetry 95 Oxygen Delivery Method Sepsis Recent Fever Within 48 Hours Sepsis New/Unexplained Change in Mental Status Sepsis Action Taken by Nursing VITALS: Vitals are noted on the nurse's note and reviewed by myself. Vital signs stable. GENERAL: Elderly white female who is pleasant and in no acute distress. She is answering questions appropriately. HEAD: There is a posterior scalp hematoma noted without active bleeding. No hernandez sign or raccoon eyes. NECK: Supple without nuchal rigidity. No lymphadenopathy. No thyromegaly. Cervical spine is nontender. HEART: Regular rate and rhythm LUNGS: Clear to auscultation bilaterally without wheezes, rales or rhonchi. No retractions or accessory muscle use. ABDOMEN: Positive normal bowel sounds x 4. Soft, nontender, without masses or organomegaly. MUSCULOSKELETAL: No muscle atrophy, erythema, or edema noted. Full range of motion in all extremities. NEURO: Patient was alert and oriented to person place and time. CN II through XII grossly intact. GCS 15. Course Administered Medications Atorvastatin Calcium (Atorvastatin 40 Mg Tab) 40 mg PO HS ACE Stop: 10/06/22 20:59 Last Admin: 09/06/22 21:01 Dose: 40 mg Documented By: TYRESE Digoxin (Digoxin 0.125 Mg Tab) 0.125 mg PO MoWeFrSa [facility] Stop: 10/06/22 15:59 Last Admin: 09/06/22 17:41 Dose: 0.125 mg Documented By: CUCA Duloxetine HCl (Duloxetine Hcl 30 Mg Cap) 30 mg PO [facility] Stop: 10/06/22 08:59 Last Admin: 09/06/22 08:59 Dose: 30 mg Documented By: CAROL Sodium Chloride (Nss 1000ml) 1,000 mls @ 80 mls/hr IV .[id number] [facility] Stop: 09/06/22 21:29 Last Admin: 09/06/22 12:12 Dose: 80 mls/hr Documented By: MARIA DEL CARMEN Insulin Aspart (Insulin Aspart Per Unit Charge) 0 units SC ACHS [facility] Stop: 10/06/22 11:29 Last Admin: 09/06/22 17:39 Dose: 3 units Documented By: CUCA Co-signed By: MINA Admin: 09/06/22 12:12 Dose: 3 units Documented By: MARIA DEL CARMEN Co-signed By: AM Insulin Glargine (Lantus Per Unit Charge) 0 units SQ BID [facility]; Protocol Stop: 10/06/22 08:59 Last Admin: 09/06/22 09:03 Dose: 6 units Documented By: CAROL Co-signed By: SHAINA Metoprolol Succinate (Metoprolol Succ 25mg Ext Rel Tab) 25 mg PO [facility] Stop: 10/06/22 08:59 Last Admin: 09/06/22 08:58 Dose: 25 mg Documented By: CAROL Spironolactone (Spironolactone 25 Mg Tab) 25 mg PO [facility] Stop: 10/06/22 08:59 Last Admin: 09/06/22 08:59 Dose: 25 mg Documented By: CAROL Discontinued Medications Aspirin (Aspirin 81 Mg Ectab) 81 mg PO [facility] Stop: 09/07/22 09:01 Last Admin: 09/06/22 08:56 Dose: 81 mg Documented By: CAROL Sodium Chloride (Nss) 500 mls @ 999 mls/hr IV .Q31M ONE Stop: 09/05/22 23:48 Last Infusion: 09/06/22 00:28 Dose: 0 mls/hr Documented By: Admin: 09/05/22 23:35 Dose: 999 mls/hr Documented By: JEANNE Warfarin Sodium (Warfarin Sod 2 Mg Tab) 2 mg PO ONE ONE Stop: 09/06/22 16:01 Last Admin: 09/06/22 17:42 Dose: 2 mg Documented By: CUCA Medical Decision Making Differential Diagnosis Differential diagnosis: Etiologies such as closed head injury, vasovagal event, infection, anemia, hypoglycemia, hypovolemia, electrolyte abnormalities, dysrhythmias, cardiac ischemia, cardiac tamponade, valvular heart disease, structural heart disease, seizure, vascular stenosis/dissection, pulmonary embolism, intracerebral event, toxicological process, neurologic event, as well as others were entertained. Laboratory Data 09/05/22 21:33 09/05/22 21:33 Lab Results 09/05/22 09/05/22 09/05/22 Range/Units 21:33 21:33 21:33 WBC 5.71 (4.8-10.8) K/ul RBC 4.60 (4.20-5.40) M/uL Hgb 13.9 (12.0-16.0) g/dl Hct 40.5 (37.0-47.0) % MCV 88.0 (80.0-100.0) fL MCH 30.2 (25.0-34.0) pg MCHC 34.3 (32.0-36.0) g/dL RDW Std Deviation 43.2 (36.4-46.3) fL RDW Coeff of Rosas 13.4 (11.5-14.5) % Plt Count 172 (130-400) K/uL MPV 9.9 (9.4-12.4) fL Immature Gran % (Auto) 1.4 % Neut % (Auto) 64.2 % Lymph % (Auto) 22.2 % Clinton % (Auto) 9.6 % Eos % (Auto) 1.9 % Baso % (Auto) 0.7 % Neut # (Auto) 3.66 (1.40-6.50) K/uL Lymph # (Auto) 1.27 (1.2-3.4) K/uL Clinton # (Auto) 0.55 (0.11-0.59) K/uL Eos # (Auto) 0.11 (0-0.50) K/uL Baso # (Auto) 0.04 (0-0.2) K/uL Immature Gran # (Auto) 0.08 (0.01-0.20) K/uL PT 30.8 H (9.0-12.0) Seconds INR 3.0 H (0.9-1.1) APTT 40.0 H (21.0-31.0) Seconds PTT Ratio 1.4 Sodium 135 L (136-145) mmol/L Potassium 4.1 (3.5-5.1) mmol/L Chloride 101 (98-107) mmol/L Carbon Dioxide 27 (21-32) mmol/L Anion Gap 7 (3-11) BUN 24 H (6-23) mg/dl Creatinine 0.99 (0.6-1.2) mg/dl Est Cr Clr Drug Dosing 34.4 ml/min Est GFR ( Amer) 60.2 ml/min Est GFR (Non-Af Amer) 52.0 ml/min BUN/Creatinine Ratio 24.2 H (10-20) Glucose 387 H* (70-99(Fasting)) mg/dl Calcium 10.7 H (8.6-10.3) mg/dl Total Bilirubin 1.0 (0.2-1.0) mg/dl AST 19 (13-39) U/L ALT 20 (7-52) U/L Alkaline Phosphatase 57 (34-104) U/L Troponin I High Sens 10.9 (0-14) pg/ml Total Protein 7.1 (6.0-8.3) gm/dl Albumin 4.5 (3.4-5.0) gm/dl Globulin 2.6 (2.5-4.0) gm/dl Albumin/Globulin Ratio 1.7 (0.9-2) TSH (0.300-4.500) uIu/ml Urine Color Urine Appearance (Clear) Urine pH (4.5-7.5) Ur Specific Sibley (1.000-1.030) Urine Protein (Negative) Urine Glucose (UA) (Negative) Urine Ketones (Negative) Urine Blood (Negative) Urine Nitrite (Negative) Urine Bilirubin (Negative) Urine Urobilinogen (Negative) Ur Leukocyte Esterase (Negative) SARS-CoV-2, RNA, NAAT (NEGATIVE) 09/05/22 09/06/22 09/06/22 Range/Units 21:33 00:48 01:15 WBC (4.8-10.8) K/ul RBC (4.20-5.40) M/uL Hgb (12.0-16.0) g/dl Hct (37.0-47.0) % MCV (80.0-100.0) fL MCH (25.0-34.0) pg MCHC (32.0-36.0) g/dL RDW Std Deviation (36.4-46.3) fL RDW Coeff of Rosas (11.5-14.5) % Plt Count (130-400) K/uL MPV (9.4-12.4) fL Immature Gran % (Auto) % Neut % (Auto) % Lymph % (Auto) % Clinton % (Auto) % Eos % (Auto) % Baso % (Auto) % Neut # (Auto) (1.40-6.50) K/uL Lymph # (Auto) (1.2-3.4) K/uL Clinton # (Auto) (0.11-0.59) K/uL Eos # (Auto) (0-0.50) K/uL Baso # (Auto) (0-0.2) K/uL Immature Gran # (Auto) (0.01-0.20) K/uL PT (9.0-12.0) Seconds INR (0.9-1.1) APTT (21.0-31.0) Seconds PTT Ratio Sodium (136-145) mmol/L Potassium (3.5-5.1) mmol/L Chloride (98-107) mmol/L Carbon Dioxide (21-32) mmol/L Anion Gap (3-11) BUN (6-23) mg/dl Creatinine (0.6-1.2) mg/dl Est Cr Clr Drug Dosing ml/min Est GFR ( Amer) ml/min Est GFR (Non-Af Amer) ml/min BUN/Creatinine Ratio (10-20) Glucose (70-99(Fasting)) mg/dl Calcium (8.6-10.3) mg/dl Total Bilirubin (0.2-1.0) mg/dl AST (13-39) U/L ALT (7-52) U/L Alkaline Phosphatase (34-104) U/L Troponin I High Sens (0-14) pg/ml Total Protein (6.0-8.3) gm/dl Albumin (3.4-5.0) gm/dl Globulin (2.5-4.0) gm/dl Albumin/Globulin Ratio (0.9-2) TSH 1.530 (0.300-4.500) uIu/ml Urine Color Yellow Urine Appearance Clear (Clear) Urine pH 6.0 (4.5-7.5) Ur Specific Sibley 1.037 H (1.000-1.030) Urine Protein Negative (Negative) Urine Glucose (UA) 3+ H (Negative) Urine Ketones Negative (Negative) Urine Blood Negative (Negative) Urine Nitrite Negative (Negative) Urine Bilirubin Negative (Negative) Urine Urobilinogen Negative (Negative) Ur Leukocyte Esterase Negative (Negative) SARS-CoV-2, RNA, NAAT NEGATIVE (NEGATIVE) Imaging Data Radiologist's Impression: Cervical Spine CT 09/05/22 22:36 Exam(s): CT C SPINE EXAM: CT Cervical Spine Without Intravenous Contrast CLINICAL HISTORY: Reason for exam: Neck trauma. TECHNIQUE: Axial computed tomography images of the cervical spine without intravenous contrast. Automated exposure control was utilized for the study. A dose lowering technique was utilized adhering to the principles of ALARA. COMPARISON: No relevant prior studies available. FINDINGS: The vertebral body heights are maintained. The craniocervical junction is intact. The atlanto-dens interval is maintained. The dens is intact. There is no spondylolisthesis. Multilevel cervical spondylosis and degenerative disc disease. Straightening of the cervical lordosis. The unenhanced neck soft tissues are grossly unremarkable. The visualized lung apices are grossly clear. IMPRESSION: No acute fracture or subluxation of the cervical spine. Electronically signed by: Gary Olivares MD 09/05/22 23:[address] 09/05/22 22:36 Exam(s): CT HEAD Without Contrast EXAM: CT Head Without Intravenous Contrast CLINICAL HISTORY: Reason for exam: Head trauma moderate-severe. TECHNIQUE: Axial computed tomography images of the head/brain without intravenous contrast. Automated exposure control was utilized for the study. A dose lowering technique was utilized adhering to the principles of ALARA. COMPARISON: No relevant prior studies available. FINDINGS: No acute intracranial hemorrhage. No midline shift or mass effect. The [place]-white matter differentiation is maintained throughout. Age-related cerebral volume loss. Periventricular and subcortical white matter hypoattenuation, consistent with chronic microangiopathy. The visualized orbits appear grossly unremarkable. The calvarium is intact. RIGHT parietal scalp soft tissue swelling. The visualized paranasal sinuses and mastoid air cells are grossly clear. IMPRESSION: No acute intracranial hemorrhage, midline shift, or mass effect. RIGHT parietal scalp soft tissue swelling. 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 Nursing notes, EMR, and Medication List were personally reviewed. No social concerns were identified as barriers to patients care. Patient appears to have had syncopal episode with head injury today. She does have injury to the back of her head but no hernandez sign raccoon eyes. She is on Coumadin IV access was established and labs were obtained. She was hydrated with normal saline. CT scans of the head and neck were performed. An order was placed for continuous cardiac monitoring. The monitor shows a rate of 67 with atrial fibrillation rhythm. Patient's blood work is as above and was reviewed. She does not have a significantly elevated white blood cell count, gross anemia, bandemia, or significant electrolyte imbalance. INR is 3.0. Transaminases are not diagno stic. Troponin x1 is negative. CT scans were reviewed by myself and radiology showing no acute process. Patient case was discussed with my attending, and we do not feel she is well for discharge home. She has several comorbidities and does voice concern for possible pacemaker failure. The case was discussed with the hospitalist team who agreed to evaluate the patient here in the ER. Please see their dictation for further patient course, plan, disposition. The chart was completed utilizing in[employer] Voice Recognition Software. Grammatical errors, random word insertions, pronoun errors, and incomplete sentences are an occasional consequence of this system due to software limitatio ns, ambient noise, and hardware issues. Any formal questions or concerns about the content, text, or information contained within the body of this dictation should be directly addressed to the provider for clarification. . Impression & Plan Syncope, Head injury Discharge Plan Visit Data Chief Complaint: Fall Stated Complaint: DIZZY- FALL ED Provider: eBckie Cantu ED Midlevel Provider: Chino Pearson Discharge Problem: Syncope, Head injury Patient Disposition: Admitted As Inpatient Discharge Instructions Interventions: ED Discharge Assessment Last Done: 09/06/22 16:35
[2022-09-06 07:13] LABS: Hematocrit (blood only) 35.9 % (37.0-47.0); Hemoglobin 12.7 g/dl (12.0-16.0); Mean Corpuscular Hemoglobin 30.4 pg (25.0-34.0); Mean Corpuscular Hgb Conc 35.4 g/dL (32.0-36.0); Mean Corpuscular Volume 85.9 fL (80.0-100.0); Mean Platelet Volume 9.5 fL (9.4-12.4); Platelet Count 157 K/uL (130-400); RDW Coefficient of Variation 13.6 % (11.5-14.5); Red Blood Count 4.18 M/uL (4.20-5.40); White Blood Count 5.66 K/ul (4.8-10.8)
[2022-09-06 07:27] LABS: Prothrombin Time 30.3 Seconds (9.0-12.0)
[2022-09-06 07:42] LABS: Calcium 9.8 mg/dl (8.6-10.3); Potassium 3.9 mmol/L (3.5-5.1)
[2022-09-06 07:48] LABS: BUN Creatinine Ratio 24.3 (10-20); Est GFR (African American) 85.6 ml/min; Est GFR (Non-African American) 73.9 ml/min
--- NOTE | 2022-09-06 08:30 | Electrocardiogram Report ---
Test Reason : Blood Pressure : / mmHG Vent. 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
--- NOTE | 2022-09-06 08:30 | History & Physical Report ---
Date of Service September 06, 2022 Assessment & Plan (1) Fall: (2) Dizziness: (3) Syncope: (4) Chronic atrial fibrillation: (5) Chronic systolic heart failure: (6) Tachy-wanda syndrome: (7) S/P cardiac pacemaker procedure: (8) S/p TAVR (transcatheter aortic valve replacement), bioprosthetic: (9) CAD (coronary artery disease): (10) Diabetes mellitus, type II: Plan This is an 86-year-old female who has significant past medical history of chronic atrial fibrillation, history of tachybradycardia syndrome status post PPM, CAD, history of AVR HTN, moderate mitral regurgitation, HLD, T2DM, hyperparathyroidism, CKD stage III, osteoporosis, depression, MINDY, history of CVA who presents to ED after stating a syncopal episode and fall. Fall Dizziness Possible Syncope - pt unsure if true syncope or not admit to [facility] monitor on tele pacer interrogation ( recently done in early August, but will re do to determine possible cause of event), pt also states she will need her battery exchanged soon orthostatics repeat trop x 1, ecg gentle IVF x 1 L recent echo 08/29 LVEF 45 to 49%, mildly reduced, severe biatrial enlargement, left atrium severely enlarged, right atrium severely enlarged, status post TAVR with CoreValve prosthetic valve with aortic valve prosthesis stenosis absent. Significant aortic valve prosthesis regurgitation is absent. Moderate mitral regurg is present. Moderate tricuspid regurg is present. Mild pulmonary hypertension is present. PT/OT cardiology consulted for possible syncope in setting of pacer nearing end of longevity Chronic Atrial Fib Hx of TBS s/p PPM CAD Chronic HFrEF Aortic Stenosis s/p AVR continue metoprolol, dig, statin, aldactone daily weights, strict I and O warfarin dose 2mg on Tu and 4mg all other days INR 3.0 today, she did not receive dose last evening, will give only 2mg today and then recheck tomorrow T2DM last a1c 07/2021 was 6.[address] on lantus/novolog per protcol obtain a1c in am. CKD-3 cr stable monitor, avoid nephrotoxic agents DVT ppx: warfarin Dispo: med tele, PT/OT, cards eval, likely d/c 1-2 days, pt resides at [facility] FULL CODE PCP: Meredith A total of 75 was spent coordinating, documenting, and providing care for this patient excluding time spent in the performance of separately billed services. This included personally viewing all current laboratories and imaging studies, medication reconciliation, outpatient chart review, and discussion with specialists. Pt was seen and examined in collaboration with Dr. 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 Primary Care Provider: LESLEE This is an 86-year-old female who has significant past medical history of chronic atrial fibrillation, history of tachybradycardia syndrome status post PPM, CAD, history of AVR HTN, moderate mitral regurgitation, HLD, T2DM, hyperparathyroidism, CKD stage III, osteoporosis, depression, MINDY, history of CVA who presents to ED after stating a syncopal episode and fall. Records reviewed from ER. Patient presented to ER in early childhood hours after she sustained a syncopal episode. She lives in assisted living facility and was in her kitchen. She was standing at a countertop when she felt like she was going to, "pass out," and this is when she fell and struck her head on the counter. After discussing with patient she states she was visiting her friend at [facility]. She typically has to be back at the [facility] at [address]. They were in the kitchen and she was doing some dishes. Her boyfriend was right behind her and when she went to turn around she fell to the floor. She states that she got, "dizzy." She described as feeling like she was going to, "pass out." She recalls all events and is not quite sure that she truly passed out completely. She had the right side of her head in the right side of her chest. She does have a contusion to the back of her right head and she states this is slowly getting smaller since being in the ER. At the time of the event she does not recall having any chest pain, palpitations, diaphoresis, shortness of breath or nausea. She also states that, "everything just happened in seconds." She denies a similar events in the past. Currently she feels improved lying in bed. She denies any fever, chills, sweats, lightheadedness, dizziness, chest pain, shortness breath, nausea, vomiting, abdominal pain. At baseline she typically walks with a cane or walker. In ED patient remained hemodynamically stable. Her CBC and CMP was generally unremarkable except for elevated glucose at 241. Her head and neck CT were unremarkable though it did reveal a right parietal scalp soft tissue contusion. Of significance on 08/25 patient underwent TTE which revealed LVEF 45 to 49%, mildly reduced, severe biatrial enlargement, left atrium severely enlarged, right atrium severely enlarged, status post TAVR with CoreValve prosthetic valve with aortic valve prosthesis stenosis absent. Significant aortic valve prosthesis regurgitation is absent. Moderate mitral regurg is present. Moderate tricuspid regurg is present. Mild pulmonary hypertension is present. There was no change in comparison from May 11, 2021. On 08/14/2022 patient underwent pacemaker check to monitor longevity. Allergies Allergy/AdvReac Type Severity Reaction Status Date / Time tetracycline Allergy Intermediate RASH Verified 03/11/22 22:07 morphine AdvReac Severe "VIOLENTLY Verified 03/11/22 22:07 ILL", NAUSEA/VOMITING codeine AdvReac Intermediate nausea/Vomi Verified 03/11/22 22:07 ting Home Medications Medication Instructions Recorded Confirmed Type atorvastatin 40 mg tablet (Lipitor) 40 mg PO HS 11/11/19 09/06/22 History metoprolol succinate 25 mg 25 mg PO QAM 11/11/19 09/06/22 History tablet,extended release 24 hr (Toprol XL) nitroglycerin 0.4 mg sublingual 0.4 mg sublingual DIRECTED PRN 11/11/19 09/06/22 History tablet (Nitrostat) Chest Pain warfarin 4 mg tablet 4 mg PO SUMOWETHFRSA@1600 11/11/19 09/06/22 History alendronate 70 mg tablet 70 mg PO WK 08/11/21 09/06/22 History duloxetine 30 mg capsule,delayed 30 mg PO QAM 08/11/21 09/06/22 History release spironolactone 25 mg tablet 25 mg PO QAM 08/11/21 09/06/22 History torsemide 5 mg tablet 5 mg PO QAM PRN Edema 08/11/21 09/06/22 History acetaminophen 500 mg tablet 500 mg PO BID PRN Pain 03/11/22 09/06/22 History digoxin 125 mcg (0.125 mg) tablet 125 mcg PO 4XWK 03/11/22 09/06/22 History polyethylene glycol 3350 17 17 g PO DAILY PRN Constipation 03/11/22 09/06/22 History gram/dose oral powder sodium chloride 0.65 % nasal spray 2 spray intranasal Q8 PRN 03/11/22 09/06/22 History aerosol (Saline Nasal Mist) Congestion tramadol 50 mg tablet 50 mg PO BID PRN Pain 03/11/22 09/06/22 History warfarin 4 mg tablet 4 mg PO TU@1600 09/06/22 09/06/22 History Past Med/Surg History Medical History (Updated 09/06/22 @ 10:37 by Albert Camacho) Aortic stenosis S/P TAVR in 2015 CAD (coronary artery disease) S/P MD and stent to RCA in 2002 Chest pain Chronic atrial fibrillation Chronic systolic heart failure Depression Diabetes mellitus, type II Fracture of tibial plateau (Unknown) HLD (hyperlipidemia) HTN (hypertension) Hypercalcemia (Unknown) Hyperparathyroidism Primary hyperparathyroidism (Unknown) Rotator cuff arthropathy Tachy-wanda syndrome Surgical History Aortic valve replaced S/P cardiac pacemaker procedure S/p TAVR (transcatheter aortic valve replacement), bioprosthetic 2015 Family History Other Cancer Diabetes Heart disease Hypertension Social History Smoking Status: Never smoker Second Hand Exposure: No; Do You Dip or Chew Tobacco: No; Hx Alcohol Use: No Hx Substance Use: No Preferred Language: Paraguayan Communication Ability: Effective Robotic Technician Required: No Beliefs That Will Affect Care: None marital status: / Current Living Situation: Personal Care Facility Current Living Situation Comment: [facility] How many Children do You have: 3 Other Information That Helps Us Care for You: No Feels Safe at Home: Yes Assistive Devices: Cane, Glasses and Walker Review of Systems Review of Systems: All systems reviewed & are unremarkable except as noted in HPI & below Physical Exam Physical Exam: Constitutional: WD/WN, vitals as above, NAD, sitting up in bed, pleasant, conversing easily Head: Normocephalic, Atraumatic + R parietal contusion Eyes: PERRL, conjunctivae normal, anicteric sclerae ENMT: external ear and nose normal, oropharynx normal Neck: trachea midline, no thyromegaly normal visual inspection Respiratory: normal respiratory effort, lungs clear to auscultation, no wheeze, rales, rhonchi. Normal insp/exp effort, no accessory muscle use Cardiovascular: IRR/IRR, LACW pacer noted, no murmur, no edema Vessels: no JVD or carotid bruit Chest: normal inspection of chest Abdomen: normal bowel sounds, soft, nontender, no hepatosplenomegaly Musculoskeletal: no cyanosis or clubbing, extremities motor strength 5/5 Skin: no rashes, warm and dry normal turgor Neurologic: PERRL, EOMI, accommodation nl, no face palsy, no dysarthria CN's II-XI intact bilaterally and moves all extremities Psychiatric: A+Ox3, euthymic affect Lymphatic: no cervical or axillary lymphadenopathy : deferred Results & Data Results & Data Vital Signs (Past 12 Hours) Vital Signs Temp Pulse Pulse Resp BP BP Pulse Ox 09/06/22 07:29 95 H 16 134/75 93 09/06/22 06:57 82 09/06/22 05:30 80 16 96 09/06/22 04:00 76 19 139/70 09/06/22 03:30 09/06/22 03:00 82 20 118/95 98 09/06/22 02:30 86 22 09/06/22 01:41 77 09/06/22 00:00 76 17 130/75 95 09/06/22 00:00 130/75 09/05/22 23:00 73 24 126/75 94 09/05/22 22:12 67 19 130/85 95 09/05/22 21:38 68 09/05/22 21:30 71 19 142/82 H 95 09/05/22 21:19 37.0 C 94 H 17 133/84 96 O2 Del Method 09/06/22 07:29 Room Air 09/06/22 06:57 09/06/22 05:30 Room Air 09/06/22 04:00 09/06/22 03:30 Room Air 09/06/22 03:00 Room Air 09/06/22 02:30 09/06/22 01:41 09/06/22 00:00 09/06/22 00:00 09/05/22 23:00 Room Air 09/05/22 22:12 Room Air 09/05/22 21:38 09/05/22 21:30 Room Air 09/05/22 21:19 Room Air Diagnostic Findings Cervical Spine CT 09/05/22 22:36 Exam(s): CT C SPINE EXAM: CT Cervical Spine Without Intravenous Contrast CLINICAL HISTORY: Reason for exam: Neck trauma. TECHNIQUE: Axial computed tomography images of the cervical spine without intravenous contrast. Automated exposure control was utilized for the study. A dose lowering technique was utilized adhering to the principles of ALARA. COMPARISON: No relevant prior studies available. FINDINGS: The vertebral body heights are maintained. The craniocervical junction is intact. The atlanto-dens interval is maintained. The dens is intact. There is no spondylolisthesis. Multilevel cervical spondylosis and degenerative disc disease. Straightening of the cervical lordosis. The unenhanced neck soft tissues are grossly unremarkable. The visualized lung apices are grossly clear. IMPRESSION: No acute fracture or subluxation of the cervical spine. Electronically signed by: Gary Olivares MD 09/05/22 23:[address] 09/05/22 22:36 Exam(s): CT HEAD Without Contrast EXAM: CT Head Without Intravenous Contrast CLINICAL HISTORY: Reason for exam: Head trauma moderate-severe. TECHNIQUE: Axial computed tomography images of the head/brain without intravenous contrast. Automated exposure control was utilized for the study. A dose lowering technique was utilized adhering to the principles of ALARA. COMPARISON: No relevant prior studies available. FINDINGS: No acute intracranial hemorrhage. No midline shift or mass effect. The [place]-white matter differentiation is maintained throughout. Age-related cerebral volume loss. Periventricular and subcortical white matter hypoattenuation, consistent with chronic microangiopathy. The visualized orbits appear grossly unremarkable. The calvarium is intact. RIGHT parietal scalp soft tissue swelling. The visualized paranasal sinuses and mastoid air cells are grossly clear. IMPRESSION: No acute intracranial hemorrhage, midline shift, or mass effect. RIGHT parietal scalp soft tissue swelling. Electronically signed by: Gary Olivares MD 09/05/22 23:34 PM Medications Administered Medication List Discontinued Medications Sodium Chloride (Nss) 500 mls @ 999 mls/hr IV .Q31M ONE Stop: 09/05/22 23:48 Last Infusion: 09/06/22 00:28 Dose: 0 mls/hr Documented By: Admin: 09/05/22 23:35 Dose: 999 mls/hr Documented By: JEANNE ECG Rate (beats per minute): 70 COVID-19 Results Results COVID-19 Adm Lab Results: RBC 4.18 M/uL (4.20-5.40) L 09/06/22 WBC 5.66 K/ul (4.8-10.8) 09/06/22 Hgb 12.7 g/dl (12.0-16.0) 09/06/22 Hct 35.9 % (37.0-47.0) L 09/06/22 Plt Count 157 K/uL (130-400) 09/06/22 Neutrophils (%) (Auto) 64.2 % 09/05/22 Lymphocytes (%) (Auto) 22.2 % 09/05/22 Monocytes # (Auto) 0.55 K/uL (0.11-0.59) 09/05/22 Eosinophils # (Auto) 0.11 K/uL (0-0.50) 09/05/22 Immature Granulocyte % (Auto) 1.4 % 09/05/22 Neutrophils # (Auto) 3.66 K/uL (1.40-6.50) 09/05/22 Lymphocytes # (Auto) 1.27 K/uL (1.2-3.4) 09/05/22 Monocytes # (Auto) 0.55 K/uL (0.11-0.59) 09/05/22 Eosinophils # (Auto) 0.11 K/uL (0-0.50) 09/05/22 Basophils # (Auto) 0.04 K/uL (0-0.2) 09/05/22 Immature Granulocyte # (Auto) 0.08 K/uL (0.01-0.20) 3 Na 137 mmol/L (136-145) 09/06/22 K 3.9 mmol/L (3.5-5.1) 09/06/22 Cl 106 mmol/L (98-107) 09/06/22 CO2 26 mmol/L (21-32) 09/06/22 Anion Gap 5 (3-11) 09/06/22 BUN 18 mg/dl (6-23) 09/06/22 Creatinine 0.74 mg/dl (0.6-1.2) 09/06/22 BUN/Creatinine Ratio 24.3 (10-20) H 09/06/22 Glucose Level 241 mg/dl (70-99(Fasting)) H 09/06/22 Ca 9.8 mg/dl (8.6-10.3) 09/06/22 Total Bilirubin 1.0 mg/dl (0.2-1.0) 09/05/22 AST/SGOT 19 U/L (13-39) 09/05/22 ALT/SGPT 20 U/L (7-52) 09/05/22 Alkaline Phosphatase 57 U/L (34-104) 09/05/22 Total Protein 7.1 gm/dl (6.0-8.3) 09/05/22 Albumin 4.5 gm/dl (3.4-5.0) 09/05/22 Globulin 2.6 gm/dl (2.5-4.0) 09/05/22 Albumin/Globulin Ratio 1.7 (0.9-2) 09/05/22 PTT 40.0 Seconds (21.0-31.0) H 09/05/22 INR 3.0 (0.9-1.1) H 09/06/22 SARS-CoV-2, RNA, NAAT NEGATIVE (NEGATIVE) 09/06/22 Code Status & VTE Plan Code Status FULL CODE VTE Prophylaxis Plan VTE Prophylaxis will be ordered: Yes Supervising Physician Co-Signing Physician Notes Talked to patient in detail about plan of care Await cardiology recommendations Neuro: AAOx4, PERRLA, no aphasia, HEENT: right parietal contusion CV: S1/S2+ no murmurs Resp: Lungs CTA in all adams. On RA GI: Abdomen S/NT/ND, Ax4 bowel sounds, (-) CVA tenderness Musculoskeletal: 5/5 B/L UE strength, 5/5 B/L LE strength. No gait disturbance Skin: (-) rashes , (-) erythema. Psych: euthymic mood pacemaker interrogation ordered. ordered coumadin for tonight (1) Fall Encounter type: initial encounter Qualified Code(s): W19.XXXA - Unspecified fall, initial encounter
[2022-09-06] MEDS ORDERED: CARBOHYDRATES FOR HYPOGLYCEMIA PO PRN (08:36)
[2022-09-06] MEDS ORDERED: GLUCAGON FOR INJ 1 MG VIAL SQ PRN (08:36)
[2022-09-06] MEDS ORDERED: GLUCOSE 40% GEL 15 GM TUBE PO PRN (08:36)
[2022-09-06] MEDS ORDERED: DEXTROSE 50% 50 ML SYRINGE IV PRN (08:36)
[2022-09-06] MEDS ORDERED: GLUCOSE 10 TAB/TUBE PO PRN (08:36)
[2022-09-06] MEDS: METOPROLOL SUCC 25MG EXT REL TAB PO SCH (08:58)
[2022-09-06] MEDS: DULoxetine HCL 30 MG CAP PO SCH (08:59)
[2022-09-06] MEDS: SPIRONOLACTONE 25 MG TAB PO SCH (08:59)
[2022-09-06] MEDS ORDERED: ASPIRIN 81 MG ECTAB PO SCH (09:00)
[2022-09-06] MEDS ORDERED: METOPROLOL SUCC 25MG EXT REL TAB PO SCH (09:00)
[2022-09-06] MEDS ORDERED: SODIUM CHLORIDE 0.9% 1000ML 1,000 ML IV SCH (09:00)
[2022-09-06] MEDS: LANTUS PER UNIT CHARGE SQ SCH ×2 (09:03→21:27)
[2022-09-06 09:34] LABS: Magnesium 1.7 mg/dl (1.7-2.4)
[2022-09-06 09:44] LABS: Troponin I High Sensitivity 11.2 pg/ml (0-14)
--- NOTE | 2022-09-06 10:25 | Cardiology Consultation ---
Date of Consultation September 06, 2022 Assessment & Plan (1) Syncope: (2) Dizziness: (3) Chronic atrial fibrillation: (4) Tachy-ed syndrome: (5) Chronic systolic heart failure: (6) S/p TAVR (transcatheter aortic valve replacement), bioprosthetic: (7) Cardiac pacemaker in situ: Plan Dizziness. Syncope. Undefined. Check orthostatics. Agree with gentle IVF administration. Consider Neurology Consultation. Interrogate pacemaker. Chronic coronary heart disease with past inferior and right ventricular infarction complicated by cardiogenic shock status post angioplasty in RCA stent 2002. High-sensitivity troponin I now negative x2. Continue appropriate medical management. Chronic atrial fibrillation. Rates appear adequately controlled. Patient prescribed chronic Coumadin anticoagulation. Continue metoprolol and digoxin for rate control. Continue anticoagulation for now. 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 Generator exchange last in 2013. Interrogate pacer today ([employer] technical service representative contacted). Future generator exchange discussed. Systolic and diastolic congestive heart failure. Volume status appears normovolemic versus mildly hypovolemic. Agree with gentle IV fluid administration as ordered. Severe aortic stenosis status post 02/01/2016 T-AVR Core Valve. Hypertension. See above. Hyperlipidemia. Continue statin. Supervising Physician Co-Signing Physician Notes I have reviewed the advance practitioner documentation and agree. I saw and evaluated the patient on the date of service referenced in the note and have performed a medically appropriate history and or exam. History of Present Illness Reason for Consultation: Syncope, pacemaker check Requesting Physician: Nereyda Attending Physician: Rashaad History of Present Illness Patient evaluated in the ER, Room A3, at 8:20 AM. Ms. Jaimie Castellanos is a very pleasant 86-year-old female who is being seen today at the request of Dr. Dawn. Reasons for consultation include syncope, pacemaker interrogation. "I fell last night in [place] kitchen and just got a bump on my head. He called the ambulance. This is where I have been all night. Freezing." Patient notes eating dinner last night with her friend Tad at his [employer] Apart[address] then going downstairs to play Right, Left, Center. After being downstairs for approximately 45 minutes to an hour they went back upstairs to finish the dishes as she had to be back to [facility] by 9 PM. Patient notes finishing the dishes and putting them away. All of a sudden she developed significant dizziness "like I never had before." "Before I knew it I was on the floor." She notes hitting her head and back on the cabinet. No tongue biting though she was incontinence of urine afterwards. She was only out for a few seconds. No seizure type activity was reported. She is concerned regarding pacemaker function. She denies chest pain, palpitations, unusual shortness of breath, cough, chest congestion, orthopnea, PND, increased edema, fevers, chills, melena, hematochezia, hematuria, or dysuria. Past Medical and Surgical History: Coronary heart disease with past inferior and right ventricular infarction complicated by cardiogenic shock status post angioplasty in RCA stent 2002. Chronic atrial fibrillation. 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 Generator exchange last in 2013. Systolic and diastolic congestive heart failure. Mitral regurgitation. Severe aortic stenosis status post 02/01/2016 T-AVR Core Valve. Chronic multifactorial lower extremity peripheral edema. Hypertension. Hyperlipidemia. Type II diabetes mellitus History of CVA GERD Diverticulosis Colonic polyps Depression Osteoporosis Status post cataract extraction Eyelid surgery bilaterally Rotator cuff surgery Hospitalized in March with acute hypoxemic respiratory failure, pneumonia due to COVID-19 infection, likely superimposed bacterial infection Family History: Mother with CAD. Father with stomach cancer. Social Histor: Nonsmoker. No alcohol. No illegal drug use. Resides at [facility]. Two sons live in the area. Daughter (Marilia Saba) is the POA, in the [facility]. Mirza at the end of January 2020, after 64 years of marriage. 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 Allergies Allergy/AdvReac Type Severity Reaction Status Date / Time tetracycline Allergy Intermediate RASH Verified 03/11/22 22:07 morphine AdvReac Severe "VIOLENTLY Verified 03/11/22 22:07 ILL", NAUSEA/VOMITING codeine AdvReac Intermediate nausea/Vomi Verified 03/11/22 22:07 ting Home Medications Medication Instructions Recorded Confirmed Type atorvastatin 40 mg tablet (Lipitor) 40 mg PO HS 11/11/19 09/06/22 History metoprolol succinate 25 mg 25 mg PO QAM 11/11/19 09/06/22 History tablet,extended release 24 hr (Toprol XL) nitroglycerin 0.4 mg sublingual 0.4 mg sublingual DIRECTED PRN 11/11/19 09/06/22 History tablet (Nitrostat) Chest Pain warfarin 4 mg tablet 4 mg PO SUMOWETHFRSA@1600 11/11/19 09/06/22 History alendronate 70 mg tablet 70 mg PO WK 08/11/21 09/06/22 History duloxetine 30 mg capsule,delayed 30 mg PO QAM 08/11/21 09/06/22 History release spironolactone 25 mg tablet 25 mg PO QAM 08/11/21 09/06/22 History torsemide 5 mg tablet 5 mg PO QAM PRN Edema 08/11/21 09/06/22 History acetaminophen 500 mg tablet 500 mg PO BID PRN Pain 03/11/22 09/06/22 History digoxin 125 mcg (0.125 mg) tablet 125 mcg PO [id number] 03/11/22 09/06/22 History polyethylene glycol 3350 17 17 g PO DAILY PRN Constipation 03/11/22 09/06/22 History gram/dose oral powder sodium chloride 0.65 % nasal spray 2 spray intranasal Q8 PRN 03/11/22 09/06/22 History aerosol (Saline Nasal Mist) Congestion tramadol 50 mg tablet 50 mg PO BID PRN Pain 03/11/22 09/06/22 History warfarin 4 mg tablet 4 mg PO TU@1600 09/06/22 09/06/22 History Patient History Medical History (Updated 09/06/22 @ 10:37 by Albert Camacho) Aortic stenosis S/P TAVR in 2015 CAD (coronary artery disease) S/P IA and stent to RCA in 2002 Chest pain Chronic atrial fibrillation Chronic systolic heart failure Depression Diabetes mellitus, type II Fracture of tibial plateau (Unknown) HLD (hyperlipidemia) HTN (hypertension) Hypercalcemia (Unknown) Hyperparathyroidism Primary hyperparathyroidism (Unknown) Rotator cuff arthropathy Tachy-ed syndrome Surgical History Aortic valve replaced S/P cardiac pacemaker procedure S/p TAVR (transcatheter aortic valve replacement), bioprosthetic 2015 Family History Other Cancer Diabetes Heart disease Hypertension Social History Smoking Status: Never smoker Second Hand Exposure: No; Do You Dip or Chew Tobacco: No; Hx Alcohol Use: No Hx Substance Use: No Preferred Language: Cameroonian Communication Ability: Effective Special Machine Operator Required: No Beliefs That Will Affect Care: None marital status: / Current Living Situation: Personal Care Facility Current Living Situation Comment: [facility] How many Children do You have: 3 Other Information That Helps Us Care for You: No Feels Safe at Home: Yes Assistive Devices: Cane, Glasses and Walker Review of Systems Review of Systems: Complete Review of Systems is as stated above, negative, or noncontributory. Physical Exam Physical Exam: General: Alert. NAD. Comfortable. Cooperative. Skin: No rash. 3 cm ecchymosis right posterolateral scalp Eyes: PER. Conjunctiva pink, sclera clear. HENT: Normocephalic. Atraumatic. See above. Neck: No carotid bruits. No JVD. No HJR. Heart: Irregular irregular at 88 bpm. Grade I/ systolic murmurs at the right upper sternal border and apex. No diastolic murmur. No rub. No gallop. PMI is nondisplaced. Lungs: Decreased. Diminished. No abnormal breath sounds appreciated. Abdomen: +BS. Soft. Nontender. No masses. No organomegaly. Extremities: Minimal right greater than left lower extremity edema. Varicosities. No clubbing. No cyanosis Pulses: radial=2/4, posterior tibial=1/4. Limited neurological examination: No focal deficit Results & Data Vital Signs (Past 12 Hours) Vital Signs Pulse Pulse Resp BP BP Pulse Ox O2 Del Method 09/06/22 07:29 95 H 16 134/75 93 Room Air 09/06/22 06:57 82 09/06/22 05:30 80 16 96 Room Air 09/06/22 04:00 76 19 139/70 09/06/22 03:30 Room Air 09/06/22 03:00 82 20 118/95 98 Room Air 09/06/22 02:30 86 22 09/06/22 01:41 77 09/06/22 00:00 76 17 130/75 95 09/06/22 00:00 130/75 09/05/22 23:00 73 24 126/75 94 Room Air Laboratory Results Cardiac Enzymes 09/05/22 09/06/22 Range/Units 21:33 06:59 AST 19 (13-39) U/L Troponin I High Sens 10.9 11.2 (0-14) pg/ml Coagulation 09/05/22 09/06/22 Range/Units 21:33 06:59 PT 30.8 H 30.3 H (9.0-12.0) Seconds APTT 40.0 H (21.0-31.0) Seconds CBC 09/05/22 09/06/22 Range/Units 21:33 06:59 WBC 5.71 5.66 (4.8-10.8) K/ul RBC 4.60 4.18 L (4.20-5.40) M/uL Hgb 13.9 12.7 (12.0-16.0) g/dl Hct 40.5 35.9 L (37.0-47.0) % Plt Count 172 157 (130-400) K/uL Neut # (Auto) 3.66 (1.40-6.50) K/uL Lymph # (Auto) 1.27 (1.2-3.4) K/uL [place] # (Auto) 0.55 (0.11-0.59) K/uL Eos # (Auto) 0.11 (0-0.50) K/uL Baso # (Auto) 0.04 (0-0.2) K/uL Comprehensive Metabolic Panel 09/05/22 09/06/22 Range/Units 21:33 06:59 Sodium 135 L 137 (136-145) mmol/L Potassium 4.1 3.9 (3.5-5.1) mmol/L Chloride 101 106 (98-107) mmol/L Carbon Dioxide 27 26 (21-32) mmol/L BUN 24 H 18 (6-23) mg/dl Creatinine 0.99 0.74 (0.6-1.2) mg/dl Glucose 387 H* 241 H (70-99(Fasting)) mg/dl Calcium 10.7 H 9.8 (8.6-10.3) mg/dl AST 19 (13-39) U/L ALT 20 (7-52) U/L Alkaline Phosphatase 57 (34-104) U/L Total Protein 7.1 (6.0-8.3) gm/dl Albumin 4.5 (3.4-5.0) gm/dl Intake and Output 09/05/22 09/06/22 09/06/22 22:59 06:59 14:59 Intake Total 500 / 500 Balance 500 / 500 Intake: IV 500 / 500 Sodium Chloride 0.9% 500 ml @ 500 / 500 999 mls/hr IV .Q31M ONE Rx#: [id number] Other: # Unmeasured Voids 2 Weight 62.3 kg 62.3 kg Weight Measurement Method Built in [facility] Patient Weight 09/07/22 06:59 Weight 62.3 kg Diagnostic Findings August 14, 2022 Device Interrogation: Estimated remaining longevity: Less than 1 month. Chronic atrial fibrillation. Ventricular paced 46.3%. No ventricular high rate episodes. August 25, 2022 TTE Interpretation Summary (as per Dr. Davis): There was atrial fibrillation during the examination. The qualitative LV ejection fraction is 45- 49% (mildly reduced). Severe biatrial enlargement is present. The left atrium is severely enlarged. The right atrium is severely enlarged. The patient is status post TAVR with CoreValve prosthetic valve. Aortic valve prosthesis stenosis is absent. Significant aortic valve prosthesis regurgitation is absent. Moderate mitral regurgitation is present. Moderate tricuspid regurgitation is present. Mild pulmonary hypertension is present. The estimated pulmonary artery systolic pressure is 43 mm Hg. Compared to the report of the prior study dated 05/11/2021, no significant interval change. Telemetry: Atrial fibrillation. Intermittent ventricular pacing.
[2022-09-06] MEDS: INSULIN ASPART PER UNIT CHARGE SC SCH ×3 (12:12→21:28)
[2022-09-06] MEDS ORDERED: WARFARIN SOD 2 MG TAB PO ONE (16:00)
[2022-09-06] MEDS: DIGOXIN 0.125 MG TAB PO SCH (17:41)
[2022-09-06] MEDS: ATORVASTATIN 40 MG TAB PO SCH (21:01)
[2022-09-07] MEDS: ACETAMINOPHEN 325 MG TAB PO PRN ×2 (06:39→12:21)
[2022-09-07] MEDS: SPIRONOLACTONE 25 MG TAB PO SCH (08:10)
[2022-09-07] MEDS: METOPROLOL SUCC 25MG EXT REL TAB PO SCH (08:10)
[2022-09-07] MEDS: DULoxetine HCL 30 MG CAP PO SCH (08:10)
[2022-09-07] MEDS: LANTUS PER UNIT CHARGE SQ SCH ×2 (08:14→20:29)
[2022-09-07] MEDS: INSULIN ASPART PER UNIT CHARGE SC SCH ×4 (08:14→20:31)
[2022-09-07 08:59] LABS: Hematocrit (blood only) 38.9 % (37.0-47.0); Hemoglobin 13.7 g/dl (12.0-16.0); Mean Corpuscular Hemoglobin 30.6 pg (25.0-34.0); Mean Corpuscular Hgb Conc 35.2 g/dL (32.0-36.0); Mean Corpuscular Volume 86.8 fL (80.0-100.0); Mean Platelet Volume 9.5 fL (9.4-12.4); Platelet Count 171 K/uL (130-400); RDW Coefficient of Variation 13.7 % (11.5-14.5); RDW Standard Deviation 42.6 fL (36.4-46.3); Red Blood Count 4.48 M/uL (4.20-5.40); White Blood Count 5.97 K/ul (4.8-10.8)
[2022-09-07 09:26] LABS: INR 2.1 (0.9-1.1); Prothrombin Time 21.7 Seconds (9.0-12.0)
[2022-09-07 09:27] LABS: Calcium 10.1 mg/dl (8.6-10.3); Creatinine Clr Calc Pharmacy 45.4 ml/min; Est GFR (African American) 84.2 ml/min; Est GFR (Non-African American) 72.7 ml/min
[2022-09-07 09:33] LABS: Estimated Average Glucose 246 mg/dl; Hemoglobin A1C 10.2 % (4.5-5.6)
--- NOTE | 2022-09-07 10:01 | Cardiology Progress Note ---
Date of Service September 07, 2022 Assessment & Plan (1) Syncope: (2) Dizziness: (3) Chronic atrial fibrillation: (4) Tachy-wanda syndrome: (5) Chronic systolic heart failure: (6) S/p TAVR (transcatheter aortic valve replacement), bioprosthetic: (7) Cardiac pacemaker in situ: Plan Dizziness. Syncope. Undefined. Suspect volume depletion/hypotension. Received IVF. Pacer is nearing EMILI but no issues/arrhythmias that would cause dizziness/syncope. Consider Neurology Consultation. Chronic coronary heart disease with past inferior and right ventricular infarction complicated by cardiogenic shock status post angioplasty in RCA stent 2002. High-sensitivity troponin I negative. Continue appropriate medical management. Chronic atrial fibrillation. Rates adequately controlled. Patient prescribed chronic Coumadin anticoagulation. INR 2.1. Continue metoprolol and digoxin for rate control. Continue Coumadin anticoagulation Tachy-Wanda Syndrome. Status post permanent pacemaker implantation initially in 2005. Generator exchange last in 2013. See above. Future generator exchange discussed. Systolic and diastolic congestive heart failure. Compensated. Severe aortic stenosis status post 02/01/2016 T-AVR Core Valve. Hypertension. BP mildly hypotension throughout hospital stay. Decrease spironolactone from 25 mg/day to 12.5 mg/day. Hyperlipidemia. Continue statin. Admission and Anticipated Discharge Date Admission Date: September 06, 2022 Supervising Physician Co-Signing Physician Notes I have reviewed the advance practitioner documentation and agree. I saw and evaluated the patient on the date of service referenced in the note and have performed a medically appropriate history and or exam. Subjective Patient seen and examined. Chart, medications, and telemetry reviewed. No further dizziness. No chest pain, palpitations, unusual shortness of breath, orthopnea, PND, or edema. September 06, 2022 Device Interrogation. Less than one month estimated remaining longevity. V-paced 50% of the time. Rates acceptably controlled. No ventricular high rate episodes. Telemetry: Atrial fibrillation, intermittent ventricular pacing. Occasional PVC. Heart rates primarily in the 70's to 90's. Review of Systems Review of Systems: Complete Review of Systems is as stated above, negative, or noncontributory. Physical Exam Physical Exam: General: Alert. NAD. Comfortable. Cooperative. Eyes: PER. Conjunctiva pink, sclera clear. HENT: Normocephalic. Atraumatic. See above. Neck: No carotid bruits. No JVD. Heart: Slightly irregular at 90 bpm. Grade II/ systolic murmur. No diastolic murmur. Lungs: Decreased. Diminished. No abnormal breath sounds appreciated. Abdomen: +BS. Soft. Nontender. No masses. No organomegaly. Extremities: No edema. Varicosities. No clubbing. No cyanosis Pulses: radial=2/4, posterior tibial=1/4. Limited neurological examination: No focal deficit Results & Data Vital Signs (Past 12 Hours) Vital Signs Temp Pulse Pulse Resp BP Pulse Ox O2 Del Method 09/07/22 07:53 36.5 C 72 20 109/68 92 Room Air 09/07/22 07:30 70 09/07/22 03:43 36.4 C L 69 16 94/60 L 95 Room Air 09/06/22 22:06 111 H 09/06/22 23:37 36.5 C 78 18 114/71 94 Room Air Laboratory Results Coagulation 09/07/22 Range/Units 07:49 PT 21.7 H (9.0-12.0) Seconds CBC 09/07/22 Range/Units 07:49 WBC 5.97 (4.8-10.8) K/ul RBC 4.48 (4.20-5.40) M/uL Hgb 13.7 (12.0-16.0) g/dl Hct 38.9 (37.0-47.0) % Plt Count 171 (130-400) K/uL Comprehensive Metabolic Panel 09/07/22 Range/Units 07:49 Sodium 139 (136-145) mmol/L Potassium 4.0 (3.5-5.1) mmol/L Chloride 106 (98-107) mmol/L Carbon Dioxide 27 (21-32) mmol/L BUN 15 (6-23) mg/dl Creatinine 0.75 (0.6-1.2) mg/dl Glucose 151 H (70-99(Fasting)) mg/dl Calcium 10.1 (8.6-10.3) mg/dl Intake and Output 09/06/22 09/07/22 09/07/22 22:59 06:59 14:59 Intake Total 120 / 1170 1050 / 1170 Balance 120 / 1170 1050 / 1170 Intake: IV 1000 / 1000 Sodium Chloride 0.9% 1000ML 1, 1000 / 1000 000 ml @ 80 mls/hr IV .[id number] ACE Rx#:[id number] Oral 120 / 170 50 / 170 Other: # Unmeasured Voids 2 Weight 58.1 kg Weight Measurement Method Standing Scale
--- NOTE | 2022-09-07 16:30 | Hospitalist Progress Note ---
Date of Service September 07, 2022 Assessment & Plan (1) Fall: (2) Diabetes mellitus, type II: (3) Syncope: (4) Chronic atrial fibrillation: (5) Chronic systolic heart failure: (6) Tachy-wanda syndrome: (7) S/P cardiac pacemaker procedure: (8) S/p TAVR (transcatheter aortic valve replacement), bioprosthetic: (9) CAD (coronary artery disease): Plan This is an 86-year-old female who has significant past medical history of chronic atrial fibrillation, history of tachybradycardia syndrome status post PPM, CAD, history of AVR HTN, moderate mitral regurgitation, HLD, T2DM, hyperparathyroidism, CKD stage III, osteoporosis, depression, MINDY, history of CVA who presents to ED after stating a syncopal episode and fall. Fall Dizziness Possible Syncope - pt unsure if true syncope or not she remains in afib on telemetry with no significant events since admission Pacer interrogation revealed 50% v paced rhythm with rates acceptably controlled. Orthostatics were checked and negative orthostatics recent echo 08/29 LVEF 45 to 49%, mildly reduced, severe biatrial enlargement, left atrium severely enlarged, right atrium severely enlarged, status post TAVR with CoreValve prosthetic valve with aortic valve prosthesis stenosis absent. Significant aortic valve prosthesis regurgitation is absent. Moderate mitral regurg is present. Moderate tricuspid regurg is present. Mild pulmonary hypertension is present. PT/OT As noted below she was found to have an A1C of 10.2 and was hyperglycemic in the ER. Suspect uncontrolled DMII is likely the cause of the fall. She will need close followup with PCP for continued monitoring on treatment. concussion as a result of fall Patient is slow to speak and seems to have some trouble finding words although she doesn't feel like she does Possible concussive symptoms, will monitor Appreciate neurology recs. Chronic Atrial Fib Hx of TBS s/p PPM CAD Chronic HFrEF Aortic Stenosis s/p AVR continue metoprolol, dig, statin, aldactone daily weights, strict I and O, euvolemic at this time. warfarin dose 2mg on and 4mg all other days [id number] last a1c 07/2021 was 6.[address] on lantus/novolog per protocol A1C 10.2 suggests possible glucose dysregulation as a cause of her spell prior to arrival. she has a history of DMII but from what I can see she is not on medication for this at home. On her most recent discharge from the hospital in March 2022 she is noted as having diet controlled diabetes myelitis and her medication list did not include any diabetic treatments. At that time A1C was 8.2 and this was an opportunity to start treatment. She is in the range to start multi-daily dose insulin and lives in the [place] at the [facility], so I will have her medications administered for her. For now continue basal bolus insulin while admitted and will consult diabetic nurse educator for thoughts. CKD-3 cr stable monitor, avoid nephrotoxic agents DVT ppx: warfarin Dispo: to [facility] in 1-2 days. FULL CODE PCP: Meredith I spent a total [id number] coordinating, documenting, and providing care for this patient excluding time spent in the performance of separately billed services DO [facility] Hospitalist Admission and Anticipated Discharge Date Admission Date: September 06, 2022 Subjective 86-year-old female presented late evening on 09/05 after a significant fall in the kitchen. She reports washing dishes and felt a sensation of dizziness come on. She then lost her balance and fell backward landing on her left shoulder. She reports remembering hitting the floor and does not feel she lost consciousness. She also hit her head and had a bump on the right side of her head. She is on warfarin and underwent a CT of the head that was negative for acute hemorrhage or other abnormality. Today she denies any headaches, motor deficits that are different from her baseline, sensation issues or other new concerns. Cardiology has evaluated her and performed today pacemaker interrogation revealing V paced 50% of the time with rates acceptably controlled and no ventricular high rate episodes. Orthostatics were performed yesterday and negative. She appears euvolemic. She reports chronic urinary incontinence and was "wet" when she was admitted. Per reports there was no evidence of seizure-like activity as her friend witnessed the event. Since admission she has had no further dizziness chest pain palpitations or other symptoms. She worked with physical therapy and was able to ambulate with her walker which is her baseline. She has known afib at baseline. Review of Systems Review of Systems: All systems were reviewed and negative except as indicated on HPI above. Physical Exam Physical Exam: CONSTITUTIONAL: WNWD, elderly, frail, vitals as above, generally well- appearing, NAD EYES: EOMI bilaterally, PERRL, normal conjunctivae, no scleral icterus ENT: external ear and nose normal, oropharynx clear, mucous membranes moist NECK: trachea midline RESPIRATORY: clear to auscultation bilaterally, no crackles, rales or wheezes, normal respiratory effort CARDIOVASCULAR: regular rate and rhythm, S1 and 2 heard without murmurs, gallops or rubs, no JVD, no peripheral edema CHEST: inspection of chest was normal GASTROINTESTINAL: soft, nontender, ND, no guarding MUSCULOSKELETAL: strength 5/5 throughout, head is normocephalic and atraumatic SKIN: warm and dry NEUROLOGIC: CN 2-12 grossly intact, no sensory deficit, normal cognition, normal speech, no tremor PSYCHIATRIC: alert cooperative and oriented to person, place and time. Euthymic mood, makes good eye contact, language grossly intact, recent and remote memory grossly intact. Results & Data Results & Data Vital Signs (Past 12 Hours) Vital Signs Temp Pulse Pulse Resp BP Pulse Ox O2 Del Method 09/07/22 16:01 74 09/07/22 15:15 36.8 C 61 20 109/69 96 Room Air 09/07/22 11:12 36.8 C 64 18 112/70 94 Room Air 09/07/22 07:53 36.5 C 72 20 109/68 92 Room Air 09/07/22 07:30 70 Laboratory Results Short CBC 09/07/22 Range/Units 07:49 WBC 5.97 (4.8-10.8) K/ul Hgb 13.7 (12.0-16.0) g/dl Hct 38.9 (37.0-47.0) % Plt Count 171 (130-400) K/uL [facility] 09/07/22 07:49 Sodium 139 Potassium 4.0 Chloride 106 Carbon Dioxide 27 BUN 15 Creatinine 0.75 Glucose 151 H Calcium 10.1 Medications Administered Current Inpatient Medications Acetaminophen (Acetaminophen 325 Mg Tab) 650 mg PO Q4H PRN PRN Reason: Pain or Fever Stop: 10/06/22 03:29 Last Admin: 09/07/22 12:21 Dose: 650 mg Atorvastatin Calcium (Atorvastatin 40 Mg Tab) 40 mg PO HS ACE Stop: 10/06/22 20:59 Last Admin: 09/06/22 21:01 Dose: 40 mg Dextrose (Dextrose 50% 50 Ml Syringe) 25 - 50 ml IV UD PRN; Protocol PRN Reason: Hypoglycemia Protocol Stop: 10/06/22 08:35 Digoxin (Digoxin 0.125 Mg Tab) 0.125 mg PO MoWeFrSa [facility] Stop: 10/06/22 15:59 Last Admin: 09/06/22 17:41 Dose: 0.125 mg Duloxetine HCl (Duloxetine Hcl 30 Mg Cap) 30 mg PO QAM [facility] Stop: 10/06/22 08:59 Last Admin: 09/07/22 08:10 Dose: 30 mg Glucagon (Glucagon For Inj 1 Mg Vial) 1 mg SQ UD PRN; Protocol PRN Reason: Hypoglycemia Protocol Stop: 10/06/22 08:35 Glucose (Glucose 10 Tab/Tube) 4 - 8 tab PO UD PRN; Protocol PRN Reason: Hypoglycemia Treatment Stop: 10/06/22 08:35 Glucose (Glucose 40% Gel 15 Gm Tube) 15 - 30 gm PO UD PRN; Protocol PRN Reason: Hypoglycemia Protocol Stop: 10/06/22 08:35 Insulin Aspart (Insulin Aspart Per Unit Charge) 0 units SC ACHS [facility] Stop: 10/06/22 11:29 Last Admin: 09/07/22 12:20 Dose: 3 units Insulin Glargine (Lantus Per Unit Charge) 0 units SQ BID [facility]; Protocol Stop: 10/06/22 08:59 Last Admin: 09/07/22 08:14 Dose: 3 units Metoprolol Succinate (Metoprolol Succ 25mg Ext Rel Tab) [facility] Stop: 10/06/22 08:59 Last Admin: 09/07/22 08:10 Dose: 25 mg Miscellaneous (Carbohydrates For Hypoglycemia ) 15 - 30 gm PO UD PRN PRN Reason: Hypoglycemia Protocol Stop: 10/06/22 08:35 Nitroglycerin (Nitroglycerin Sl 0.4 Mg/Tab Tab) 0.4 mg SL UD PRN PRN Reason: Chest Pain Stop: 10/06/22 03:29 Polyethylene Glycol (Polyethylene (Miralax) 17 Gm Pack) 17 gm PO DAILY PRN PRN Reason: Constipation Stop: 10/06/22 03:29 Spironolactone (Spironolactone 12.5 Mg Tab) [facility] [place] Stop: 10/08/22 08:59 Tramadol HCl (Tramadol Hcl 50 Mg Tablet) 50 mg PO BID PRN PRN Reason: Pain Stop: 10/06/22 03:29 (1) Fall Encounter type: initial encounter Qualified Code(s): W19.XXXA - Unspecified fall, initial encounter
--- NOTE | 2022-09-07 17:11 | Neurology Consultation ---
Date of Consultation September 07, 2022 Assessment & Plan (1) Syncope: Possible hypotensive event r/o vertebrobasilar insufficiency although the patient has not had any other posterior circulation TIA vs vestibular decompensation Noted that pacemaker was interrogated Orthostatic blood pressure checked and is negative Echocardiogram with EF 45% The patient has no apparent infections to contribute to vasodilatation Plan Suggest Obtaining CTA head and neck to r/o vertebrobasilar insufficiency Continue IV hydration Continue Coumadin for stroke prevention IV hydration and medical optimization Further recommendations to follow Telehealth Consultation Telehealth Information Telehealth Information: I performed this visit using a real-time telehealth connection between my location and the patients location ([facility]). After connecting through interactive tele-video, patient was identified by name and date of and/or wristband check.Patient (or authorized healthcare environmental marketing representative) was informed that this was a telemedicine visit and it was being conducted confidentially over secure lines. My office door was closed and no one else was present in the room with me.Patient (or authorized healthcare environmental marketing representative) provided consent to proceed with the visit, expressed an understanding of privacy and security of the telemedicine visit, and gave permission to have a hospital environmental marketing representative in the room in order to assist with the visit and to conduct portions of the visit, as needed. I informed the patient (or authorized healthcare environmental marketing representative) that I reviewed their record and presented the opportunity for them to ask any questions regarding the visit today. The patient agreed to participate. History of Present Illness Reason for Consultation: Dizziness , Syncope Requesting Physician: Jennifer Gregory Attending Physician: Jennifer Clark DO History of Present Illness Tru Zayas is an 86 Y>O female patient with a PMH of tachybradycardia syndrome status post PPM, CAD, history of AVR HTN, moderate mitral regurgitation, HLD, T2DM, hyperparathyroidism, CKD stage III, osteoporosis, depression, MINDY, history of CVA who presents today with complaints of dizziness She reports that the dizzy spell happened yesterday after she had dinner and was washing dishes when , felt that she was going to black out, and fall she did not have any room spinning sensation , or vision changes .She just fell on her back, she did not lose consciousness, and when she hit the ground she was aware of what happened and her surroundings. she denies history of similar events . Has had a spell a long time ago where she lost vision to one side of her body, but that was too long ago Allergies Allergy/AdvReac Type Severity Reaction Status Date / Time tetracycline Allergy Intermediate RASH Verified 03/11/22 22:07 morphine AdvReac Severe "VIOLENTLY Verified 03/11/22 22:07 ILL", NAUSEA/VOMITING codeine AdvReac Intermediate nausea/Vomi Verified 03/11/22 22:07 ting Home Medications Medication Instructions Recorded Confirmed Type atorvastatin 40 mg tablet (Lipitor) 40 mg PO HS 11/11/19 09/06/22 History metoprolol succinate 25 mg 25 mg PO QAM 11/11/19 09/06/22 History tablet,extended release 24 hr (Toprol XL) nitroglycerin 0.4 mg sublingual 0.4 mg sublingual DIRECTED PRN 11/11/19 09/06/22 History tablet (Nitrostat) Chest Pain warfarin 4 mg tablet 4 mg PO SUMOWETHFRSA@1600 11/11/19 09/06/22 History alendronate 70 mg tablet 70 mg PO WK 08/11/21 09/06/22 History duloxetine 30 mg capsule,delayed 30 mg PO QAM 08/11/21 09/06/22 History release spironolactone 25 mg tablet 25 mg PO QAM 08/11/21 09/06/22 History torsemide 5 mg tablet 5 mg PO QAM PRN Edema 08/11/21 09/06/22 History acetaminophen 500 mg tablet 500 mg PO BID PRN Pain 03/11/22 09/06/22 History digoxin 125 mcg (0.125 mg) tablet 125 mcg PO 4XWK 03/11/22 09/06/22 History polyethylene glycol 3350 17 17 g PO DAILY PRN Constipation 03/11/22 09/06/22 History gram/dose oral powder sodium chloride 0.65 % nasal spray 2 spray intranasal Q8 PRN 03/11/22 09/06/22 History aerosol (Saline Nasal Mist) Congestion tramadol 50 mg tablet 50 mg PO BID PRN Pain 03/11/22 09/06/22 History warfarin 4 mg tablet 4 mg PO TU@1600 09/06/22 09/06/22 History Patient History Medical History (Updated 09/07/22 @ 18:20 by Pily Anderson MD) Aortic stenosis S/P TAVR in 2016 CAD (coronary artery disease) S/P MS and stent to RCA in 2002 Chest pain Chronic atrial fibrillation Chronic systolic heart failure Depression Diabetes mellitus, type II Fracture of tibial plateau (Unknown) HLD (hyperlipidemia) HTN (hypertension) Hypercalcemia (Unknown) Hyperparathyroidism Primary hyperparathyroidism (Unknown) Rotator cuff arthropathy Tachy-wanda syndrome Surgical History Aortic valve replaced S/P cardiac pacemaker procedure S/p TAVR (transcatheter aortic valve replacement), bioprosthetic 2016 Family History Other Cancer Diabetes Heart disease Hypertension Social History Smoking Status: Never smoker Second Hand Exposure: No; Do You Dip or Chew Tobacco: No; Hx Alcohol Use: No Hx Substance Use: No Preferred Language: Persian Communication Ability: Effective Gis Geographer Required: No Beliefs That Will Affect Care: None marital status: / Current Living Situation: Personal Care Facility Current Living Situation Comment: [facility] How many Children do You have: 3 Other Information That Helps Us Care for You: No Feels Safe at Home: Yes Assistive Devices: Cane, Glasses and Walker Review of Systems All systems reviewed and are negative except for the points mentioned in HPI Review of Systems Review of Systems: All systems reviewed & are unremarkable except as noted in HPI & below Physical Exam Exam: Constitutional: Appearance normally developed Head and face: normocephalic and atraumatic Eyes: no ptosis, no anisocoria and no dysconjugate gaze Respiratory: normal effort Cardiovascular: regular rhythm and regular rate Abdomen: non distended Skin: no rashes, lesions, or ulcers noted Psychiatric: normal judgement and insight, normal mood and normal affect NEUROLOGIC EXAMINATION: Mental Status:alert, oriented to time, place, person, normal recent memory, normal remote memory, normal attention span, normal concentration, normal language and normal fund of knowledge Cranial Nerves: CN 2 - no visual defect on confrontation and pupils round, equal, reactive to light CN 3, 4, 6 - extra-ocular movements intact and no nystagmus CN 5 - facial sensation intact CN 7 - no facial asymmetry CN 8 - intact hearing CN 9, 10 - palate symmetric, normal gag CN 11 - good shoulder shrug CN 12 - tongue midline MOTOR: Strength was at least antigravity throughout, Pronator drift was absent and There were no abnormal movements SENSATION: intact and symmetric to pinprick, light touch, vibration and joint position GAIT: stable, no ataxia and can perform tandem walking COORDINATION: no ataxia with finger to nose testing and heel to ji testing REFLEXES: cannot assess over telemedicine General NEUROLOGIC EXAMINATION: Mental Status:alert, oriented to time, place, person, normal recent memory, normal remote memory, normal attention span, normal concentration, normal language and normal fund of knowledge Cranial Nerves: CN 2 - no visual defect on confrontation and pupils round, equal, reactive to light CN 3, 4, 6 - extra-ocular movements intact and no nystagmus CN 5 - facial sensation intact CN 7 - no facial asymmetry CN 8 - intact hearing CN 9, 10 - palate symmetric, normal gag CN 11 - good shoulder shrug CN 12 - tongue midline MOTOR: Strength was at least antigravity throughout, Pronator drift was absent and There were no abnormal movements SENSATION: intact and symmetric to pinprick, light touch, vibration and joint position GAIT: stable, no ataxia and can perform tandem walking COORDINATION: no ataxia with finger to nose testing and heel to ji testing REFLEXES: cannot assess over telemedicine Results & Data Vital Signs (Past 12 Hours) Vital Signs Temp Pulse Pulse Resp BP Pulse Ox O2 Del Method 09/07/22 16:01 74 09/07/22 15:15 36.8 C 61 20 109/69 96 Room Air 09/07/22 11:12 36.8 C 64 18 112/70 94 Room Air 09/07/22 07:53 36.5 C 72 20 109/68 92 Room Air 09/07/22 07:30 70 Laboratory Results CBC: Hb :13.7, HCT 38.9, ptls 171, U/A -ve,INR:2.1 BUN:15, cr 0.75, glucose 150 Diagnostic Findings EHG:Ventricular-paced rhythm Echo cardio gram: severe biatrial dilatation , s/p TAVR EF%-
--- NOTE | 2022-09-07 17:23 | Electrocardiogram Report ---
Test Reason : Blood Pressure : / mmHG Vent. Rate : 063 BPM Atrial Rate : 064 BPM P-R Int : 000 ms QRS Dur : 202 ms QT Int : 488 ms P-R-T Axes : 000 -65 097 degrees QTc Int : 499 ms Ventricular-paced rhythm Abnormal ECG When compared with ECG of 05-SEP-2022 21:25, Vent. rate has decreased BY 7 BPM Confirmed by Salomon Hoskins ([id number]) on 09/07/2022 5:23:08 PM Referred By: REFERRED SELF Confirmed By:Salomon Hoskins
[2022-09-07] MEDS ORDERED: DICLOFENAC SOD 1% GEL 100 GM TUBE EXT PRN (19:58)
[2022-09-07] MEDS: ATORVASTATIN 40 MG TAB PO SCH (20:02)
[2022-09-08] MEDS: INSULIN ASPART PER UNIT CHARGE SC SCH ×2 (08:27→12:29)
[2022-09-08] MEDS: LANTUS PER UNIT CHARGE SQ SCH (08:28)
[2022-09-08] MEDS ORDERED: SPIRONOLACTONE 12.5 MG TAB PO SCH (09:00)
[2022-09-08] MEDS: METOPROLOL SUCC 25MG EXT REL TAB PO SCH (09:02)
[2022-09-08] MEDS: DULoxetine HCL 30 MG CAP PO SCH (09:02)
--- NOTE | 2022-09-08 09:03 | Cardiology Progress Note ---
Date of Service September 08, 2022 Assessment & Plan (1) Syncope: (2) Dizziness: (3) Chronic atrial fibrillation: (4) Tachy-wanda syndrome: (5) Chronic systolic heart failure: (6) S/p TAVR (transcatheter aortic valve replacement), bioprosthetic: (7) Cardiac pacemaker in situ: Plan Dizziness. Syncope. Undefined. Suspect volume depletion/hypotension. Received IVF. Pacer nearing EMILI but no issues/arrhythmias that would cause dizziness/syncope. Spironolactone reduced to 12.5 mg/day this admission. Chronic coronary heart disease with past inferior and right ventricular infarction complicated by cardiogenic shock status post angioplasty in RCA stent 2002. High-sensitivity troponin I negative. Continue appropriate medical management. Chronic atrial fibrillation. Rates adequately controlled. Patient prescribed chronic Coumadin anticoagulation. INR 2.1 on . Continue metoprolol and digoxin for rate control. Continue Coumadin anticoagulation Tachy-Wanda Syndrome. Status post permanent pacemaker implantation in 2005, generator exchange last in 2013. Future generator exchange discussed. Patient scheduled to be seen by Dr. Sheikh on September 22, 2022 at 9:00 AM Systolic and diastolic congestive heart failure. Compensated. Severe aortic stenosis status post 02/01/2016 T-AVR Core Valve. Hypertension. BP acceptably now. Spironolactone decreased from 25 mg/day to 12.5 mg/day this admission. Hyperlipidemia. Continue statin. Admission and Anticipated Discharge Date Admission Date: September 07, 2022 Supervising Physician Co-Signing Physician Notes I have reviewed the advance practitioner documentation and agree. I saw and evaluated the patient on the date of service referenced in the note and have performed a medically appropriate history and or exam. Subjective Patient seen and examined. Chart, medications, and telemetry reviewed. No further dizziness. No chest pain, palpitations, unusual shortness of breath, orthopnea, PND, or edema. Improving left arm pain. September 06, 2022 Device Interrogation. Less than one month estimated remaining jac gevity. V-paced 50% of the time. Rates acceptably controlled. No ventricular high rate episodes. Telemetry: Atrial fibrillation, intermittent ventricular pacing. Occasional PVC. Heart rates primarily in the 80's to 90's. Review of Systems Review of Systems: Complete Review of Systems is as stated above, negative, or noncontributory. Physical Exam Physical Exam: General: Alert. NAD. Comfortable. Cooperative. Eyes: PER. Conjunctiva pink, sclera clear. HENT: Normocephalic. Atraumatic. See above. Neck: No carotid bruits. No JVD. Heart: Slightly irregular at 90 bpm. Grade II/ systolic murmur. No diastolic murmur. Lungs: Decreased. Diminished. No abnormal breath sounds appreciated. Abdomen: +BS. Soft. Nontender. No masses. No organomegaly. Extremities: No edema. Varicosities. No clubbing. No cyanosis. Healing ecchymosis LUE Pulses: radial=2/4, posterior tibial=1/4. Limited neurological examination: No focal deficit Results & Data Vital Signs (Past 12 Hours) Vital Signs Temp Pulse Pulse Resp BP BP Pulse Ox 09/08/22 08:21 36.6 C 74 20 104/63 95 09/08/22 00:00 75 09/08/22 02:58 36.4 C L 74 18 114/62 92 09/07/22 22:30 36.5 C 71 18 126/68 93 O2 Del Method 09/08/22 08:21 Room Air 09/08/22 00:00 09/08/22 02:58 Room Air 09/07/22 22:30 Room Air Laboratory Results Coagulation 09/07/22 Range/Units 07:49 PT 21.7 H (9.0-12.0) Seconds Comprehensive Metabolic Panel 09/07/22 Range/Units 07:49 Sodium 139 (136-145) mmol/L Potassium 4.0 (3.5-5.1) mmol/L Chloride 106 (98-107) mmol/L Carbon Dioxide 27 (21-32) mmol/L BUN 15 (6-23) mg/dl Creatinine 0.75 (0.6-1.2) mg/dl Glucose 151 H (70-99(Fasting)) mg/dl Calcium 10.1 (8.6-10.3) mg/dl Intake and Output 09/07/22 09/08/22 09/08/22 22:59 06:59 14:59 Intake Total 240 / 560 Balance 240 / 560 Intake: Oral 240 / 560 Other: Other Intake Source sips # Unmeasured Voids 2 Weight 58.1 kg 57.8 kg Weight Measurement Method Built in [facility]
--- NOTE | 2022-09-08 09:11 | Hospitalist Progress Note ---
Date of Service September 08, 2022 Assessment & Plan (1) Fall: (2) Diabetes mellitus, type II: (3) Syncope: (4) Chronic atrial fibrillation: (5) Chronic systolic heart failure: (6) Tachy-wanda syndrome: (7) S/P cardiac pacemaker procedure: (8) S/p TAVR (transcatheter aortic valve replacement), bioprosthetic: (9) CAD (coronary artery disease): Plan This is an 86-year-old female who has significant past medical history of chronic atrial fibrillation, history of tachybradycardia syndrome status post PPM, CAD, history of AVR HTN, moderate mitral regurgitation, HLD, T2DM, hyperparathyroidism, CKD stage III, osteoporosis, depression, MINDY, history of CVA who presents to ED after stating a syncopal episode and fall. Fall Dizziness Possible Syncope - pt unsure if true syncope or not she remains in afib on telemetry with no significant events since admission Pacer interrogation revealed 50% v paced rhythm with rates acceptably controlled. Orthostatics were checked and negative orthostatics recent echo 08/29 LVEF 45 to 49%, mildly reduced, severe biatrial enlargement, left atrium severely enlarged, right atrium severely enlarged, status post TAVR with CoreValve prosthetic valve with aortic valve prosthesis stenosis absent. Significant aortic valve prosthesis regurgitation is absent. Moderate mitral regurg is present. Moderate tricuspid regurg is present. Mild pulmonary hypertension is present. PT/OT As noted below she was found to have an A1C of 10.2 and was hyperglycemic in the ER. Suspect uncontrolled DMII is likely the cause of the fall. She will need close followup with PCP for continued monitoring on treatment. concussion as a result of fall Patient is slow to speak and seems to have some trouble finding words although she doesn't feel like she does Possible concussive symptoms, will monitor Appreciate neurology recs. Chronic Atrial Fib Hx of TBS s/p PPM CAD Chronic HFrEF Aortic Stenosis s/p AVR continue metoprolol, dig, statin, aldactone daily weights, strict I and O, euvolemic at this time. warfarin dose 2mg on and 4mg all other days [id number] last a1c 07/2021 was 6.[address] on lantus/novolog per protocol A1C 10.2 suggests possible glucose dysregulation as a cause of her spell prior to arrival. she has a history of DMII but from what I can see she is not on medication for this at home. On her most recent discharge from the hospital in March 2022 she is noted as having diet controlled diabetes myelitis and her medication list did not include any diabetic treatments. At that time A1C was 8.2 and this was an opportunity to start treatment. She is in the range to start multi-daily dose insulin and lives in the [place] at the [facility], so I will have her medications administered for her. For now continue basal bolus insulin while admitted and will consult diabetic nurse educator for thoughts. CKD-3 cr stable monitor, avoid nephrotoxic agents DVT ppx: warfarin Dispo: to [facility] in 1-2 days. FULL CODE PCP: Meredith I spent a total [id number] coordinating, documenting, and providing care for this patient excluding time spent in the performance of separately billed services DO [facility] Hospital[facility] Admission and Anticipated Discharge Date Admission Date: September 07, 2022 Subjective Patient seen and examined. Chart, medications, and telemetry reviewed. No further dizziness. No chest pain, palpitations, unusual shortness of breath, orthopnea, PND, or edema. Improving left arm pain. September 06, 2022 Device Interrogation. Less than one month estimated remaining longevity. V-paced 50% of the time. Rates acceptably controlled. No ventricular high rate episodes. Telemetry: Atrial fibrillation, intermittent ventricular pacing. Occasional PVC. Heart rates primarily in the 80's to 90's. Review of Systems Review of Systems: All systems were reviewed and negative except as indicated on HPI above. Physical Exam Physical Exam: CONSTITUTIONAL: WNWD, elderly, frail, vitals as above, generally well- appearing, NAD EYES: EOMI bilaterally, PERRL, normal conjunctivae, no scleral icterus ENT: external ear and nose normal, oropharynx clear, mucous membranes moist NECK: trachea midline RESPIRATORY: clear to auscultation bilaterally, no crackles, rales or wheezes, normal respiratory effort CARDIOVASCULAR: regular rate and rhythm, S1 and 2 heard without murmurs, gallops or rubs, no JVD, no peripheral edema CHEST: inspection of chest was normal GASTROINTESTINAL: soft, nontender, ND, no guarding MUSCULOSKELETAL: strength 5/5 throughout, head is normocephalic and atraumatic SKIN: warm and dry NEUROLOGIC: CN 2-12 grossly intact, no sensory deficit, normal cognition, normal speech, no tremor PSYCHIATRIC: alert cooperative and oriented to person, place and time. Euthymic mood, makes good eye contact, language grossly intact, recent and remote memory grossly intact. Results & Data Results & Data Vital Signs (Past 12 Hours) Vital Signs Temp Pulse Pulse Resp BP BP Pulse Ox 09/08/22 08:21 36.6 C 74 20 104/63 95 09/08/22 00:00 75 09/08/22 02:58 36.4 C L 74 18 114/62 92 09/07/22 22:30 36.5 C 71 18 126/68 93 O2 Del Method 09/08/22 08:21 Room Air 09/08/22 00:00 09/08/22 02:58 Room Air 09/07/22 22:30 Room Air (1) Fall Encounter type: initial encounter Qualified Code(s): W19.XXXA - Unspecified fall, initial encounter
[2022-09-08 09:50] LABS: INR 1.7 (0.9-1.1); Prothrombin Time 17.8 Seconds (9.0-12.0)
[2022-09-08] MEDS: ACETAMINOPHEN 325 MG TAB PO PRN (11:30)
[2022-09-08] MEDS ORDERED: OPTIRAY 320 500ml IV ONE (14:00)
--- NOTE | 2022-09-08 14:28 | CT Scan Report ---
CT ANGIOGRAM OF THE BRAIN COMBO; CT ANGIOGRAM OF THE NECK CLINICAL HISTORY: Dizziness. Syncope. COMPARISON STUDY: CT of the brain dated 09/05/2022. TECHNIQUE: Unenhanced axial CT scan of the brain is performed. Subsequently, following the IV adminis tration of 108 of [address] 320, CT angiogram of the head and neck was performed from the aortic arch t o the vertex. Images are reviewed in the axial, sagittal, and coronal planes. 3-D MIPS images are cre ated and assessed. IV contrast was administered without complication. All measurements were calculate d based on NASCET criteria. A dose lowering technique was utilized adhering to the principles of ALA RA. CT DOSE: 939.03 mGy.cm FINDINGS: Brain parenchyma: There is age-related involutional change noting moderate subcortical and periventri cular microangiopathic disease. There is no hemorrhage, mass effect, or evidence of acute territorial ischemia by CT criteria. There is no evidence of enhancing mass lesion on the angiogram phase images . The ventricles, sulci, and cisterns are prominent secondary to involutional change. Lynch-white elvin er differentiation is preserved. No extra-axial fluid collection is seen. Thoracic aorta: There is atherosclerotic calcification of the thoracic aorta. Visualized portions of the thoracic aorta are normal in caliber. The aortic arch demonstrates standard 3-vessel anatomy. Right carotid arterial system: The right common carotid artery is widely patent, as are the right int ernal and external carotid arteries. Calcified plaque is noted in the carotid bulb. Left carotid arterial system: The left common carotid artery is widely patent, as are the left wildlife biology internship al and external carotid arteries. Calcified plaque is noted in the ICA. Vertebral arteries: The vertebral arteries are widely patent bilaterally noting left-sided dominance. Subclavian arteries: Widely patent bilaterally. Intracranial vasculature: There is atherosclerotic calcification of the cavernous carotid and vertebr al arteries. The [place] is developmentally complete. The internal carotid arteries are alfaro nt at the skull base, as are the anterior and middle cerebral arteries bilaterally. The vertebrobasil ar system and posterior cerebral arteries are widely patent. The left vertebral artery is dominant. T he intracranial right vertebral artery is diminutive. There is no aneurysm, high-grade stenosis, or f ocal vessel cut off seen throughout the intracranial circulation. Jugular veins: Patent bilaterally. Dural sinuses: Patent. Lung apices: Partially visualized upper lobe lung parenchyma appears clear. Soft tissues: There is a right posterior parietal scalp contusion. The visualized pharyngeal soft tis sues are normal in appearance noting angiographic phase technique. The oropharyngeal airway appears w idely patent. The thyroid gland is enlarged and heterogeneous consistent with goiter. The salivary gl ands are normal in appearance. No cervical lymphadenopathy is seen. Skeletal structures: The skeletal structures are osteopenic. The calvarium appears intact. The cervic al spine is maintained noting mild multilevel spondylosis. No lytic or blastic lesion is seen. A righ t shoulder arthroplasty is in place. Orbits: The bony orbits are intact. Orbital contents are normal as visualized noting bilateral ocular lens implants. Sinuses and mastoids: The paranasal sinuses are clear. The mastoid air cells are well pneumatized. IMPRESSION: 1. There is no hemorrhage, mass effect, or evidence of acute territorial ischemia by CT criteria. 2. Unremarkable CT angiogram of the brain. 3. Unremarkable CT angiogram of the neck. ACT 112: Negative or not required by law. Electronically signed by: Favio Hendrix M.D. 09/08/2022 2:27 PM
--- NOTE | 2022-09-08 15:45 | Discharge Summary ---
Discharge Summary Date of Service September 08, 2022 Notes For Next Care Provider Please continue to address worsening glucose with A1C 10.2 Medication Changes From Visit NEW glipizide 2.5mg PO daily Admission HPI Per Admitting Provider This is an 86-year-old female who has significant past medical history of chronic atrial fibrillation, history of tachybradycardia syndrome status post PPM, CAD, history of AVR HTN, moderate mitral regurgitation, HLD, T2DM, hyperparathyroidism, CKD stage III, osteoporosis, depression, MINDY, history of CVA who presents to ED after stating a syncopal episode and fall. Records reviewed from ER. Patient presented to ER in retail [employer] hours after she sustained a syncopal episode. She lives in assisted living facility and was in her kitchen. She was standing at a countertop when she felt like she was going to, "pass out," and this is when she fell and struck her head on the counter. After discussing with patient she states she was visiting her friend at [facility]. She typically has to be back at the [place] at [address] drives. They were in the kitchen and she was doing some dishes. Her boyfriend was right behind her and when she went to turn around she fell to the floor. She states that she got, "dizzy." She described as feeling like she was going to, "pass out." She recalls all events and is not quite sure that she truly passed out completely. She had the right side of her head in the right side of her chest. She does have a contusion to the back of her right head and she states this is slowly getting smaller since being in the ER. At the time of the event she does not recall having any chest pain, palpitations, diaphoresis, shortness of breath or nausea. She also states that, "everything just happened in seconds." She denies a similar events in the past. Currently she feels improved lying in bed. She denies any fever, chills, sweats, lightheadedness, dizziness, chest pain, shortness breath, nausea, vomiting, abdominal pain. At baseline she typically walks with a cane or walker. In ED patient remained hemodynamically stable. Her CBC and CMP was generally unremarkable except for elevated glucose at 241. Her head and neck CT were unremarkable though it did reveal a right parietal scalp soft tissue contusion. Of significance on 08/25 patient underwent TTE which revealed LVEF 45 to 49%, mildly reduced, severe biatrial enlargement, left atrium severely enlarged, right atrium severely enlarged, status post TAVR with CoreValve prosthetic valve with aortic valve prosthesis stenosis absent. Significant aortic valve prosthesis regurgitation is absent. Moderate mitral regurg is present. Moderate tricuspid regurg is present. Mild pulmonary hypertension is present. There was no change in comparison from May 11, 2021. On 08/14/2022 patient underwent pacemaker check to monitor longevity. Principal Dx & Hospital Course #1 = Principal Diagnosis (1) Fall: (2) Diabetes mellitus, type II: (3) Syncope: (4) Chronic atrial fibrillation: (5) Chronic systolic heart failure: (6) Tachy-wanda syndrome: (7) S/P cardiac pacemaker procedure: (8) S/p TAVR (transcatheter aortic valve replacement), bioprosthetic: (9) CAD (coronary artery disease): Plan 86-year-old female with a history of chronic atrial fibrillation presented to the ER after a reported syncopal episode and fall. On prior discussion it appears she had remembered the entire event. She was admitted to medicine and pacemaker was interrogated. Cardiology was consulted. Pacer interrogation revealed 50% V paced rhythm with rates acceptably controlled. Her orthostatics were checked and were negative. Recent echocardiogram on 08/29 revealed a left ventricular ejection fraction of 45 to 49% severe biatrial enlargement, status post TAVR with CoreValve prosthetic valve and aortic valve prosthesis stenosis absent. Moderate MR, moderate TR present. She was euvolemic on exam. Neurology was consulted and recommended to look at her head and neck angiogram to rule out vertebrobasilar insufficiency. The studies were negative. Importantly her hemoglobin A1c increased to 10.2 from 8.2 in March 2022. She is still listed as a diet-controlled diabetic and not on any medications. Start ed on low-dose glipizide as hypoglycemia was noted on presentation to the ER and it is suspected that her glucose dysregulation likely caused her episode. At time of discharge she was medically stable, hemodynamically stable and afebrile and mentating and ambulating at baseline. She was sent back to the [place] with close primary care follow-up recommended. Other studies during her stay included a CT of the head revealing no acute intracranial hemorrhage midline or mass affect and a C-spine CT revealing no acute fracture or subluxation of the cervical spine. Updated Medication List Medication Instructions Recorded Confirmed Type atorvastatin 40 mg tablet (Lipitor) 40 mg PO HS 11/11/19 09/06/22 History metoprolol succinate 25 mg 25 mg PO QAM 11/11/19 09/06/22 History tablet,extended release 24 hr (Toprol XL) nitroglycerin 0.4 mg sublingual 0.4 mg sublingual DIRECTED PRN 11/11/19 09/06/22 History tablet (Nitrostat) Chest Pain warfarin 4 mg tablet 4 mg PO SUMOWETHFRSA@1600 11/11/19 09/06/22 History alendronate 70 mg tablet 70 mg PO WK 08/11/21 09/06/22 History duloxetine 30 mg capsule,delayed 30 mg PO QAM 08/11/21 09/06/22 History release spironolactone 25 mg tablet 25 mg PO QAM 08/11/21 09/06/22 History torsemide 5 mg tablet 5 mg PO QAM PRN Edema 08/11/21 09/06/22 History acetaminophen 500 mg tablet 500 mg PO BID PRN Pain 03/11/22 09/06/22 History digoxin 125 mcg (0.125 mg) tablet 125 mcg PO 4XWK 03/11/22 09/06/22 History polyethylene glycol 3350 17 17 g PO DAILY PRN Constipation 03/11/22 09/06/22 History gram/dose oral powder sodium chloride 0.65 % nasal spray 2 spray intranasal Q8 PRN 03/11/22 09/06/22 History aerosol (Saline Nasal Mist) Congestion tramadol 50 mg tablet 50 mg PO BID PRN Pain 03/11/22 09/06/22 History warfarin 4 mg tablet 4 mg PO TU@1600 09/06/22 09/06/22 History glipizide 2.5 mg tablet, extended 2.5 mg PO DAILY #30 tabs 09/08/22 Rx release 24 hr Hospital Stay Data Consultations 09/06/22 01:14 ED Decision to Admit Stat 09/06/22 03:30 Consult Cardiology Routine 09/07/22 16:21 Consult Neurology Routine Diagnostic Imagining Performed 09/05/22 22:36 CT cervical spine wo con Stat CT head/brain wo con Stat 09/08/22 12:43 CT angio neck with con Routine CTA head wo/w [CT angio head wo/w] Routine Pending Results Patient Have Any Pending Studies at Discharge: No Discharge Instructions Given to Patient (Per Discharging Provider) Please take all medications as instructed on discharge list below. Your diabetes is uncontrolled with a hemoglobin A1C of 10.2, (goal <8). Therefore, you are being started on a low dose pill for glucose and should followup with your primary care provider within the next 1-2 weeks. Your PCP will increase or change the medication as needed to get your diabetes more under control. It was a pleasure taking care of you! Please call if you have any questions or problems. You can reach a [facility] hospitalist on duty at [facility] 24 hours a day by calling [phone]. Take care of yourself. Jennifer Clark, [facility] Hospitalist Total Time Total Time Spent Total Time Spent (In Minutes): 60
[2022-09-08] MEDS: DIGOXIN 0.125 MG TAB PO SCH (16:09)
== END 2022-09-08 17:14 | disposition home or self-care (01) | DRG 312 ==
LOC: ED 21:17 → EDINP 21:17 → SUATTDRO 09-06 01:19 → 2N 09-06 16:35 → SUATTDRO 09-07 16:23

== ENCOUNTER 2023-12-01 16:44 | Inpatient (IN) ==
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
[2023-12-01 17:09] LABS: iSTAT Creatinine 0.9 mg/dl (0.6-1.3); iSTAT Hemoglobin 11.6 g/dl (12.0-16.0); iSTAT Ionized Calcium 1.38 mmol/l (1.12-1.32); iSTAT Potassium 3.6 mmol/L (3.3-5.0)
[2023-12-01 17:17] LABS: Basophils # (auto) 0.01 K/uL (0.00-0.20); Basophils % (auto) 0.1 %; Eosinophils # (auto) 0.02 K/uL (0.00-0.50); Eosinophils % (auto) 0.2 %; Hematocrit (blood only) 36.8 % (37.0-47.0); Hemoglobin 12.4 g/dl (12.0-16.0); Immature Granulocytes # (auto) 0.08 K/uL (0.01-0.20); Lymphocytes # (auto) 1.38 K/uL (1.20-3.40); Lymphocytes % (auto) 17.2 %; Mean Corpuscular Hemoglobin 30.7 pg (25.0-34.0); Mean Corpuscular Hgb Conc 33.7 g/dL (32.0-36.0); Mean Corpuscular Volume 91.1 fL (80.0-100.0); Mean Platelet Volume 9.3 fL (9.4-12.4); Monocytes # (auto) 0.89 K/uL (0.11-0.59); Monocytes % (auto) 11.1 %; Neutrophils # (auto) 5.64 K/uL (1.40-6.50); Neutrophils % (auto) 70.4 %; Platelet Count 153 K/uL (130-400); RDW Coefficient of Variation 13.3 % (11.5-14.5); RDW Standard Deviation 44.6 fL (36.4-46.3); Red Blood Count 4.04 M/uL (4.20-5.40); White Blood Count 8.02 K/ul (4.8-10.8)
[2023-12-01 17:29] LABS: Albumin Level 4.2 gm/dl (3.4-5.0); BUN Creatinine Ratio 34.1 (10-20); Bilirubin,Total 0.8 mg/dl (0.2-1.0); Calcium 10.6 mg/dl (8.6-10.3); Creatinine Clr Calc Pharmacy 38.6 ml/min; Est GFR (African American) 71.4 ml/min; Est GFR (Non-African American) 61.6 ml/min; Globulin 2.1 gm/dl (2.5-4.0); Potassium 3.6 mmol/L (3.5-5.1); Total Protein 6.3 gm/dl (6.0-8.3)
[2023-12-01 17:36] LABS: Troponin I High Sensitivity 12.3 pg/ml (0-14)
[2023-12-01 17:49] LABS: Appearance Urine Clear (Clear); Bilirubin Urine Negative (Negative); Blood Urine Negative (Negative); Color Urine Yellow; Glucose Urine UA Negative (Negative); Ketones Urine Negative (Negative); Leukocyte Esterase Urine Negative (Negative); Nitrite Urine Negative (Negative); Protein Urine Negative (Negative); Specific Gravity Urine 1.013 (1.000-1.030); Urobilinogen Urine Negative (Negative)
--- NOTE | 2023-12-01 17:49 | CT Scan Report ---
CT SCAN OF THE BRAIN WITHOUT IV CONTRAST CLINICAL HISTORY: Change in mental status. COMPARISON STUDY: CT of the brain dated 09/08/2022. TECHNIQUE: Unenhanced axial CT scan of the brain is performed from the vertex to the skull base. A do se lowering technique was utilized adhering to the principles of ALARA. CT DOSE: 625.8 mGy.cm FINDINGS: Brain parenchyma: There is age-related involutional change noting moderate to advanced subcortical an d periventricular microangiopathic disease. There is no hemorrhage, mass effect, or evidence of acute territorial ischemia by CT criteria. Lynch-white matter differentiation is preserved. No extra-axial fluid collection is seen. Ventricles, sulci, cisterns: Prominent secondary to involutional change. Intracranial vasculature: There is atherosclerotic calcification of the cavernous carotid and vertebr al arteries. Calvarium: Unremarkable. Soft tissues: Foci of intravascular gas at the skull base and within the facial soft tissues are like ly related to IV placement. Sinuses and mastoids: The visualized paranasal sinuses are clear. The mastoid air cells are well pneu matized. Orbits: The bony orbits are grossly intact. There are bilateral ocular lens implants. IMPRESSION: There is no hemorrhage, mass effect, or evidence of acute territorial ischemia by CT allyn perez. ACT 112: Negative or not required by law. Electronically signed by: Favio Hendrix M.D. 12/01/2023 5:46 PM
--- NOTE | 2023-12-01 17:50 | XRay Report ---
SINGLE VIEW CHEST CLINICAL HISTORY: Atypical chest pain. FINDINGS: 2 AP, portable, upright chest radiographs are compared to study dated 10/21/2022. There is e vidence of previous cardiac valve surgery. A single lead cardiac pacemaker is unchanged in position. The heart is enlarged and noting atherosclerotic calcification of the thoracic aorta. The pulmonary v asculature is noncongested. Chronic interstitial thickening is similar to previous. There is bibasila r scarring/atelectasis. No airspace consolidation or large pleural effusion is identified. No pneumot horax is seen. The skeletal structures are osteopenic. Vertebroplasty changes seen in the upper lumba r spine. A right shoulder arthroplasty is in place. Arthritic change is noted in the left shoulder. IMPRESSION: 1. Cardiomegaly and cardiac pacemaker without radiographic evidence of congestive failure. 2. No airspace consolidation or large pleural effusion is identified. ACT 112: Negative or not required by law. Electronically signed by: Favio Hendrix M.D. 12/01/2023 5:48 PM
[2023-12-01 18:18] LABS: Adenovirus PCR Not Detected (NotDetected); Bordetella parapertussis PCR Not Detected (NotDetected); Bordetella pertussis PCR Not Detected (NotDetected); Chlamydia pneumoniae PCR Not Detected (NotDetected); Coronavirus 229E PCR Not Detected (NotDetected); Coronavirus CoV-2 (COVID19)PCR Not Detected (NotDetected); Coronavirus HKU1 PCR Not Detected (NotDetected); Coronavirus NL63 PCR Not Detected (NotDetected); Coronavirus OC43PCR Not Detected (NotDetected); Human Metapneumovirus PCR Not Detected (NotDetected); Influenza A PCR Not Detected (NotDetected); Influenza B PCR Not Detected (NotDetected); Mycoplasma pneumoniae PCR Not Detected (NotDetected); Parainfluenza Virus 1 PCR Not Detected (NotDetected); Parainfluenza Virus 2 PCR Not Detected (NotDetected); Parainfluenza Virus 3 PCR Not Detected (NotDetected); Parainfluenza Virus 4 PCR Not Detected (NotDetected); Respiratory Syncytial VirusPCR Not Detected (NotDetected); Rhinovirus/Enterovirus PCR Not Detected (NotDetected)
--- NOTE | 2023-12-01 18:18 | Emergency Department Note ---
Impression & Plan Acute alteration in mental status, Cardiomegaly ED Provider Note NAME: VASILIY MATHEW AGE: 88 SEX: F : 1935 ARRIVES VIA: Ambulance INFORMANT: Patient, ED PROVIDER(S): Leslie Lloyd MD CHIEF COMPLAINT: Decreased level of consciousness HPI: This is a an 88-year-old female presenting for decreased level of consciousness. Patient was reportedly found sleeping previously. Patient then noted to be intermittently conscious. She feels weak. She has no current other symptoms. Patient denies any chest pain, headache, vision changes, shortness of breath, fevers, chills. ROS: See above HPI for pertinent positives & negatives. A total of 10 systems reviewed and were otherwise negative. PAST MEDICAL HISTORY: See Below PAST SURGICAL HISTORY: See Below FAMILY HISTORY: See Below SOCIAL HISTORY: See Below HOME MEDICATIONS: See Below ALLERGIES: See Below VITALS: See Below PHYSICAL EXAMINATION: General: Eyes open, anxious appearing Head: Normocephalic and atraumatic Eyes: Normal inspection, extraocular muscles intact Ear, nose, throat: Normal external exam Neck: Normal range of motion Respiratory: lungs clear to auscultation bilaterally Cardiovascular: Regular rate/rhythm, no murmur GI: soft, nontender, no guarding or rebound Extremities: nontender, moves all extremities Neuro: The patient awake and alert, appropriately conversive, no focal deficits, symmetric faces Skin: Warm, dry, and intact MEDICAL DECISION MAKING: This is a 88-year-old female presenting for possible decreased level of consciousness/confusion. She appears well overall with reassuring vital signs. She does not answer much question but is able to me that she has no current chest pain, short of breath or fevers. -ECG independently interpreted by me with ventricularly paced rhythm, rate of 82, LBBB, normal QTc, not consistent with STEMI or Sgarbossa criteria -Currently has no current symptoms just decreased level of consciousness occasionally. She appears to be waxing and waning. Consider UTI, upper respiratory infection, encephalopathy -Chest Xray independently interpreted by me showing no pneumothorax, focal opacity, or pleural effusions. -CT imaging unrevealing of acute process -Bloodwork is reviewed showing no significant leukocytosis, anemia, electrolyte or creatinine abnormality -Urinalysis unrevealing of UTI -Patient has acute altered mental status, will admit for further workup at this time Differential diagnosis: UTI, stroke, intracranial hemorrhage, SAH, upper respiratory infection, pneumonia ER treatment provided: See below Independent History obtained from: Son Diagnostics interpreted by me: ECG: See above Cardiac Monitoring: An order was placed for continuous cardiac monitoring. The monitor shows a rate of 70 with sinus rhythm. Laboratory studies: As stated above and show below. Imaging studies: See below. 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 end of life Chest pain at rest Atrial fibrillation with rapid ventricular response (Acute) Anemia (Acute) Syncope (Acute) Head injury (Acute) Cardiac pacemaker in situ Syncope Dizziness Acute hypoxemic respiratory failure COVID-19 (Acute) Hypoxia (Acute) Pain in deltoid, bilateral Abdominal pain Epigastric heaviness (Acute Unknown) History of fracture of rib (Acute) Chest pain on respiration (Acute) Rib pain on left side (Acute) Elevated troponin I measurement (Acute) Fracture of fifth metatarsal bone of left foot Abnormal CT of the abdomen DEIRDRE (acute kidney injury) (Acute) Fracture of 5th metatarsal (Acute) Rib pain on left side (Acute) Fall (Acute) Hypokalemia Acute on chronic systolic (congestive) heart failure DVT prophylaxis Depression Chronic atrial fibrillation (Acute) S/P cardiac pacemaker procedure Tachy-wanda syndrome Chronic systolic heart failure S/p TAVR (transcatheter aortic valve replacement), bioprosthetic 2016 Aortic stenosis S/P TAVR in 2016 CAD (coronary artery disease) S/P OR and stent to RCA in 2002 Diabetes mellitus, type II HLD (hyperlipidemia) HTN (hypertension) Hyperparathyroidism Chest pain, precordial (Acute) Abnormal EKG (Acute) Chest pain (Acute) Primary hyperparathyroidism (Chronic Unknown) Hypercalcemia (Chronic Unknown) Aortic valve replaced (Chronic) Family History Other Cancer Diabetes Heart disease Hypertension Social History Smoking Status: Never smoker Second Hand Exposure: No; Do You Dip or Chew Tobacco: No; Hx Alcohol Use: No Hx Substance Use: No Preferred Language: Urdu Communication Ability: Effective Center Machine 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 How many Children do You have: 3 Feels Safe at Home: Yes Safety Concerns: Feels Safe At This Time Assistive Devices: Walker Allergies Allergies Allergy/AdvReac Type Severity Reaction Status Date / Time tetracycline Allergy Intermediate RASH Verified 12/01/23 21:05 morphine AdvReac Severe "VIOLENTLY Verified 12/01/23 21:05 ILL", NAUSEA/VOMITING codeine AdvReac Intermediate nausea/Vomi Verified 12/01/23 21:05 ting Home Meds Home Medications Medication Instructions Recorded Confirmed atorvastatin 40 mg tablet (Lipitor) 40 mg PO HS 11/11/19 12/01/23 nitroglycerin 0.4 mg sublingual 0.4 mg sublingual DIRECTED PRN 11/11/19 12/01/23 tablet (Nitrostat) Chest Pain warfarin 4 mg tablet 4 mg PO [id number] 11/11/19 12/01/23 alendronate 70 mg tablet 70 mg PO WK 08/11/21 12/01/23 duloxetine 30 mg capsule,delayed 30 mg PO QAM 08/11/21 12/01/23 release acetaminophen 500 mg tablet 500 mg PO Q6H PRN Pain 03/11/22 12/01/23 digoxin 125 mcg (0.125 mg) tablet 125 mcg PO DAILY 03/11/22 12/01/23 spironolactone 25 mg tablet 25 mg PO DAILY 10/18/22 12/01/23 warfarin 2 mg tablet 2 mg PO 3XWK 10/18/22 12/01/23 olanzapine 2.5 mg tablet 2.5 mg PO HS 12/01/23 12/01/23 tramadol 50 mg tablet 50 mg PO Q8H PRN Pain 12/01/23 12/01/23 Previous Rx's Medication Instructions Recorded glipizide 2.5 mg tablet, extended 2.5 mg PO DAILY #30 tabs 09/08/22 release 24 hr metoprolol succinate 25 mg 25 mg PO BID #30 tabs 10/27/22 tablet,extended release 24 hr (Toprol XL) acetaminophen 300 mg-codeine 30 mg 1 tab PO Q8H PRN pain #4 tabs 11/29/23 tablet lidocaine 5 % topical patch 1 patch topical DAILY PRN pain #15 11/29/23 ea prednisone 20 mg tablet See Rx Instructions .Route 11/29/23 .COMPLEX 5 days #7 tabs Results & Data (ED) Vital Signs Vital Signs - 24 hr 12/01/23 16:52 12/01/23 17:12 12/01/23 17:13 Temperature 36.6 C Temperature Source Oral Pulse Rate 68 75 Pulse Rate from SpO2 Sensor 65 Respiratory Rate 14 20 Respiratory Effort / Characteristics Non-Labored Spontaneous Respiratory Depth Normal Respiratory Pattern Regular Blood Pressure 182/113 H 151/90 H Blood Pressure [Right Arm] Blood Pressure Mean 136 113 Blood Pressure Mean [Right Arm] Pulse Oximetry 95 96 Oxygen Delivery Method Room Air Sepsis Recent Fever Within 48 Hours No Sepsis New/Unexplained Change in Mental Status N/A Sepsis Action Taken by Nursing No Action Required 12/01/23 17:30 12/01/23 17:30 12/01/23 17:31 Temperature Temperature Source Pulse Rate 74 68 Pulse Rate from SpO2 Sensor 64 Respiratory Rate 18 15 Respiratory Effort / Characteristics Respiratory Depth Respiratory Pattern Blood Pressure 164/90 H Blood Pressure [Right Arm] Blood Pressure Mean 123 Blood Pressure Mean [Right Arm] Pulse Oximetry 97 95 96 Oxygen Delivery Method Room Air Sepsis Recent Fever Within 48 Hours Sepsis New/Unexplained Change in Mental Status Sepsis Action Taken by Nursing 12/01/23 17:31 12/01/23 17:31 12/01/23 17:44 Temperature Temperature Source Pulse Rate 71 Pulse Rate from SpO2 Sensor Respiratory Rate 18 Respiratory Effort / Characteristics Non-Labored Respiratory Depth Normal Respiratory Pattern Blood Pressure Blood Pressure [Right Arm] 164/90 H Blood Pressure Mean Blood Pressure Mean [Right Arm] 114 Pulse Oximetry 95 96 Oxygen Delivery Method Room Air Room Air Sepsis Recent Fever Within 48 Hours Sepsis New/Unexplained Change in Mental Status Sepsis Action Taken by Nursing Laboratory Data 12/03/23 02:31 12/03/23 02:31 Lab Results 12/01/23 12/01/23 12/01/23 Range/Units 16:50 16:52 16:57 WBC 8.02 (4.8-10.8) K/ul RBC 4.04 L (4.20-5.40) M/uL Hgb 12.4 (12.0-16.0) g/dl POC Hgb 11.6 L (12.0-16.0) g/dl Hct 36.8 L (37.0-47.0) % POC Hct 34 L (37-47) % MCV 91.1 (80.0-100.0) fL MCH 30.7 (25.0-34.0) pg MCHC 33.7 (32.0-36.0) g/dL RDW Std Deviation 44.6 (36.4-46.3) fL RDW Coeff of Rosas 13.3 (11.5-14.5) % Plt Count 153 (130-400) K/uL MPV 9.3 L (9.4-12.4) fL Immature Gran % (Auto) 1.0 % Neut % (Auto) 70.4 % Lymph % (Auto) 17.2 % [place] % (Auto) 11.1 % Eos % (Auto) 0.2 % Baso % (Auto) 0.1 % Neut # (Auto) 5.64 (1.40-6.50) K/uL Lymph # (Auto) 1.38 (1.20-3.40) K/uL [place] # (Auto) 0.89 H (0.11-0.59) K/uL Eos # (Auto) 0.02 (0.00-0.50) K/uL Baso # (Auto) 0.01 (0.00-0.20) K/uL Immature Gran # (Auto) 0.08 (0.01-0.20) K/uL PT 29.4 H (9.0-12.0) Seconds INR 3.0 H (0.9-1.1) POC Sodium 141 (135-144) mmol/L Sodium 139 (136-145) mmol/L POC Potassium 3.6 (3.3-5.0) mmol/L Potassium 3.6 (3.5-5.1) mmol/L POC Chloride 104 (101-112) mmol/L Chloride 107 (98-107) mmol/L Carbon Dioxide 29 (21-32) mmol/L POC Total CO2 24 (24-31) mmol/L Anion Gap 3 (3-11) POC Anion Gap 18.0 (16-25) mmol/L POC BUN 25 H (7-18) mg/dl BUN 29 H (6-23) mg/dl Creatinine 0.85 (0.6-1.2) mg/dl POC Creatinine 0.9 (0.6-1.3) mg/dl Est Cr Clr Drug Dosing 38.6 ml/min Est GFR ( Amer) 71.4 ml/min Est GFR (Non-Af Amer) 61.6 ml/min BUN/Creatinine Ratio 34.1 H (10-20) Glucose 160 H (70-99(Fasting)) mg/dl POC Glucose (other) 153 H (70-99) mg/dl Calcium 10.6 H (8.6-10.3) mg/dl POC Ioniz Calcium Garcia 1.38 H (1.12-1.32) mmol/l Phosphorus 2.0 L (2.5-4.9) mg/dl Total Bilirubin 0.8 (0.2-1.0) mg/dl AST 20 (13-39) U/L ALT 29 (7-52) U/L Alkaline Phosphatase 44 (34-104) U/L Troponin I High Sens 12.3 (0-14) pg/ml Total Protein 6.3 (6.0-8.3) gm/dl Albumin 4.2 (3.4-5.0) gm/dl Globulin 2.1 L (2.5-4.0) gm/dl Albumin/Globulin Ratio 2.0 (0.9-2) Lipase 55 (11-82) U/L PTH Intact 109.2 H (12.0-88.0) pg/ml Urine Color Urine Appearance (Clear) Urine pH (4.5-7.5) Ur Specific [place] (1.000-1.030) Urine Protein (Negative) Urine Glucose (UA) (Negative) Urine Ketones (Negative) Urine Blood (Negative) Urine Nitrite (Negative) Urine Bilirubin (Negative) Urine Urobilinogen (Negative) Ur Leukocyte Esterase (Negative) Adenovirus (PCR) Not Detected (NotDetected) B. pertussis DNA (PCR) Not Detected (NotDetected) B.parapertussis DNA PCR Not Detected (NotDetected) C. pneumoniae DNA (PCR) Not Detected (NotDetected) Coronavirus OC43 (PCR) Not Detected (NotDetected) Coronavirus HKU1 (PCR) Not Detected (NotDetected) Coronavirus 229E (PCR) Not Detected (NotDetected) SARS-CoV-2 (PCR) Not Detected (NotDetected) Coronavirus NL63 (PCR) Not Detected (NotDetected) Human Metapneumovir PCR Not Detected (NotDetected) Influenza Type A (PCR) Not Detected (NotDetected) Influenza Type B (PCR) Not Detected (NotDetected) M. pneumoniae (PCR) Not Detected (NotDetected) Parainfluenza 1 (PCR) Not Detected (NotDetected) Parainfluenza 2 (PCR) Not Detected (NotDetected) Parainfluenza 3 (PCR) Not Detected (NotDetected) Parainfluenza 4 (PCR) Not Detected (NotDetected) RSV (PCR) Not Detected (NotDetected) Entero/Rhino (PCR) Not Detected (NotDetected) 12/01/23 Range/Units 17:34 WBC (4.8-10.8) K/ul RBC (4.20-5.40) M/uL Hgb (12.0-16.0) g/dl POC Hgb (12.0-16.0) g/dl Hct (37.0-47.0) % POC Hct (37-47) % MCV (80.0-100.0) fL MCH (25.0-34.0) pg MCHC (32.0-36.0) g/dL RDW Std Deviation (36.4-46.3) fL RDW Coeff of Rosas (11.5-14.5) % Plt Count (130-400) K/uL MPV (9.4-12.4) fL Immature Gran % (Auto) % Neut % (Auto) % Lymph % (Auto) % [place] % (Auto) % Eos % (Auto) % Baso % (Auto) % Neut # (Auto) (1.40-6.50) K/uL Lymph # (Auto) (1.20-3.40) K/uL [place] # (Auto) (0.11-0.59) K/uL Eos # (Auto) (0.00-0.50) K/uL Baso # (Auto) (0.00-0.20) K/uL Immature Gran # (Auto) (0.01-0.20) K/uL PT (9.0-12.0) Seconds INR (0.9-1.1) POC Sodium (135-144) mmol/L Sodium (136-145) mmol/L POC Potassium (3.3-5.0) mmol/L Potassium (3.5-5.1) mmol/L POC Chloride (101-112) mmol/L Chloride (98-107) mmol/L Carbon Dioxide (21-32) mmol/L POC Total CO2 (24-31) mmol/L Anion Gap (3-11) POC Anion Gap (16-25) mmol/L POC BUN (7-18) mg/dl BUN (6-23) mg/dl Creatinine (0.6-1.2) mg/dl POC Creatinine (0.6-1.3) mg/dl Est Cr Clr Drug Dosing ml/min Est GFR ( Amer) ml/min Est GFR (Non-Af Amer) ml/min BUN/Creatinine Ratio (10-20) Glucose (70-99(Fasting)) mg/dl POC Glucose (other) (70-99) mg/dl Calcium (8.6-10.3) mg/dl POC Ioniz Calcium Garcia (1.12-1.32) mmol/l Phosphorus (2.5-4.9) mg/dl Total Bilirubin (0.2-1.0) mg/dl AST (13-39) U/L ALT (7-52) U/L Alkaline Phosphatase (34-104) U/L Troponin I High Sens (0-14) pg/ml Total Protein (6.0-8.3) gm/dl Albumin (3.4-5.0) gm/dl Globulin (2.5-4.0) gm/dl Albumin/Globulin Ratio (0.9-2) Lipase (11-82) U/L PTH Intact (12.0-88.0) pg/ml Urine Color Yellow Urine Appearance Clear (Clear) Urine pH 6.0 (4.5-7.5) Ur Specific [place] 1.013 (1.000-1.030) Urine Protein Negative (Negative) Urine Glucose (UA) Negative (Negative) Urine Ketones Negative (Negative) Urine Blood Negative (Negative) Urine Nitrite Negative (Negative) Urine Bilirubin Negative (Negative) Urine Urobilinogen Negative (Negative) Ur Leukocyte Esterase Negative (Negative) Adenovirus (PCR) (NotDetected) B. pertussis DNA (PCR) (NotDetected) B.parapertussis DNA PCR (NotDetected) C. pneumoniae DNA (PCR) (NotDetected) Coronavirus OC43 (PCR) (NotDetected) Coronavirus HKU1 (PCR) (NotDetected) Coronavirus 229E (PCR) (NotDetected) SARS-CoV-2 (PCR) (NotDetected) Coronavirus NL63 (PCR) (NotDetected) Human Metapneumovir PCR (NotDetected) Influenza Type A (PCR) (NotDetected) Influenza Type B (PCR) (NotDetected) M. pneumoniae (PCR) (NotDetected) Parainfluenza 1 (PCR) (NotDetected) Parainfluenza 2 (PCR) (NotDetected) Parainfluenza 3 (PCR) (NotDetected) Parainfluenza 4 (PCR) (NotDetected) RSV (PCR) (NotDetected) Entero/Rhino (PCR) (NotDetected) Administered Medications Acetaminophen (Acetaminophen 325 Mg Tab) 650 mg PO QID PRN PRN Reason: pain/fever Stop: 12/31/23 21:02 Last Admin: 12/02/23 09:10 Dose: 650 mg Documented By: ERNESTO Atorvastatin Calcium (Atorvastatin 40 Mg Tab) 40 mg PO HS [facility] Stop: 01/01/24 20:59 Last Admin: 12/02/23 20:43 Dose: 40 mg Documented By: HAI Digoxin (Digoxin 0.125 Mg Tab) 0.125 mg PO DAILY@1600 [facility] Stop: 01/01/24 15:59 Last Admin: 12/02/23 16:48 Dose: 0.125 mg Documented By: Duloxetine HCl (Duloxetine Hcl 30 Mg Cap) 30 mg PO QAM [facility] Stop: 01/01/24 08:59 Last Admin: 12/03/23 08:13 Dose: 30 mg Documented By: Admin: 12/02/23 10:25 Dose: 30 mg Documented By: Insulin Aspart (Insulin Aspart Per Unit Charge) 0 units SC ACHS [facility] Stop: 01/02/24 07:29 Last Admin: 12/03/23 08:14 Dose: Not Given Documented By: Lidocaine (Lidocaine 5% 1 Patch) 1 patch TD HS [facility] Stop: 12/31/23 23:49 Last Admin: 12/02/23 20:43 Dose: Not Given Documented By: Admin: 12/02/23 00:52 Dose: Not Given Documented By: SHAUN Metoprolol Succinate (Metoprolol Succ 25mg Ext Rel Tab) 25 mg PO BID ACE Stop: 12/31/23 23:44 Last Admin: 12/03/23 08:13 Dose: 25 mg Documented By: Admin: 12/02/23 20:43 Dose: 25 mg Documented By: Admin: 12/02/23 10:25 Dose: 25 mg Documented By: Admin: 12/02/23 00:47 Dose: 25 mg Documented By: SHAUN Miscellaneous (Remove Lidoderm Patch) 1 each N/A QAM [facility] Stop: 01/01/24 11:59 Last Admin: 12/03/23 08:13 Dose: Not Given Documented By: Admin: 12/02/23 11:15 Dose: 1 each Documented By: FRANNIE Nitroglycerin (Nitroglycerin Sl 0.4 Mg/Tab Tab) 0.4 mg SL Q5M PRN PRN Reason: Chest Pain Stop: 01/01/24 23:47 Last Admin: 12/02/23 23:54 Dose: 0.4 mg Documented By: HAI Warfarin Sodium (Warfarin Sod 2 Mg Tab) 2 mg PO DAILY@1600 [facility] Stop: 01/01/24 19:02 Last Admin: 12/02/23 19:44 Dose: 2 mg Documented By: DM Discontinued Medications Potassium Chloride/Sodium Chloride (Normal Saline W/20 Meq Kcl) 20 meq in 1,000 mls @ 75 mls/hr IV .[id number] ONE; Protocol Stop: 12/02/23 09:51 Last Infusion: 12/02/23 10:24 Dose: Infused Documented By: Admin: 12/01/23 20:51 Dose: 75 mls/hr Documented By: CRISTELA Potassium Phosphate 15 mmol/ (Sodium Chloride) 255 mls @ 88 mls/hr IV ONE STA Stop: 12/02/23 00:31 Last Infusion: 12/02/23 01:17 Dose: Infused Documented By: Admin: 12/01/23 22:23 Dose: 88 mls/hr Documented By: CRISTELA Sodium Chloride (Nss) 1,000 mls @ 60 mls/hr IV .[id number] ONE Stop: 12/03/23 16:29 Last Infusion: 12/03/23 08:21 Dose: Infused Documented By: Admin: 12/02/23 23:57 Dose: 60 mls/hr Documented By: HAI Insulin Aspart (Insulin Aspart Per Unit Charge) 0 units SC ACHS ACE Stop: 12/31/23 22:08 Last Admin: 12/02/23 20:25 Dose: Not Given Documented By: Admin: 12/02/23 16:29 Dose: Not Given Documented By: Admin: 12/02/23 11:24 Dose: Not Given Documented By: Admin: 12/02/23 10:23 Dose: Not Given Documented By: Admin: 12/01/23 22:30 Dose: Not Given Documented By: CRISTELA Nitroglycerin (Nitroglycerin Sl 0.4 Mg/Tab Tab) 0.4 mg SL NOW STA Stop: 12/02/23 22:14 Last Admin: 12/02/23 22:18 Dose: 0.4 mg Documented By: HAI Imaging Data Radiologist's Impression: Chest X-Ray 12/01/23 17:07 SINGLE VIEW CHEST CLINICAL HISTORY: Atypical chest pain. FINDINGS: 2 AP, portable, upright chest radiographs are compared to study dated 10/21/2022. There is evidence of previous cardiac valve surgery. A single lead cardiac pacemaker is unchanged in position. The heart is enlarged and noting atherosclerotic calcification of the thoracic aorta. The pulmonary vasculature is noncongested. Chronic interstitial thickening is similar to previous. There is bibasilar scarring/atelectasis. No airspace consolidation or large pleural effusion is identified. No pneumothorax is seen. The skeletal structures are osteopenic. Vertebroplasty changes seen in the upper lumbar spine. A right shoulder arthroplasty is in place. Arthritic change is noted in the left shoulder. IMPRESSION: 1. Cardiomegaly and cardiac pacemaker without radiographic evidence of congestive failure. 2. No airspace consolidation or large pleural effusion is identified. ACT 112: Negative or not required by law. Electronically signed by: Favio Hendrix M.D. 12/01/2023 5:[address] 12/01/23 17:14 CT SCAN OF THE BRAIN WITHOUT IV CONTRAST CLINICAL HISTORY: Change in mental status. COMPARISON STUDY: CT of the brain dated 09/08/2022. TECHNIQUE: Unenhanced axial CT scan of the brain is performed from the vertex to the skull base. A dose lowering technique was utilized adhering to the principles of ALARA. CT DOSE: 625.8 mGy.cm FINDINGS: Brain parenchyma: There is age-related involutional change noting moderate to advanced subcortical and periventricular microangiopathic disease. There is no hemorrhage, mass effect, or evidence of acute territorial ischemia by CT criteria. Lynch-white matter differentiation is preserved. No extra-axial fluid collection is seen. Ventricles, sulci, cisterns: Prominent secondary to involutional change. Intracranial vasculature: There is atherosclerotic calcification of the cavernous carotid and vertebral arteries. Calvarium: Unremarkable. Soft tissues: Foci of intravascular gas at the skull base and within the facial soft tissues are likely related to IV placement. Sinuses and mastoids: The visualized paranasal sinuses are clear. The mastoid air cells are well pneumatized. Orbits: The bony orbits are grossly intact. There are bilateral ocular lens implants. IMPRESSION: There is no hemorrhage, mass effect, or evidence of acute territorial ischemia by CT criteria. ACT 112: Negative or not required by law. Electronically signed by: Favio Hendrix M.D. 12/01/2023 5:46 PM Discharge Plan Visit Data Chief Complaint: Cardiac Assessment ED Provider: Leslie Lloyd Discharge Problem: Acute alteration in mental status, Cardiomegaly Patient Disposition: Admitted As Inpatient Discharge Instructions Interventions: ED Discharge Assessment Last Done: 12/02/23 07:37
[2023-12-01 20:46] LABS: Prothrombin Time 29.4 Seconds (9.0-12.0)
[2023-12-01] MEDS: NSS + 20MEQ KCL 20 MEQ/1,000 ML BAG IV ONE (20:51)
--- NOTE | 2023-12-01 20:58 | History & Physical Report ---
Date of Service December 01, 2023 Assessment & Plan (1) Encephalopathy: Plan: Multifactorial Uncontrolled hypertension Possibly from mild clinical dehydration owing to hypercalcemia, hx hyperparathyroidism, not a surgical candidate as per outpatient ENT note; [place] [facility] [place] Rule out seizures given personal care facility staff account of blank stares and abnormal mouth movements Transient left-sided chest pain possibly from uncontrolled BP Abnormal EKG as per EMS account rule out pacemaker dysfunction chronic diastolic heart failure 2 to ischemic cardiomyopathy, slightly on the dry side hx CAD sp stent/PVD VHD (severe /AR status post TAVR, moderate MR/TR as per records) SSS sp PPM on Coumadin, INR therapeutic pulmonary hypertension hx CVA hyperlipidemia, on statin Rx DM2 diet-controlled, well-controlled as of recent hemoglobin A1c of 5.17 May 2023 chronic back pain secondary to compression fracture status post kyphoplasty. some worsening in the last couple of days leading to ER visit OBS PCU Titrate home BP meds Monitor calcium response to IVF, hold home diuretic for now, nephrology consult if without improvement Seizure precautions, EEG, Neurology consult Re: Possible seizures ICD interrogation ISS BG goal 1 10-1 40, carb count coverage DVT prophylaxis. Coumadin INR goal between 2 and 3 Full code Patient daughter request for periodic updates. Chet Niharika Saba, contact #[phone]. Text document was generated using MMIT voice recognition software. It may contain grammatical or spelling errors. Kindly contact undersigned for clarification of any documentation item in q uestion. History of Present Illness Chief Complaint: Confusion, blank stares as per records Primary Care Provider: LESLEE History obtained from patient, family, personal care facility staff, and records. Limited history from patient secondary to lethargy. Medical history significant for chronic diastolic heart failure 2 to ischemic cardiomyopathy (EF 55-60%, TTE 2022), CAD sp stent, VHD (severe /AR status post TAVR, moderate MR/TR as per records), SSS sp PPM on Coumadin, pulmonary hypertension, PVD, CVA, HTN, hyperlipidemia, DM2 diet-controlled, primary hyperparathyroidism, anxiety/mood disorder, chronic back pain secondary to compression fracture status post kyphoplasty. Last confinement October 2022 for rapid A-fib. Recent ER visit 2 days ago for worsening back pain. Spine x-rays showed chronic abnormalities. Patient comfortable prior to discharge from ER. Patient noted to be confused last night [facility]. Worsening confusion noted today. Patient blankly staring into space with abnormal mouth movements as per staff. Patient complained of transient left-sided chest pain symptoms. No unusual cough symptoms. No new medications as per staff. Patient never got started on prednisone or tramadol Rx prescribed by PCP for back pain as per staff. EMS called to [facility] facility. Abnormal EKG as per account. SBP 180s upon arrival at the ER. MEDICAL HISTORY: As above SURGICAL HISTORY: shoulder surgery, cholecystectomy, eye surgery, TAVR, pacemaker placement, vascular procedures, kyphoplasty FAMILY HISTORY: Heart disease. DM PERSONAL SOCIAL HISTORY: Nonsmoker, no chronic intake of alcoholic beverages. 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 [facility] resident. Allergies Allergy/AdvReac Type Severity Reaction Status Date / Time tetracycline Allergy Intermediate RASH Verified 12/01/23 21:05 morphine AdvReac Severe "VIOLENTLY Verified 12/01/23 21:05 ILL", NAUSEA/VOMITING codeine AdvReac Intermediate nausea/Vomi Verified 12/01/23 21:05 ting Home Medications Medication Instructions Recorded Confirmed Type atorvastatin 40 mg tablet (Lipitor) 40 mg PO HS 11/11/19 12/01/23 History nitroglycerin 0.4 mg sublingual 0.4 mg sublingual DIRECTED PRN 11/11/19 12/01/23 History tablet (Nitrostat) Chest Pain warfarin 4 mg tablet 4 mg PO 4XWK 11/11/19 12/01/23 History alendronate 70 mg tablet 70 mg PO WK 08/11/21 12/01/23 History duloxetine 30 mg capsule,delayed 30 mg PO QAM 08/11/21 12/01/23 History release acetaminophen 500 mg tablet 500 mg PO Q6H PRN Pain 03/11/22 12/01/23 History digoxin 125 mcg (0.125 mg) tablet 125 mcg PO DAILY 03/11/22 12/01/23 History glipizide 2.5 mg tablet, extended 2.5 mg PO DAILY #30 tabs 09/08/22 12/01/23 Rx release 24 hr spironolactone 25 mg tablet 25 mg PO DAILY 10/18/22 12/01/23 History warfarin 2 mg tablet 2 mg PO 3XWK 10/18/22 12/01/23 History metoprolol succinate 25 mg 25 mg PO BID #30 tabs 10/27/22 12/01/23 Rx tablet,extended release 24 hr (Toprol XL) acetaminophen 300 mg-codeine 30 mg 1 tab PO Q8H PRN pain #4 tabs 11/29/23 12/01/23 Rx tablet lidocaine 5 % topical patch 1 patch topical DAILY PRN pain #15 11/29/23 12/01/23 Rx ea prednisone 20 mg tablet See Rx Instructions .Route 11/29/23 12/01/23 Rx .COMPLEX 5 days #7 tabs olanzapine 2.5 mg tablet 2.5 mg PO HS 12/01/23 12/01/23 History tramadol 50 mg tablet 50 mg PO Q8H PRN Pain 12/01/23 12/01/23 History Past Med/Surg History Problem List Encephalopathy Back pain, thoracic (Acute) Dizziness (Acute) Back pain (Acute) Delirium S/P TAVR (transcatheter aortic valve replacement) Tachy-wanda syndrome ASCVD (arteriosclerotic cardiovascular disease) Pacemaker generator end of life Chest pain at rest Atrial fibrillation with rapid ventricular response (Acute) Anemia (Acute) Syncope (Acute) Head injury (Acute) Cardiac pacemaker in situ Syncope Dizziness Acute hypoxemic respiratory failure COVID-19 (Acute) Hypoxia (Acute) Pain in deltoid, bilateral Abdominal pain Epigastric heaviness (Acute Unknown) History of fracture of rib (Acute) Chest pain on respiration (Acute) Rib pain on left side (Acute) Elevated troponin I measurement (Acute) Fracture of fifth metatarsal bone of left foot Abnormal CT of the abdomen DEIRDRE (acute kidney injury) (Acute) Fracture of 5th metatarsal (Acute) Rib pain on left side (Acute) Fall (Acute) Hypokalemia Acute on chronic systolic (congestive) heart failure DVT prophylaxis Depression Chronic atrial fibrillation (Acute) S/P cardiac pacemaker procedure Tachy-wanda syndrome Chronic systolic heart failure S/p TAVR (transcatheter aortic valve replacement), bioprosthetic 2016 Aortic stenosis S/P TAVR in 2016 CAD (coronary artery disease) S/P VA and stent to RCA in 2002 Diabetes mellitus, type II HLD (hyperlipidemia) HTN (hypertension) Hyperparathyroidism Chest pain, precordial (Acute) Abnormal EKG (Acute) Chest pain (Acute) Primary hyperparathyroidism (Chronic Unknown) Hypercalcemia (Chronic Unknown) Aortic valve replaced (Chronic) Family History Other Cancer Diabetes Heart disease Hypertension Social History Smoking Status: Never smoker Second Hand Exposure: No; Do You Dip or Chew Tobacco: No; Hx Alcohol Use: No Hx Substance Use: No Preferred Language: Korean Communication Ability: Effective Director Of Premium Seat [employer] Required: No Beliefs That Will Affect Care: None marital status: / Current Living Situation: Personal Care Facility Current Living Situation Comment: [facility]. How many Children do You have: 3 Feels Safe at Home: Yes Assistive Devices: Walker Review of Systems Review of Systems: Could not be reliably obtained secondary to lethargy Physical Exam Physical Exam: GENERAL: Lethargic, slightly uncomfortable, no respiratory distress SKIN: Normal color, warm HEENT: [place] palpebral conjunctivae, no ptosis, dry buccal mucosa NECK : Supple, no tenderness CHEST : Decreased breath sounds, no tenderness HEART : RRR, systolic murmur ABDOMEN: Some distention, nontender BACK : Mid/low back tenderness EXTREMITIES : Minimal LE swelling, no LE tenderness NEUROLOGIC : Lethargic, no facial asymmetry, no other gross focality Results & Data Results & Data Vital Signs (Past 12 Hours) Vital Signs Temp Pulse Pulse Resp BP BP Pulse Ox 12/01/23 19:15 74 22 93 12/01/23 18:45 64 18 94 12/01/23 18:39 63 18 147/95 H 95 12/01/23 18:38 147/95 H 12/01/23 18:27 62 15 96 12/01/23 18:06 64 10 L 93 12/01/23 17:44 71 12/01/23 17:31 96 12/01/23 17:31 18 164/90 H 95 12/01/23 17:31 96 12/01/23 17:30 68 15 95 12/01/23 17:30 74 18 164/90 H 97 12/01/23 17:13 151/90 H 12/01/23 17:12 75 20 96 12/01/23 16:52 36.6 C 68 14 182/113 H 95 O2 Del Method 12/01/23 19:15 Room Air 12/01/23 18:45 Room Air 12/01/23 18:39 Room Air 12/01/23 18:38 12/01/23 18:27 12/01/23 18:06 12/01/23 17:44 12/01/23 17:31 Room Air 12/01/23 17:31 Room Air 12/01/23 17:31 Room Air 12/01/23 17:30 12/01/23 17:30 12/01/23 17:13 12/01/23 17:12 12/01/23 16:52 Room Air Laboratory Results Laboratory Results WBC 8.02 K/ul (4.8-10.8) 12/01/23 16:50 RBC 4.04 M/uL (4.20-5.40) L 12/01/23 16:50 Hgb 12.4 g/dl (12.0-16.0) 12/01/23 16:50 POC Hgb 11.6 g/dl (12.0-16.0) L 12/01/23 16:57 Hct 36.8 % (37.0-47.0) L 12/01/23 16:50 POC Hct 34 % (37-47) L 12/01/23 16:57 MCV 91.1 fL (80.0-100.0) 12/01/23 16:50 MCH 30.7 pg (25.0-34.0) 12/01/23 16:50 MCHC 33.7 g/dL (32.0-36.0) 12/01/23 16:50 RDW Std Deviation 44.6 fL (36.4-46.3) 12/01/23 16:50 RDW Coeff of Rosas 13.3 % (11.5-14.5) 12/01/23 16:50 Plt Count 153 K/uL (130-400) 12/01/23 16:50 MPV 9.3 fL (9.4-12.4) L 12/01/23 16:50 Immature Gran % (Auto) 1.0 % 12/01/23 16:50 Neut % (Auto) 70.4 % 12/01/23 16:50 Lymph % (Auto) 17.2 % 12/01/23 16:50 Burt % (Auto) 11.1 % 12/01/23 16:50 Eos % (Auto) 0.2 % 12/01/23 16:50 Baso % (Auto) 0.1 % 12/01/23 16:50 Neut # (Auto) 5.64 K/uL (1.40-6.50) 12/01/23 16:50 Lymph # (Auto) 1.38 K/uL (1.20-3.40) 12/01/23 16:50 Burt # (Auto) 0.89 K/uL (0.11-0.59) H 12/01/23 16:50 Eos # (Auto) 0.02 K/uL (0.00-0.50) 12/01/23 16:50 Baso # (Auto) 0.01 K/uL (0.00-0.20) 12/01/23 16:50 Immature Gran # (Auto) 0.08 K/uL (0.01-0.20) 12/01/23 16:50 PT 29.4 Seconds (9.0-12.0) H 12/01/23 16:50 INR 3.0 (0.9-1.1) H 12/01/23 16:50 POC Sodium 141 mmol/L (135-144) 12/01/23 16:57 Sodium 139 mmol/L (136-145) 12/01/23 16:50 POC Potassium 3.6 mmol/L (3.3-5.0) 12/01/23 16:57 Potassium 3.6 mmol/L (3.5-5.1) 12/01/23 16:50 POC Chloride 104 mmol/L (101-112) 12/01/23 16:57 Chloride 107 mmol/L (98-107) 12/01/23 16:50 Carbon Dioxide 29 mmol/L (21-32) 12/01/23 16:50 POC Total CO2 24 mmol/L (24-31) 12/01/23 16:57 Anion Gap 3 (3-11) 12/01/23 16:50 POC Anion Gap 18.0 mmol/L (16-25) 12/01/23 16:57 POC BUN 25 mg/dl (7-18) H 12/01/23 16:57 BUN 29 mg/dl (6-23) H 12/01/23 16:50 Creatinine 0.85 mg/dl (0.6-1.2) 12/01/23 16:50 POC Creatinine 0.9 mg/dl (0.6-1.3) 12/01/23 16:57 Est Cr Clr Drug Dosing 38.6 ml/min 12/01/23 16:50 Est GFR ( Amer) 71.4 ml/min 12/01/23 16:50 Est GFR (Non-Af Amer) 61.6 ml/min 12/01/23 16:50 BUN/Creatinine Ratio 34.1 (10-20) H 12/01/23 16:50 Glucose 160 mg/dl (70-99(Fasting)) H 12/01/23 16:50 POC Glucose (other) 153 mg/dl (70-99) H 12/01/23 16:57 Calcium 10.6 mg/dl (8.6-10.3) H 12/01/23 16:50 POC Ioniz Calcium Garcia 1.38 mmol/l (1.12-1.32) H 12/01/23 16:57 Phosphorus 2.0 mg/dl (2.5-4.9) L 12/01/23 16:50 Total Bilirubin 0.8 mg/dl (0.2-1.0) 12/01/23 16:50 AST 20 U/L (13-39) 12/01/23 16:50 ALT 29 U/L (7-52) 12/01/23 16:50 Alkaline Phosphatase 44 U/L (34-104) 12/01/23 16:50 Troponin I High Sens 12.3 pg/ml (0-14) 12/01/23 16:50 Total Protein 6.3 gm/dl (6.0-8.3) 12/01/23 16:50 Albumin 4.2 gm/dl (3.4-5.0) 12/01/23 16:50 Globulin 2.1 gm/dl (2.5-4.0) L 12/01/23 16:50 Albumin/Globulin Ratio 2.0 (0.9-2) 12/01/23 16:50 Lipase 55 U/L (11-82) 12/01/23 16:50 Urine Color Yellow 12/01/23 17:34 Urine Appearance Clear (Clear) 12/01/23 17:34 Urine pH 6.0 (4.5-7.5) 12/01/23 17:34 Ur Specific [place] 1.013 (1.000-1.030) 12/01/23 17:34 Urine Protein Negative (Negative) 12/01/23 17:34 Urine Glucose (UA) Negative (Negative) 12/01/23 17:34 Urine Ketones Negative (Negative) 12/01/23 17:34 Urine Blood Negative (Negative) 12/01/23 17:34 Urine Nitrite Negative (Negative) 12/01/23 17:34 Urine Bilirubin Negative (Negative) 12/01/23 17:34 Urine Urobilinogen Negative (Negative) 12/01/23 17:34 Ur Leukocyte Esterase Negative (Negative) 12/01/23 17:34 Adenovirus (PCR) Not Detected (NotDetected) 12/01/23 16:52 B. pertussis DNA (PCR) Not Detected (NotDetected) 12/01/23 16:52 B.parapertussis DNA PCR Not Detected (NotDetected) 12/01/23 16:52 C. pneumoniae DNA (PCR) Not Detected (NotDetected) 12/01/23 16:52 Coronavirus OC43 (PCR) Not Detected (NotDetected) 12/01/23 16:52 Coronavirus HKU1 (PCR) Not Detected (NotDetected) 12/01/23 16:52 Coronavirus 229E (PCR) Not Detected (NotDetected) 12/01/23 16:52 SARS-CoV-2 (PCR) Not Detected (NotDetected) 12/01/23 16:52 Coronavirus NL63 (PCR) Not Detected (NotDetected) 12/01/23 16:52 Human Metapneumovir PCR Not Detected (NotDetected) 12/01/23 16:52 Influenza Type A (PCR) Not Detected (NotDetected) 12/01/23 16:52 Influenza Type B (PCR) Not Detected (NotDetected) 12/01/23 16:52 M. pneumoniae (PCR) Not Detected (NotDetected) 12/01/23 16:52 Parainfluenza 1 (PCR) Not Detected (NotDetected) 12/01/23 16:52 Parainfluenza 2 (PCR) Not Detected (NotDetected) 12/01/23 16:52 Parainfluenza 3 (PCR) Not Detected (NotDetected) 12/01/23 16:52 Parainfluenza 4 (PCR) Not Detected (NotDetected) 12/01/23 16:52 RSV (PCR) Not Detected (NotDetected) 12/01/23 16:52 Entero/Rhino (PCR) Not Detected (NotDetected) 12/01/23 16:52 Impressions Chest X-Ray 12/01/23 17:07 SINGLE VIEW CHEST CLINICAL HISTORY: Atypical chest pain. FINDINGS: 2 AP, portable, upright chest radiographs are compared to study dated 10/21/2022. There is evidence of previous cardiac valve surgery. A single lead cardiac pacemaker is unchanged in position. The heart is enlarged and noting atherosclerotic calcification of the thoracic aorta. The pulmonary vasculature is noncongested. Chronic interstitial thickening is similar to previous. There is bibasilar scarring/atelectasis. No airspace consolidation or large pleural effusion is identified. No pneumothorax is seen. The skeletal structures are osteopenic. Vertebroplasty changes seen in the upper lumbar spine. A right shoulder arthroplasty is in place. Arthritic change is noted in the left shoulder. IMPRESSION: 1. Cardiomegaly and cardiac pacemaker without radiographic evidence of congestive failure. 2. No airspace consolidation or large pleural effusion is identified. ACT 112: Negative or not required by law. Electronically signed by: Favio Hendrix M.D. 12/01/2023 5:[address] 12/01/23 17:14 CT SCAN OF THE BRAIN WITHOUT IV CONTRAST CLINICAL HISTORY: Change in mental status. COMPARISON STUDY: CT of the brain dated 09/08/2022. TECHNIQUE: Unenhanced axial CT scan of the brain is performed from the vertex to the skull base. A dose lowering technique was utilized adhering to the principles of ALARA. CT DOSE: 625.8 mGy.cm FINDINGS: Brain parenchyma: There is age-related involutional change noting moderate to advanced subcortical and periventricular microangiopathic disease. There is no hemorrhage, mass effect, or evidence of acute territorial ischemia by CT criteria. Lynch-white matter differentiation is preserved. No extra-axial fluid collection is seen. Ventricles, sulci, cisterns: Prominent secondary to involutional change. Intracranial vasculature: There is atherosclerotic calcification of the cavernous carotid and vertebral arteries. Calvarium: Unremarkable. Soft tissues: Foci of intravascular gas at the skull base and within the facial soft tissues are likely related to IV placement. Sinuses and mastoids: The visualized paranasal sinuses are clear. The mastoid air cells are well pneumatized. Orbits: The bony orbits are grossly intact. There are bilateral ocular lens implants. IMPRESSION: There is no hemorrhage, mass effect, or evidence of acute territorial ischemia by CT criteria. ACT 112: Negative or not required by law. Electronically signed by: Favio Hendrix M.D. 12/01/2023 5:46 PM Diagnostic Findings EKG as per my interpretation : Rate 80, paced rhythm
[2023-12-01] MEDS ORDERED: PROMETHAZINE 6.25 MG/50.25 ML BAG IV PRN (21:03)
[2023-12-01] MEDS ORDERED: LORazepam 1 MG in SYRINGE 0.5 ML IV PRN (21:32)
[2023-12-01] MEDS ORDERED: POTASSIUM PHOS 3 MMOL/1 ML INFUSION IV STA (21:34)
[2023-12-01] MEDS ORDERED: CARBOHYDRATES FOR HYPOGLYCEMIA PO PRN (22:09)
[2023-12-01] MEDS ORDERED: DEXTROSE 50% 50 ML SYRINGE IV PRN (22:09)
[2023-12-01] MEDS ORDERED: GLUCOSE 10 TAB/TUBE PO PRN (22:09)
[2023-12-01] MEDS ORDERED: GLUCAGON FOR INJ 1 MG VIAL SQ PRN (22:09)
[2023-12-01] MEDS ORDERED: GLUCOSE 40% GEL 15 GM TUBE PO PRN (22:09)
[2023-12-01] MEDS: POTASSIUM PHOSPHATE 15 MMOL in SODIUM CHLORIDE 0.9% 250 ML IV STA (22:23)
[2023-12-01 22:26] LABS: Troponin I High Sensitivity 13.5 pg/ml (0-14)
[2023-12-01] MEDS: INSULIN ASPART PER UNIT CHARGE SC SCH (22:30)
[2023-12-02 00:19] LABS: Thyroid Stimulating Hormone 1.451 uIu/ml (0.300-4.500)
--- NOTE | 2023-12-02 00:23 | CT Scan Report ---
Exam(s): CT ABDOMEN + PELVIS Without Contrast EXAM: CT Abdomen and Pelvis Without Intravenous Contrast CLINICAL HISTORY: Reason for exam: worsening back pain as per family, coumadin. TECHNIQUE: Axial computed tomography images of the abdomen and pelvis without intravenous contrast. CTDI is 13 mGy and DLP is 589.79 mGy-cm. Automated exposure control was utilized for the study. A dose lowering technique was utilized adhering to the principles of ALARA. COMPARISON: No relevant prior studies available. FINDINGS: Lung bases: There is a dependent lower lobe groundglass atelectasis. No dependent pleural fluid collection identified. Heart: There is moderate to severe cardiomegaly. Transcatheter aortic valve repair changes are noted. ABDOMEN: Liver: See below. Gallbladder and bile ducts: The gallbladder has been removed. There is suggestion of mild intrahepatic bile duct dilatation versus periportal edema. Correlation with liver function studies recommended. Postcontrast imaging or MRCP would be helpful for additional characterization. Pancreas: Unremarkable. No ductal dilation. Spleen: There is a focal splenic calcification/granuloma. No splenomegaly. Adrenals: Unremarkable. No mass. Kidneys and ureters: Unremarkable. No obstructing stones. No hydronephrosis. Stomach and bowel: Unremarkable. No obstruction. No mucosal thickening. PELVIS: Appendix: No findings to suggest acute appendicitis. Bladder: The urinary bladder is decompressed with a Keith catheter. No stones. Reproductive: Unremarkable as visualized. ABDOMEN and PELVIS: Intraperitoneal space: Unremarkable. No free air. No significant fluid collection. Bones/joints: There is multilevel thoracolumbar degenerative disc disease. Prior L1 and L3 kyphoplasty changes are noted. No acute fracture. No dislocation. Soft tissues: See above. Vasculature: There are advanced aortoiliac atherosclerotic calcifications. Lymph nodes: Unremarkable. No enlarged lymph nodes. IMPRESSION: 1. Findings suggestive of a mild intrahepatic bile duct dilatation versus periportal edema. Correlation with liver function studies and follow-up postcontrast CT or MRI abdomen/MRCP would be helpful for additional characterization. 2. Moderate to severe cardiomegaly. Electronically signed by: Mir Santos MD 12/02/23 00:22 AM
[2023-12-02] MEDS: METOPROLOL SUCC 25MG EXT REL TAB PO SCH (00:47)
[2023-12-02] MEDS: LIDOCAINE 5% 1 PATCH TD SCH (00:52)
[2023-12-02 05:15] LABS: Basophils # (auto) 0.03 K/uL (0.00-0.20); Basophils % (auto) 0.4 %; Eosinophils # (auto) 0.06 K/uL (0.00-0.50); Eosinophils % (auto) 0.8 %; Hematocrit (blood only) 37.2 % (37.0-47.0); Hemoglobin 12.6 g/dl (12.0-16.0); Immature Granulocytes # (auto) 0.08 K/uL (0.01-0.20); Immature Granulocytes % (auto) 1.1 %; Lymphocytes % (auto) 17.2 %; Mean Corpuscular Hemoglobin 30.7 pg (25.0-34.0); Mean Corpuscular Hgb Conc 33.9 g/dL (32.0-36.0); Mean Corpuscular Volume 90.7 fL (80.0-100.0); Mean Platelet Volume 9.4 fL (9.4-12.4); Monocytes % (auto) 10.6 %; Neutrophils # (auto) 5.28 K/uL (1.40-6.50); Neutrophils % (auto) 69.9 %; Platelet Count 155 K/uL (130-400); RDW Coefficient of Variation 13.6 % (11.5-14.5); RDW Standard Deviation 44.6 fL (36.4-46.3); White Blood Count 7.55 K/ul (4.8-10.8)
[2023-12-02 05:20] LABS: BUN Creatinine Ratio 33.8 (10-20); Calcium 10.1 mg/dl (8.6-10.3); Creatinine Clr Calc Pharmacy 48.2 ml/min; Est GFR (African American) 91.2 ml/min; Est GFR (Non-African American) 78.6 ml/min; Phosphorus 3.1 mg/dl (2.5-4.9); Potassium 4.4 mmol/L (3.5-5.1)
[2023-12-02 05:21] LABS: Prothrombin Time 29.2 Seconds (9.0-12.0)
[2023-12-02] MEDS: ACETAMINOPHEN 325 MG TAB PO PRN (09:10)
[2023-12-02] MEDS: DULoxetine HCL 30 MG CAP PO SCH (10:25)
--- NOTE | 2023-12-02 11:39 | Neurology Consultation ---
Date of Consultation December 02, 2023 Assessment & Plan (1) Encephalopathy: An 88 yo Female admitted from the [facility] for altered mentation due to presumed hypertensive encephalopathy. Does not appear encephalopathic now. No involuntary movements noted. Suspect mouth movements per chart may be tardive dyskinesias as she is on zyprexa. In regards to staring episodes agree with routine EEG. Would defer on AED. Consider ambulatory EEG for spell capture as outpatient. Please contact neuro with any additional questions or concerns. History of Present Illness Reason for Consultation: Staring Episodes Requesting Physician: Dr. Arturo Ji Attending Physician: Brad Herrera DO History of Present Illness A 88 year old female with PMH of chronic diastolic heart failure, ICM, CAD sp stent, VHD (severe /AR status post TAVR, moderate MR/TR as per records), SSS sp PPM on Coumadin, pulmonary hypertension, PVD, CVA, HTN, hyperlipidemia, DM2 diet-controlled, primary hyperparathyroidism, anxiety/mood disorder, chronic back pain secondary to compression fracture status post kyphoplasty admitted with altered mentation in setting of elevated blood pressures. Noted to have some involuntary movements of the mouth and staring episodes. These have been ongoing while living at the [facility]. Are brief. No LOC or convulsion per daughter. Patient reports not feeling well. Not on AED. No history of epilepsy. Allergies Allergy/AdvReac Type Severity Reaction Status Date / Time tetracycline Allergy Intermediate RASH Verified 12/01/23 21:05 morphine AdvReac Severe "VIOLENTLY Verified 12/01/23 21:05 ILL", NAUSEA/VOMITING codeine AdvReac Intermediate nausea/Vomi Verified 12/01/23 21:05 ting Home Medications Medication Instructions Recorded Confirmed Type atorvastatin 40 mg tablet (Lipitor) 40 mg PO HS 11/11/19 12/01/23 History nitroglycerin 0.4 mg sublingual 0.4 mg sublingual DIRECTED PRN 11/11/19 12/01/23 History tablet (Nitrostat) Chest Pain warfarin 4 mg tablet 4 mg PO 4XWK 11/11/19 12/01/23 History alendronate 70 mg tablet 70 mg PO WK 08/11/21 12/01/23 History duloxetine 30 mg capsule,delayed 30 mg PO QAM 08/11/21 12/01/23 History release acetaminophen 500 mg tablet 500 mg PO Q6H PRN Pain 03/11/22 12/01/23 History digoxin 125 mcg (0.125 mg) tablet 125 mcg PO DAILY 03/11/22 12/01/23 History glipizide 2.5 mg tablet, extended 2.5 mg PO DAILY #30 tabs 09/08/22 12/01/23 Rx release 24 hr spironolactone 25 mg tablet 25 mg PO DAILY 10/18/22 12/01/23 History warfarin 2 mg tablet 2 mg PO 3XWK 10/18/22 12/01/23 History metoprolol succinate 25 mg 25 mg PO BID #30 tabs 10/27/22 12/01/23 Rx tablet,extended release 24 hr (Toprol XL) acetaminophen 300 mg-codeine 30 mg 1 tab PO Q8H PRN pain #4 tabs 11/29/23 12/01/23 Rx tablet lidocaine 5 % topical patch 1 patch topical DAILY PRN pain #15 11/29/23 12/01/23 Rx ea prednisone 20 mg tablet See Rx Instructions .Route 11/29/23 12/01/23 Rx .COMPLEX 5 days #7 tabs olanzapine 2.5 mg tablet 2.5 mg PO HS 12/01/23 12/01/23 History tramadol 50 mg tablet 50 mg PO Q8H PRN Pain 12/01/23 12/01/23 History Patient History Family History Other Cancer Diabetes Heart disease Hypertension Social History Smoking Status: Never smoker Second Hand Exposure: No; Do You Dip or Chew Tobacco: No; Hx Alcohol Use: No Hx Substance Use: No Preferred Language: Hungarian Communication Ability: Effective Rotor Assembler Required: No Beliefs That Will Affect Care: None marital status: / Current Living Situation: [facility] Current Living Situation Comment: [facility]. How many Children do You have: 3 Feels Safe at Home: Yes Safety Concerns: Feels Safe At This Time Assistive Devices: Glasses, Hearing Aid - Bilateral, Hearing Aid - Left and Walker Physical Exam Physical Exam: Patient seen on televideo. Awake and alert. Following commands. Hard of hearing. Speech is soft. Tongue midline wo abrasion. Eyes midline. No asterixis. No tremor. No involuntary movements of the face. Gait defered. Results & Data Vital Signs (Past 12 Hours) Vital Signs Temp Pulse Pulse Resp BP Pulse Ox O2 Del Method 12/02/23 10:11 36.4 C L 12/02/23 10:10 84 18 128/82 92 Room Air 12/02/23 08:42 95 Nasal Cannula 12/02/23 08:32 87 L Room Air 12/02/23 08:00 36.8 C 74 14 131/87 93 Room Air 12/02/23 07:23 74 12/02/23 07:00 36.8 C 69 18 135/76 98 Room Air 12/02/23 06:25 77 18 121/83 94 Room Air 12/02/23 02:37 36.4 C L 65 16 132/73 92 Room Air 12/01/23 23:30 36.7 C 68 20 153/87 H 95 Room Air 12/01/23 22:58 64 12 141/93 H 94 Room Air O2 Flow Rate 12/02/23 10:11 12/02/23 10:10 12/02/23 08:42 3 12/02/23 08:32 12/02/23 08:00 12/02/23 07:23 12/02/23 07:00 12/02/23 06:25 12/02/23 02:37 12/01/23 23:30 12/01/23 22:58
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
[2023-12-02] MEDS: DIGOXIN 0.125 MG TAB PO SCH (16:48)
[2023-12-02] MEDS: WARFARIN SOD 2 MG TAB PO SCH (19:44)
[2023-12-02] MEDS: ATORVASTATIN 40 MG TAB PO SCH (20:43)
[2023-12-02] MEDS ORDERED: OLANZAPINE 2.5 MG TAB PO SCH (21:00)
[2023-12-02] MEDS: NITROGLYCERIN SL 0.4 MG/TAB TAB SL STA (22:18)
[2023-12-02] MEDS: NITROGLYCERIN SL 0.4 MG/TAB TAB SL PRN (23:54)
[2023-12-02] MEDS: SODIUM CHLORIDE 0.9% 1,000 ML IV ONE (23:57)
[2023-12-03 03:01] LABS: Basophils # (auto) 0.04 K/uL (0.00-0.20); Basophils % (auto) 0.6 %; Eosinophils # (auto) 0.12 K/uL (0.00-0.50); Eosinophils % (auto) 1.8 %; Hematocrit (blood only) 36.9 % (37.0-47.0); Hemoglobin 12.6 g/dl (12.0-16.0); Immature Granulocytes # (auto) 0.08 K/uL (0.01-0.20); Immature Granulocytes % (auto) 1.2 %; Lymphocytes # (auto) 1.08 K/uL (1.20-3.40); Mean Corpuscular Hemoglobin 30.7 pg (25.0-34.0); Mean Corpuscular Hgb Conc 34.1 g/dL (32.0-36.0); Mean Corpuscular Volume 89.8 fL (80.0-100.0); Mean Platelet Volume 9.2 fL (9.4-12.4); Monocytes # (auto) 0.74 K/uL (0.11-0.59); Neutrophils # (auto) 4.67 K/uL (1.40-6.50); Neutrophils % (auto) 69.4 %; Platelet Count 152 K/uL (130-400); RDW Coefficient of Variation 13.4 % (11.5-14.5); Red Blood Count 4.11 M/uL (4.20-5.40); White Blood Count 6.73 K/ul (4.8-10.8)
[2023-12-03 03:13] LABS: INR 2.4 (0.9-1.1); Prothrombin Time 24.1 Seconds (9.0-12.0)
[2023-12-03 03:51] LABS: BUN Creatinine Ratio 25.3 (10-20); Creatinine Clr Calc Pharmacy 43.7 ml/min; Est GFR (African American) 83.1 ml/min; Est GFR (Non-African American) 71.7 ml/min
[2023-12-03 03:57] LABS: Troponin I High Sensitivity 9.8 pg/ml (0-14)
[2023-12-03] MEDS ORDERED: INSULIN ASPART PER UNIT CHARGE SC SCH (06:00)
[2023-12-03] MEDS: INSULIN ASPART PER UNIT CHARGE SC SCH (08:14)
--- NOTE | 2023-12-03 15:05 | Hospitalist Progress Note ---
Date of Service December 03, 2023 Assessment & Plan (1) Major depressive disorder, recurrent episode with mixed features: (2) Acute metabolic encephalopathy: (3) Delirium: (4) Hypertension, uncontrolled: (5) Musculoskeletal chest pain: (6) Diabetes mellitus, type II: (7) Hyperparathyroidism: (8) Chronic systolic heart failure: (9) Chronic atrial fibrillation: Plan Patient's delirium and encephalopathy seems to have cleared, continue to hold Zyprexa Phone conversation with the daughter, she recognized patient is extremely depressed reports that she was tearful on the phone when she had called her earlier. Discussed increasing Cymbalta dose with the daughter, she agrees Increase Cymbalta to 40 mg Therapy evaluation Case management to help coordinate return to [facility] Admission and Anticipated Discharge Date Admission Date: December 01, 2023 Subjective Patient is a bit more interactive and talkative today Physical Exam Physical Exam: Constitutional: Alert generalized weakness HEENT: Mucous membranes moist. Lungs: Clear to auscultation, decreased, no wheezes rales or rhonchi CV: S1-S2, regular Abdomen: Soft, nontender, nondistended Extremities: No significant edema Neuro: No focal deficits Psych: Cooperative, flat affect, depressed mood Results & Data Results & Data Vital Signs (Past 12 Hours) Vital Signs Temp Pulse Pulse Resp BP Pulse Ox O2 Del Method 12/03/23 11:00 36.3 C L 71 17 121/76 95 Room Air 12/03/23 08:31 Room Air 12/03/23 06:50 77 12/03/23 06:42 36.7 C 72 16 138/78 98 Room Air 12/03/23 03:36 36.3 C L 71 16 141/79 H 94 Nasal Cannula O2 Flow Rate 12/03/23 11:00 12/03/23 08:31 12/03/23 06:50 12/03/23 06:42 12/03/23 03:36 2 Diagnostic Findings CBC, BMP stable INR 2.4
[2023-12-03 20:30] VITALS: O2SAT 94
--- NOTE | 2023-12-04 06:03 | Electrocardiogram Report ---
Test Reason : Blood Pressure : */* mmHG Vent. Rate : 73 BPM Atrial Rate : 82 BPM P-R Int : * ms QRS Dur : 132 ms QT Int : 406 ms P-R-T Axes : * 0 -80 degrees QTcB Int : 447 ms Atrial fibrillation with occasional ventricular-paced complexes Non-specific intra-ventricular conduction block Inferior infarct , age undetermined Cannot rule out Anteroseptal infarct , age undetermined T wave abnormality, consider anterior ischemia Abnormal ECG When compared with ECG of 02-Dec-2023 08:09, T wave inversion now evident in Anterior leads Confirmed by Maik Sosa ([id number]) on 12/04/2023 6:02:55 AM Referred By: LESLEE Confirmed By: Maik Sosa
--- NOTE | 2023-12-04 06:05 | Electrocardiogram Report ---
Test Reason : Blood Pressure : */* mmHG Vent. Rate : 66 BPM Atrial Rate : 75 BPM P-R Int : * ms QRS Dur : 120 ms QT Int : 434 ms P-R-T Axes : * -7 -73 degrees QTcB Int : 454 ms Poor data quality, interpretation may be adversely affected Atrial fibrillation with frequent ventricular-paced complexes Inferior infarct , age undetermined Anteroseptal infarct , age undetermined Abnormal ECG When compared with ECG of 02-Dec-2023 22:11, Vent. rate has decreased by 7 bpm Confirmed by Maik Sosa ([id number]) on 12/04/2023 6:05:36 AM Referred By: LESLEE Confirmed By: Maik Sosa
[2023-12-04 08:01] VITALS: RESP 18; TEMP 97.5
[2023-12-04 08:42] VITALS: BP 108/67; PULSE 74
[2023-12-04] MEDS: DULoxetine HCL 20 MG CAP PO SCH (08:44)
[2023-12-04 08:53] LABS: INR 1.8 (0.9-1.1); Prothrombin Time 18.8 Seconds (9.0-12.0)
--- NOTE | 2023-12-04 10:39 | Electroencephalogram ---
EEG Procedure Note Date of Service December 03, 2023 Start / End Times Start Time: 10:04 End Time: 10:[address] Chase Manjarrez History A 88 year old female with possible seizure. EEG performed for evaluation of seizure. Home Medication List Medication Instructions Recorded Confirmed Type atorvastatin 40 mg tablet (Lipitor) 40 mg PO HS 11/11/19 12/01/23 History nitroglycerin 0.4 mg sublingual 0.4 mg sublingual DIRECTED PRN 11/11/19 12/01/23 History tablet (Nitrostat) Chest Pain warfarin 4 mg tablet 4 mg PO 4XWK 11/11/19 12/01/23 History alendronate 70 mg tablet 70 mg PO WK 08/11/21 12/01/23 History duloxetine 30 mg capsule,delayed 30 mg PO QAM 08/11/21 12/01/23 History release acetaminophen 500 mg tablet 500 mg PO Q6H PRN Pain 03/11/22 12/01/23 History digoxin 125 mcg (0.125 mg) tablet 125 mcg PO DAILY 03/11/22 12/01/23 History glipizide 2.5 mg tablet, extended 2.5 mg PO DAILY #30 tabs 09/08/22 12/01/23 Rx release 24 hr spironolactone 25 mg tablet 25 mg PO DAILY 10/18/22 12/01/23 History warfarin 2 mg tablet 2 mg PO 3XWK 10/18/22 12/01/23 History metoprolol succinate 25 mg 25 mg PO BID #30 tabs 10/27/22 12/01/23 Rx tablet,extended release 24 hr (Toprol XL) acetaminophen 300 mg-codeine 30 mg 1 tab PO Q8H PRN pain #4 tabs 11/29/23 12/01/23 Rx tablet lidocaine 5 % topical patch 1 patch topical DAILY PRN pain #15 11/29/23 12/01/23 Rx ea prednisone 20 mg tablet See Rx Instructions .Route 11/29/23 12/01/23 Rx .COMPLEX 5 days #7 tabs olanzapine 2.5 mg tablet 2.5 mg PO HS 12/01/23 12/01/23 History tramadol 50 mg tablet 50 mg PO Q8H PRN Pain 12/01/23 12/01/23 History Inpatient Medication List Acetaminophen (Acetaminophen 325 Mg Tab) 650 mg PO QID PRN PRN Reason: pain/fever Stop: 12/31/23 21:02 Last Admin: 12/02/23 09:10 Dose: 650 mg Documented By: ERNESTO Atorvastatin Calcium (Atorvastatin 40 Mg Tab) 40 mg PO HS [facility] Stop: 01/01/24 20:59 Last Admin: 12/03/23 20:31 Dose: 40 mg Documented By: Admin: 12/02/23 20:43 Dose: 40 mg Documented By: HAI Digoxin (Digoxin 0.125 Mg Tab) 0.125 mg PO DAILY@1600 [facility] Stop: 01/01/24 15:59 Last Admin: 12/03/23 16:10 Dose: 0.125 mg Documented By: Admin: 12/02/23 16:48 Dose: 0.125 mg Documented By: FRANNIE Duloxetine HCl (Duloxetine Hcl 20 Mg Cap) 40 mg PO QAM [facility] Stop: 01/03/24 08:59 Last Admin: 12/04/23 08:44 Dose: 40 mg Documented By: FLORENCE Insulin Aspart (Insulin Aspart Per Unit Charge) 0 units SC ACHS [facility] Stop: 01/02/24 07:29 Last Admin: 12/04/23 08:52 Dose: 1 units Documented By: FLORENCE Co-signed By: BAILEE Admin: 12/03/23 21:22 Dose: 1 units Documented By: THAIS Co-signed By: ROLANDO Admin: 12/03/23 17:41 Dose: 2 units Documented By: KALYANI Co-signed By: ALISSA Admin: 12/03/23 13:00 Dose: Not Given Documented By: Admin: 12/03/23 08:14 Dose: Not Given Documented By: MS Lidocaine (Lidocaine 5% 1 Patch) 1 patch TD [facility] Stop: 12/31/23 23:49 Last Admin: 12/03/23 20:32 Dose: Not Given Documented By: Admin: 12/02/23 20:43 Dose: Not Given Documented By: Admin: 12/02/23 00:52 Dose: Not Given Documented By: SHAUN Metoprolol Succinate (Metoprolol Succ 25mg Ext Rel Tab) 25 mg PO BID [facility] Stop: 12/31/23 23:44 Last Admin: 12/04/23 08:43 Dose: 25 mg Documented By: Admin: 12/03/23 20:27 Dose: Not Given Documented By: Admin: 12/03/23 08:13 Dose: 25 mg Documented By: Admin: 12/02/23 20:43 Dose: 25 mg Documented By: Admin: 12/02/23 10:25 Dose: 25 mg Documented By: Admin: 12/02/23 00:47 Dose: 25 mg Documented By: SHAUN Miscellaneous (Remove Lidoderm Patch) 1 each N/A [facility] Stop: 01/01/24 11:59 Last Admin: 12/04/23 08:44 Dose: Not Given Documented By: Admin: 12/03/23 08:13 Dose: Not Given Documented By: Admin: 12/02/23 11:15 Dose: 1 each Documented By: FRANNIE Nitroglycerin (Nitroglycerin Sl 0.4 Mg/Tab Tab) 0.4 mg SL Q5M PRN PRN Reason: Chest Pain Stop: 01/01/24 23:47 Last Admin: 12/02/23 23:54 Dose: 0.4 mg Documented By: HAI Warfarin Sodium (Warfarin Sod 2 Mg Tab) 2 mg PO DAILY@1600 [facility] Stop: 01/01/24 19:02 Last Admin: 12/03/23 16:10 Dose: 2 mg Documented By: Admin: 12/02/23 19:44 Dose: 2 mg Documented By: DM Discontinued Medications Duloxetine HCl (Duloxetine Hcl 30 Mg Cap) 30 mg PO [facility] Stop: 01/01/24 08:59 Last Admin: 12/03/23 08:13 Dose: 30 mg Documented By: Admin: 12/02/23 10:25 Dose: 30 mg Documented By: Potassium Chloride/Sodium Chloride (Normal Saline W/20 Meq Kcl) 20 meq in 1,000 mls @ 75 mls/hr IV .[id number]; Protocol Stop: 12/02/23 09:51 Last Infusion: 12/02/23 10:24 Dose: Infused Documented By: Admin: 12/01/23 20:51 Dose: 75 mls/hr Documented By: CRISTELA Potassium Phosphate 15 mmol/ (Sodium Chloride) 255 mls @ 88 mls/hr IV ONE STA Stop: 12/02/23 00:31 Last Infusion: 12/02/23 01:17 Dose: Infused Documented By: Admin: 12/01/23 22:23 Dose: 88 mls/hr Documented By: CRISTELA Sodium Chloride (Nss) 1,000 mls @ 60 mls/hr IV .[id number] ONE Stop: 12/03/23 16:29 Last Infusion: 12/03/23 08:21 Dose: Infused Documented By: Admin: 12/02/23 23:57 Dose: 60 mls/hr Documented By: HAI Insulin Aspart (Insulin Aspart Per Unit Charge) 0 units SC ACHS [facility] Stop: 12/31/23 22:08 Last Admin: 12/02/23 20:25 Dose: Not Given Documented By: Admin: 12/02/23 16:29 Dose: Not Given Documented By: Admin: 12/02/23 11:24 Dose: Not Given Documented By: Admin: 12/02/23 10:23 Dose: Not Given Documented By: Admin: 12/01/23 22:30 Dose: Not Given Documented By: CRISTELA Nitroglycerin (Nitroglycerin Sl 0.4 Mg/Tab Tab) 0.4 mg SL NOW STA Stop: 12/02/23 22:14 Last Admin: 12/02/23 22:18 Dose: 0.4 mg Documented By: HAI Description This is a 21 electrode EEG with a single channel dedicated to limited EKG. The electrodes were placed in accordance with the International 10-20 system. REPORT: At the onset of the EEG the patient is awake. The background is disorganized with loss of the normal anterior to posterior gradient. Background predominantly consists of an admixture of theta and delta activity. No stage 2 sleep transients are seen. Photic stimulation does not induce any additional abnormalities. IMPRESSION: This is an abnormal awake and drowsy routine EEG due to generalized background slowing suggestive of a nonspecific encephalopathy. No epileptiform activity is seen.
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
--- NOTE | 2023-12-05 14:47 | Coding Query ---
CODING QUERY To promote full compliance with coding requirements relating to patient care, provider participation is requested in all cases of death surveys coder uncertainty. Please assist us with the question(s) below: Clinical Indicators: ER Notes: * Acute alteration in mental status * decreased level of consciousness History and Physical: * Encephalopathy * Uncontrolled hypertension Neurology Consult: * admitted from the [facility] for altered mentation due to presumed hypertensive encephalopathy * Noted to have some involuntary movements of the mouth and staring episodes Progress Note 12/02/23: * Patient may be experiencing recurrent major depressive episode versus Zyprexa causing some altered mental status * Will hold the Zyprexa tonight Discharge Summary: * several medications were discontinued including her codeine, tramadol, Zyprexa, and prednisone. By the following day she seemed to be improved * patient's family revealed that she has a significant history of depression * We continue to observe the patient off the Zyprexa. Her mental status improved and the acute encephalopathy and delirium resolved Coding Question(s): Are you able to further specify the cause of the patient's acute altered mental status? ( ) Hypertensive encephalopathy (x ) Adverse effect of Zyprexa ( x) Major depressive disorder, recurrent, unspecified ( ) Other (please specify) ( ) Unable to determine. Thank you Isamar Jones Physician response: Patient's encephalopathy due to a combination of medication adverse effects and major depressive disorder. Principal Diagnosis: "that condition established after study, to be chiefly responsible for occasioning the admission of the patient to the hospital for care." Co-Existing Principal Diagnosis: "when two or more diagnoses equally meet the criteria for principal diagnosis as determined by the circumstances of admission, diagnostic work up, and/or therapy provided, and the Alphabetic Index, Tabular List, or another coding guideline does not provide sequencing direction, any one of the diagnoses may be sequenced first." "When the physician has documented what appears to be a current diagnosis in the body of the record, but has not included the diagnosis in the final diagnostic statement, the physician should be asked whether the diagnosis should be added." (Source [facility]oding [facility] 2 QTR90. p3-4) DARLENE
--- NOTE | 2023-12-05 15:41 | Electrocardiogram Report ---
Test Reason : Blood Pressure : */* mmHG Vent. Rate : 73 BPM Atrial Rate : * BPM P-R Int : * ms QRS Dur : 130 ms QT Int : 392 ms P-R-T Axes : * 62 -84 degrees QTcB Int : 431 ms Atrial fibrillation with frequent ventricular-paced complexes Non-specific intra-ventricular conduction block Cannot rule out Anteroseptal infarct , age undetermined T wave abnormality, consider inferolateral ischemia Abnormal ECG When compared with ECG of 01-Dec-2023 16:49, (unconfirmed) Vent. rate has decreased by 9 bpm Confirmed by Akosau Sewell ([id number]) on 12/02/2023 7:23:52 PM Referred By: LESLEE Confirmed By: Akosua Sewell
--- NOTE | 2023-12-05 15:41 | Electrocardiogram Report ---
Test Reason : Blood Pressure : */* mmHG Vent. Rate : 82 BPM Atrial Rate : 78 BPM P-R Int : * ms QRS Dur : 184 ms QT Int : 412 ms P-R-T Axes : 90 -76 101 degrees QTcB Int : 481 ms Ventricular-paced rhythm Suspected Underlying NSR Abnormal ECG When compared with ECG of 29-Nov-2023 09:39, Vent. rate has increased by 14 bpm Confirmed by Akosua Sewell ([id number]) on 12/02/2023 6:48:20 PM Referred By: LESLEE Confirmed By: Akosua Sewell
== END 2023-12-04 15:06 | disposition home or self-care (01) | DRG 947 ==
LOC: ED 16:44 → EDINP 16:44 → SUATTDRO 21:00 → 2S 12-02 07:37 → 3N 12-03 11:20

== ENCOUNTER 2024-05-18 19:43 | Inpatient (IN) ==
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
--- NOTE | 2024-05-18 20:13 | Emergency Department Note ---
Impression & Plan Urinary tract infection, Hypercalcemia, Near syncope, Recurrent falls ED Provider Note NAME: VASILIY MATHEW AGE: 88 SEX: F : 1935 ARRIVES VIA: Ambulance INFORMANT: Patient ED PROVIDER(S): Skyler Harris MD CHIEF COMPLAINT: Fall PLAN: Disposition: Home MEDICAL DECISION MAKING: The patient is an 88-year-old woman with a past medical history of hypertension, chronic systolic heart failure, atrial fibrillation, tachybradycardia syndrome status post PPM, aortic stenosis, CAD, hypertension, hyperlipidemia, hyperparathyroidism who presents to the emergency department via EMS after having a fall at her assisted living facility at [facility] where she reports she got dizzy and fell backwards into a door frame of the closet and fell to the ground. She does not believe she hit her head. She recalls she was able to get up and into her bed which is where staff had found her per her report she reports she has had chronic cough and congestion for the past several months. She denies any nausea or vomiting. She reports pain in between her shoulder blades where she hit her back. She was seen emergency department a week ago after having a fall on the Sunday (several days) before she was seen and had unremarkable imaging. On evaluation the patient no acute distress, afebrile with stable vital signs. She appears clinically dry. She has tenderness of the right lateral paraspinal muscles of her thoracic and lumbar region without midline tenderness to palpation or step-offs of the CTL spine. She has no focal neurologic deficits. Pelvis is stable and hips with full range of motion bilaterally. EKG demonstrates a ventricular paced rhythm. Interrogation of the patient's pacemaker was unremarkable without acute arrhythmias and device is functioning appropriately. Chest x-ray negative for acute traumatic or cardiopulmonary process. AC joint widening artifactual and better characterized on CT imaging. WBC, H/H and platelets within normal limits. INR is therapeutic at 2.2. Chemistry without metabolic acidosis. Calcium 11.3 and BUN/creatinine is 29 consistent with patient's clinically dry appearance LFTs unremarkable. High- sensitivity troponin 12.3, within normal limits. Lipase is mildly above normal, nonspecific. TSH within normal limits. UA is suspicious for infection with 2+ bacteria and WBCs but with negative nitrites. CT of the head, C-spine, chest and abdomen pelvis were performed. No acute traumatic or acute findings identified otherwise. Note is made of nondisplaced sternal body fracture that is subacute in appearance and patient has no tenderness on exam to suggest acute component. Empiric treatment was initiated with IV ceftriaxone. Patient was treated with IV fluid hydration and IV APAP and did report some improvement. However given her recurrent falls and generalized weakness with episode of near syncope she agrees with plan for admission for further management. Case was discussed with Dr. Ji, [facility] hospitalist who will evaluate the patient for admission. Further management per admitting team. Triage Nursing notes reviewed and agree them. Prior/external medical records reviewed Vital Signs: reviewed Differential diagnosis: Fracture, dislocation, contusion, intra-abdominal, pneumothorax, intrathoracic, intracranial, neurologic, compartment syndrome, rhabdomyolysis, as well as other pathologies. ER treatment provided: See below. Diagnostics interpreted by me: ECG: Ventricular paced rhythm, 78 bpm, no ectopy, no overt acute ischemia. Cardiac Monitoring: An order for continuous cardiac monitoring was placed and demonstrated Ventricular paced rhythm, 78 bpm, no ectopy. Laboratory studies: See below Imaging studies: See below HPI: The patient is an 88-year-old woman with a past medical history of hypertension, chronic systolic heart failure, atrial fibrillation, tachybradycardia syndrome status post PPM, aortic stenosis, CAD, hypertension, hyperlipidemia, hyperparathyroidism who presents to the emergency department via EMS after having a fall at her assisted living facility at the [place] where she reports she got dizzy and fell backwards into a door frame of the closet and fell to the ground. She does not believe she hit her head. She recalls she was able to get up and into her bed which is where staff had found her per her report she reports she has had chronic cough and congestion for the past several months. She denies any nausea or vomiting. She reports pain in between her shoulder blades where she hit her back. She was seen emergency department a week ago after having a fall on the Sunday (several days) before she was seen and had unremarkable imaging. ROS: See above HPI for pertinent positives & negatives. A total of 10 systems reviewed and were otherwise negative. VITALS:See Below PHYSICAL EXAMINATION: GENERAL: Awake, alert, in no distress HENT: Normocephalic, atraumatic. Oropharynx with dry mucous membranes and otherwise unremarkable. EYES: Normal conjunctiva. Sclera non-icteric. EOMI. No nystamgus. PEARRL. NECK: Supple. No nuchal rigidity. FROM. No JVD. RESPIRATORY: Clear to auscultation. CARDIAC: Regular rate, normal rhythm. Extremities warm and well perfused. Pulses equal. ABDOMEN: Soft, non-distended. No tenderness to palpation. No rebound or guarding. No masses. MUSCULOSKELETAL: Chest examination reveals no tenderness. Mild tenderness of the right lateral paraspinal muscles of her thoracic and lumbar region without midline tenderness to palpation or step-offs of the CTL spine. There is no CVA tenderness to palpation. No joint edema. Pelvis is stable and hips with full range of motion bilaterally. LOWER EXTREMITIES: Calves are equal size bilaterally and non-tender. No edema. No discoloration. NEURO: No focal sensory or motor deficits noted. CNII-XII grossly intact. 5/5 strength and SILT x 4 extremities. Intact finger to nose. SKIN: No rash or jaundice noted. Skyler Harris MD Past Med/Surg History Problem List Recurrent falls (Acute) Near syncope (Acute) Hypercalcemia (Acute) Urinary tract infection (Acute) Near syncope Anticoagulant long-term use (Acute) Fall (Acute) Traumatic ecchymosis of left hip (Acute) Acute hip pain (Acute) Acute alteration in mental status (Acute) Musculoskeletal chest pain Encephalopathy Delirium Pacemaker generator end of life Chest pain at rest Syncope (Acute) Head injury (Acute) Cardiac pacemaker in situ Syncope Dizziness Acute hypoxemic respiratory failure COVID-19 (Acute) Hypoxia (Acute) Pain in deltoid, bilateral Abdominal pain Epigastric heaviness (Acute Unknown) History of fracture of rib (Acute) Chest pain on respiration (Acute) Rib pain on left side (Acute) Elevated troponin I measurement (Acute) Fracture of fifth metatarsal bone of left foot Abnormal CT of the abdomen DEIRDRE (acute kidney injury) (Acute) Fracture of 5th metatarsal (Acute) Rib pain on left side (Acute) Fall (Acute) Hypokalemia Acute on chronic systolic (congestive) heart failure DVT prophylaxis Depression Chronic atrial fibrillation (Acute) S/P cardiac pacemaker procedure 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), bioprosthetic 2016 Aortic stenosis S/P TAVR in 2015 CAD (coronary artery disease) S/P CT and stent to RCA in 2002 HLD (hyperlipidemia) HTN (hypertension) Hyperparathyroidism Chest pain, precordial (Acute) Abnormal EKG (Acute) Chest pain (Acute) Primary hyperparathyroidism (Chronic Unknown) Hypercalcemia (Chronic Unknown) Aortic valve replaced (Chronic) Medical History Cardiomegaly Hypertension, uncontrolled Major depressive disorder, recurrent episode with mixed features Acute metabolic encephalopathy Tachy-wanda syndrome ASCVD (arteriosclerotic cardiovascular disease) Anemia Atrial fibrillation with rapid ventricular response Chronic systolic heart failure Diabetes mellitus, type II Surgical History S/P TAVR (transcatheter aortic valve replacement) Family History Other Cancer Diabetes Heart disease Hypertension Social History Smoking Status: Never smoker Second Hand Exposure: No; Do You Dip or Chew Tobacco: No; Hx Alcohol Use: No Hx Substance Use: No Preferred Language: Latvian Communication Ability: Effective Deputy Clerk Of Court Required: No Beliefs That Will Affect Care: None marital status: / Current Living Situation: Shelter Current Living Situation Comment: [facility]. How many Children do You have: 3 Feels Safe at Home: Yes Assistive Devices: Walker Allergies Allergies Allergy/AdvReac Type Severity Reaction Status Date / Time tetracycline Allergy Intermediate RASH Verified 12/01/23 21:05 morphine AdvReac Severe "VIOLENTLY Verified 12/01/23 21:05 ILL", NAUSEA/VOMITING codeine AdvReac Intermediate nausea/Vomi Verified 12/01/23 21:05 ting Home Meds Home Medications Medication Instructions Recorded Confirmed atorvastatin 40 mg tablet (Lipitor) 40 mg PO HS 11/11/19 05/19/24 nitroglycerin 0.4 mg sublingual 0.4 mg sublingual DIRECTED PRN 11/11/19 05/19/24 tablet (Nitrostat) Chest Pain alendronate 70 mg tablet 70 mg PO WK 08/11/21 05/19/24 acetaminophen 500 mg tablet 500 mg PO Q6H PRN Pain 03/11/22 05/19/24 digoxin 125 mcg (0.125 mg) tablet 125 mcg PO DAILY 03/11/22 05/19/24 spironolactone 25 mg tablet 25 mg PO DAILY 10/18/22 05/19/24 acetaminophen 500 mg tablet 500 mg PO DAILY 05/11/24 05/19/24 duloxetine 60 mg capsule,delayed 60 mg PO QAM 05/11/24 05/19/24 release loperamide 2 mg tablet (Imodium 2 mg PO TID PRN Diarrhea 05/11/24 05/19/24 A-D) metoprolol succinate 25 mg 25 mg PO Q12 05/11/24 05/19/24 tablet,extended release 24 hr (Toprol XL) pantoprazole 20 mg tablet,delayed 20 mg PO DAILY 05/11/24 05/19/24 release warfarin 2 mg tablet 2 mg PO 4XWK 05/11/24 05/19/24 warfarin 2 mg tablet 4 mg PO 3XWK 05/11/24 05/19/24 Previous Rx's Medication Instructions Recorded glipizide 2.5 mg tablet, extended 2.5 mg PO DAILY #30 tabs 09/08/22 release 24 hr Results & Data (ED) Vital Signs Vital Signs - 24 hr 05/18/24 19:30 05/18/24 19:30 05/18/24 19:49 Temperature 36.6 C 36.6 C Temperature Source Oral Oral Pulse Rate 73 75 Pulse Rate [Right Brachial] 73 Pulse Rhythm Regular Pulse Rhythm [Right Brachial] Regular Pulse Strength Normal Pulse Strength [Right Brachial] Normal Respiratory Rate 18 18 Respiratory Effort / Characteristics Non-Labored Non-Labored Respiratory Depth Normal Normal Respiratory Pattern Regular Blood Pressure 113/83 Blood Pressure [Right Arm] 113/83 Blood Pressure Mean 93 Blood Pressure Mean [Right Arm] 93 Blood Pressure Position Lying Blood Pressure Position [Right Arm] Lying Pulse Oximetry 96 96 Oxygen Delivery Method Room Air Room Air Sepsis Recent Fever Within 48 Hours No Sepsis New/Unexplained Change in Mental Status N/A Sepsis Action Taken by Nursing No Action Required 05/18/24 20:01 05/18/24 20:48 05/18/24 22:01 Temperature Temperature Source Pulse Rate Pulse Rate [Right Brachial] 60 61 Pulse Rhythm Pulse Rhythm [Right Brachial] Pulse Strength Pulse Strength [Right Brachial] Respiratory Rate 20 29 H Respiratory Effort / Characteristics Respiratory Depth Respiratory Pattern Blood Pressure Blood Pressure [Right Arm] 123/76 151/84 H Blood Pressure Mean Blood Pressure Mean [Right Arm] 91 106 Blood Pressure Position Blood Pressure Position [Right Arm] Pulse Oximetry 96 96 98 Oxygen Delivery Method Room Air Sepsis Recent Fever Within 48 Hours Sepsis New/Unexplained Change in Mental Status Sepsis Action Taken by Nursing 05/18/24 23:11 Temperature Temperature Source Pulse Rate Pulse Rate [Right Brachial] 61 Pulse Rhythm Pulse Rhythm [Right Brachial] Pulse Strength Pulse Strength [Right Brachial] Respiratory Rate 18 Respiratory Effort / Characteristics Respiratory Depth Respiratory Pattern Blood Pressure Blood Pressure [Right Arm] 131/82 Blood Pressure Mean Blood Pressure Mean [Right Arm] 98 Blood Pressure Position Blood Pressure Position [Right Arm] Pulse Oximetry 94 Oxygen Delivery Method Sepsis Recent Fever Within 48 Hours Sepsis New/Unexplained Change in Mental Status Sepsis Action Taken by Nursing Laboratory Data Attestation: I reviewed the patient's lab results. 05/18/24 19:49 05/18/24 19:49 Lab Results 05/18/24 05/18/24 05/18/24 Range/Units 19:49 20:35 21:56 WBC 6.67 (4.8-10.8) K/ul RBC 4.87 (4.20-5.40) M/uL Hgb 14.8 (12.0-16.0) g/dl Hct 42.8 (37.0-47.0) % MCV 87.9 (80.0-100.0) fL MCH 30.4 (25.0-34.0) pg MCHC 34.6 (32.0-36.0) g/dL RDW Std Deviation 42.5 (36.4-46.3) fL RDW Coeff of Rosas 13.2 (11.5-14.5) % Plt Count 231 (130-400) K/uL MPV 9.1 L (9.4-12.4) fL Immature Gran % (Auto) 0.7 % Neut % (Auto) 70.6 % Lymph % (Auto) 18.0 % [place] % (Auto) 8.1 % Eos % (Auto) 2.2 % Baso % (Auto) 0.4 % Neut # (Auto) 4.70 (1.40-6.50) K/uL Lymph # (Auto) 1.20 (1.20-3.40) K/uL [place] # (Auto) 0.54 (0.11-0.59) K/uL Eos # (Auto) 0.15 (0.00-0.50) K/uL Baso # (Auto) 0.03 (0.00-0.20) K/uL Immature Gran # (Auto) 0.05 (0.01-0.20) K/uL PT 22.4 H (9.0-12.0) Seconds INR 2.2 H (0.9-1.1) Sodium 138 (136-145) mmol/L Potassium 4.0 (3.5-5.1) mmol/L Chloride 102 (98-107) mmol/L Carbon Dioxide 28 (21-32) mmol/L Anion Gap 8 (3-11) BUN 28 H (6-23) mg/dl Creatinine 0.96 (0.6-1.2) mg/dl Est Cr Clr Drug Dosing 37.8 ml/min eGFR 57.26 BUN/Creatinine Ratio 29.2 H (10-20) Glucose 144 H (70-99(Fasting)) mg/dl Calcium 11.3 H (8.6-10.3) mg/dl Phosphorus 3.6 (2.5-4.9) mg/dl Magnesium 2.1 (1.7-2.4) mg/dl Total Bilirubin 0.9 (0.2-1.0) mg/dl Direct Bilirubin 0.2 (0-0.2) mg/dl AST 21 (13-39) U/L ALT 19 (7-52) U/L Alkaline Phosphatase 73 (34-104) U/L Troponin I High Sens 12.3 (0-14) pg/ml Total Protein 7.4 (6.0-8.3) gm/dl Albumin 4.7 (3.4-5.0) gm/dl Globulin 2.7 (2.5-4.0) gm/dl Albumin/Globulin Ratio 1.7 (0.9-2) Lipase 113 H (11-82) U/L TSH 1.701 (0.300-4.500) uIu/ml Urine Color Dark Yellow Urine Appearance Clear (Clear) Urine pH 5.0 (4.5-7.5) Ur Specific [place] > 1.045 H (1.000-1.030) Urine Protein Trace H (Negative) Urine Glucose (UA) Negative (Negative) Urine Ketones Trace H (Negative) Urine Blood Negative (Negative) Urine Nitrite Negative (Negative) Urine Bilirubin Negative (Negative) Urine Urobilinogen Negative (Negative) Ur Leukocyte Esterase Trace H (Negative) Urine WBC (Auto) 21-50 H (0-5) /hpf Urine RBC (Auto) 0-2 (0-2) /hpf U Hyaline Cast (Auto) 3-5 H (0-2) /lpf U Epithel Cells (Auto) 11-20 H (0-2) /hpf Urine Bacteria (Auto) 2+ H (None Seen) Adenovirus (PCR) Not Detected (NotDetected) B. pertussis DNA (PCR) Not Detected (NotDetected) B.parapertussis DNA PCR Not Detected (NotDetected) C. pneumoniae DNA (PCR) Not Detected (NotDetected) Coronavirus OC43 (PCR) Not Detected (NotDetected) Coronavirus HKU1 (PCR) Not Detected (NotDetected) Coronavirus 229E (PCR) Not Detected (NotDetected) SARS-CoV-2 (PCR) Not Detected (NotDetected) Coronavirus NL63 (PCR) Not Detected (NotDetected) Human Metapneumovir PCR Not Detected (NotDetected) Influenza Type A (PCR) Not Detected (NotDetected) Influenza Type B (PCR) Not Detected (NotDetected) M. pneumoniae (PCR) Not Detected (NotDetected) Parainfluenza 1 (PCR) Not Detected (NotDetected) Parainfluenza 2 (PCR) Not Detected (NotDetected) Parainfluenza 3 (PCR) Not Detected (NotDetected) Parainfluenza 4 (PCR) Not Detected (NotDetected) RSV (PCR) Not Detected (NotDetected) Entero/Rhino (PCR) Not Detected (NotDetected) Administered Medications Discontinued Medications Sodium Chloride (Nss) 500 mls @ 999 mls/hr IV .Q31M ONE Stop: 05/18/24 20:34 Last Infusion: 05/18/24 21:27 Dose: Infused Documented By: Admin: 05/18/24 20:46 Dose: 999 mls/hr Documented By: PHONGK Acetaminophen (Ofirmev) 1,000 mg in 100 mls @ 400 mls/hr IV NOW STA Stop: 05/18/24 20:18 Last Infusion: 05/18/24 20:47 Dose: Infused Documented By: Admin: 05/18/24 20:29 Dose: 400 mls/hr Documented By: OJ Ceftriaxone Sodium (Rocephin) 2,000 mg in 50 mls @ 100 mls/hr IV NOW STA Stop: 05/18/24 23:53 Last Admin: 05/19/24 00:41 Dose: 100 mls/hr Documented By: OJ Ioversol (Optiray 320 100ml) 90 ml IV ONCE ONE Stop: 05/18/24 21:01 Last Admin: 05/18/24 21:01 Dose: 90 ml Documented By: GEORGE Imaging Data Radiologist's Impression: Abdomen/Pelvis CT 05/18/24 20:02 Exam(s): CT ABDOMEN + PELVIS With Contrast IV Amt: 90 ml optiray 320 EXAM: CT Abdomen and Pelvis With Intravenous Contrast CLINICAL HISTORY: Reason for exam: back pain, fall. TECHNIQUE: Axial computed tomography images of the abdomen and pelvis with intravenous contrast. CTDI is 10.54 mGy and DLP is 319.33 mGy-cm. Automated exposure control was utilized for the study. A dose lowering technique was utilized adhering to the principles of ALARA. CONTRAST: Patient received 90 ml optiray 320 of IV contrast COMPARISON: 11/11/19 FINDINGS: Lung bases: Unremarkable. Heart: Cardiomegaly, coronary artery atherosclerosis, aortic valve replacement, and partially imaged pacer lead. ABDOMEN: Liver: Unremarkable. No mass. Gallbladder and bile ducts: Cholecystectomy. No ductal dilation. Pancreas: Unremarkable. No mass. No ductal dilation. Spleen: Unremarkable. No splenomegaly. Adrenals: Unremarkable. No mass. Kidneys and ureters: Symmetric renal enhancement. No hydronephrosis. Small simple right kidney cyst; no follow-up indicated. No change in mildly hyperdense 11 mm left renal cyst since 11/11/19, considered benign. Stomach and bowel: Sigmoid diverticulosis. No obstruction. No mucosal thickening. PELVIS: Appendix: Normal appendix. Bladder: Unremarkable. No mass. Reproductive: Unremarkable as visualized. ABDOMEN and PELVIS: Intraperitoneal space: Unremarkable. No free air, significant free fluid, or fluid collection. Bones/joints: Osteopenia. Thoracolumbar spondylosis. Chronic L1 and L3 compression fracture status post vertebral augmentation. Grade 1 degenerative retrolisthesis of L1 and grade 1 degenerative anterolisthesis of L4. No acute fracture or dislocation. Soft tissues: Unremarkable. Vasculature: Aortoiliac atherosclerosis. No abdominal aortic aneurysm. Lymph nodes: Unremarkable. No enlarged lymph nodes. IMPRESSION: No acute findings in the abdomen or pelvis. Electronically signed by: Jonelle Diallo M.D. 05/18/24 21:[address] 05/18/24 20:02 Exam(s): CT C SPINE EXAM: CT Cervical Spine Without Intravenous Contrast CLINICAL HISTORY: Reason for exam: pain fall. TECHNIQUE: Axial computed tomography images of the cervical spine without intravenous contrast. CTDI is 25 mGy and DLP is 480 mGy-cm. Automated exposure control was utilized for the study. A dose lowering technique was utilized adhering to the principles of ALARA. COMPARISON: No relevant prior studies available. FINDINGS: Vertebrae: Osteopenia. No acute fracture or subluxation. Discs/spinal canal/neural foramina: Multilevel disc, facet, and uncovertebral joint degeneration. No significant central canal narrowing. Degrees of multilevel foraminal narrowing. Soft tissues: Unremarkable. IMPRESSION: No acute findings in the cervical spine. Electronically signed by: Jonelle Diallo M.D. 05/18/24 21:[address] 05/18/24 20:02 Exam(s): CT CHEST With Contrast IV Amt: 90 ml optiray 320 EXAM: CT Chest With Intravenous Contrast CLINICAL HISTORY: Reason for exam: back pain, fall. TECHNIQUE: Axial computed tomography images of the chest with intravenous contrast. CTDI is 12.92 mGy and DLP is 578.98 mGy-cm. Automated exposure control was utilized for the study. A dose lowering technique was utilized adhering to the principles of ALARA. CONTRAST: Patient received 90 ml optiray 320 of IV contrast COMPARISON: 12/22/19 FINDINGS: Lungs: Subsegmental atelectasis in both lower lobes. No consolidation or mass. Pleural space: Unremarkable. No pneumothorax. No significant effusion. Heart: Cardiomegaly. Aortic valve replacement. Coronary artery atherosclerosis. No pericardial effusion. Bones/joints: Reverse right shoulder arthroplasty. Disc degeneration in the thoracic spine. Subacute nondisplaced sternal body fracture. No acute fracture or dislocation. Soft tissues: Unremarkable. Vasculature: Unremarkable. No thoracic aortic aneurysm. Lymph nodes: Unremarkable. No enlarged lymph nodes. Upper abdomen: Reported separately. Tubes, lines and devices: Left chest wall ICD with single right ventricular lead. IMPRESSION: Subacute nondisplaced sternal body fracture. No acute findings. Electronically signed by: Jonelle Diallo M.D. 05/18/24 21:35 PM Chest X-Ray 05/18/24 20:02 EXAM: Portable AP chest radiograph TECHNIQUE: AP portable radiograph of the chest was obtained. INDICATION: Shortness of breath Comparison: Chest radiograph December 01, 2023. FINDINGS: LINES and TUBES: Redemonstrated left-sided cardiac pacemaker with lead projecting over the right ventricle of the heart. CARDIOVASCULAR: Cardiac silhouette is stably enlarged in size. TAVR. LUNGS/PLEURA: Mild pulmonary vascular congestion is similar to previous radiograph. Patchy bibasilar densities are likely atelectasis. No significant pleural fluid. No discernible pneumothorax. OSSEOUS/OTHER: No displaced acute osseous process identified. Redemonstrated right shoulder reverse arthroplasty. There is an age-indeterminate and apparently new widening of the left acromioclavicular joint. Right upper abdominal surgical clips. IMPRESSION: Similar congestive changes of the cardiovascular system compared to the previous radiograph. There is an age-indeterminate and apparently new widening of the left acromioclavicular joint. Electronically signed by Jone Finley 05-18-2024 8:[address] 05/18/24 20:02 Exam(s): CT HEAD Without Contrast EXAM: CT Head Without Intravenous Contrast CLINICAL HISTORY: Reason for exam: pain fall. TECHNIQUE: Axial computed tomography images of the head/brain without intravenous contrast. CTDI is 35.65 mGy and DLP is 624.41 mGy-cm. Automated exposure control was utilized for the study. A dose lowering technique was utilized adhering to the principles of ALARA. COMPARISON: 12/01/23 FINDINGS: Brain: Generalized parenchymal volume loss. Periventricular and deep cerebral white matter hypoattenuation suggesting chronic small vessel ischemic change. Lynch-white matter differentiation maintained. No hemorrhage, mass effect, parenchymal edema, or midline shift. Ventricles: No hydrocephalus. Bones/joints: No acute fracture. Soft tissues: Unremarkable. Vasculature: Intracranial atherosclerosis. Sinuses: No significant sinus disease, as visualized. Mastoid air cells: No significant mastoid effusion. Orbits: Lens replacements. IMPRESSION: No acute intracranial process. Electronically signed by: Jonelle Diallo M.D. 05/18/24 21:23 PM Discharge Plan Visit Data Chief Complaint: Fall Stated Complaint: FALL ED Provider: Skyler Harris Discharge Problem: Urinary tract infection, Hypercalcemia, Near syncope, Recurrent falls Patient Disposition: Admitted As Inpatient Discharge Instructions Interventions: ED Discharge Assessment Last Done: 05/19/24 01:03 Discharge Problem: Urinary tract infection Qualifiers: Urinary tract infection type: acute cystitis Hematuria presence: with hematuria Qualified Code(s): N30.01 - Acute cystitis with hematuria
[2024-05-18] MEDS: ACETAMINOPHEN 1,000 MG/100 ML VIAL IV STA (20:29)
[2024-05-18 20:38] LABS: Basophils # (auto) 0.03 K/uL (0.00-0.20); Basophils % (auto) 0.4 %; Eosinophils # (auto) 0.15 K/uL (0.00-0.50); Eosinophils % (auto) 2.2 %; Hematocrit (blood only) 42.8 % (37.0-47.0); Hemoglobin 14.8 g/dl (12.0-16.0); Immature Granulocytes # (auto) 0.05 K/uL (0.01-0.20); Immature Granulocytes % (auto) 0.7 %; Mean Corpuscular Hemoglobin 30.4 pg (25.0-34.0); Mean Corpuscular Hgb Conc 34.6 g/dL (32.0-36.0); Mean Corpuscular Volume 87.9 fL (80.0-100.0); Mean Platelet Volume 9.1 fL (9.4-12.4); Monocytes # (auto) 0.54 K/uL (0.11-0.59); Monocytes % (auto) 8.1 %; Neutrophils % (auto) 70.6 %; Platelet Count 231 K/uL (130-400); RDW Coefficient of Variation 13.2 % (11.5-14.5); RDW Standard Deviation 42.5 fL (36.4-46.3); Red Blood Count 4.87 M/uL (4.20-5.40); White Blood Count 6.67 K/ul (4.8-10.8)
--- NOTE | 2024-05-18 20:45 | XRay Report ---
EXAM: Portable AP chest radiograph TECHNIQUE: AP portable radiograph of the chest was obtained. INDICATION: Shortness of breath Comparison: Chest radiograph December 01, 2023. FINDINGS: LINES and TUBES: Redemonstrated left-sided cardiac pacemaker with lead projecting over the right ventricle of the heart. CARDIOVASCULAR: Cardiac silhouette is stably enlarged in size. TAVR. LUNGS/PLEURA: Mild pulmonary vascular congestion is similar to previous radiograph. Patchy bibasilar densities are likely atelectasis. No significant pleural fluid. No discernible pneumothorax. OSSEOUS/OTHER: No displaced acute osseous process identified. Redemonstrated right shoulder reverse arthroplasty. There is an age-indeterminate and apparently new widening of the left acromioclavicular joint. Right upper abdominal surgical clips. IMPRESSION: Similar congestive changes of the cardiovascular system compared to the previous radiograph. There is an age-indeterminate and apparently new widening of the left acromioclavicular joint. Electronically signed by Jone Finley 05-18-2024 8:43 PM
[2024-05-18] MEDS: SODIUM CHLORIDE 0.9% 500 ML IV ONE (20:46)
[2024-05-18 20:48] LABS: Albumin Globulin Ratio 1.7 (0.9-2); Albumin Level 4.7 gm/dl (3.4-5.0); BUN Creatinine Ratio 29.2 (10-20); Bilirubin Direct 0.2 mg/dl (0-0.2); Bilirubin,Total 0.9 mg/dl (0.2-1.0); Calcium 11.3 mg/dl (8.6-10.3); Creatinine Clr Calc Pharmacy 37.8 ml/min; Globulin 2.7 gm/dl (2.5-4.0); Magnesium 2.1 mg/dl (1.7-2.4); Phosphorus 3.6 mg/dl (2.5-4.9); Total Protein 7.4 gm/dl (6.0-8.3)
[2024-05-18 20:54] LABS: Troponin I High Sensitivity 12.3 pg/ml (0-14)
[2024-05-18 20:56] LABS: INR 2.2 (0.9-1.1); Prothrombin Time 22.4 Seconds (9.0-12.0)
[2024-05-18] MEDS: OPTIRAY 320 100ml IV ONE (21:01)
[2024-05-18 21:03] LABS: Thyroid Stimulating Hormone 1.701 uIu/ml (0.300-4.500)
--- NOTE | 2024-05-18 21:24 | CT Scan Report ---
Exam(s): CT HEAD Without Contrast EXAM: CT Head Without Intravenous Contrast CLINICAL HISTORY: Reason for exam: pain fall. TECHNIQUE: Axial computed tomography images of the head/brain without intravenous contrast. CTDI is 35.65 mGy and DLP is 624.41 mGy-cm. Automated exposure control was utilized for the study. A dose lowering technique was utilized adhering to the principles of ALARA. COMPARISON: 12/01/23 FINDINGS: Brain: Generalized parenchymal volume loss. Periventricular and deep cerebral white matter hypoattenuation suggesting chronic small vessel ischemic change. Lynch-white matter differentiation maintained. No hemorrhage, mass effect, parenchymal edema, or midline shift. Ventricles: No hydrocephalus. Bones/joints: No acute fracture. Soft tissues: Unremarkable. Vasculature: Intracranial atherosclerosis. Sinuses: No significant sinus disease, as visualized. Mastoid air cells: No significant mastoid effusion. Orbits: Lens replacements. IMPRESSION: No acute intracranial process. Electronically signed by: Jonelle Diallo M.D. 05/18/24 21:23 PM
[2024-05-18 21:30] LABS: Adenovirus PCR Not Detected (NotDetected); Bordetella parapertussis PCR Not Detected (NotDetected); Bordetella pertussis PCR Not Detected (NotDetected); Chlamydia pneumoniae PCR Not Detected (NotDetected); Coronavirus 229E PCR Not Detected (NotDetected); Coronavirus CoV-2 (COVID19)PCR Not Detected (NotDetected); Coronavirus HKU1 PCR Not Detected (NotDetected); Coronavirus NL63 PCR Not Detected (NotDetected); Coronavirus OC43PCR Not Detected (NotDetected); Human Metapneumovirus PCR Not Detected (NotDetected); Influenza A PCR Not Detected (NotDetected); Influenza B PCR Not Detected (NotDetected); Mycoplasma pneumoniae PCR Not Detected (NotDetected); Parainfluenza Virus 1 PCR Not Detected (NotDetected); Parainfluenza Virus 2 PCR Not Detected (NotDetected); Parainfluenza Virus 3 PCR Not Detected (NotDetected); Parainfluenza Virus 4 PCR Not Detected (NotDetected); Respiratory Syncytial VirusPCR Not Detected (NotDetected); Rhinovirus/Enterovirus PCR Not Detected (NotDetected)
--- NOTE | 2024-05-18 21:30 | CT Scan Report ---
Exam(s): CT ABDOMEN + PELVIS With Contrast IV Amt: 90 ml optiray 320 EXAM: CT Abdomen and Pelvis With Intravenous Contrast CLINICAL HISTORY: Reason for exam: back pain, fall. TECHNIQUE: Axial computed tomography images of the abdomen and pelvis with intravenous contrast. CTDI is 10.54 mGy and DLP is 319.33 mGy-cm. Automated exposure control was utilized for the study. A dose lowering technique was utilized adhering to the principles of ALARA. CONTRAST: Patient received 90 ml optiray 320 of IV contrast COMPARISON: 11/11/19 FINDINGS: Lung bases: Unremarkable. Heart: Cardiomegaly, coronary artery atherosclerosis, aortic valve replacement, and partially imaged pacer lead. ABDOMEN: Liver: Unremarkable. No mass. Gallbladder and bile ducts: Cholecystectomy. No ductal dilation. Pancreas: Unremarkable. No mass. No ductal dilation. Spleen: Unremarkable. No splenomegaly. Adrenals: Unremarkable. No mass. Kidneys and ureters: Symmetric renal enhancement. No hydronephrosis. Small simple right kidney cyst; no follow-up indicated. No change in mildly hyperdense 11 mm left renal cyst since 11/11/19, considered benign. Stomach and bowel: Sigmoid diverticulosis. No obstruction. No mucosal thickening. PELVIS: Appendix: Normal appendix. Bladder: Unremarkable. No mass. Reproductive: Unremarkable as visualized. ABDOMEN and PELVIS: Intraperitoneal space: Unremarkable. No free air, significant free fluid, or fluid collection. Bones/joints: Osteopenia. Thoracolumbar spondylosis. Chronic L1 and L3 compression fracture status post vertebral augmentation. Grade 1 degenerative retrolisthesis of L1 and grade 1 degenerative anterolisthesis of L4. No acute fracture or dislocation. Soft tissues: Unremarkable. Vasculature: Aortoiliac atherosclerosis. No abdominal aortic aneurysm. Lymph nodes: Unremarkable. No enlarged lymph nodes. IMPRESSION: No acute findings in the abdomen or pelvis. Electronically signed by: Jonelle Diallo M.D. 05/18/24 21:29 PM
--- NOTE | 2024-05-18 21:34 | CT Scan Report ---
Exam(s): CT C SPINE EXAM: CT Cervical Spine Without Intravenous Contrast CLINICAL HISTORY: Reason for exam: pain fall. TECHNIQUE: Axial computed tomography images of the cervical spine without intravenous contrast. CTDI is 25 mGy and DLP is 480 mGy-cm. Automated exposure control was utilized for the study. A dose lowering technique was utilized adhering to the principles of ALARA. COMPARISON: No relevant prior studies available. FINDINGS: Vertebrae: Osteopenia. No acute fracture or subluxation. Discs/spinal canal/neural foramina: Multilevel disc, facet, and uncovertebral joint degeneration. No significant central canal narrowing. Degrees of multilevel foraminal narrowing. Soft tissues: Unremarkable. IMPRESSION: No acute findings in the cervical spine. Electronically signed by: Jonelle Diallo M.D. 05/18/24 21:33 PM
--- NOTE | 2024-05-18 21:36 | CT Scan Report ---
Exam(s): CT CHEST With Contrast IV Amt: 90 ml optiray 320 EXAM: CT Chest With Intravenous Contrast CLINICAL HISTORY: Reason for exam: back pain, fall. TECHNIQUE: Axial computed tomography images of the chest with intravenous contrast. CTDI is 12.92 mGy and DLP is 578.98 mGy-cm. Automated exposure control was utilized for the study. A dose lowering technique was utilized adhering to the principles of ALARA. CONTRAST: Patient received 90 ml optiray 320 of IV contrast COMPARISON: 12/22/19 FINDINGS: Lungs: Subsegmental atelectasis in both lower lobes. No consolidation or mass. Pleural space: Unremarkable. No pneumothorax. No significant effusion. Heart: Cardiomegaly. Aortic valve replacement. Coronary artery atherosclerosis. No pericardial effusion. Bones/joints: Reverse right shoulder arthroplasty. Disc degeneration in the thoracic spine. Subacute nondisplaced sternal body fracture. No acute fracture or dislocation. Soft tissues: Unremarkable. Vasculature: Unremarkable. No thoracic aortic aneurysm. Lymph nodes: Unremarkable. No enlarged lymph nodes. Upper abdomen: Reported separately. Tubes, lines and devices: Left chest wall ICD with single right ventricular lead. IMPRESSION: Subacute nondisplaced sternal body fracture. No acute findings. Electronically signed by: Jonelle Diallo M.D. 05/18/24 21:35 PM
[2024-05-18 22:20] LABS: Appearance Urine Clear (Clear); Bacteria Urine Automated 2+ (None Seen); Bilirubin Urine Negative (Negative); Blood Urine Negative (Negative); Color Urine Dark Yellow; Glucose Urine UA Negative (Negative); Ketones Urine Trace (Negative); Leukocyte Esterase Urine Trace (Negative); Nitrite Urine Negative (Negative); Protein Urine Trace (Negative); RBC Urine Automated 0-2 /hpf (0-2); Specific Gravity Urine > 1.045 (1.000-1.030); Urobilinogen Urine Negative (Negative); WBC Urine Automated 21-50 /hpf (0-5)
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
[2024-05-19] MEDS: cefTRIAXone SODIUM 2,000 MG/50 ML BAG IV STA (00:41)
[2024-05-19] MEDS ORDERED: ACETAMINOPHEN 500 MG TAB PO PRN (01:09)
[2024-05-19] MEDS ORDERED: PROMETHAZINE 6.25 MG/50.25 ML BAG IV PRN (01:16)
[2024-05-19] MEDS ORDERED: traMADol HCL 50 MG TABLET PO PRN ×2 (01:17→10:14)
[2024-05-19] MEDS ORDERED: GLUCOSE 40% GEL 15 GM TUBE PO PRN (01:28)
[2024-05-19] MEDS ORDERED: GLUCOSE 10 TAB/TUBE PO PRN (01:28)
[2024-05-19] MEDS ORDERED: DEXTROSE 50% 50 ML SYRINGE IV PRN (01:28)
[2024-05-19] MEDS ORDERED: GLUCAGON FOR INJ 1 MG VIAL SQ PRN (01:28)
[2024-05-19] MEDS ORDERED: CARBOHYDRATES FOR HYPOGLYCEMIA PO PRN (01:28)
[2024-05-19] MEDS: SODIUM CHLORIDE 0.9% 1,000 ML IV STA (01:30)
[2024-05-19] MEDS: INSULIN ASPART PER UNIT CHARGE SC SCH (01:54)
[2024-05-19 07:30] LABS: Basophils # (auto) 0.02 K/uL (0.00-0.20); Basophils % (auto) 0.3 %; Eosinophils # (auto) 0.21 K/uL (0.00-0.50); Eosinophils % (auto) 3.6 %; Hematocrit (blood only) 37.5 % (37.0-47.0); Hemoglobin 12.7 g/dl (12.0-16.0); Immature Granulocytes # (auto) 0.04 K/uL (0.01-0.20); Immature Granulocytes % (auto) 0.7 %; Lymphocytes # (auto) 1.29 K/uL (1.20-3.40); Lymphocytes % (auto) 22.4 %; Mean Corpuscular Hemoglobin 29.9 pg (25.0-34.0); Mean Corpuscular Hgb Conc 33.9 g/dL (32.0-36.0); Mean Corpuscular Volume 88.2 fL (80.0-100.0); Mean Platelet Volume 8.9 fL (9.4-12.4); Monocytes # (auto) 0.61 K/uL (0.11-0.59); Monocytes % (auto) 10.6 %; Neutrophils % (auto) 62.4 %; Platelet Count 183 K/uL (130-400); RDW Coefficient of Variation 13.2 % (11.5-14.5); RDW Standard Deviation 42.6 fL (36.4-46.3); Red Blood Count 4.25 M/uL (4.20-5.40); White Blood Count 5.77 K/ul (4.8-10.8)
[2024-05-19 08:00] LABS: BUN Creatinine Ratio 28.9 (10-20); Calcium 10.2 mg/dl (8.6-10.3); Creatinine Clr Calc Pharmacy 41.2 ml/min; Potassium 3.8 mmol/L (3.5-5.1)
[2024-05-19 08:09] LABS: INR 2.3 (0.9-1.1); Prothrombin Time 22.8 Seconds (9.0-12.0)
[2024-05-19] MEDS: PANTOprazole 40 MG TAB PO SCH (08:14)
[2024-05-19] MEDS: DULoxetine HCL 60 MG CAP PO SCH (08:14)
[2024-05-19] MEDS: METOPROLOL SUCC 25MG EXT REL TAB PO SCH (08:14)
[2024-05-19] MEDS: ACETAMINOPHEN 500 MG TAB PO SCH ×2 (08:15→13:33)
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
--- NOTE | 2024-05-19 10:11 | CT Scan Report ---
CT OF THE HEAD WITHOUT CONTRAST CLINICAL HISTORY: ffup, head trauma, coumadin COMPARISON STUDY: Head CT May 18, 2024. CT DOSE: 625.8 mGy.cm TECHNIQUE: Helical axial images of the head were obtained without IV contrast. Automated exposure con trol was utilized for the study. A dose lowering technique was utilized adhering to the principles o f ALARA. FINDINGS: No acute intracranial hemorrhage, midline shift or mass effect is present. White matter hyp odensities are unchanged and favor small vessel disease. The ventricular system is unremarkable. The basal cisterns are patent. No extra-axial collections are present. There are no findings to suggest a cute dural sinus thrombosis or acute territorial infarct. No significant calvarial abnormalities are present. Visualized portions of the sinuses and mastoid air cells are clear. IMPRESSION: 1. No acute intracranial findings. 2. No calvarial fractures. ACT 112: Negative or not required by law. Electronically signed by: Kael Pleitez M.D. 05/19/2024 10:09 AM
--- NOTE | 2024-05-19 13:49 | Hospitalist Progress Note ---
Date of Service May 19, 2024 Assessment & Plan (1) Recurrent falls: (2) Near syncope: (3) Hypercalcemia: (4) Anticoagulant long-term use: (5) Pathologic sternal fracture with routine healing: (6) Primary hyperparathyroidism: (7) Chronic diastolic heart failure: (8) History of permanent cardiac pacemaker placement: Plan Patient with recurrent falls in the setting of what sounds like recurrent dizziness versus vertigo versus near syncope. Orthostatic vitals negative Continue metoprolol Calcium levels improved with hydration, can continue outpatient follow-up Nephrology consultation reviewed Therapy evaluations pending Reviewed med list, Cymbalta can cause adverse reaction of dizziness, hypotension, syncope, will trial decrease in Cymbalta dose. Voicemail left at daughter's phone number Case management involved for return to [place] Monitor laboratory studies Admission and Anticipated Discharge Date Admission Date: May 18, 2024 Subjective Patient has some back pain from her fall. It does not seem as though she lost consciousness. She states she has a spell each time she falls but cannot describe it in detail. It does not sound gets true vertigo, does not sound like it is a lightheadedness or passing out type of sensation. Physical Exam Physical Exam: Constitutional: Alert HEENT: Mucous membranes moist. Lungs: Clear to auscultation, decreased, no wheezes rales or rhonchi CV: S1-S2, regular Abdomen: Soft, nontender, nondistended Extremities: No significant edema Neuro: No focal deficits Psych: Cooperative, normal mood Results & Data Results & Data Vital Signs (Past 12 Hours) Vital Signs Temp Pulse Pulse Resp BP Pulse Ox O2 Del Method 05/19/24 11:36 36.6 C 60 16 103/62 93 Room Air 05/19/24 09:34 71 115/63 05/19/24 09:33 70 123/67 05/19/24 09:32 66 123/70 05/19/24 08:13 36.5 C 62 16 111/66 92 Room Air 05/19/24 07:46 62 05/19/24 03:39 36.3 C L 62 18 111/67 95 Room Air 05/19/24 02:01 36.5 C 61 16 124/70 94 Room Air Diagnostic Findings Reviewed imaging, laboratory and diagnostic studies. Pertinent findings as below. No significant growth on urine culture Reviewed pacer interrogation no significant arrhythmias Digoxin level 1.0 PTH 59.2 Calcium 10.2
[2024-05-19] MEDS: WARFARIN SOD 4 MG TAB PO SCH (15:36)
[2024-05-19] MEDS: DIGOXIN 0.125 MG TAB PO SCH (15:36)
[2024-05-19] MEDS: ATORVASTATIN 40 MG TAB PO SCH (21:03)
[2024-05-20 07:31] LABS: BUN Creatinine Ratio 28.4 (10-20); Calcium 10.3 mg/dl (8.6-10.3); Creatinine Clr Calc Pharmacy 38.7 ml/min; Potassium 4.1 mmol/L (3.5-5.1)
[2024-05-20 07:42] LABS: INR 1.9 (0.9-1.1); Prothrombin Time 19.8 Seconds (9.0-12.0)
[2024-05-20] MEDS: DULoxetine HCL 30 MG CAP PO SCH (08:10)
[2024-05-20 11:00] VITALS: BP 102/63; RESP 22; TEMP 97.9; O2SAT 94
--- NOTE | 2024-05-20 11:56 | Nephrology Progress Note ---
Date of Service May 20, 2024 Assessment & Plan (1) Hyperparathyroidism: Plan: well known primary HPTH who's been lost to care from [facility] D stores low; PTH high normal >> abnormal and c/w primary HPTH in setting of high serum calcium significant osteoporosis, per endo worsened by HPTH; also per their notes from several years back would not give D supplements here (presumably even activated ones) >>OP f/u w/ [facility] endocrine video call CLINIC to CLINIC w/ family member/ POA present in order to make a meaningful clinic visit >>suggest facility physician/PCP follow BMP q 2-3 wks to monitor calcium until endocrine can see her >>resume/continue OP alendronate pending endo eval Care coordinated w/ Dr Herrera regarding d/c dispo, endocrine f/u, d/c meds by [facility]; we are in agreement (2) Recurrent falls: Plan: consider safety check of room > that she has lots of chairs available to " land / sit down " on or other strategies to lessen injury risk w/ fall primary service adjusting cyalta Admission and Anticipated Discharge Date Admission Date: May 19, 2024 Subjective no c/o; sitting in chair on RA; denies dyspnea, abd pain. ongoing musculoskeletal /back pain but a bit better than yesterday Review of Systems 2 Review of Systems: All systems reviewed & are unremarkable except as noted in Subjective Physical Exam 2 Constitutional: well developed, well nourished (sitting up in chair on RA) and + frail appearing; no acute distress Eyes: EOM intact bilaterally ENMT: Ears: no external ear abnormality Nose: no external nose abnormality Mouth: + dry oral mucous membranes Neck: no nuchal rigidity Respiratory: normal respiratory effort Auscultation: + diminished lung sounds and + crackles (bibasilar, fine) Cardiovascular: Rate/Rhythm: regular rate and regular rhythm Heart Sounds: + murmur Extremities: + edema (trace) Gastrointestinal (Abdomen): Inspection/Auscultation: normal bowel sounds P ercussion/Palpation: abdomen soft; abdomen nontender Musculoskeletal: Extremities: strength 5/5 throughout Skin: no rashes, warm and dry Results & Data Vital Signs (Past 12 Hours) Vital Signs Temp Pulse Pulse Resp BP Pulse Ox O2 Del Method 05/20/24 10:59 36.6 C 63 22 102/63 94 Room Air 05/20/24 08:10 Room Air 05/20/24 07:19 36.5 C 60 18 111/65 90 Room Air 05/20/24 06:45 65 05/20/24 03:18 36.3 C L 68 18 113/64 95 Room Air Laboratory Results 05/19/24 07:05 05/20/24 06:42
--- NOTE | 2024-05-20 13:17 | XRay Report ---
XR thoracic spine 3V routine HISTORY: 88 years-old Female pain, recent fall acute mid back pain status post fall COMPARISON: Chest CT 05/18/2024 TECHNIQUE: 3 views of the thoracic spine FINDINGS: Shoulder arthroplasties. Cardiomegaly with valvular prosthesis and left subclavian pacer lead. Cholec ystectomy. Mild to moderate multilevel and vertebral disc space narrowing with moderate facet arthros is and spondylotic spurring redemonstrated. Mild superior endplate compression deformities at T1 and T3 appear chronic. Chronic L1 compression deformity with kyphoplasty. No acute fracture or subluxatio n identified. IMPRESSION: 1. No acute fracture or subluxation. 2. Chronic T1, T3 and L1 compression deformities. ACT 112: Negative or not required by law. The above report was generated using voice recognition software. It may contain grammatical, syntax o r spelling errors. Electronically signed by: Fabio Del Toro M.D. 05/20/2024 1:15 PM
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
[2024-05-20 14:43] VITALS: PULSE 65
[2024-05-20] MEDS: WARFARIN SOD 2 MG TAB PO SCH (15:01)
--- NOTE | 2024-05-21 05:43 | Electrocardiogram Report ---
Test Reason : Blood Pressure : */* mmHG Vent. Rate : 78 BPM Atrial Rate : 64 BPM P-R Int : * ms QRS Dur : 214 ms QT Int : 448 ms P-R-T Axes : * -69 102 degrees QTcB Int : 510 ms Poor data quality, interpretation may be adversely affected Ventricular-paced rhythm Abnormal ECG When compared with ECG of 02-Dec-2023 23:54, Vent. rate has increased by 12 bpm Confirmed by Maik Sosa ([id number]) on 05/21/2024 5:43:05 AM Referred By: LESLEE Confirmed By: Maik Sosa
== END 2024-05-20 15:29 | disposition home or self-care (01) | DRG 312 ==
LOC: 2N 19:43 → ED 19:43 → 2N 05-19 01:03